=== PATIENT | female | born 1945 | race Caucasian/White ===

== ENCOUNTER 2023-03-29 09:59 | Outpatient (AMB) | payer MEDICARE, SELFPAY ==
[2023-03-29 10:06] VITALS: BP 132/80; PULSE 77; O2SAT 95; BMI 23.3
--- NOTE | 2023-03-29 10:06 | A.OFFPC_ITS ---
Vital Signs 03/29/23 10:06 Height 5 ft 5 in Weight 140 lb BMI 23.3 BP 132/80 Blood Pressure Location Lt brachial Position Sitting Pulse 77 Pulse Source Pulse Oximeter Pulse Oximetry (%) 95 Oxygen Delivery Method Room Air Intake Visit Reasons: New patient-Diabetes Intake Note: Patient is a new patient with a history of diabetes. Allergies penicillin V Allergy (Mild, Verified 03/29/23 10:12) phlebitis scallops Allergy (Mild, Verified 03/29/23 10:13) sick cramps Medication List - Last Reconciled 03/29/23 by Wojciech Valladares MD albuterol sulfate 90 mcg/actuation 2 puffs inhalation Q6H PRN aspirin 81 mg PO DAILY cholecalciferol (vitamin D3) 125 mcg PO DAILY empagliflozin (Jardiance) 10 mg PO DAILY gabapentin 300 mg PO BID hydrochlorothiazide 25 mg PO DAILY insulin detemir U-100 12 units subcut BEDTIME losartan 25 mg PO DAILY metformin 500 mg PO DAILY pravastatin 10 mg PO DAILY Tobacco use date assessed: 03/29/23 Fall risk assessment: 1 Fall in past year Last assessed Fall Risk: 03/29/23 Dental Screening Dental Screen Date: 03/29/23 Did you have a dental visit in the last 12 months?: Yes Did you have a dental problem in the last 6 months where you did not have access to dental care?: No Was dental information given to patient?: No HPI New patient-Diabetes HPI Details New patient Prior PCP:?Bassam Montaño from [place] Last office visit/CPE: October, CPE April Acute issue(s): Diabetes -A1c today 03/29/23 is 6.6%. -Is on insulin determir, Jardiance 10mg and metformin 500mg daily. She denies any problems with her medication regimen. Difficulty Sleeping Dysuria PMHx: CAD, Stent, HTN, HLD, OA knees, R Hip Fx SurgHx: Stent, Varicose vein stripping, R Hip ORIF, Tonsils, Cataracts FHx: Mom: HTN, Asthma. Dad: Unknown SocHx: Nonsmoker. EtOH none. PFS Medical History (Updated 03/29/23 @ 11:13 by Yonathan Acosta) Cataracts, bilateral Diabetes 1.5, managed as type 2 Tonsillitis Surgical History (Updated 03/29/23 @ 10:23 by Lorraine Gama CMA) H/O eye surgery H/O vein stripping History of hip surgery S/P TAVR (transcatheter aortic valve replacement) Stented coronary artery Family History (Updated 03/29/23 @ 10:25 by Lorraine Gama CMA) Mother Cerebral hemorrhage Social History (Updated 03/29/23 @ 10:27 by Lorraine Gama CMA) Household Members: None Housing: Other Housing Other:: trailer Are you a primary career guidance technician to a significant other at home: No Do you presently have visiting nurse or other home services: No Alcohol intake: never Patient Tobacco Use Status: Former Tobacco user e-Cigarette/Vaping Use: Never Used Special justino needs: No service: No Current occupational status: retired Cognitive needs: No Hearing needs: No Vision needs: No Questionnaire PHQ-9 Over the last 2 weeks, how often have you been bothered by any of the following problems? 1. Little interest or pleasure in doing things: not at all 2. Feeling down, depressed, or hopeless: not at all 3. Trouble falling or staying asleep, or sleeping too much: not at all 4. Feeling tired or having little energy: not at all 5. Poor appetite or overeating: not at all 6. Feeling bad about yourself - or that you are a failure or have let yourself or your family down: not at all 7. Trouble concentrating on things, such as reading the newspaper or watching television: not at all 8. Moving or speaking so slowly that other people could have noticed. Or the opposite - being so fidgety or restless that you have been moving around a lot more than usual: not at all 9. Thoughts that you would be better off or of hurting yourself in some way: not at all Total score: 0 Source: Developed by Drs. Simone Lombardi, Sydnee Sarkar, Garret Whyte and colleagues, with an educational jacey from [employer]. Thrive Questionnaire I am a: Patient What is your living situation today?: I have a steady place to live Within the past 12 months, did the food you bought not last and you didn't have the money to get more?: Never true Within the past 12 months, did you worry whether your food would run out before you got money to buy more?: Never true Do you have trouble paying for medicines?: Yes Do you have trouble getting transportation to medical appointments?: No Do you have trouble paying your heating and electricity bill?: Yes Do you have trouble taking care of your child, family member or friend?: No Do you have trouble with day-to-day activities such as bathing, preparing meals, shopping, managing finances, etc.?: Yes Are you currently unemployed and looking for a job?: No Are you interested in more education?: No AUDIT C Alcohol Use Questionnaire (AUDIT-C) 1. How often do you have a drink containing alcohol?: Never 3. How often do you have six or more drinks on one occasion?: Never Total Score: 0 CHIQUITA-7 AMB Questionnaire CHIQUITA-7 Feeling nervous, anxious, or on edge: 0 = Not at all Not being able to stop or control worryin = Not at all Worrying too much about different things: 0 = Not at all Trouble relaxin = Not at all Being so restless that it is hard to sit still: 0 = Not at all Becoming easily annoyed or irritable: 0 = Not at all Feeling afraid as if something awful might happen: 0 = Not at all Total CHIQUITA-7 score (0-4 normal; 5-9 mild; 10-14 moderate; 15-21 severe): 0 Source: Developed by Drs. Simone Lombardi, Sydnee Sarkar, Garret Whyte and colleagues, with an educational jacey from [employer]. ACT Questionnaire In the past 4 weeks, how much of the time did your asthma keep you from getting as much done at work, school or at home?: None of the time During the past 4 weeks, how often have you had shortness of breath?: Not at all During the past 4 weeks, how often did your asthma symptoms wake you up at night or earlier than usual in the morning?: Not at all During the past 4 weeks, how often have you had to use your rescue inhaler or nebulizer medication?: Once a week or less How would you rate your asthma control during the past 4 weeks?: Well controlled Score: 23 Review of Systems Const Denies chills, Denies fatigue, Denies fever(s), Denies headache(s) and Denies weakness ENT Denies dizziness and Denies headache(s) Card Denies chest pain, Denies lightheadedness, Denies dyspnea and Denies other (Palpitations) Resp Denies cough, Denies dyspnea, Denies wheezing and Denies other ( shortness of breath) Musc Denies numbness and Denies tingling Neuro Denies dizziness, Denies headache(s), Denies numbness, Denies tingling, Denies paresthesias and Denies weakness Psych Denies anxiety and Denies depression Endo Denies fatigue Aller/Immun Denies wheezing Physical exam (Primary Care) Vital Signs: Last Vital Signs Pulse 77 03/29/23 10:06 BP 132/80 03/29/23 10:06 Pulse Ox 95 03/29/23 10:06 Oxygen Delivery Method Room Air 03/29/23 10:06 BMI result Body Mass Index 23.3 Tobacco/Smoking Status: Tobacco use Status Tobacco use date assessed 03/29/23 03/29/23 10:33 Patient Tobacco Use Status Former Tobacco user 03/29/23 10:33 e-Cigarette/Vaping Use Never Used 03/29/23 10:33 PHQ-9: PHQ-9 Score PHQ-9: Total score 0 03/29/23 10:56 Const General: no acute distress and well developed Nutritional Appearance: well nourished Orientation/consciousness: patient oriented x3 [facility] Head: Yes normocephalic and Yes atraumatic Eyes General: appearance normal, both eyes and all related structures Pupils: Equal, round and reactive pupils present EOM: EOMs intact bilaterally Resp Effort & Inspection: normal respiratory effort Auscultation: clear to auscultation bilaterally Cardio Rate: regular rate Rhythm: regular rhythm Heart sounds: Murmur heart sound present (aortic murmur) Neuro General: patient oriented x3 and gait normal Cranial nerves: Yes Equal, round and reactive pupils present Psych Affect: normal affect Results AMB Hemoglobin A1c AMB Hemoglobin A1c 6.6 % Last Edit by Lorraine Gama CMA on 03/29/23 10:45 AMB Urinalysis Dipstick UR Leukocytes Large Last Edit by Lorraine Gama CMA on 03/29/23 11:31 UR Nitrite Positive Last Edit by Lorraine Gama CMA on 03/29/23 11:31 UR Urobilinogen Normal Last Edit by Lorraine Gama CMA on 03/29/23 11:31 UR Protein Negative Last Edit by Lorraine Gama CMA on 03/29/23 11:31 UR Ph 6.0 Last Edit by Lorraine Gama CMA on 03/29/23 11:31 UR Blood Small Last Edit by Lorraine Gama CMA on 03/29/23 11:31 UR Specific [place] 1.010 Last Edit by Lorraine Gama CMA on 03/29/23 11:3 1 UR Ketone Negative Last Edit by Lorraine Gama CMA on 03/29/23 11:31 UR Bilirubin Negative Last Edit by Lorraine Gama CMA on 03/29/23 11:31 UR Glucose 2000 Last Edit by Lorraine Gama CMA on 03/29/23 11:31 Results Reviewed Results Reviewed: Laboratory Last Values Hgb A1c (Clinic) 6.6 % (4.0-6.0) H 03/29/23 10:40 Urine pH (Clinic) 6.0 03/29/23 11:27 Specific [place] (Clinic) 1.010 03/29/23 11:27 Ur Protein (Clinic) Negative 03/29/23 11:27 Ur Ketones (Clinic) Negative 03/29/23 11:27 Urine Blood (Clinic) Small 03/29/23 11:27 Urine Nitrite Positive 03/29/23 11:27 Urine Bilirubin (Clinic) Negative 03/29/23 11:27 Urobilinogen (Clinic) Normal 03/29/23 11:27 Leukocyte Esterase (Clinic) Large 03/29/23 11:27 Urine Glucose (Clinic) 2000 03/29/23 11:27 Assessment and Plan Assessment & Plan (1) Hypertension: Code(s): I10 - Essential (primary) hypertension Plan: Blood pressure is fairly well controlled. Goal is less than 130/80 Continue current medication regimen (2) Diabetes 1.5, managed as type 2: Code(s): E13.9 - Other specified diabetes mellitus without complications Plan: A1c 6.6%. Good control. Goal is less than 7.0% Continue current medication regimen (3) Difficulty sleeping: Code(s): G47.9 - Sleep disorder, unspecified Plan: Primarily difficulty falling asleep Trial trazodone - risks/benefits discussed (4) Dysuria: Code(s): R30.0 - Dysuria Plan: Urine dip suspicious for UTI Start nitrofurantoin Hydrate well Sending urine for culture and sensitivities (5) Coronary artery disease: Code(s): I25.10 - Atherosclerotic heart disease of [place] coronary artery without angina pectoris Plan: History of coronary artery disease and stent Currently on pravastatin and aspirin Check lipids Maintain good blood pressure and blood sugar control (6) Osteoarthritis: Code(s): M19.90 - Unspecified osteoarthritis, unspecified site Plan: Bilateral knee pain Continue gabapentin Can use Tylenol and topicals as well as ice and heat (7) Laboratory exam ordered as part of routine general medical examination: Code(s): Z00.00 - Encounter for general adult medical examination without abnormal findings Plan: Check labs Orders: Orders Comprehensive [place]. Panel Fast Today Z00.00 - Encounter for general adult medical examination without abnormal findings Lipid Panel Today Z00.00 - Encounter for general adult medical examination without abnormal findings TSH reflex Free T4 Today Z00.00 - Encounter for general adult medical examination without abnormal findings Microalbumin, Random (w Creat) Today I10 - Essential (primary) hypertension Complete Blood Count Auto Diff Today Z00.00 - Encounter for general adult medical examination without abnormal findings UA and rflx microscopic Today Z00.00 - Encounter for general adult medical examination without abnormal findings Urine Culture Today R30.0 - Dysuria AMB Hemoglobin A1c Today Z13.9 - Encounter for screening, unspecified Urine Dipstick Today R30.0 - Dysuria AMB Urinalysis Dipstick Today R30.0 - Dysuria Medications: New nitrofurantoin macrocrystal must administer with a meal/food 100 mg PO Q12H 7 days 14 caps 0RF trazodone 25 mg (1/2 x 50 mg) PO BEDTIME PRN 30 tabs 0RF sleep 30 days Coding Level of Care Code New Pt Level 4 (12800) Diagnoses Hypertension I10 Diabetes 1.5, managed as type 2 E13.9 Difficulty sleeping G47.9 Dysuria R30.0 Coronary artery disease I25.10 Osteoarthritis M19.90 Laboratory exam ordered as part of routine general medical examination Z00.00
== END 2023-03-29 11:51 | disposition home or self-care (01) ==
PROVIDERS: Visit Provider Family Medicine
DX: I10 Essential (primary) hypertension (principal); E13.9 Other specified diabetes mellitus without complications; G47.9 Sleep disorder, unspecified; R30.0 Dysuria; I25.10 Atherosclerotic heart disease of native coronary artery without angina pectoris; M19.90 Unspecified osteoarthritis, unspecified site
CPT/HCPCS: 81002; 83036; 99204

== ENCOUNTER 2023-03-29 11:17 | Outpatient (REF) | payer MEDICARE, SELFPAY ==
[2023-03-29 14:30] LABS: Appearance Urine Cloudy; Color Urine Yellow; Glucose Urine UA >=1000 mg/dL (Negative); Leukocyte Esterase Urine Moderate (2+) (Negative); Nitrite Urine Negative (Negative); Specific Gravity - Urine 1.015 (1.005-1.025); UMIC TRIGGER UA YES; Urine Blood Trace (Negative); Urine Ketones Negative (Negative); Urine Protein Negative (Neg-Trace)
[2023-03-29 14:33] LABS: Bacteria Urine 4+ (None Seen); Hyaline Casts Urine 0-2 /LPF (0-2); RBC Urine 0-2 /HPF (0-2); Squamous Epithelial Cell Urine 0-2 /HPF (0-2); WBC Urine >50 /HPF (0-5)
[2023-03-29 15:23] LABS: Creatinine Urine 24.82 mg/dL; Microalbum/Creatinine Ratio Ur 60.4 ug/mg cr
== END 2023-03-29 11:18 | disposition home or self-care (01) ==
LOC: HO.LAB 11:17
PROVIDERS: Visit Provider Family Medicine
DX: I10 Essential (primary) hypertension (principal); R30.0 Dysuria
CPT/HCPCS: 81001; 82043; 87086; 87088; 87186

== ENCOUNTER 2023-06-02 08:51 | Outpatient (REF) | payer MEDICARE, SELFPAY ==
[2023-06-02 11:39] LABS: MANUAL DIFF FLAG NO
[2023-06-02 11:50] LABS: Basophils Absolute Auto 0.1 X10*3/uL (0.0-0.2); Basophils Percent Auto 1.1 % (0-2); Eosinophils Absolute Auto 0.7 X10*3/uL (0.0-0.4); Eosinophils Percent Auto 6.6 % (0-4); Hematocrit 41.6 % (37.0-47.0); Hemoglobin 12.8 g/dl (12.0-16.0); Imm Gran Abs Auto 0.03 X10*3/uL (0.00-0.03); Imm Gran Pct Auto 0.3 % (0.0-0.4); Lymphocytes Percent Auto 19.1 % (20-40); Mean Corpuscular HGB Conc 30.8 g/dl (31.0-35.0); Mean Corpuscular Hemoglobin 23.8 pg (27.0-33.0); Mean Corpuscular Volume 77.5 fL (80.0-98.0); Mean Platelet Volume 11.6 fL (9.4-12.3); Monocytes Absolute Auto 1.3 X10*3/uL (0.1-1.2); Monocytes Percent Auto 12.7 % (2-11); Neutrophils Absolute Auto 6.1 x10*3/uL (2.0-8.3); Neutrophils Percent Auto 60.2 % (45-73); Platelet Count 360 X10*3/uL (160-400); Red Blood Count 5.37 X10*6/uL (4.20-5.50); Red Cell Distribution Width 17.2 % (11.0-16.0); White Blood Count 10.2 X10*3/uL (4.8-10.8)
[2023-06-02 11:52] LABS: Appearance Urine Clear; Color Urine Yellow; Glucose Urine UA >=1000 mg/dL (Negative); Leukocyte Esterase Urine Small (1+) (Negative); Nitrite Urine Negative (Negative); PH 6.5 (5.0-9.0); Specific Gravity - Urine 1.015 (1.005-1.025); UMIC TRIGGER UA YES; Urine Blood Negative (Negative); Urine Ketones Negative (Negative); Urine Protein Negative (Neg-Trace)
[2023-06-02 11:55] LABS: Bacteria Urine None Seen (None Seen); Hyaline Casts Urine 0-2 /LPF (0-2)
[2023-06-02 12:24] LABS: Alanine Aminotransferase 8 U/L (0-31); Alkaline Phosphatase 80 U/L (39-117); Anion Gap 16 (12-20); Aspartate Amino Transferase 13 U/L (5-31); Bilirubin Total 0.5 mg/dL (0.0-1.0); Blood Urea Nitrogen 16 mg/dL (9-16); Calcium 9.8 mg/dL (8.4-10.2); Carbon Dioxide 27 mmol/L (22-29); Chloride 101 mmol/L (96-108); Cholesterol 138 mg/dL (<200); Estimated Glomerular Filt Rate > 60; Glucose Fasting 109 mg/dL (60-99); HDL Cholesterol 41 mg/dL (>40); LDL Cholesterol Calculated 78 mg/dL (<100); Potassium 3.7 mmol/L (3.3-5.1); Sodium 140 mmol/L (135-145); Triglycerides 96 mg/dL (<150)
== END 2023-06-02 08:52 | disposition home or self-care (01) ==
LOC: HO.WFDLDS 08:51
PROVIDERS: Visit Provider Family Medicine
DX: Z00.00 Encounter for general adult medical examination without abnormal findings (principal); R82.90 Unspecified abnormal findings in urine
CPT/HCPCS: 36415; 80053; 80061; 81001; 84443; 85025

== ENCOUNTER 2023-06-14 10:52 | Outpatient (AMB) | payer MEDICARE, SELFPAY ==
--- NOTE | 2023-06-14 11:08 | MHC.PC.OV ---
Vital Signs 06/14/23 11:12 Height 5 ft 5 in Weight 143 lb 2 oz BMI 23.8 BP 102/58 L Blood Pressure Location Lt brachial Position Sitting Pulse 83 Pulse Source Pulse Oximeter Pulse Oximetry (%) 96 Oxygen Delivery Method Room Air Intake Visit Reasons: Extended exam with f/u labs and health maintenance Intake Note: Patient is here for extended exam and follow up on labs and health maintenance. Patient is concerned about low blood pressure for a few weeks. Allergies penicillin V Allergy (Mild, Verified 06/14/23 11:16) phlebitis scallops Allergy (Mild, Verified 06/14/23 11:16) sick cramps Medication List - Last Reconciled 06/14/23 by Wojciech Valladares MD albuterol sulfate 90 mcg/actuation 2 puffs inhalation Q6H PRN aspirin 81 mg PO DAILY cholecalciferol (vitamin D3) 125 mcg PO DAILY empagliflozin (Jardiance) 10 mg PO DAILY gabapentin 300 mg PO BID hydrochlorothiazide 25 mg PO DAILY insulin detemir U-100 12 units subcut BEDTIME losartan 25 mg PO DAILY metformin 500 mg PO DAILY pravastatin 10 mg PO DAILY trazodone 25 mg (1/2 x 50 mg) PO BEDTIME PRN 30 days Tobacco use date assessed: 06/14/23 Fall risk assessment: 1 Fall in past year Last assessed Fall Risk: 06/14/23 HPI Extended exam with f/u labs and health maintenance HPI Details 77 y/o female presents for an extended exam with f/u labs and health maintenance. Labs were drawn 06/02/23. Reviewed labs with pt. Elevated fasting glucose of 109 and last A1c 03/29/23 6.6%. Triglycerides 96. TC 138. LDL 78. HDL 41. Urine RBC 3-5/HPF. Some urine WBC at 6-10 /HPF. Blood pressure today 102/58. She is on hydrochlorothiazide 25mg and losartan 25mg daily. Pt reports bilateral knee pain. [facility], [facility] Medical History (Updated 06/14/23 @ 12:33 by Yonathan Acosta) Cataracts, bilateral Tonsillitis Diabetes 1.5, managed as type 2 Surgical History (Updated 03/29/23 @ 10:23 by Lorraine Gama [facility]) H/O eye surgery H/O vein stripping History of hip surgery Stented coronary artery S/P TAVR (transcatheter aortic valve replacement) Family History (Updated 03/29/23 @ 10:25 by Lorraine Gama CMA) Mother Cerebral hemorrhage Social History (Updated 03/29/23 @ 10:27 by Lorraine Gama CMA) Household Members: None Housing: Other Housing Other:: trailer Are you a primary nursing care attendant to a significant other at home: No Do you presently have visiting nurse or other home services: No 75 years or older and lives alone: Yes Alcohol intake: never Patient Tobacco Use Status: Former Tobacco user e-Cigarette/Vaping Use: Never Used Special justino needs: No service: No Current occupational status: retired Cognitive needs: No Hearing needs: No Vision needs: No Review of Systems Const Denies chills, Denies fatigue, Denies fever(s), Denies headache(s) and Denies weakness Eyes Denies change in vision ENT Denies dizziness, Denies headache(s), Denies hearing loss, Denies nasal congestion, Denies sinus pain, Denies sinus pressure and Denies sore throat Card Denies chest pain, Denies lightheadedness, Denies dyspnea and Denies other (palpitations) Resp Denies cough, Denies dyspnea and Denies wheezing GI Denies abdominal pain, Denies melena, Denies hematochezia, Denies change in bowel habits, Denies dyspepsia and Denies nausea Denies hematuria and Denies dysuria Musc Denies abnormal gait, Denies myalgias, Denies arthralgias, Denies numbness and Denies tingling Skin/Breast Denies rash, Denies unusual bruising and Denies wounds Neuro Denies abnormal gait, Denies dizziness, Denies headache(s), Denies memory loss, Denies numbness, Denies Sensory deficit (Neuro), Denies tingling and Denies weakness Psych Denies anxiety, Denies depression and Denies memory loss Endo Denies cold intolerance, Denies fatigue, Denies heat intolerance, Denies polydipsia and Denies polyuria Harman/Lymph Denies easy bleeding and Denies easy bruising Aller/Immun Denies wheezing Physical exam (Primary Care) Vital Signs: Last Vital Signs Pulse 83 06/14/23 11:12 BP 102/58 L 06/14/23 11:12 Pulse Ox 96 06/14/23 11:12 Oxygen Delivery Method Room Air 06/14/23 11:12 BMI result Body Mass Index 23.8 Tobacco/Smoking Status: Tobacco use Status Tobacco use date assessed 06/14/23 06/14/23 11:16 Patient Tobacco Use Status Former Tobacco user 06/14/23 11:10 e-Cigarette/Vaping Use Never Used 06/14/23 11:10 Const General: no acute distress, well developed, alert and awake Nutritional Appearance: well nourished Orientation/consciousness: patient oriented x3 HEN[facility] Head: Yes normocephalic and Yes atraumatic Ears: hearing grossly normal bilaterally and TM's normal bilaterally General nose exam: Normal external nose present and Normal nares present Mouth: Normal oral and palatal mucosa present and moist mucous membranes Teeth and gingiva: dentition normal Throat: Yes posterior oropharynx normal Eyes General: appearance normal, both eyes and all related structures Pupils: Equal, round and reactive pupils present and Pupil accommodation reflex normal EOM: EOMs intact bilaterally Neck Neck: Yes normal visual inspection, Yes no lymphadenopathy and Yes trachea midline Thyroid: Thyroid normal Carotids: no bruits Lymphatic: no lymphadenopathy noted Chest Chest palpation & inspection: normal inspection of the chest Resp Effort & Inspection: normal respiratory effort Auscultation: clear to auscultation bilaterally Cardio Rate: regular rate Rhythm: regular rhythm Heart sounds: S1 normal heart sound present, S2 normal heart sound present, no gallops, no murmurs and no rubs Bruits: no abdominal aortic bruits and carotid bruit (L ) GI Palpation (GI): No Abdominal aortic bruit present, Soft to palpation, nontender, No hepatosplenomegaly present and No Rebound tenderness present Auscultation: normal bowel sounds General: Yes no CVA tenderness Back/Spine/Pelvis Back: no CVA tenderness Cervical Spine: cervical ROM normal and No Cervical spine tenderness Thoracic/Lumbar Spine: thoraco-lumbar ROM normal, No pain with thoraco-lumbar ROM, No thoracic spinal tenderness and No lumbar spinal tenderness Skin Lesions: no lesions Rashes: no rashes Trauma: no lacerations or abrasions Wounds: no wounds Nails: normal Neuro General: patient oriented x3 Cranial nerves: Yes Equal, round and reactive pupils present Cognition (Neuro): normal cognition Gait exam (Neuro): Normal gait present Motor exam (neuro): 5/5 motor strength present throughout Sensory Exam: No Sensory deficit (Neuro) Deep tendon reflexes (DTR's): Right patellar reflex intensity grade: 2+ and Left patellar reflex intensity grade: 2+ Extrem General: Yes normal to inspection and No edema Psych Appearance: grossly normal Affect: normal affect Attitude: cooperative Thought process: Normal thought process present Assessment and Plan Assessment & Plan (1) Carotid bruit: Code(s): R09.89 - Other specified symptoms and signs involving the circulatory and respiratory systems Plan: Patient?with?hyperlipidemia?and?coronary?artery?disease - left?carotid?bruit Check?carotid?ultrasound (2) Coronary artery disease: Code(s): I25.10 - Atherosclerotic heart disease of habematolel coronary artery without angina pectoris Plan: LDL?cholesterol?is?above?goal?of?less?than?70 Increase?pravastatin (3) Hypertension: Code(s): I10 - Essential (primary) hypertension Plan: Blood?pressure?is?a?little?low?and?she?notes?some?lightheadedness Will?ease?up?on?hydrochlorothiazide Decrease?hydrochlorothiazide?from?25?mg?daily?to?12.5?mg?daily (4) Diabetes 1.5, managed as type 2: Code(s): E13.9 - Other specified diabetes mellitus without complications Plan: Last?A1c?6.6%?showed?good?control.??Goal?is?less?than?7.0% No?changes?to?blood?sugar?regimen (5) Hematuria: Code(s): R31.9 - Hematuria, unspecified Plan: History?of?urinary?tract?infection?which?was?treated?with?Bactrim (6) Bilateral knee pain: Code(s): M25.561 - Pain in right knee; M25.562 - Pain in left knee Plan: Patient?has?[id number]?osteoarthritis?bilateral?knees Follow-up?with?orthopedic?specialist?as?recommended (7) Abscess of foot: Code(s): L02.619 - Cutaneous abscess of unspecified foot Plan: Abscess?on?great?toe Can?use?Epson?salt?soaks?and?blister?bandages Will?likely?come?to?a?head?and?drain?and?she?can?encouraged?this Referred?to?Podiatry (8) Carotid bruit: Code(s): R09.89 - Other specified symptoms and signs involving the circulatory and respiratory systems Plan: As?above (9) Screening for colon cancer: Code(s): Z12.11 - Encounter for screening for malignant neoplasm of colon Plan: Up-to-date.??She?says?her?next?colonoscopy?is?scheduled?for?next?year?and?this?will?be?her?last. (10) Cerumen impaction: Code(s): H61.20 - Impacted cerumen, unspecified ear (11) Breast cancer screening by mammogram: Code(s): Z12.31 - Encounter for screening mammogram for malignant neoplasm of breast Plan: Declines?mammogram Advised?her?to?let?me?know?if?she?notices?any?problem (12) Screening for osteoporosis: Code(s): Z13.820 - Encounter for screening for osteoporosis Plan: Bone?density?ordered (13) Cerumen debris on tympanic membrane of right ear: Code(s): H61.21 - Impacted cerumen, right ear Plan: Improved/resolved?after?ear?lavage?in?office?by?medical?department assistant She?can?use?Debrox?drops?2?to?3?times?a?week (14) Adult general medical exam: Code(s): Z00.00 - Encounter for general adult medical examination without abnormal findings Plan: 77-year-old?female?presents?for?an?extended?exam Stable Orders: Orders US carotid duplex BI Today E78.5 - Hyperlipidemia, unspecified, I25.10 - Atherosclerotic heart disease of habematolel coronary artery without angina pectoris, R09.89 - Other specified symptoms and signs involving the circulatory and respiratory systems XR DEXA axial skeleton Today M81.0 - Age-related osteoporosis without current pathological fracture Lipid Panel Today E78.5 - Hyperlipidemia, unspecified, Z00.00 - Encounter for general adult medical examination without abnormal findings Comprehensive [place]. Panel Fast Today E78.5 - Hyperlipidemia, unspecified, Z00.00 - Encounter for general adult medical examination without abnormal findings Referrals Podiatry Referral L02.619 - Cutaneous abscess of unspecified foot Medications: Changed From hydrochlorothiazide 25 mg PO DAILY To hydrochlorothiazide 12.5 mg PO DAILY 90 days 90 tabs 2RF From pravastatin 10 mg PO DAILY To pravastatin 20 mg PO DAILY 90 days 90 tabs 2RF Discontinued sulfamethoxazole-trimethoprim 800-160 mg (Bactrim DS) Discontinued Reason: Patient Completed Course 1 tab PO Q12H 5 days 10 tabs 0RF nitrofurantoin macrocrystal must administer with a meal/food Discontinued Reason: Patient Completed Course 100 mg PO Q12H 7 days 14 caps 0RF Coding Level of Care Code Est Pt Level 4 (62284) Diagnoses Carotid bruit R09.89 Coronary artery disease I25.10 Hypertension I10 Diabetes 1.5, managed as type 2 E13.9 Hematuria R31.9 Bilateral knee pain M25.561; M25.562 Abscess of foot L02.619 Screening for colon cancer Z12.11 Cerumen impaction H61.20 Breast cancer screening by mammogram Z12.31 Screening for osteoporosis Z13.820 Cerumen debris on tympanic membrane of right ear H61.21 Adult general medical exam Z00.00
[2023-06-14 11:12] VITALS: BP 102/58; PULSE 83; O2SAT 96; BMI 23.8
== END 2023-06-14 12:37 | disposition home or self-care (01) ==
PROVIDERS: PCP Family Medicine; Visit Provider Family Medicine
DX: R09.89 Other specified symptoms and signs involving the circulatory and respiratory systems (principal); E13.9 Other specified diabetes mellitus without complications; I25.10 Atherosclerotic heart disease of native coronary artery without angina pectoris; I10 Essential (primary) hypertension; R31.9 Hematuria, unspecified; M25.561 Pain in right knee; M25.562 Pain in left knee; L02.619 Cutaneous abscess of unspecified foot; H61.21 Impacted cerumen, right ear
CPT/HCPCS: 99214

== ENCOUNTER 2024-01-12 08:45 | Outpatient (REF) | payer MEDICARE, SELFPAY ==
[2024-01-12 11:43] LABS: Appearance Urine Clear; Color Urine Yellow; Glucose Urine UA >=1000 mg/dL (Negative); Leukocyte Esterase Urine Trace (Negative); Nitrite Urine Negative (Negative); UMIC TRIGGER UA YES; Urine Blood Negative (Negative); Urine Ketones Negative (Negative); Urine Protein Negative (Neg-Trace)
[2024-01-12 11:50] LABS: Bacteria Urine None Seen (None Seen); Hyaline Casts Urine 0-2 /LPF (0-2); RBC Urine 0-2 /HPF (0-2); WBC Urine 0-5 /HPF (0-5)
[2024-01-12 12:37] LABS: Alanine Aminotransferase 10 U/L (0-31); Albumin Level 3.7 g/dL (3.5-5.0); Alkaline Phosphatase 84 U/L (39-117); Anion Gap 11 (12-20); Aspartate Amino Transferase 18 U/L (5-31); Bilirubin Total 0.4 mg/dL (0.0-1.0); Blood Urea Nitrogen 13 mg/dL (9-16); Calcium 9.1 mg/dL (8.4-10.2); Carbon Dioxide 28 mmol/L (22-29); Chloride 106 mmol/L (96-108); Cholesterol 117 mg/dL (<200); Estimated Glomerular Filt Rate > 60; Glucose Fasting 89 mg/dL (60-99); HDL Cholesterol 44 mg/dL (>40); LDL Cholesterol Calculated 60 mg/dL (<100); Potassium 3.9 mmol/L (3.3-5.1); Sodium 141 mmol/L (135-145); Total Protein 6.4 g/dL (6.5-8.0); Triglycerides 68 mg/dL (<150)
== END 2024-01-12 08:46 | disposition home or self-care (01) ==
LOC: HO.WFDLDS 08:45
PROVIDERS: Visit Provider Family Medicine
DX: Z00.00 Encounter for general adult medical examination without abnormal findings (principal); E78.5 Hyperlipidemia, unspecified
CPT/HCPCS: 36415; 80053; 80061; 81001

== ENCOUNTER 2024-01-18 16:25 | Outpatient (AMB) | payer MEDICARE, SELFPAY ==
[2024-01-18 16:29] VITALS: BP 122/58; PULSE 81; O2SAT 96; BMI 24.2
--- NOTE | 2024-01-18 16:29 | A.OFFPC_ITS ---
Vital Signs 01/18/24 16:29 Height 5 ft 5 in Weight 145 lb 8 oz BMI 24.2 BP 122/58 L Blood Pressure Location Lt brachial Position Sitting Pulse 81 Pulse Source Pulse Oximeter Pulse Oximetry (%) 96 Oxygen Delivery Method Room Air Intake Visit Reasons: diabetes Intake Note: Patient is here to follow up on diabetes. Patient needs refill of Gabapentin and Metformin for 90 days. She needs referrals for [facility] Nay NARAYANAN, and Dr. Juan C Rios, and [facility]. Allergies penicillin V Allergy (Mild, Verified 01/18/24 16:35) phlebitis scallops Allergy (Mild, Verified 01/18/24 16:35) sick cramps Medication List - Last Reconciled 01/18/24 by Wojciech Valladares MD albuterol sulfate 90 mcg/actuation 2 puffs inhalation Q6H PRN aspirin 81 mg PO DAILY cholecalciferol (vitamin D3) 125 mcg PO DAILY empagliflozin (Jardiance) 10 mg PO DAILY gabapentin 300 mg PO BID 90 days hydrochlorothiazide 12.5 mg PO DAILY 90 days insulin detemir U-100 12 units subcut BEDTIME losartan 25 mg PO DAILY metformin 500 mg PO DAILY 90 days nirmatrelvir-ritonavir 300 mg (150 mg x 2)-100 mg (Paxlovid) take TWO 150 mg tablets of nirmatrelvir with ONE 100 mg tablet of ritonavir twice daily for 5 days PO. Hold Trazodone while on this med. pravastatin 20 mg PO DAILY 90 days trazodone 25 mg (1/2 x 50 mg) PO BEDTIME PRN 30 days Tobacco use date assessed: 01/18/24 Fall risk assessment: No Falls in past year Last assessed Fall Risk: 01/18/24 Dental Screening Dental Screen Date: 01/18/24 Did you have a dental visit in the last 12 months?: No Did you have a dental problem in the last 6 months where you did not have access to dental care?: No Was dental information given to patient?: Patient has dentist HPI diabetes HPI0 Details 78 y/o female presents to f/u diabetes, hypertension, HLD with CAD and L carotid bruit for which I have ordered a carotid ultrasound. Labs were drawn 01/12/24. Reviewed labs with pt. Triglycerides 68. TC 117. LDL 60. HDL 44. She is on pravastatin 20 mg daily. Last A1c 03/29/23 6.6%. She is on Jardiance 10mg, insulin determinr 12 units, metformin 500mg daily. A1c today 01/18/24 is 6.6%. Blood pressure today is 122/58. She is on losartan 25mg, HCTZ 12.5mg daily. Pt reports arthritis/carpal tunnel and L knee pain. Pt reports some urinary frequency. HPI Comments History of Present Illness Details Documentation assistance for Wojciech Valladares MD, was provided by Yonathan Acosta,? Substation Engineer on 01/18/2024 at 4:39 PM EST. I, Dr. Valladares, have read, observed, and verified documentation. [facility], [facility] Medical History Cataracts, bilateral Tonsillitis Diabetes 1.5, managed as type 2 Surgical History H/O eye surgery H/O vein stripping History of hip surgery Stented coronary artery S/P TAVR (transcatheter aortic valve replacement) Family History (Updated 01/18/24 @ 16:41 by Lorraine Gama CMA) Mother Cerebral hemorrhage Social History Household Members: None Housing: Other Housing Other:: trailer Are you a primary skin care consultant to a significant other at home: No Do you presently have visiting nurse or other home services: No 75 years or older and lives alone: Yes Alcohol intake: never Patient Tobacco Use Status: Former Tobacco user e-Cigarette/Vaping Use: Never Used Special justino needs: No service: No Current occupational status: retired Cognitive needs: No Hearing needs: No Vision needs: No Review of Systems Const Denies chills, Denies fatigue, Denies fever(s), Denies headache(s) and Denies weakness ENT Denies dizziness and Denies headache(s) Card Denies dyspnea Resp Denies cough, Denies dyspnea, Denies wheezing and Denies other (shortness of breath) Musc Denies numbness and Denies tingling Neuro Denies dizziness, Denies headache(s), Denies numbness, Denies tingling and Denies weakness Psych Denies anxiety and Denies depression Endo Denies fatigue Aller/Immun Denies wheezing Physical exam (Primary Care) BMI result Body Mass Index 24.2 Tobacco/Smoking Status: Tobacco use Status Tobacco use date assessed 01/18/24 01/18/24 16:38 Patient Tobacco Use Status Former Tobacco user 01/18/24 16:31 e-Cigarette/Vaping Use Never Used 01/18/24 16:31 Const General: well developed; No acute distress Nutritional Appearance: well nourished Orientation/consciousness: patient oriented x3 HENMT Head: Yes normocephalic and Yes atraumatic Eyes General: appearance normal, both eyes and all related structures Pupils: Equal, round and reactive pupils present EOM: EOMs intact bilaterally Resp Effort & Inspection: normal respiratory effort Neuro General: patient oriented x3 and gait normal Cranial nerves: Yes Equal, round and reactive pupils present Psych Affect: normal affect Results AMB Hemoglobin A1c AMB Hemoglobin A1c 6.6 % Last Edit by Lorraine Gama CMA on 01/18/24 17:01 Assessment and Plan Assessment & Plan (1) Hypertension: Code(s): I10 - Essential (primary) hypertension Plan: Blood?pressure?is?controlled.??Had? decreased?her?hydrochlorothiazide?at?last?visit?due?to?some?low?blood?pressures. Goal?is?less?than?130/80 Continue?current?medication?regimen (2) Coronary artery disease: Code(s): I25.10 - Atherosclerotic heart disease of pala coronary artery without angina pectoris Plan: She?is?on?aspirin?and?pravastatin Continue?current?medication?regimen Follow-up?with?Cardiology-I?have?made?a?referral?at?patient's?request (3) Hyperlipidemia: Code(s): E78.5 - Hyperlipidemia, unspecified Plan: Increased?pravastatin?as?her?LDL?goal?is?less?than?70?and?she?was?above?this Now?at?goal Continue?pravastatin?as?prescribed (4) Diabetes: Code(s): E11.9 - Type 2 diabetes mellitus without complications Plan: A1c?6.6%.??Good?control.??Goal?is?less?than?7.0% Continue?current?medications (5) Osteoarthritis: Code(s): M19.90 - Unspecified osteoarthritis, unspecified site Plan: Osteoarthritis?particularly?at?left?knee Referred?to?[facility]?as?she?has?been?seen?there?before. (6) Knee pain: Code(s): M25.569 - Pain in unspecified knee Plan: As?above,?referred?to?Ortho (7) Urinary frequency: Code(s): R35.0 - Frequency of micturition Plan: Wi ll?treat?empirically?with?Bactrim?as?patient?has?had?a?good?response?to?this?in? the?past Orders: Orders AMB Hemoglobin A1c Today Z13.9 - Encounter for screening, unspecified Referrals Orthopedics Referral M25.569 - Pain in unspecified knee Ophthalmology Referral E11.9 - Type 2 diabetes mellitus without complications Cardiology Referral I25.10 - Atherosclerotic heart disease of pala coronary artery without angina pectoris Medications: Changed From gabapentin 300 mg PO BID To gabapentin 300 mg PO BID 90 days 180 caps 2RF From metformin 500 mg PO DAILY To metformin 500 mg PO DAILY 90 days 90 tabs 2RF Coding Level of Care Code Est Pt Level 4 (95542) Diagnoses Hypertension I10 Coronary artery disease I25.10 Hyperlipidemia E78.5 Diabetes E11.9 Osteoarthritis M19.90 Knee pain M25.569 Urinary frequency R35.0
== END 2024-01-18 17:09 | disposition home or self-care (01) ==
PROVIDERS: PCP Family Medicine; Visit Provider Family Medicine
DX: I10 Essential (primary) hypertension (principal); I25.10 Atherosclerotic heart disease of native coronary artery without angina pectoris; E78.5 Hyperlipidemia, unspecified; E11.9 Type 2 diabetes mellitus without complications; M19.90 Unspecified osteoarthritis, unspecified site; M25.562 Pain in left knee; R35.0 Frequency of micturition
CPT/HCPCS: 83036; 99214

== ENCOUNTER 2024-01-20 11:14 | Outpatient (REF) | payer MEDICARE, SELFPAY ==
--- NOTE | ~2024-01-20 | MM_ITS ---
EXAMINATION: BONE DENSITOMETRY CLINICAL INDICATION: Age-related osteoporosis without current pathological fracture. COMPARISON: This is the patient's baseline examination. TECHNIQUE: Using a [employer] DXA System (software version: 13.1) manufactured by [employer], dual-energy x-ray absorptiometry was performed of the lumbar spine and left hip. The images are of good technical quality. Summary results are attached. FINDINGS: LEFT FEMUR, NECK: BMD 0.741 g/cm2, Z-score -0.1, T-score -2.1, osteopenia. LEFT FEMUR, TOTAL: BMD 0.722 g/cm2, Z-score -0.4, T-score -2.3, osteopenia. AP SPINE L1-L2 (excluding L3 and L4): The data of L1-L4 has been changed to exclude the L3 and L4 vertebral bodies, because degenerative sclerosis at these levels may cause overestimation of lumbar spine density. BMD 0.998 g/cm2, Z-score 0.4, T-score -1.4, osteopenia. IDENTIFIED RISK FACTORS: Menopause, history of fracture (adult), rheumatoid arthritis, thiazide. HISTORY OF FRACTURE: Femur/hip. MEDICATIONS: Vitamin D. MM/XR DEXA axial skeleton IMPRESSION: 1. DIAGNOSIS: Osteopenia based on the lowest T-score value of -2.3 in the total femur applying World Health Organization criteria. 2. 10-YEAR FRACTURE RISK PREDICTION, FRAX: Major osteoporotic fracture (clinical spine, forearm, hip or shoulder) 28.9%. Hip fracture 9.2%. 3. Treatment Recommendations: NOF guidelines recommend consideration for treatment in postmenopausal women and men age 50 and older presenting with the following: -A hip or vertebral (clinical or morphometric) fracture. -T-score less than or equal to -2.5 at the femoral neck or spine after appropriate evaluation to exclude secondary causes. -Low bone mass at the hip or spine and a 10-year fracture probability by FRAX of greater than or equal to 3% for hip fracture or greater than or equal to 20% for major osteoporotic fracture based on the [place] adapted WHO algorithm. 4. Other Recommendations: All treatment decisions require clinical judgment and consideration of individual patient factors, including patient preferences, comorbidities, previous drug use, risk factors not captured in the FRAX model (e.g. frailty, falls, vitamin D deficiency, increased bone turnover, interval significant decline in bone density) and possible under or overestimation of fracture risk by FRAX. Additional medical evaluation for secondary cause of low bone mineral density may be appropriate. FUTURE SCAN RECOMMENDATION: People with diagnosed cases of osteoporosis or at high risk for fracture should have regular bone mineral density tests. For patients eligible for Medicare, routine testing is allowed once every 2 years. The testing frequency can be increased to one year for patients who have rapidly progressing disease, those who are receiving or discontinuing medical therapy to restore bone mass, or have additional risk factors.
== END 2024-01-20 11:15 | disposition home or self-care (01) ==
LOC: HO.MAMMO 11:14
PROVIDERS: PCP Family Medicine; Visit Provider Family Medicine
DX: Z13.820 Encounter for screening for osteoporosis (principal); M81.0 Age-related osteoporosis without current pathological fracture; Z78.0 Asymptomatic menopausal state
CPT/HCPCS: 77080

== ENCOUNTER 2024-01-24 15:16 | Outpatient (REF) | payer MEDICARE, SELFPAY ==
--- NOTE | ~2024-01-24 | US_ITS ---
EXAMINATION: US EXTRACRANIAL CAROTID DUPLEX, BILATERAL CLINICAL INFORMATION: Left carotid bruit COMPARISON: None available. TECHNIQUE: Real-time ultrasound and Doppler techniques (integrating B-mode 2-D vascular images, Doppler spectral analysis and color-flow Doppler imaging) were utilized to interrogate the extracranial carotid arteries, the vertebral arteries and proximal subclavian arteries bilaterally. The degree of stenosis is determined by criteria similar to NASCET. FINDINGS: Right Side: 1. There is mild atherosclerotic plaque seen in the bifurcation/proximal ICA region. 2. The common carotid artery PSV proximally is 91.1 cm/s and distally 93.8 cm/s. 3. The proximal internal carotid artery velocities are 73.5 cm/s systolic and 13.7 cm/s diastolic. 4. The proximal external carotid artery PSV is 107 cm/s. 5. The vertebral artery shows antegrade flow. 6. The subclavian artery waveforms are normal. Left Side: 1. There is mild atherosclerotic plaque seen in the bifurcation/proximal ICA region. 2. The common carotid artery PSV proximally is 84.5 cm/s and distally 90.7 cm/s. 3. The proximal internal carotid artery velocities are 109 cm/s systolic and 16.8 cm/s diastolic. 4. The proximal external carotid artery PSV is 99.5 cm/s. 5. The vertebral artery shows antegrade flow. 6. The subclavian artery peak systolic velocity is 211 cm/s US/US carotid duplex BI IMPRESSION: 1. RIGHT: Minimal, non-hemodynamically significant stenosis of the proximal right internal carotid artery corresponding to a 0-49% stenosis by velocity criteria. 2. LEFT: Minimal, non-hemodynamically significant stenosis of the proximal left internal carotid artery corresponding to a 0-49% stenosis by velocity criteria. 3. Related velocities in the left subclavian artery consistent with stenosis.
== END 2024-01-24 15:17 | disposition home or self-care (01) ==
LOC: HO.US 15:16
PROVIDERS: PCP Family Medicine; Visit Provider Family Medicine
DX: R09.89 Other specified symptoms and signs involving the circulatory and respiratory systems (principal); I25.10 Atherosclerotic heart disease of native coronary artery without angina pectoris; E78.5 Hyperlipidemia, unspecified
CPT/HCPCS: 93880

== ENCOUNTER 2024-03-30 11:47 | Outpatient (REF) | payer MEDICARE, SELFPAY ==
[2024-03-30 14:01] LABS: Appearance Urine Clear; Color Urine Yellow; Glucose Urine UA >=1000 mg/dL (Negative); Leukocyte Esterase Urine Negative (Negative); Nitrite Urine Negative (Negative); UMIC TRIGGER UA YES; Urine Blood Negative (Negative); Urine Ketones Negative (Negative); Urine Protein Negative (Neg-Trace)
[2024-03-30 14:04] LABS: Bacteria Urine None Seen (None Seen); Hyaline Casts Urine 0-2 /LPF (0-2); RBC Urine 0-2 /HPF (0-2); Squamous Epithelial Cell Urine 0-2 /HPF (0-2); WBC Urine 0-5 /HPF (0-5)
[2024-03-30 14:25] LABS: Alanine Aminotransferase 9 U/L (0-31); Albumin Level 3.9 g/dL (3.5-5.0); Alkaline Phosphatase 86 U/L (39-117); Anion Gap 13 (12-20); Aspartate Amino Transferase 13 U/L (5-31); Bilirubin Total 0.5 mg/dL (0.0-1.0); Blood Urea Nitrogen 11 mg/dL (9-16); Calcium 9.1 mg/dL (8.4-10.2); Carbon Dioxide 28 mmol/L (22-29); Chloride 103 mmol/L (96-108); Estimated Glomerular Filt Rate > 60; Glucose Fasting 97 mg/dL (60-99); Potassium 3.6 mmol/L (3.3-5.1); Sodium 140 mmol/L (135-145); Total Protein 6.6 g/dL (6.5-8.0)
[2024-03-30 14:47] LABS: Creatinine Urine 53.77 mg/dL; Microalbum/Creatinine Ratio Ur 37.1 ug/mg cr (<30)
== END 2024-03-30 11:48 | disposition home or self-care (01) ==
LOC: HO.WFDLDS 11:47
PROVIDERS: Visit Provider Family Medicine
DX: Z00.00 Encounter for general adult medical examination without abnormal findings (principal); I10 Essential (primary) hypertension
CPT/HCPCS: 36415; 80053; 81001; 81003; 82043; 82570

== ENCOUNTER 2024-04-03 11:31 | Outpatient (AMB) | payer MEDICARE, SELFPAY ==
--- NOTE | 2024-04-03 11:38 | MHC.PC.OV ---
Vital Signs 04/03/24 11:42 Height 5 ft 6 in Weight 149 lb 4 oz BMI 24.1 BP 130/60 Blood Pressure Location Rt brachial Position Sitting Respiration 18 Pulse 96 Pulse Source Auscultation Temp 97.7 F Temp Source Tympanic Pulse Oximetry (%) 96 Oxygen Delivery Method Room Air Intake Visit Reasons: 3-4 month fu htn Intake Note: 3-4 month follow up for htn Allergies penicillin V Allergy (Mild, Verified 04/03/24 11:39) phlebitis scallops Allergy (Mild, Verified 04/03/24 11:39) sick cramps Tobacco use date assessed: 01/18/24 Dental Screening Dental Screen Date: 01/18/24 HPI 3-4 month fu htn HPI Details 78 y/o female presents to f/u hypertension and diabetes. Blood pressure today is 130/60, 108p. She is on losartan 25mg, HCTZ 12.5mg daily. Last A1c 01/18/24 6.6%. Bone density test 01/20/24 shows osteopenia T-score value -2.3. Carotid doppler study 01/24/24 for L carotid bruit. Per note it showed: 1. RIGHT: Minimal, non-hemodynamically significant stenosis of the proximal right internal carotid artery corresponding to a 0-49% stenosis by velocity criteria. 2. LEFT: Minimal, non-hemodynamically significant stenosis of the proximal left internal carotid artery corresponding to a 0-49% stenosis by velocity criteria. 3. Related velocities in the left subclavian artery consistent with stenosis. HPI Comments History of Present Illness Details Documentation assistance for Wojciech Valladares MD, was provided by Yonathan Acosta, Bible Teacher on 04/03/2024 at 11:44 AM EST. I, Dr. Valladares, have read, observed, and verified documentation. [facility] Medical History Cataracts, bilateral Tonsillitis Diabetes 1.5, managed as type 2 Surgical History H/O eye surgery H/O vein stripping History of hip surgery Stented coronary artery S/P TAVR (transcatheter aortic valve replacement) Family History (Updated 01/18/24 @ 16:41 by Lorraine Gama CMA) Mother Cerebral hemorrhage Social History Household Members: None Housing: Other Housing Other:: trailer Are you a primary critical care nurse specialist to a significant other at home: No Do you presently have visiting nurse or other home services: No 75 years or older and lives alone: Yes Alcohol intake: never Patient Tobacco Use Status: Former Tobacco user e-Cigarette/Vaping Use: Never Used Special justino needs: No service: No Current occupational status: retired Cognitive needs: No Hearing needs: No Vision needs: No Physical exam (Primary Care) Vital Signs: Last Vital Signs Temp 97.7 F 04/03/24 11:42 Pulse 108 H 04/03/24 11:42 Resp 18 04/03/24 11:42 BP 130/60 04/03/24 11:42 Pulse Ox 96 04/03/24 11:42 Oxygen Delivery Method Room Air 04/03/24 11:42 BMI result Body Mass Index 24.1 Tobacco/Smoking Status: Tobacco use Status Tobacco use date assessed 01/18/24 04/03/24 11:42 Patient Tobacco Use Status Former Tobacco user 04/03/24 11:42 e-Cigarette/Vaping Use Never Used 04/03/24 11:42 Assessment and Plan Assessment & Plan (1) Diabetes: Code(s): E11.9 - Type 2 diabetes mellitus without complications Plan: A1c?showed?good?control?at?last?visit. We?will?continue?to?monitor No?medication?changes?were?made?today (2) Hypertension: Code(s): I10 - Essential (primary) hypertension Plan: Blood?pressure?is?controlled Had?eased?up?on?patient's?hydrochlorothiazide?at?last?visit, still?has?mild?dizziness?however Will?continue?to?monitor?her?blood?pressures No?medication?changes?made?today (3) Carotid bruit: Code(s): R09.89 - Other specified symptoms and signs involving the circulatory and respiratory systems Plan: Carotid?duplex?showed?no?hemodynamically?significant?lesions?though?she?did?have?some?cholesterol?plaquing?bilaterally Had?adjusted?her?pravastatin?at?last?visit?and?LDL?cholesterol?now?less?than?70; at?goal Continue?pravastatin (4) Osteopenia: Code(s): M85.80 - Other specified disorders of bone density and structure, unspecified site Plan: Encouraged?dietary?sources?of?calcium?and?vitamin-D Will?check?her?vitamin-D?level (5) Pruritus: Code(s): L29.9 - Pruritus, unspecified Plan: Encouraged?daily?moisturizer If?she?is?still?having?symptoms, will?refer?to?Dermatology Orders: Orders Microalbumin, Random (w Creat) 03/30/24 I10 - Essential (primary) hypertension UA and rflx microscopic 03/30/24 I10 - Essential (primary) hypertension, Z00.00 - Encounter for general adult medical examination without abnormal findings Comprehensive [place]. Panel Fast Today E11.9 - Type 2 diabetes mellitus without complications, Z00.00 - Encounter for general adult medical examination without abnormal findings Comprehensive [place]. Panel Fast 03/30/24 I10 - Essential (primary) hypertension, Z00.00 - Encounter for general adult medical examination without abnormal findings Vitamin D 25-OH Total Today E55.9 - Vitamin D deficiency, unspecified, M85.80 - Other specified disorders of bone density and structure, unspecified site Coding Level of Care Code Est Pt Level 4 (52317) Diagnoses Diabetes E11.9 Hypertension I10 Carotid bruit R09.89 Osteopenia M85.80 Pruritus L29.9
[2024-04-03 11:42] VITALS: BP 130/60; PULSE 96; RESP 18; TEMP 36.5; O2SAT 96; BMI 24.1
== END 2024-04-03 12:05 | disposition home or self-care (01) ==
PROVIDERS: PCP Family Medicine; Visit Provider Family Medicine
DX: E11.9 Type 2 diabetes mellitus without complications (principal); I10 Essential (primary) hypertension; R09.89 Other specified symptoms and signs involving the circulatory and respiratory systems; M85.80 Other specified disorders of bone density and structure, unspecified site; L29.9 Pruritus, unspecified
CPT/HCPCS: 99214

== ENCOUNTER 2024-06-22 08:33 | Outpatient (REF) | payer MEDICARE, SELFPAY ==
[2024-06-22 11:14] LABS: Appearance Urine Clear; Color Urine Yellow; Glucose Urine UA >=1000 mg/dL (Negative); Leukocyte Esterase Urine Negative (Negative); Nitrite Urine Negative (Negative); Specific Gravity - Urine 1.015 (1.005-1.025); UMIC TRIGGER UA YES; Urine Blood Negative (Negative); Urine Ketones Negative (Negative); Urine Protein Negative (Neg-Trace)
[2024-06-22 11:25] LABS: Bacteria Urine None Seen (None Seen); Hyaline Casts Urine 0-2 /LPF (0-2); Squamous Epithelial Cell Urine 0-2 /HPF (0-2); WBC Urine 0-5 /HPF (0-5)
[2024-06-22 12:21] LABS: Vitamin D 25-OH Total 46.5 ng/mL (>30)
[2024-06-22 12:33] LABS: Anion Gap 11 (12-20)
[2024-06-22 12:37] LABS: Alanine Aminotransferase 10 U/L (0-31); Albumin Level 3.8 g/dL (3.5-5.0); Alkaline Phosphatase 98 U/L (39-117); Aspartate Amino Transferase 21 U/L (5-31); Bilirubin Total 0.3 mg/dL (0.0-1.0); Blood Urea Nitrogen 12 mg/dL (9-16); Calcium 9.1 mg/dL (8.4-10.2); Carbon Dioxide 28 mmol/L (22-29); Chloride 108 mmol/L (96-108); Estimated Glomerular Filt Rate > 60; Glucose Fasting 114 mg/dL (60-99); Potassium 4.2 mmol/L (3.3-5.1); Sodium 143 mmol/L (135-145); Total Protein 6.7 g/dL (6.5-8.0)
== END 2024-06-22 08:34 | disposition home or self-care (01) ==
LOC: HO.WFDLDS 08:33
PROVIDERS: Visit Provider Family Medicine
DX: Z00.00 Encounter for general adult medical examination without abnormal findings (principal); E11.9 Type 2 diabetes mellitus without complications; E55.9 Vitamin D deficiency, unspecified; M85.80 Other specified disorders of bone density and structure, unspecified site
CPT/HCPCS: 36415; 80053; 81001; 82306

== ENCOUNTER 2024-06-29 14:28 | Outpatient (AMB) | payer MEDICARE, SELFPAY ==
--- NOTE | 2024-06-29 14:54 | MHC.PC.OV ---
Vital Signs 06/29/24 14:55 06/29/24 15:44 Height 5 ft 6 in Weight 151 lb 2 oz BMI 24.4 BP 142/63 H 129/64 Blood Pressure Location Rt brachial Rt brachial Position Sitting Sitting Respiration 14 Pulse 75 Pulse Source Pulse Oximeter Temp 97.3 F Temp Source Temporal Artery Scan Pulse Oximetry (%) 95 Oxygen Delivery Method Room Air Intake Visit Reasons: f/u hypertension, diabetes, chronic conditions Intake Note: follow up DM and HTN Allergies penicillin V Allergy (Mild, Verified 06/29/24 14:57) phlebitis scallops Allergy (Mild, Verified 06/29/24 14:57) sick cramps Tobacco use date assessed: 06/29/24 Fall risk assessment: 1 Fall in past year Last assessed Fall Risk: 06/29/24 Dental Screening Dental Screen Date: 06/29/24 Did you have a dental visit in the last 12 months?: Yes Did you have a dental problem in the last 6 months where you did not have access to dental care?: No Was dental information given to patient?: Patient has dentist HPI f/u hypertension, diabetes, chronic conditions HPI Details 78 y/o female presents to f/u diabetes, hypertension, chronic conditions. Prior A1c 01/18/24 6.6%. A1c today 06/29/24 is 6.3%. Blood pressure today 142/63, 75p. She is on hydrochlorothiazide 12.5mg, losartan 25mg daily. Reports cough has mostly resolved. She reports intermittent dizziness. Notes unsteady gait/LE weakness. FOR[facility]LY [facility] Medical History Cataracts, bilateral Tonsillitis Diabetes 1.5, managed as type 2 Surgical History H/O eye surgery H/O vein stripping History of hip surgery Stented coronary artery S/P TAVR (transcatheter aortic valve replacement) Family History (Updated 01/18/24 @ 16:41 by Lorraine Gama CMA) Mother Cerebral hemorrhage Social History Household Members: None Housing: Other Housing Other:: trailer Are you a primary customer care specialist to a significant other at home: No Do you presently have visiting nurse or other home services: No 75 years or older and lives alone: Yes Alcohol intake: never Patient Tobacco Use Status: Former Tobacco user e-Cigarette/Vaping Use: Never Used Special justino needs: No service: No Current occupational status: retired Cognitive needs: No Hearing needs: No Vision needs: No Questionnaire PHQ-9 Over the last 2 weeks, how often have you been bothered by any of the following problems? 1. Little interest or pleasure in doing things: not at all 2. Feeling down, depressed, or hopeless: not at all 3. Trouble falling or staying asleep, or sleeping too much: not at all 4. Feeling tired or having little energy: several days 5. Poor appetite or overeating: not at all 6. Feeling bad about yourself - or that you are a failure or have let yourself or your family down: not at all 7. Trouble concentrating on things, such as reading the newspaper or watching television: not at all 8. Moving or speaking so slowly that other people could have noticed. Or the opposite - being so fidgety or restless that you have been moving around a lot more than usual: not at all 9. Thoughts that you would be better off or of hurting yourself in some way: not at all Total score: 1 Depression Screening Interpretation: Negative Depression Screening Done: Yes 27840 - PHQ-9 Billing: Yes Source: Developed by Drs. Simone Lombardi, Sydnee Sarkar, Garret Whyte and colleagues, with an educational jacey from [employer]. Thrive Questionnaire Date Thrive assessed: 06/29/24 I am a: Patient What is your living situation today?: I have a steady place to live Within the past 12 months, did the food you bought not last and you didn't have the money to get more?: Never true Within the past 12 months, did you worry whether your food would run out before you got money to buy more?: Never true Do you have trouble paying for medicines?: Yes Do you have trouble getting transportation to medical appointments?: No Do you have trouble paying your heating and electricity bill?: Yes Do you have trouble taking care of your child, family member or friend?: No Do you have trouble with day-to-day activities such as bathing, preparing meals, shopping, managing finances, etc.?: No Are you currently unemployed and looking for a job?: No Are you interested in more education?: No Please select the resources that you would like help with: None Currently or been in a relationship where the following occur: I choose not to answer THRIVE Score: 1 AUDIT C Alcohol Use Questionnaire (AUDIT-C) 1. How often do you have a drink containing alcohol?: Never 3. How often do you have six or more drinks on one occasion?: Never Total Score: 0 CHIQUITA-7 AMB Questionnaire CHIQUITA-7 Date CHIQUITA - 7 assessed: 06/29/24 Feeling nervous, anxious, or on edge: 0 = Not at all Not being able to stop or control worryin = Not at all Worrying too much about different things: 0 = Not at all Trouble relaxin = Not at all Being so restless that it is hard to sit still: 0 = Not at all Becoming easily annoyed or irritable: 0 = Not at all Feeling afraid as if something awful might happen: 0 = Not at all Total CHIQUITA-7 score (0-4 normal; 5-9 mild; 10-14 moderate; 15-21 severe): 0 Source: Developed by Drs. Simone Lombardi, Sydnee Sarkar, Garret Whyte and colleagues, with an educational jacey from [employer]. CHIQUITA-7 Assessment Billing CHIQUITA-7 Assessment Tool: CHIQUITA-7 Assessment 33168 Review of Systems Const Denies chills, Denies fatigue, Denies fever(s), Denies headache(s) and Denies weakness ENT Denies dizziness and Denies headache(s) Card Denies dyspnea Resp Reports cough, Denies dyspnea and Denies wheezing Musc Denies numbness and Denies tingling Neuro Denies dizziness, Denies headache(s), Denies numbness, Denies tingling and Denies weakness Psych Denies anxiety and Denies depression Endo Denies fatigue Aller/Immun Denies wheezing Physical exam (Primary Care) Vital Signs: Last Vital Signs Temp 97.3 F 06/29/24 14:55 Pulse 75 06/29/24 14:55 Resp 14 06/29/24 14:55 BP 129/64 06/29/24 15:44 Pulse Ox 95 06/29/24 14:55 Oxygen Delivery Method Room Air 06/29/24 14:55 BMI result Body Mass Index 24.4 Tobacco/Smoking Status: Tobacco use Status Tobacco use date assessed 06/29/24 06/29/24 15:00 Patient Tobacco Use Status Former Tobacco user 06/29/24 14:57 e-Cigarette/Vaping Use Never Used 06/29/24 14:57 PHQ-9: PHQ-9 Score PHQ-9: Total score 1 06/29/24 15:44 Depression Screening Interpretation: Negative Thrive Assessment: Date of Thrive Assessment Date Thrive assessed 06/29/24 06/29/24 15:00 Currently or been in a relationship where the following occur: I choose not to answer Const General: well developed; No acute distress Nutritional Appearance: well nourished Orientation/consciousness: patient oriented x3 HENMT Head: Yes normocephalic and Yes atraumatic Eyes General: appearance normal, both eyes and all related structures Pupils: Equal, round and reactive pupils present EOM: EOMs intact bilaterally Resp Effort & Inspection: normal respiratory effort Auscultation: clear to auscultation bilaterally Cardio Rate: regular rate Rhythm: regular rhythm Heart sounds: S1 normal heart sound present, S2 normal heart sound present, no gallops, no murmurs and no rubs Neuro General: patient oriented x3 and No gait normal Cranial nerves: Yes Equal, round and reactive pupils present Psych Affect: normal affect Coding Level of Care Code Est Pt Level 4 (98750) Diagnoses Hypertension I10 Diabetes E11.9 Cough R05.9 Dizziness R42 Unsteady gait R26.81 Lower extremity weakness R29.898 Vaginal discharge N89.8 Additional Codes CHIQUITA-7 Assessment Billing - CHIQUITA-7 Assessment Tool: CHIQUITA-7 Assessment 44922 ([id number]) PHQ-9 - 72142 - PHQ-9 Billing: Yes ([id number]) Assessment & Plan Assessment & Plan (1) Hypertension: Code(s): I10 - Essential (primary) hypertension Category: Medical Plan: Blood?pressure?slightly?above?goal - improves?with?relaxation Had?decreased?her?hydrochlorothiazide?due?to?dizziness No?changes?to?her?medication?regimen?today?but?I?did?encourage?lifestyle?changes?including?watching?sodium?in?diet Close?ajggbe-ji-gfyr?see?her?back?in?a?month (2) Diabetes: Code(s): E11.9 - Type 2 diabetes mellitus without complications Category: Medical Plan: A1c?6.3% Goal?is?less?than?7.0% Continue?current?medication (3) Cough: Code(s): R05.9 - Cough, unspecified Category: Medical Plan: Patient?says?cough?has?resolved Lungs?are?clear (4) Dizziness: Code(s): R42 - Dizziness and giddiness Category: Medical Plan: Patient?still?has?what?she?describes?as??dizziness? Feels?unsteady?on?her?feet She?has??lower?extremity?weakness?and?significantly?unsteady?gait She?is?using?a?cane She?would?benefit?from?physical?therapy?with?strength?and?balance?training (5) Unsteady gait: Code(s): R26.81 - Unsteadiness on feet Category: Medical Plan: As?above Patient?will?benefit?from?physical?therapy-ordered (6) Lower extremity weakness: Code(s): R29.898 - Other symptoms and signs involving the musculoskeletal system Category: Medical Plan: as above (7) Vaginal discharge: Code(s): N89.8 - Other specified noninflammatory disorders of vagina Category: Medical Plan: trial Flagyl if not improved will try diflucan Orders: Orders Complete Blood Count Auto Diff Today R42 - Dizziness and giddiness, Z00.00 - Encounter for general adult medical examination without abnormal findings PT Evaluation and Treatment Today R26.81 - Unsteadiness on feet, R29.898 - Other symptoms and signs involving the musculoskeletal system Comprehensive Met. Panel Today R42 - Dizziness and giddiness Vitamin B12 and Folate Today E53.8 - Deficiency of other specified B group vitamins, R42 - Dizziness and giddiness
[2024-06-29 14:55] VITALS: BP 142/63; PULSE 75; RESP 14; TEMP 36.3; O2SAT 95; BMI 24.4
[2024-06-29 15:44] VITALS: BP 129/64
== END 2024-06-29 15:45 | disposition home or self-care (01) ==
PROVIDERS: PCP Family Medicine; Visit Provider Family Medicine
DX: I10 Essential (primary) hypertension (principal); E11.9 Type 2 diabetes mellitus without complications; R05.9 Cough, unspecified; R42 Dizziness and giddiness; R26.81 Unsteadiness on feet; R29.898 Other symptoms and signs involving the musculoskeletal system; N89.8 Other specified noninflammatory disorders of vagina

== ENCOUNTER → 2024-06-29 14:28 | Outpatient (BNV) | payer MEDICARE, SELFPAY | PROVIDERS: PCP Family Medicine; Visit Provider Family Medicine | DX: E11.9 Type 2 diabetes mellitus without complications (principal) | CPT/HCPCS: 83036; 99214 ==

== ENCOUNTER → 2024-06-29 14:28 | Outpatient (BNVA) | payer MEDICARE, SELFPAY | PROVIDERS: PCP Family Medicine; Visit Provider Family Medicine | DX: I10 Essential (primary) hypertension (principal); E11.9 Type 2 diabetes mellitus without complications; R05.9 Cough, unspecified; R42 Dizziness and giddiness; R26.81 Unsteadiness on feet; R29.898 Other symptoms and signs involving the musculoskeletal system; N89.8 Other specified noninflammatory disorders of vagina | CPT/HCPCS: 96127; 99212 ==

== ENCOUNTER 2024-07-27 13:28 | Outpatient (REF) | payer MEDICARE, SELFPAY ==
[2024-07-27 17:48] LABS: MANUAL DIFF FLAG NO
[2024-07-27 17:57] LABS: Basophils Absolute Auto 0.1 X10*3/uL (0.0-0.2); Basophils Percent Auto 0.9 % (0-2); Eosinophils Absolute Auto 0.4 X10*3/uL (0.0-0.4); Eosinophils Percent Auto 4.3 % (0-4); Hematocrit 35.8 % (37.0-47.0); Hemoglobin 10.6 g/dl (12.0-16.0); Imm Gran Abs Auto 0.03 X10*3/uL (0.00-0.03); Imm Gran Pct Auto 0.3 % (0.0-0.4); Lymphocytes Percent Auto 19.4 % (20-40); Mean Corpuscular HGB Conc 29.6 g/dl (31.0-35.0); Mean Corpuscular Hemoglobin 20.7 pg (27.0-33.0); Mean Corpuscular Volume 69.8 fL (80.0-98.0); Mean Platelet Volume 11.1 fL (9.4-12.3); Monocytes Percent Auto 9.2 % (2-11); Neutrophils Absolute Auto 6.8 x10*3/uL (2.0-8.3); Neutrophils Percent Auto 65.9 % (45-73); Platelet Count 288 X10*3/uL (160-400); Red Blood Count 5.13 X10*6/uL (4.20-5.50); Red Cell Distribution Width 19.4 % (11.0-16.0); White Blood Count 10.3 X10*3/uL (4.8-10.8)
[2024-07-27 18:15] LABS: Alanine Aminotransferase 12 U/L (0-31); Alkaline Phosphatase 89 U/L (39-117); Anion Gap 13 (12-20); Aspartate Amino Transferase 26 U/L (5-31); Bilirubin Total 0.5 mg/dL (0.0-1.0); Blood Urea Nitrogen 11 mg/dL (9-16); Calcium 9.3 mg/dL (8.4-10.2); Carbon Dioxide 29 mmol/L (22-29); Chloride 105 mmol/L (96-108); Estimated Glomerular Filt Rate > 60; Glucose Random 98 mg/dL (60-115); Potassium 3.7 mmol/L (3.3-5.1); Sodium 143 mmol/L (135-145); Total Protein 6.8 g/dL (6.5-8.0)
[2024-07-27 18:41] LABS: Folate 10.4 ng/mL (> or = 4.0); Vitamin B12 > 2000 pg/mL (200-900)
--- OUTSIDE RECORDS SUMMARY | 2024-08-01 09:38 | XMS_ITS ---
Author Organization [facility] Address [address] [place] [address] Care Team Providers Care Personal Care Aide Name Role Phone Blaine RUIZ, Wojciech Primary Care Provider Tanna Flannery Unavailable [phone] Encounters Encounter Location Date Provider Diagnosis [facility] [address] [place] [address] 06/07/2024 Tanna Mao Plan Of Treatment No Information Progress Notes * Lara RENNERDOB:1945 (78 yo F)Acc No.[id number]:06/07/2024 Patient:?Lara RENNER Provider:?Tanna Mao DPM :1945???Age:78 Y???Sex:Female D ate:06/07/2024 Address:[address] [place], [place] [address] Pcp:Wojciech Valladares MD Subjective: * Chief Complaints: * ??? * Medical History:? Objective: * Vitals:? Assessment: Plan: * Treatment: * Images: * The named appointment provid er may or may not be the originator of this progress note, and it is not deemed complete until electronically signed by the appointment provider. Sign off status: Pending * Provider:Nasra Mao DPM Date:?2023 Generated for Laineyi esme/Kellen/eTransmitting on:?08/01/2024 09:38 AM EST
--- OUTSIDE RECORDS SUMMARY | 2024-08-01 09:38 | XMS_ITS ---
Author Organization [facility] Address [address] [place] [address] [place] [address] Care Team Providers Care Reed Maker Name Role Phone Wojciech Valladares MD Primary Care Provider Tanna Flannery [phone] REASON FOR VISIT CX FT Encounters Encounter Location Date Provider Diagnosis [address] [place] [address] 05/21/2024 Tanna Mao Plan Of Treatment No Information Progress Notes * Lara RENNERDOB:1945 (78 yo F)Acc No.[id number]:05/21/2024 Patient:?Lara Renner :1945???Age:78 Y???Sex:Female Address:[address] [place] [address] [place], [address] * true * Date:? Generated for Laineyi esme/Kellen/eTransmitting on:?08/01/2024 09:38 AM EST
--- OUTSIDE RECORDS SUMMARY | 2024-08-01 09:38 | XMS_ITS ---
Author Organization [facility] Address [address] [place] [address] Care Team Providers Care Manufacturing Mechanic Name Role Phone Blaine RUIZ, Wojciech Primary Care Provider Tanna Flannery Unavailable [phone] Encounters Encounter Location Date Provider Diagnosis [facility] [address] [place] [address] 05/31/2024 Tanna Mao Plan Of Treatment No Information Progress Notes * Lara RENNERDOB:1945 (78 yo F)Acc No.[id number]:05/31/2024 Patient:?Lara RENNER Provider:?Tanna Mao DPM :1945???Age:78 Y???Sex:Female D ate:05/31/2024 Address:[address] [place], [place] [address] Pcp:Wojciech Valladares MD Subjective: * Chief Complaints: [...]
--- OUTSIDE RECORDS SUMMARY | 2024-08-01 09:39 | XMS_ITS | Patient Health Record ---
[facility] Address [address] [place] [address] Care Team Providers Care Academic Assistant Name Role Phone Wojciech Valladares MD Primary Care Provider Tanna Flannery Unavailable [phone] Allergies Allergen (clinical drug ingredient) Drug/Non Drug Allergy documented on EMR Reaction Allergy Type Onset Date Status Shellfish (FN) scallops (uncoded) Unknown Allergy Active Penicillin Unknown Drug Allergy Active Results Component Value Reference Range Notes HEMOGLOBIN A1C (GLYCOHEMOGLO BIN) Reviewed date:02/13/2024 12:54:50 PM Interpretation: Performing Lab: Notes/Report: HEMOGLOBIN A1C % (HH) 6.6 X ray : Foot, right 3V Reviewed date:02/13/2024 05:30:17 PM Interpretation:See Examination above Performing Lab: Notes/Report: See Examination above X ray : Foot, left 3V Reviewed date:02/13/2024 05:30:05 PM Interpretation:See Examination above Performing Lab: Notes/Report: See Examination above Reason For Referral No Information Medications Medication SIG (Take, Route, Frequency, Duration) Notes Start Date End Date Status Extra Depth Orthopedic Shoes (1 Pair) with Customized Heat Molded Multidensity Innersoles (3 Pair) as directed Dx: NIDDM/Polyneuropathy (E11.42), Hammertoe Foot Deformity (M20.41,M20.42), Preulcerative Skin Lesion(s) (L85.1 02/13/2024 Active metFORMIN HCl 500 MG 1 tablet with a adams l Orally Once a day for 30 day(s) Active Losartan Potassium 25 MG 1 tablet Orally Once a day for 30 day(s) Active Vitamin D Unknown Pravastatin Sodium 10 MG 1 tablet Orally Once a day for 30 day(s) Active hydroCHLOROthiazide 25 MG 1 tablet in th e morning Orally Once a day for 30 day(s) Active Gabapentin 300 MG 1 capsule Orally Onc e a day for 30 day(s) Active Levemir 100 UNIT/ML as directed Subcutaneous Active Jardiance 10 MG 1 tablet Orally Once a day for 30 day(s) Active Aspirin 81 MG 1 tablet Orally Once a day for 30 day(s) Active Immunizations Vaccine Route Administration Date Status Comme nts Influenza Unknown 04/22/2023 Administered Social History Tobacco Use: Social History Observation Description Date Details (start date - stop date) Former Smoker NA - NA Tobacco Use/Smoking Question Answer Notes Are you a: former smoker Additional Findings: Tobacco Non-User Current no n-smoker Alcohol Screen Question Answer Notes Did you have a drink containing alcohol in the p ast year? No Points 0 Interpretation Negative Tobacco use other than smoking: Question Answer Notes Are you an other tobacco user? No Problems Problem Type SNOMED Code ICD Code Onset Dates Problem Status W/U Status Risk Notes Problem Acquired hammer toe of right foot (7589453461297244 ) Other hammer toe(s) (acquired), right foot (M20.41) Active confirmed Problem Acquired hammer toe of left foot (2175319533124420 ) Other hammer toe(s) (acquired), left foot (M20.42) Active confirmed Problem Polyneuropathy due to type 2 diabetes mellitus (183969526) Type 2 diabetes mellitus with diabetic polyneuropathy (E11.42) Active confirmed Problem Localized, primary osteoarthritis of the ankle and/or foot (912861135) Arthritis of joint of lesser toe, left (M19.072) Active confirmed Problem Localized, primary osteoarthritis of the ankle and/or foot (778150935) Arthritis of joint of lesser toe, right (M19.071) Active confirmed Vital Signs Blood pressure diastolic 68 mm Hg 02/13/2024 Height 5 ft 6 in in 02/13/2024 Blood pressure systolic 118 mm Hg 02/13/2024 Weight 148 lbs 02/13/2024 BMI 23.89 kg/m2 02/13/2024 Procedures Procedure Date Ordered Date Performed Result Body Sit e 66432-RVYW SKIN LESIONS, 2 TO 4 02/13/2024 N/A [id number] DYSTROPHIC NAILS ANY # 02/13/2024 N/A - Ganglion Cyst Injection/Aspiration 02/13/2024 N/A Encounters Encounter Location Date Provider Diagnosis [facility] [address] 02/13/2024 Tanna Mayco Type 2 diabetes redd itus with diabetic polyneuropathy E11.42 ; Tinea unguium B35.1 ; Pain in right toe(s) M79.674 ; Other hammer toe(s) (acquired), right foot M20.41 ; Arthritis of joint of lesser toe, right M19.071 ; Pain in left toe(s) M79.675 ; Other hammer toe(s) (acquired), left foot M20.42 ; Arthritis of joint of lesser toe, left M19.072 ; Subluxation of metatarsophalangeal joint of toe, initial encounter S93.149A and Ganglion M67.40 [facility] [address] 01/05/2024 [facility] [address] 05/21/2024 Tanna Mao Assessments Encounter Date Diagnosis (ICD Code) Assessment Notes Treatment Notes Treatment Clinical Notes Section Notes 02/13/2024 Type 2 diabetes mellitus with diabetic polyneuropathy (ICD-10 - E11.42) 02/13/2024 Tinea unguium (ICD-1 0 - B35.1) 02/13/2024 Pain in right toe(s) (ICD-10 - M79.674) 02/13/2024 Other hammer toe(s) (acquired), right foot (ICD-10 - M20.41) Patient Educated with: DIABETIC FOOT CARE INSTRUCTIONS. pdf (DIABETIC FOOT CARE INSTRUCTIONS. pdf) 02/13/2024 Arthritis of joint o f lesser toe, right (ICD-10 - M19.071) 02/13/2024 Pain in left toe(s) (ICD-10 - M79.675) 02/13/2024 Other hammer toe(s) (acquired), left foot (ICD-10 - M20.42) 02/13/2024 Arthritis of joint o f lesser toe, left (ICD-10 - M19.072) 02/13/2024 Subluxation of metatarsophalangeal joint of toe, initial encounter (ICD-10 - S93.149A) 02/13/2024 Ganglion (ICD-10 - M67.40) Plan Of Treatment Pending Test Test Name Order Date 75402-CTJA SKIN LESIONS, 2 TO 4 02/13/20 X1084-AHCNTWOX DYSTROPHIC NAILS ANY # - Ganglion Cyst Injection/Aspiratio n 02/13/2024 Insurance Providers Payer Name Payer Address Payer Phone Subscriber Number Group Number Insured Name Patient Relationship to Insured Coverage Start Date Coverage End Date Medicare [employer] [address] [facility] [address] [id number] Lara May Self - patient is the insured [employer] [address] [place] [address] [phone] [id number] Lara May Self - patient is the insured Medical (General) History Medical History History ICD Code Arthritis Cataracts Diabetic Fibromyalgia Heart disease High blood pressure Poor circulation Heart valve conditions/replacement Back,Hip,and Knee pain Broken bones CAD (Cholesterol) covid-19 Numbness Joint implants/screws Surgical History Surgery Date(Month/Year) eye surgery 2017 knee surgery 1999 hip surgery 2021
== END 2024-07-27 13:29 | disposition home or self-care (01) ==
LOC: HO.WFDLDS 13:28
PROVIDERS: Visit Provider Family Medicine
DX: Z00.00 Encounter for general adult medical examination without abnormal findings (principal); R42 Dizziness and giddiness; E53.8 Deficiency of other specified B group vitamins
CPT/HCPCS: 36415; 80053; 82607; 82746; 85025

== ENCOUNTER 2024-08-01 10:49 | Outpatient (AMB) | payer MEDICARE, SELFPAY ==
--- NOTE | 2024-08-01 11:14 | A.OFFPC_ITS ---
Vital Signs 08/01/24 11:18 Height 5 ft 6 in Weight 154 lb 6 oz BMI 24.9 BP 146/58 H Blood Pressure Location Rt brachial Position Sitting Respiration 16 Pulse 80 Pulse Source Pulse Oximeter Pulse Oximetry (%) 96 Oxygen Delivery Method Room Air Intake Visit Reasons: F/U BP, dizziness Intake Note: f/u for b/p and dizziness Allergies penicillin V Allergy (Mild, Verified 08/01/24 11:14) phlebitis scallops Allergy (Mild, Verified 08/01/24 11:14) sick cramps Tobacco use date assessed: 06/29/24 Dental Screening Dental Screen Date: 06/29/24 HPI F/U BP, dizziness HPI Details 78 y/o female presents to f/u dizziness, fall, hypertension. Had decreased her hydrochlorothiazide. Encouraged lifestyle changes. She is on aspirin. Not on any blood thinners. Blood pressure today 146/58, 80p. She is on losartan , HCTZ 12.5mg daily. She states she fell off the bed about 2 days ago. Reports shoulder/arm pain. Also reports hip pain. Denies any changes to her thinking. Denies excessive fatigue. She notes she is not using anything for the pain. Labs drawn 07/27/24. Reviewed labs with pt. Mild anemia. [facility] Medical History Cataracts, bilateral Tonsillitis Diabetes 1.5, managed as type 2 Surgical History H/O eye surgery H/O vein stripping History of hip surgery Stented coronary artery S/P TAVR (transcatheter aortic valve replacement) Family History (Updated 01/18/24 @ 16:41 by Lorraine Gama CMA) Mother Cerebral hemorrhage Social History Household Members: None Housing: Other Housing Other:: trailer Are you a primary district manager primary care sales to a significant other at home: No Do you presently have visiting nurse or other home services: No 75 years or older and lives alone: Yes Alcohol intake: never Patient Tobacco Use Status: Former Tobacco user e-Cigarette/Vaping Use: Never Used Special justino needs: No service: No Current occupational status: retired Cognitive needs: No Hearing needs: No Vision needs: No Questionnaire Thrive Questionnaire Date Thrive assessed: 06/29/24 I am a: Patient What is your living situation today?: I have a steady place to live Within the past 12 months, did the food you bought not last and you didn't have the money to get more?: Never true Within the past 12 months, did you worry whether your food would run out before you got money to buy more?: Never true Do you have trouble paying for medicines?: Yes Do you have trouble getting transportation to medical appointments?: No Do you have trouble paying your heating and electricity bill?: Yes Do you have trouble taking care of your child, family member or friend?: No Do you have trouble with day-to-day activities such as bathing, preparing meals, shopping, managing finances, etc.?: No Are you currently unemployed and looking for a job?: No Are you interested in more education?: No Please select the resources that you would like help with: None Currently or been in a relationship where the following occur: I choose not to answer THRIVE Score: 1 CHIQUITA-7 AMB Questionnaire CHIQUITA-7 Date CHIQUITA - 7 assessed: 06/29/24 Source: Developed by Drs. Simone Lombardi, Sydnee Sarkar, Garret Whyte and colleagues, with an educational jacey from [employer]. Review of Systems Const Denies chills, Denies fatigue, Denies fever(s), Denies headache(s) and Denies weakness ENT Denies dizziness and Denies headache(s) Card Denies dyspnea Resp Denies cough, Denies dyspnea, Denies wheezing and Denies other (shortness of breath) Musc Denies numbness and Denies tingling Neuro Denies dizziness, Denies headache(s), Denies numbness, Denies tingling and Denies weakness Psych Denies anxiety and Denies depression Endo Denies fatigue Aller/Immun Denies wheezing Physical exam (Primary Care) Vital Signs: Last Vital Signs Pulse 80 08/01/24 11:18 Resp 16 08/01/24 11:18 BP 146/58 H 08/01/24 11:18 Pulse Ox 96 08/01/24 11:18 Oxygen Delivery Method Room Air 08/01/24 11:18 BMI result Body Mass Index 24.9 Tobacco/Smoking Status: Tobacco use Status Tobacco use date assessed 06/29/24 08/01/24 11:22 Patient Tobacco Use Status Former Tobacco user 08/01/24 11:22 e-Cigarette/Vaping Use Never Used 08/01/24 11:22 Thrive Assessment: Date of Thrive Assessment Date Thrive assessed 06/29/24 08/01/24 11:22 Currently or been in a relationship where the following occur: I choose not to answer Const General: well developed; No acute distress Nutritional Appearance: well nourished Orientation/consciousness: patient oriented x3 HENMT Head: Yes normocephalic and Yes atraumatic Eyes General: appearance normal, both eyes and all related structures Pupils: Equal, round and reactive pupils present EOM: EOMs intact bilaterally Resp Effort & Inspection: normal respiratory effort Skin Other: Lump at her head Neuro General: patient oriented x3 and gait normal Cranial nerves: Yes Equal, round and reactive pupils present Extrem Other: Large hematoma L lateral thigh Swelling L wrist, thumb Psych Affect: normal affect Coding Level of Care Code Est Pt Level 4 (95648) Diagnoses Status post fall Z91.81 Left hip pain M25.552 Left hand pain M79.642 Assessment & Plan Assessment & Plan (1) Status post fall: Code(s): Z91.81 - History of falling Category: Medical Plan: Patient?has?a?large?left?lateral?thigh?hematoma?with?left?hip?and?thigh?pain?as? well?as?pain?and?swelling?at?left?hand?and?base?of?thumb. S he?did?not?have?a?mechanical?trip?fall?and?dizziness?was?not?effective.??Patient ?was?sleeping?in?ruled?out?of?bed. Does?have?a?small?bump?on?her?head?without?bruising.??She?no?change?in?mental?st atus.??She?is?neurologically?intact. She?is?able?to?walk?bear?weight?though?she?previously?unsteady?on?her?feet?and?s he?is?still?this?baseline. Has?significant?hand?pain?and?concern?for?fracture?though?I? think?it?is?more?likely?sprained.??She?has?normal?circulation?and?motor.??She?no gabriela?mild?tingling?at?times - which?is?likely?secondary?swelling. Will?check?x-ray?of?hip?and?femur?and?x-ray?of?hand Blayne l?give?her?a?short?course?Percocet?for?pain.??She?can?also?use?some?acetaminophe n?and?advised?her?not?to?exceed?recommended?daily?doses. Ice/heat Topicals Should?continue?to?improve?spontaneously.??If?there?is?any?indication?on?x- rays?she?needs?further?care?call patient.??Otherwise?will?follow-up?to?review?x-rays?in?a?couple?weeks (2) Left hip pain: Code(s): M25.552 - Pain in left hip Category: Medical Plan: As?above (3) Left hand pain: Code(s): M79.642 - Pain in left hand Category: Medical Plan As?above Orders: Orders XR hip LT min 2V Today M25.552 - Pain in left hip, Z91.81 - History of falling XR femur LT 2V Today M25.552 - Pain in left hip, Z91.81 - History of falling XR hand LT min 3V Today M79.642 - Pain in left hand, Z91.81 - History of falling Medications: New oxycodone-acetaminophen 5-325 mg (Percocet) Partial Fill upon patient request. 0.5 tabs PO BID 5 days PRN 5 tabs 0RF pain Changed From empagliflozin (Jardiance) 10 mg PO DAILY To empagliflozin (Jardiance) 10 mg PO DAILY 90 days 90 tabs 3RF
[2024-08-01 11:18] VITALS: BP 146/58; PULSE 80; RESP 16; O2SAT 96; BMI 24.9
--- OUTSIDE RECORDS SUMMARY | 2024-08-02 01:09 | XMS_ITS ---
Author Organization [facility] Address [address] [place] [address] Care Team Providers Care Business Process Analyst Name Role Phone Blaine RUIZ, Wojciech Primary Care Provider Tanna Flannery Unavailable [phone] Encounters Encounter Location Date Provider Diagnosis [facility] [address] [place] [address] 05/31/2024 Tanna Mao Plan Of Treatment No Information Progress Notes * Lara RENNERDOB:1945 (78 yo F)Acc No.[id number]:05/31/2024 Patient:?Lara RENNER Provider:?Tanna Mao DPM :1945???Age:78 Y???Sex:Female D ate:05/31/2024 Address:[address] [place], [place] [address] Pcp:Wojciech Valladares MD Subjective: * Chief Complaints: [...] Mao DPM Date:?2023 Generated for Laineyi esme/Kellen/eTransmitting on:?08/02/2024 01:08 AM EST
--- OUTSIDE RECORDS SUMMARY | 2024-08-02 01:09 | XMS_ITS ---
Author Organization [facility] Address [address] [place] [address] [place] [address] Care Team Providers Care Reheater Helper Name Role Phone Wojciech Valladares MD Primary Care Provider Tanna Flannery [phone] REASON FOR VISIT CX FT Encounters Encounter Location Date Provider Diagnosis [address] [place] [address] 05/21/2024 Tanna Mao Plan Of Treatment No Information Progress Notes * Lara RENNERDOB:1945 (78 yo F)Acc No.[id number]:05/21/2024 Patient:?Lara Renner :1945???Age:78 Y???Sex:Female Address:[address] [place] [address] [place], [address] * true * Date:? Generated for Laineyi esme/Kellen/eTransmitting on:?08/02/2024 01:09 AM EST
--- OUTSIDE RECORDS SUMMARY | 2024-08-02 01:09 | XMS_ITS ---
Author Organization [facility] Address [address] [place] [address] Care Team Providers Care Rolled Ham Lacer Name Role Phone Blaine RUIZ, Wojciech Primary Care Provider Tanna Flannery Unavailable [phone] Encounters Encounter Location Date Provider Diagnosis [facility] [address] [place] [address] 06/07/2024 Tanna Mao Plan Of Treatment No Information Progress Notes * Lara RENNERDOB:1945 (78 yo F)Acc No.[id number]:06/07/2024 Patient:?Lara RENNER Provider:?Tanna Mao DPM :1945???Age:78 Y???Sex:Female D ate:06/07/2024 Address:[address] [place], [place] [address] Pcp:Wojciech Valladares MD Subjective: * Chief Complaints: [...]
--- OUTSIDE RECORDS SUMMARY | 2024-08-02 01:09 | XMS_ITS | Data Portability ---
Author Organization [place] [facility] Address [address] [place] [address] Care Team Providers Care Director Of Institutional Research Name Role Phone JAK ARREAGA Primary Care Provider [facility] OTHER Assessment Encounter Date Assessment Date Assessment LastModified by Organization Details LastModified Time 01/08/2022 01/08/2022 Ms May is a 76 yo female new to whose CC is dysuria x 4 days. No flank pain, no nausea, vomiting, fever chills. DDX considered but not limited to : Pyelonephriti s doubtful, no systemic complaints, non-toxic appearing UTI probable, positive nitrites/leuk ocytes Time On Scene with Patient: 00:46:23 [id number] Not available 01/08/2022 09:45:44 Plan of Treatment Reminders Order Date Submit Date Provider Last Modified By Organization Details Last Modified Time Details Appointments None recorded. Lab urinalysis , dipstick 2021 022 [email or web address] 0 [facility], [address] [place] [address] Denis, [place], [address], 09:34:30 culture, urine 2021 022 PLATO [facility], [address] [place], [address], 13:54:00 Referral None recorded. Procedures None recorded. Surgeries None recorded. Imaging None recorded. Medication Orders Bactrim DS 800 mg-160 mg tablet 2021 022 [facility] [place], [place], [address] [place], [address], 2 09:41:13 Patient TargetsNo targets recorded. Patient InstructionsNo instructions recorded. Reason for Referral None Reported. Results Created Date Observation Date Name Description Value Unit Range Abnormal Flag Note LastModifiedBy Organization Detail LastModifiedTime 01/09/20 22 01/09/2022 URINE CULTU RE specimen description URINE CLEAN CATCH/ MIDSTR EAM Not Available [facility] [address] [place], [address], 01/11/2022 13:54:00 01/09/20 22 01/09/2022 URINE CULTU RE special requests NONE Not Available [facility] [address] [place], [id number], 01/11/2022 13:54:00 01/09/20 22 01/11/2022 URINE CULTU RE culture abnormal >100, 000 COL/M L ENTER OCOCC US FAECA LIS This isola te was ident ified using Maldi -TOF syste m These AST resul ts were perfo rmed on the Micro scan ID and AST syste m Not Available [facility] [address] [place], [address], 01/11/2022 13:54:00 01/09/20 22 01/11/2022 URINE CULTU RE report status FINAL 2021 Not Available [facility] [address] [place], [address], 01/11/2022 13:54:00 01/09/20 22 01/11/2022 URINE CULTU RE organism ORGAN ISM >100, 000 COL/M L ENTER OCOCC US FAECA LIS This isola te was ident ified using Maldi -TOF syste m Not Available [facility] [address] [place], [address], 01/11/2022 13:54:00 01/09/20 22 01/11/2022 URINE CULTU RE method METHOD MIN. INHIB. CONC. (MCG/M L) Not Available [facility] [address] [place], [address], 01/11/2022 13:54:00 01/09/20 22 01/11/2022 URINE CULTU RE ampicillin AMPICI LLIN SUSCEP TIBLE susceptib le Not Available [facility] [address] [place], [address], 01/11/2022 13:54:00 01/09/20 22 01/11/2022 URINE CULTU RE ciprofloxaci n CIPROF LOXACI N SUSCEP TIBLE susceptib le Not Available [facility] [address] [place], [address], 01/11/2022 13:54:00 01/09/20 22 01/11/2022 URINE CULTU RE nitrofuranto in NITROF URANTO IN SUSCEP TIBLE susceptib le Not Available [facility] [address] [place], [id number], 01/11/2022 13:54:00 01/09/20 22 01/11/2022 URINE CULTU RE levofloxacin LEVOFL OXACIN SUSCEP TIBLE susceptib le Not Available [facility] [address] [place], [address], 01/11/2022 13:54:00 01/09/20 22 01/11/2022 URINE CULTU RE vancomycin VANCOM YCIN SUSCEP TIBLE susceptib le Not Available [facility] [address] [place], [address], 01/11/2022 13:54:00 01/09/20 22 01/11/2022 URINE CULTU RE tetracycline TETRAC YCLINE SUSCEP TIBLE susceptib le Not Available [facility] [address] [place], [address], 01/11/2022 13:54:00 01/09/20 22 01/11/2022 URINE CULTU RE gentamicin synergy GENTAM ICIN SYNERG Y ACTIVE IN SYNERG Y susceptib le Not Available [facility] [address] [place], [address], 01/11/2022 13:54:00 01/09/20 22 01/11/2022 URINE CULTU RE streptomycin synergy STREPT OMYCIN SYNERG Y ACTIVE IN SYNERG Y susceptib le Not Available [facility] [address] [place], [address], 01/11/2022 13:54:00 01/09/20 22 01/08/2022 urina lysis , dipst ick Appearance clear Not Available [facility] [address], [place], [address], 01/08/2022 09:21:50 01/09/20 22 01/08/2022 urina lysis , dipst ick Color todd Not Available [facility] [address], [place], [address], 01/08/2022 09:21:50 01/09/20 22 01/08/2022 urina lysis , dipst ick Glucose (ref: neg) +++ Not Available [facility] [address], [place], [address], 01/08/2022 09:21:50 01/09/20 22 01/08/2022 urina lysis , dipst ick Bilirubin (ref: neg) Neg Not Available [facility] [address], [place], [address], 01/08/2022 09:21:50 01/09/20 22 01/08/2022 urina lysis , dipst ick Ketones (ref: neg) Neg Not Available [facility] [address], [place], [address], 01/08/2022 09:21:50 01/09/20 22 01/08/2022 urina lysis , dipst ick Specific [place] (ref: 1.003 - 1.035) 1.015 Not Available [facility] [address], [place], [address], 01/08/2022 09:21:50 01/09/20 22 01/08/2022 urina lysis , dipst ick Blood (ref: neg) +++ Not Available [facility] [address] [place], [address], 01/08/2022 09:21:50 01/09/20 22 01/08/2022 urina lysis , dipst ick pH (ref: 5.0-7.0) 6.5 Not Available [facility] [address] [place], [address], 01/08/2022 09:21:50 01/09/20 22 01/08/2022 urina lysis , dipst ick Protein (ref: neg) Neg Not Available [facility] [address] [place], [address], 01/08/2022 09:21:50 01/09/20 22 01/08/2022 urina lysis , dipst ick Urobilinogen (ref: 0.2-1.0) 0.2 Not Available [facility] - [address], [address], 01/08/2022 09:21:50 01/09/20 22 01/08/2022 urina lysis , dipst ick Nitrites (ref: neg) positi ve Not Available [facility] - [address], [address], 01/08/2022 09:21:50 01/09/20 22 01/08/2022 urina lysis , dipst ick Leukocytes (ref: neg) ++ Not Available [facility] - [address], [address], 01/08/2022 09:21:50 01/09/20 22 01/08/2022 urina lysis , dipst ick Location [facility], [facility], [address] [place] [address], [id number] Not Available [facility] - [address], [address], 01/08/2022 09:21:50 Result Notes None recorded. Medical Equipment None Reported. Allergies Allergen ID Allergen Name Allergen Category Reaction Reaction Severity Criticality Documentation Date Start Date Code Code System Note Provider Name and Address Organization Details Recorded Time 365878 Medicinal product containin g penicilli n and acting as antibacte rial agent (product) medicatio n Not available Not available Not available 01/08/2022 96668 05 SNOMED CURRY Pagan [address], [place], [address], [place] [facility] 2 09:02:59 Medications Name Sig Start Date Stop Date Status Note LastModified by Organization Details LastModified Time metformin 500 mg tablet TAKE 1 TABLET BY MOUTH EVERY DAY active Not Available Not Available No t Available clindamycin HCl 300 mg capsule TAKE 1 CAPSULE BY MOUTH EVERY 6 HOURS FOR 10 DAYS 01/08 completed Not Available Not Available Not Available ciprofloxac in 500 mg tablet TAKE 1 TABLET BY MOUTH TWICE DAILY FOR 10 DAYS 01/08 completed Not Available Not Available Not Available sulfamethox azole 800 mg-trimetho prim 160 mg tablet TAKE 1 TABLET BY MOUTH every 12 hours NEEDED FOR 5 DAYS WITH plenty OF WATER active Not Available Not Available No t Available aspirin 81 mg tablet,zohra yed release TAKE 1 TABLET BY MOUTH EVERY DAY active Not Available Not Available No t Available pravastatin 10 mg tablet TAKE 1 TABLET BY MOUTH EVERY DAY. active Not Available Not Available No t Available lidocaine 5 % topical patch apply 1 PATCH topically TO affected AREA AT EVENING AND REMOVE IN morning (12 hours ON AND REMOVE FOR 12 hours off) active Not Available Not Available No t Available losartan 25 mg tablet TAKE 1 TABLET BY MOUTH EVERY DAY active Not Available Not Available No t Available gabapentin 300 mg capsule TAKE 1 CAPSULE BY MOUTH TWICE DAILY active Not Available Not Available No t Available hydrochloro thiazide 25 mg tablet TAKE 1 TABLET BY MOUTH EVERY DAY IN THE MORNING active Not Available Not Available No t Available nifedipine ER 60 mg tablet,exte nded release TAKE 1 TABLET BY MOUTH DAILY active Not Available Not Available No t Available hydroxyzine HCl 10 mg tablet TAKE 1 TABLET BY MOUTH EVERY 8 HOURS NEEDED FOR ITCHING active Not Available Not Available No t Available oxycodone 5 mg tablet TAKE 1 TABLET BY MOUTH every 4 TO 6 hours NEEDED 01/08 completed Not Available Not Available Not Available enoxaparin 40 mg/0.4 mL subcutaneou s syringe INJECT THE CONTENTS OF 1 SYRINGE (40 MG) SUBCUTANE OUSLY EVERY DAY 01/08 completed Not Available Not Available Not Available nitrofurant oin monohydrate /macrocryst als 100 mg capsule Take 1 capsule every 12 hours by oral route for 5 days. active Not Available Not Available No t Available pregabalin 150 mg capsule TAKE 1 CAPSULE BY MOUTH TWICE DAILY 01/08 completed Not Available Not Available Not Available Levemir FlexTouch U-100 Insulin 100 unit/mL (3 mL) subcutaneou s pen INJECT 22 UNITS UNDER THE SKIN EVERY EVENING active Not Available Not Available No t Available Jardiance 10 mg tablet TAKE 1 TABLET BY MOUTH EVERY DAY active Not Available Not Available No t Available Vitals Date Recorded Heart rate Respiratory rate Body temperature Oxygen saturation Oxygen saturation in Arterial blood by Pulse oximetry Systolic blood pressure Diastolic blood pressure Provider Name and Address Organization Details Last Updated DateTime 2 100 /min 18 /min 98.7 [degF] 94 % 94 % 132 mm[Hg] 70 mm[Hg] Not Available [facility] 2 09:14:33 Social History Question Answer Notes LastModified by Organizat ion Details LastModified Time Tobacco Smoking Status Former Smoker CURRY Pagan [address] [place], [address], [place] [facility] 01/08/2022 09:07:00 Do You Have An Advance Directive? Yes [email or web address] Information not available 01/08/2022 What Is Your Level Of Alcohol Consumption? None [email or web address] Information not available 01/08/2022 What Is Your Code Status? Full Code [email or web address] Information not available 01/08/2022 Within The Past 12 Months, Has It Happened That The Food You Bought Just Didn't Last And You Didn't Have Money To Get More. No [email or web address] Information not available 01/08/2022 Within The Past 12 Months, Have You Worried That Your Food Would Run Out Before You Got Money To Buy More. Yes [email or web address] Information not available 01/08/2022 Fall Risk: Do You Feel Unsteady When Standing Or Walking? Yes [email or web address] Information not available 01/08/2022 We Know That How And When People Interact With Friends And Family Can Be Very Different From Person To Person. How Often Do You Have The Opportunity To See Or Talk To People That You Care About And Feel Close To? (Ex: Talking To Friends On The Phone Or Visiting Friends Or Family Or Going To Worship Or Club Meetings) 5 Or More Times Per Week [email or web address] Information not available 01/08/2022 Excessive Alcohol Or Drug Use No [email or web address] Information not available 01/08/2022 Does This Patient Have A PCP? Yes Information not available 01/08/2022 Has The Patient Seen Their PCP In The Past 6 Months? No Has Appoint On January 21 Information not available 01/08/2022 We Know From Many Of Our Patients That Covering All Of Their Costs Can Be Difficult At Times. This Can Cause Stress And Impact Health. In The Past Year, Have You Been Unable To Get Any Of The Following When It Was Really Needed? No [email or web address] Information not available 01/08/2022 What Is Your Housing Situation Today? I Have Housing [email or web address] Information not available 01/08/2022 Would You Like Help Connecting To Resources? None Information not available 01/08/2022 Sex: Unknown Functional Status None recorded. Mental Status None recorded. Family History Nothing Reported. Medical History Condition Response Diabetes Y Coronary Artery Disease Y CHF Y Parkinson's Disease N Cancer N Dementia N Stroke Y COPD Y Depression N Hypothyroidism N Asthma N High Cholesterol Y Pulmonary Embolism N Hypertension Y A-fib N Osteoporosis N Kidney Disease N Gynecological HistoryNo gynecological history recorded. Obstetrics History GPAL:G 0 P 0 0 0 0 Past Encounters Encounter ID Performer Location Encounter Start Date Encounter Closed Date Diagnosis/Indication Diagnosis SNOMED-CT Code Diagnosis ICD10 Code [id number] CURRY Paagn [facility] [address] [place] [address] 01/08/2022 08:28:21 01/11/2022 09:56:48 Dysuria 16334223 R30.9 Health Concerns Section Related Observation LastModified by Organization Detai ls LastModified Time None Recorded Concern Status LastModified by Organization Details LastModified Time None Recorded Advance Directives Directive Y: Payers Encounter Date Sequence Insurance Name Policy Number Policy Batres Covered Member ID Batres Member ID Guarantor Name 01/08/2022 1 [place] [employer] Lara Mitch Lalo [id number] Lara May 01/08/2022 2 [place] [id number] Lara May [id number] Lara May Notes Date Note Type Note Provider Name and Address Organization Details Recorded Time 01/08/2022 text/html Ms. May is a 76 yo female new to Dysuria in beginning and at the end of urination, some smaller volume in the day and at night she feels the volume is larger amounts. No F/C/N/V No flank pain.She is eating at least 2 meals a day and drinking plenty of water. She has been taking AZO which has been helpful. CURRY Pagan [address], [place], [address], [place] [facility] 01/08/2022 13:08:13 OBGyn Episode No OBEpisode recorded.
--- OUTSIDE RECORDS SUMMARY | 2024-08-02 01:09 | XMS_ITS | Patient Health Record ---
[facility] Address [address] [place] [address] Care Team Providers Care Bulldozer/Loader/Compactor/Scraper Name Role Phone Wojciech Valladares MD Primary Care Provider Tanna Flannery Unavailable [phone] Allergies Allergen (clinical drug ingredient) Drug/Non Drug [...] Problem Acquired hammer toe of right foot (4007034674862610 ) Other hammer toe(s) (acquired), right foot (M20.41) Active confirmed Problem Acquired hammer toe of left foot (7138045683021973 ) Other hammer toe(s) (acquired), left foot (M20.42) Active confirmed Problem Polyneuropathy due to type 2 diabetes mellitus (109243722) Type 2 diabetes mellitus with diabetic polyneuropathy (E11.42) Active confirmed Problem Localized, primary osteoarthritis of the ankle and/or foot (161141062) Arthritis of joint of lesser toe, left (M19.072) Active confirmed Problem Localized, primary osteoarthritis of the ankle and/or foot (487124384) Arthritis of joint of lesser toe, right (M19.071) Active confirmed Vital Signs Blood pressure diastolic 68 mm Hg 02/13/2024 Height 5 ft 6 in in 02/13/2024 Blood pressure systolic 118 mm Hg 02/13/2024 Weight 148 lbs 02/13/2024 BMI 23.89 kg/m2 02/13/2024 Procedures Procedure Date Ordered Date Performed Result Body Sit e 68977-EHCJ SKIN LESIONS, 2 TO 4 02/13/2024 N/A [id number] DYSTROPHIC NAILS ANY # 02/13/2024 N/A - Ganglion Cyst Injection/Aspiration 02/13/2024 N/A Encounters Encounter Location Date Provider Diagnosis [facility] [address] 02/13/2024 Tanna Mayco Type 2 diabetes redd [...] toe, initial encounter S93.149A and Ganglion M67.40 [facility] [address] 01/05/2024 Tanna Mao [facility] [address] 05/21/2024 Tanna Mao Assessments Encounter Date Diagnosis [...] Treatment Pending Test Test Name Order Date 15887-CGUX SKIN LESIONS, 2 TO 4 02/13/20 [id number] DYSTROPHIC NAILS ANY # - Ganglion Cyst Injection/Aspiratio n 02/13/2024 Insurance Providers Payer Name Payer Address Payer Phone Subscriber Number Group Number Insured Name Patient Relationship to Insured Coverage Start Date Coverage End Date Medicare National Govt [employer] [address] [facility] [address] [id number] Lara May Self - patient is the insured [employer] [address] [place] [address] [phone] [id number] Lara May Self - patient is the insured Medical (General) History Medical History History ICD Code Arthritis Cataracts Diabetic Fibromyalgia Heart disease High blood pressure Poor circulation Heart valve conditions/replacement Back,Hip,and Knee pain Broken bones CAD (Cholesterol) covid-19 Numbness Joint implants/screws Surgical History Surgery Date(Month/Year) eye surgery 2017 knee surgery 1999 hip surgery 2021
== END 2024-08-01 12:07 | disposition home or self-care (01) ==
PROVIDERS: PCP Family Medicine; Visit Provider Family Medicine
DX: Z91.81 History of falling (principal); M25.552 Pain in left hip; M79.642 Pain in left hand

== ENCOUNTER → 2024-08-01 10:49 | Outpatient (BNVA) | payer MEDICARE, SELFPAY | PROVIDERS: PCP Family Medicine; Visit Provider Family Medicine | DX: M25.552 Pain in left hip (principal); M79.642 Pain in left hand; Z91.81 History of falling | CPT/HCPCS: 99212 ==

== ENCOUNTER 2024-10-30 11:25 | Outpatient (AMB) | payer MEDICARE, SELFPAY ==
--- NOTE | 2024-10-30 11:27 | A.OFFPC_ITS ---
Vital Signs 10/30/24 11:41 Height 5 ft 6 in Weight 153 lb 6 oz BMI 24.8 BP 120/50 L Blood Pressure Location Rt brachial Position Sitting Respiration 16 Pulse 73 Pulse Source Pulse Oximeter Temp 97.6 F Temp Source Oral Pulse Oximetry (%) 97 Oxygen Delivery Method Room Air Intake Visit Reasons: f/u anemia, chronic conditions Intake Note: Patient is here to follow up on DM and Thread Drawer Required: No Allergies penicillin V Allergy (Mild, Verified 08/08/24 11:25) phlebitis scallops Allergy (Mild, Verified 08/08/24 11:25) sick cramps Medication List - Last Reconciled 10/30/24 by Wojciech Valladares MD albuterol sulfate 90 mcg/actuation 2 puffs inhalation Q6H PRN 30 days aspirin 81 mg PO DAILY cholecalciferol (vitamin D3) 125 mcg PO DAILY empagliflozin (Jardiance) 10 mg PO DAILY 90 days hydrochlorothiazide 12.5 mg PO DAILY 90 days hydroxyzine HCl 10 mg PO BEDTIME insulin detemir U-100 12 units subcut BEDTIME losartan 25 mg PO DAILY 90 days mecobalamin (vitamin B12) 1,000 mcg PO DAILY 90 days metformin 500 mg PO DAILY 90 days pravastatin 20 mg PO DAILY 90 days pregabalin 150 mg PO BID 90 days Tobacco use date assessed: 06/29/24 Dental Screening Dental Screen Date: 06/29/24 HPI f/u anemia, chronic conditions HPI Details 79 y/o female presents to f/u anemia, ch ronic conditions. A1c today 10/30/24 6.4%. She is on metformin 500mg, insulin 12 units, Jardiance 10mg daily. No recent CBC to review. She reports eyes has been bothering her. Reports symptoms x2 weeks. [facility] Medical History Cataracts, bilateral Tonsillitis Diabetes 1.5, managed as type 2 Surgical History H/O eye surgery H/O vein stripping History of hip surgery Stented coronary artery S/P TAVR (transcatheter aortic valve replacement) Family History (Updated 01/18/24 @ 16:41 by Lorraine Gama CMA) Mother Cerebral hemorrhage Social History Household Members: None Housing: Other Housing Other:: trailer Are you a primary primary care nurse to a significant other at home: No Do you presently have visiting nurse or other home services: No Alcohol intake: never Patient Tobacco Use Status: Former Tobacco user e-Cigarette/Vaping Use: Never Used Special justino needs: No service: No Current occupational status: retired Cognitive needs: No Hearing needs: No Vision needs: No Questionnaire PHQ-9 Over the last 2 weeks, how often have you been bothered by any of the following problems? 1. Little interest or pleasure in doing things: not at all 2. Feeling down, depressed, or hopeless: not at all 3. Trouble falling or staying asleep, or sleeping too much: nearly every day 4. Feeling tired or having little energy: nearly every day 5. Poor appetite or overeating: not at all 6. Feeling bad about yourself - or that you are a failure or have let yourself or your family down: not at all 7. Trouble concentrating on things, such as reading the newspaper or watching television: not at all 8. Moving or speaking so slowly that other people could have noticed. Or the opposite - being so fidgety or restless that you have been moving around a lot more than usual: not at all 9. Thoughts that you would be better off or of hurting yourself in some way: not at all Total score: 6 Source: Developed by Drs. Simone Lombardi, Sydnee Sarkar, Garret Whyte and colleagues, with an educational jacey from [employer]. Thrive Questionnaire Date Thrive assessed: 06/29/24 I am a: Patient What is your living situation today?: I have a steady place to live Within the past 12 months, did the food you bought not last and you didn't have the money to get more?: Never true Within the past 12 months, did you worry whether your food would run out before you got money to buy more?: Never true Do you have trouble paying for medicines?: No Do you have trouble getting transportation to medical appointments?: No Do you have trouble paying your heating and electricity bill?: No Do you have trouble taking care of your child, family member or friend?: No Do you have trouble with day-to-day activities such as bathing, preparing meals, shopping, managing finances, etc.?: No Are you currently unemployed and looking for a job?: No Are you interested in more education?: No Please select the resources that you would like help with: None Currently or been in a relationship where the following occur: No concerns reported THRIVE Score: 0 AUDIT C Alcohol Use Questionnaire (AUDIT-C) 1. How often do you have a drink containing alcohol?: Never Total Score: 0 CHIQUITA-7 AMB Questionnaire CHIQUITA-7 Date CHIQUITA - 7 assessed: 06/29/24 Feeling nervous, anxious, or on edge: 0 = Not at all Not being able to stop or control worryin = Not at all Worrying too much about different things: 1 = Several days Trouble relaxin = Not at all Being so restless that it is hard to sit still: 0 = Not at all Becoming easily annoyed or irritable: 0 = Not at all Feeling afraid as if something awful might happen: 0 = Not at all Total CHIQUITA-7 score (0-4 normal; 5-9 mild; 10-14 moderate; 15-21 severe): 1 Source: Developed by Drs. Simone Lombardi, Sydnee Sarkar, Garret Whyte and colleagues, with an educational jacey from [employer]. Review of Systems Const Denies chills, Denies fatigue, Denies fever(s), Denies headache(s) and Denies weakness ENT Denies dizziness and Denies headache(s) Card Denies chest pain, Denies lightheadedness, Denies dyspnea and Denies other (Palpitations) Resp Denies cough, Denies dyspnea, Denies wheezing and Denies other ( shortness of breath) Musc Denies numbness and Denies tingling Neuro Denies dizziness, Denies headache(s), Denies numbness, Denies tingling, Denies paresthesias and Denies weakness Psych Denies anxiety and Denies depression Endo Denies fatigue Aller/Immun Denies wheezing Physical exam (Primary Care) Vital Signs: Last Vital Signs Temp 97.6 F 10/30/24 11:41 Pulse 73 10/30/24 11:41 Resp 16 10/30/24 11:41 BP 120/50 L 10/30/24 11:41 Pulse Ox 97 10/30/24 11:41 Oxygen Delivery Method Room Air 10/30/24 11:41 BMI result Body Mass Index 24.8 Tobacco/Smoking Status: Tobacco use Status Tobacco use date assessed 06/29/24 10/30/24 11:29 Patient Tobacco Use Status Former Tobacco user 10/30/24 11:29 e-Cigarette/Vaping Use Never Used 10/30/24 11:29 PHQ-9: PHQ-9 Score PHQ-9: Total score 6 10/30/24 12:05 Thrive Assessment: Date of Thrive Assessment Date Thrive assessed 06/29/24 10/30/24 11:29 Currently or been in a relationship where the following occur: No concerns reported Const General: no acute distress and well developed Nutritional Appearance: well nourished Orientation/consciousness: patient oriented x3 HENMT Head: Yes normocephalic and Yes atraumatic Eyes General: appearance normal, both eyes and all related structures Pupils: Equal, round and reactive pupils present EOM: EOMs intact bilaterally Resp Effort & Inspection: normal respiratory effort Auscultation: not clear to auscultation bilaterally Cardio Rate: regular rate Rhythm: regular rhythm Heart sounds: S1 normal heart sound present, S2 normal heart sound present, no gallops, no murmurs and no rubs Neuro General: patient oriented x3 and gait normal Cranial nerves: Yes Equal, round and reactive pupils present Psych Affect: normal affect Results AMB Hemoglobin A1c AMB Hemoglobin A1c 6.4 % Last Edit by ANA Barnes on 10/30/24 11:59 Results Reviewed Results Reviewed: Laboratory Last Values Hgb A1c (Clinic) 6.4 % (4.0-6.0) H 10/30/24 11:47 Coding Level of Care Code Est Pt Level 4 (59638) Diagnoses Conjunctivitis H10.9 Mild anemia D64.9 Diabetes E11.9 Abnormal lung sounds R09.89 Assessment & Plan Assessment & Plan (1) Conjunctivitis: Code(s): H10.9 - Unspecified conjunctivitis Category: Medical Plan: Conjunctivitis?bilateral?eyes,?right?worse?than?left. Likely?allergic?or?irritant?and?I?am?giving?her?an?allergy?eye?drop. Will?also?give?her?erythromycin?ointment?as?she?is?concerned?about?infectious?pr ocess (2) Mild anemia: Code(s): D64.9 - Anemia, unspecified Category: Medical Plan: Following?this.??Patient?has?not?had?labs?drawn?yet?but?do?so?today (3) Diabetes: Code(s): E11.9 - Type 2 diabetes mellitus without complications Category: Medical Plan: A1c?6.4%.??Good?control.??Goal?is?less?than?7.0% Continue?current?medication?regimen (4) Abnormal lung sounds: Code(s): R09.89 - Other specified symptoms and signs involving the circulatory and respiratory systems Category: Medical Plan: Concern?for?mild/atypical?pneumonia Check?chest?x-ray - will?call?patient?if?x-ray?indicates Start?Z-Juan J She?will?call?me?if?worsening?or?any?problems?with?medication. Orders: Orders AMB Hemoglobin A1c Today E11.9 - Type 2 diabetes mellitus without complications XR chest 2V Today R09.89 - Other specified symptoms and signs involving the circulatory and respiratory systems Medications: New erythromycin 0.5 inches ophthalmic (eye) TID 7 days 3.5 grams 0RF azithromycin (Zithromax Z-Juan J) take 500 mg today (day 1), then 250 mg for 4 days (days 2-5) PO 5 days 6 tabs 0RF olopatadine 0.7% 1 drp ophthalmic (eye) DAILY 30 days PRN 5 mL 1RF itching Refilled pregabalin 150 mg PO BID 90 days 180 caps 0RF
[2024-10-30 11:41] VITALS: BP 120/50; PULSE 73; RESP 16; TEMP 36.4; O2SAT 97; BMI 24.8
--- OUTSIDE RECORDS SUMMARY | 2024-10-30 14:07 | XMS_ITS | Encounter Summary ---
Author Organization [facility] Address [address] [place] [address] Care Team Providers Care Handstitching Machine Armhole Feller Name Role Phone Wojciech Cortez MD Primary Care Provider Unavail able Nile Villalba MD Primary Care Provider Atilio Lopez, Pcp Primary Care Provider Eliud Cochran MD Primary Care Provider Eliud Riojas MD Primary Care Provider Enedelia Ley MD Primary Care Provider + [facility], Pcp Primary Care Provider Wojciech Kaufman MD Primary Care Provider Juan C Field MD Unavailable Encounter Details Date Type Department Care Team Description 02/24/2018 Transfer Records Medical Records [address] [place] [address] Abstract, Provider Social History Tobacco Use Types Packs/Day Years Used Date Smoking Tobacco: Former Cigarettes Q uit: 10/29/2012 Smokeless Tobacco: Never Comments:started @ 13 Alcohol Use Standard Drinks/Week Comments No 0 (1 standard drink = 0.6 oz pur e alcohol) Sex Assigned at Date Recorded Not on file documented as of this encounter Plan of Treatment Not on file documented as of this encounter Visit Diagnoses Not on filedocumented in this encounter Care Teams Handstitching Machine Armhole Feller Relationship Specialty Start Date End Date Wojciech Cortez MD PCP - General 02/20/1996 02/24/20 Nile Villalba MD PCP - General Internal Medicine 02/25/20 12/18/20 [facility], Pcp PCP - General Internal Medicine 12/19/20 12/21/20 Eliud Anaya MD PCP - General Internal Medicine 12/22/20 12/29/20 Eliud Anaya MD PCP - General Internal Medicine 12/30/20 03/07/22 Enedelia Montaño MD [address] [place] [id number] PCP - General Internal Medicine 03/08/22 11/16/23 [facility], Pcp PCP - General Internal Medicine 11/17/23 01/23/24 Wojciech Valladares MD [address] [place] [id number] PCP - General Family Practice 01/24/24 Juan C Buckley MD [address] [place] [address] Specialist Cardiology 03/02/24 documented as of this encounter
--- OUTSIDE RECORDS SUMMARY | 2024-10-30 14:07 | XMS_ITS | Encounter Summary ---
Author Organization [facility] Address [address] [place] [address] Care Team Providers Care Elementary Esl Teacher Name Role Phone Enedelia Montaño MD Primary Care Provider + [facility], Pcp Primary Care Provider Wojciech Kaufman MD Primary Care Provider Juan C Field MD Unavailable [phone] Encounter Details Date Type Department Care Team Description 04/01/2022 Pecan Sheller Report Medical Records [address] [place] [id number] Gustavo Farley PA-C Social History Tobacco Use Types Packs/Day Years [...] on filedocumented in this encounter Care Teams Elementary Esl Teacher Relationship Specialty Start Date End Date Enedelia Montaño MD [address] [place] [address] PCP - General Internal Medicine 03/08/22 11/16/23 [facility], Pcp [address] [place] [address] PCP - General Internal Medicine 11/17/23 01/23/24 Wojciech Valladares MD [address] [place] [address] PCP - General Family Practice 01/24/24 Juan C Buckley MD [address] [place] [address] Specialist Cardiology 03/02/24 documented as of this encounter
--- OUTSIDE RECORDS SUMMARY | 2024-10-30 14:07 | XMS_ITS | Encounter Summary ---
Author Organization [facility] Address [address] [place] [address] Care Team Providers Care Advertising Operations Manager Name Role Phone Wojciech Cortez MD Primary Care Provider Unavail Nile Mata MD Primary Care Provider Atilio newby [facility], Pcp Primary Care Provider Eliud Cochran MD Primary Care Provider Eliud Riojas MD Primary Care Provider Enedelia Ley MD Primary Care Provider + [facility], Pcp Primary Care Provider Wojciech Kaufman MD Primary Care Provider Juan C Field MD Unavailable [phone] Encounter Details Date Type Department Care Team Description 01/03/2018 Telephone Adult Medicine [address] [address] Wojciech Cortez MD Social History Tobacco Use Types Packs/Day Years Used Date Smoking Tobacco: Former Cigarettes Q uit: 10/29/2012 Smokeless Tobacco: Never Comments:started @ 13 Alcohol Use Standard Drinks/Week Comments No 0 (1 standard drink = 0.6 oz pur e alcohol) Sex Assigned at Date Recorded Not on file documented as of this encounter Miscellaneous Notes * Telephone Encounter - Shelly Gregg M.A. - 01/03/2018 7:[address] Cortez, Stress Echo report was delivered yesterday to the Hospital folder in the [facility]. Thank you, Shelly Sewell C.M.A. Ash Kier Boiler * Telephone Encounter - Wojciech Cortez MD - 01/03/2018 6:30 AM EDT Please see if stress echo report can be obtained. documented in this encounter Plan of Treatment Not on file documented as of this encounter Visit Diagnoses Not on filedocumented in this encounter Care Teams Advertising Operations Manager Relationship Specialty Start Date End Date Wojciech Cortez MD PCP - General 02/20/1996 02/24/20 Nile Villalba MD PCP - General Internal Medicine 02/25/20 12/18/20 [facility], Pcp PCP - General Internal Medicine 12/19/20 12/21/20 Eliud Anaya MD PCP - General Internal Medicine 12/22/20 12/29/20 Eliud Anaya MD PCP - General Internal Medicine 12/30/20 03/07/22 Enedelia Montaño MD [address] [place] [address] PCP - General Internal Medicine 03/08/22 11/16/23 [facility], Pcp PCP - General Internal Medicine 11/17/23 01/23/24 Wojciech Valladares MD [address] [place] [id number] PCP - General Family Practice 01/24/24 Juan C Buckley MD [address] [place] [address] Specialist Cardiology 03/02/24 documented as of this encounter
--- OUTSIDE RECORDS SUMMARY | 2024-10-30 14:07 | XMS_ITS | Encounter Summary ---
Author Organization [facility] Address [address] [place] [address] Care Team Providers Care Washtub Worker Name Role Phone Wojciech Cortez MD Primary Care Provider Unavail able Nile Villalba MD Primary Care Provider Atilio Lopez, Pcp Primary Care Provider Eliud Cochran MD Primary Care Provider Eliud Riojas MD Primary Care Provider Enedelia Ley MD Primary Care Provider + [facility], Pcp Primary Care Provider Wojciech Kaufman MD Primary Care Provider Juan C Field MD Unavailable [phone] Encounter Details Date Type Department Care Team Description 02/01/2013 Breastfeeding Peer Counselor Report Medical Records [address] [place] [address] Ilene Abraham [address] [place] [address] Social History Tobacco Use Types Packs/Day Years [...] on filedocumented in this encounter Care Teams Washtub Worker Relationship Specialty Start Date End Date Wojciech Cortez MD PCP - General 02/20/1996 02/24/20 Nile Villalba MD PCP - General Internal Medicine 02/25/20 12/18/20 [facility], Pcp PCP - General Internal Medicine 12/19/20 12/21/20 Eliud Anaya MD PCP - General Internal Medicine 12/22/20 12/29/20 Eliud Anaya MD PCP - General Internal Medicine 12/30/20 03/07/22 Enedelia Montaño MD [address] [place] [address] PCP - General Internal Medicine 03/08/22 11/16/23 [facility], Pcp PCP - General Internal Medicine 11/17/23 01/23/24 Wojciech Valladares MD [address] [place] [address] PCP - General Family Practice 01/24/24 Juan C Buckley MD [address] [place] [address] Specialist Cardiology 03/02/24 documented as of this encounter
--- OUTSIDE RECORDS SUMMARY | 2024-10-30 14:07 | XMS_ITS | Clinical Summary ---
Author Organization [facility] Address [address] [place] [address] Care Team Providers Care Sql Engineer Name Role Phone Wojciech Valladares MD Primary Care Provider Juan C Field MD Unavailable [phone] Allergies Active Allergy Reactions Severity Noted Date Comments Penicillins 08/30/2005 Pravastatin 12/08/2022 dizziness Medications Medication Sig Dispensed Refills Start Date End Date Status glucose monitoring kit (FREESTYLE) monitoring kitIndications:DM (diabetes mellitus), type 2, uncontrolled, with renal complications,DM (diabetes mellitus), type 2 with neurological complications (HCC),DM (diabetes mellitus) type II uncontrolled with eye manifestation 1 Each by Does not apply route as needed for Other. 1 Each 0 03/13/2012 Active hydrOXYzine (ATARAX) 10 MG tablet Take 1 tablet by mouth every 8 hours as needed for Itching. 90 tablet 0 02/03/2021 Active Diclofenac Sodium 1 % Gel Apply 2 g topically 4 times daily. 200 g 0 02/03/2021 Active aspirin (Ecotrin Low Strength) 81 MG EC tabletIndications:Ty pe 2 diabetes mellitus with diabetic neuropathy, with long-term current use of insulin (HCC) Take 1 Tablet by mouth daily. 90 Tablet 1 05/06/2022 Active FreeStyle Lancets MiscIndications:Type 2 diabetes mellitus with diabetic neuropathy, with long-term current use of insulin (HCC) 1 Each by Does not apply route 3 times daily. 100 Each 1 05/06/2022 Active Insulin Pen Needle (BD Pen Needle Ema U/F) 32G X 4 MM MiscIndications:Type 2 diabetes mellitus with diabetic neuropathy, with long-term current use of insulin ([facility]) 1 Device by Does not apply route daily. 100 Each 1 05/06/2022 Active hydrochlorothiazide (HYDRODIURIL) 25 MG tabletIndications:Es sential hypertension, benign Take 1 Tablet by mouth daily. 90 Tablet 1 05/06/2022 Active Jardiance 10 MG TabIndications:Type 2 diabetes mellitus with diabetic neuropathy, with long-term current use of insulin (HCC) Take 10 mg by mouth daily. 90 Tablet 1 05/06/2022 Active losartan (COZAAR) 25 MG tabletIndications:Es sential hypertension, benign Take 1 Tablet by mouth daily. 90 Tablet 1 05/06/2022 Active Cholecalciferol (Vitamin D3) 125 MCG (5000 UT) Tab Take 1 Tablet by mouth daily. 90 Tablet 1 05/06/2022 Active carbamide peroxide (DEBROX) 6.5 % otic solutionIndications: Bilateral impacted cerumen Place 5 Drops into both ears 2 times daily for 10 days. Tilt head so ear to be treated points towards the ceiling. Hold medication in ear using part of a cotton ball. 15 mL 0 05/06/2022 Active gabapentin (NEURONTIN) 300 MG capsuleIndications:T ype 2 diabetes mellitus with diabetic neuropathy, with long-term current use of insulin ([facility]) Take 1 Capsule by mouth at bedtime. 90 Capsule 1 12/08/2022 Active Insulin Detemir (Levemir FlexTouch) 100 UNIT/ML Solution Pen-injectorIndicati ons:Type 2 diabetes mellitus with diabetic neuropathy, with long-term current use of insulin ([facility]) Inject 12 Units into the skin daily. 10 mL 5 01/04/2023 Active ALBUTEROL SULFATE 108 (90 Base) MCG/ACT Aero SolnIndications:Othe r emphysema ([facility]) INHALE 2 PUFFS INTO THE LUNGS FOUR TIMES DAILY NEEDED FOR COUGH OR WHEEZING 18 g 1 01/06/2023 Active metformin (GLUCOPHAGE) 500 MG tabletIndications:Ty pe 2 diabetes mellitus with diabetic neuropathy, with long-term current use of insulin ([facility]) TAKE 1 TABLET BY MOUTH DAILY WITH BREAKFAST 10 Tablet 0 06/27/2023 Active Active Problems Patient Care Coordination No te Formatting of this note is d ifferent from the original. Checking Your Blood Sugars Please check your blood sugars every day. Please check your sugars at the following times of day: before breakfast Your Blood Sugar Goals Pre Meal: 90-130 2 hours after meals: 110-160 Bedtime: 110-150 Use the Results ?? Bring your glucometer to every appointment ?? Write your fingerstick blood sugars down on a log sheet or record book. Bring them to your appointment ?? Look for patterns in the numbers. The results help you and your provider make decisions about your diabetes treatment plan. Your Results and your Goals Your Result / Date of Completion Your Goal / How Often to Assess Component Value Date HGBA1C 6.9 05/20/2016 Less than 7%--- 2-4 times per year BP Readings from Last 1 Encounters: 05/26/16 116/58 Less than 130/80--- once per year Component Value Date LDL 91 01/28/2016 LDL less than 100--- once per year Component Value Date MALBUR 52.4 01/28/2016 Less than 30--- once per year Wt Readings from Last 1 Encounters: 05/26/16 160 lb (72.576 kg) Your goal weight by next visit: 156 --- reassess 2-4 times a year Health Maintenance Due Topic Date Due ? ? Dtap/tdap/td (#2 - Tdap) 07/26/2007 ? ? Pneumococcal Vaccine (#1 of 2 - Dose 1 = PCV13, Dose 2 = PPSV23) 2009 ? ? Influenza (#1 of 1) 04/22/2016 ? ? Diabetes: Annual Foot Exam 05/20/2016 ? ? Diabetes: Annual Care Plan 05/20/2016 ? ? Mammogram 05/20/2016 Your Action Plan Check blood glucose as directed and write down all results. Contact me if you experience any barriers to care such as inability to purchase your medication, difficulty getting to your appointments or difficulty understanding your care plan When to Call your Healthcare Provider If your blood sugar falls below 70 and you do not know why or you become unconscious If you are sick and unable to take liquids because or nausea or vomiting If you have a fever over 101 If your blood sugar is 300 or higher on greater than 3 separate occasions during the same week If you are just unsure what to do Educational Resources [place] [employer] (www.diabetes.org) Centers for Disease Control and Prevention (www.cdc.gov/diabetes) This care plan was created in collaboration with Lara May on 05/26/2016 Problem Noted Date Leukocytosis 05/06/2022 S/P AVR (aortic valve replacement) 06/01 Overview: Transcatheter aortic valve replacement, for aortic stenosis, 05/23/2018 History of colonic polyps 05/21/2018 Overview: Multiple polyps on colonoscopy of 05/17/2018. Will need biopsy when off Plavix. Diabetic retinopathy 02/23/2018 Vitamin D deficiency 02/23/2018 Aortic stenosis 04/19/2016 Overview: Moderate aortic stenosis, echocardiogram 02/11/2016. Pulmonary nodules/lesions, multiple 08/2013 Overview: first seen october 2012; repeat CT in 2014 -no further surveillance CT imaging necessary given stability of nodules. COPD (chronic obstructive pulmonary dise ase) 04/20/2013 Microalbuminuria 11/11/2011 Essential hypertension, benign 1 Mixed hyperlipidemia 12/15/2008 Benign neoplasm of adrenal gland 006 Overview: follow-up scan due December 2007 Allergic rhinitis, cause unspecified 02/2006 OSTEOARTHRITIS, knees 10/26/2005 Overview: L>R Carpal tunnel syndrome 10/26/2005 Overview: + NCT bilaterally Sep 2006 - moderate Type 2 diabetes mellitus 08/31/2005 Resolved Problems Problem Noted Date Resolved Date Iron deficiency anemia 04/12/2020 Overview: Labs 03/2020 Heme positive stool 06/01/2018 05/06/2022 Overview: Colonic polyps noted by Dr. Pitts, 05/17/2018, polypectomy when off Plavix, consider CT enterography and capsule endoscopy DM (diabetes mellitus), type 2 with neurological complications 11/11/2011 12/08/2022 Heart murmur previously undiagnosed 05/07/2011 02/23/2018 Encounters Date Type Specialty Care Team Description 08/07/2024 SCAN [facility] from Last 3 Months Immunizations Name Administration Dates Next Due COVID-19 (Pfizer) Pt Reported 11/10/2021 ,05/18/2021,11/14/2020,10/24 Influenza (> 6 Months) 05/20/2015,2011,05/07/2011,05/07,05/25/2008,05/25/2007,07/19/2006 ,07/07/2005 Influenza Flu (PT Reported) 05/24/2014, 3 Influenza Vaccine-preservati ve Free-quadrivalent 4 Years 05/01/2018 Influenza vaccine high dose age 65 and over 06/11/2021,06/25/2020,07/23/2017 Pneumoccoccal(Adult) Polysac charide PPSV23 01/17/2007,06/15/1999 Pneumococcal Conjugate PCV-13 03/16/2017 TD (STATE SUPPLIED FOR ADULT S AND CHILDREN) 06/28/2007 Tdap 01/05/2019 Family History Medical History Relation Name Comments Diabetes Daughter unknown Father Hypertension Mother cerebral bleed Relation Name Status Comments Daughter Father Mother Social History Tobacco Use Types Packs/Day Years Used Date Smoking Tobacco: Former Cigarettes Q uit: 10/29/2012 Smokeless Tobacco: Never Tobacco Cessation:Counseling Given: Not Answered Comments:started @ 13 Alcohol Use Standard Drinks/Week Comments No 0 (1 standard drink = 0.6 oz pur e alcohol) Sex Assigned at Date Recorded Not on file Last Filed Vital Signs Vital Sign Reading Time Taken Comments Blood Pressure 120/55 12/08/2022 1:05 PM EDT a Pulse 82 12/08/2022 12:51 PM EDT Temperature 36.7 ??C (98.1 ??F) 12/08/2022 12:51 PM E DT Respiratory Rate 14 12/08/2022 12:51 PM EDT Oxygen Saturation 96% 09/08/2020 4:15 PM EST Inhaled Oxygen Concentration - - Weight 63 kg (139 lb) 12/08/2022 12:51 PM EDT Height 165.1 cm (5' 5 ) 12/08/2022 12:51 PM EDT Body Mass Index 23.13 12/08/2022 12:51 PM EDT Plan of Treatment Health Maintenance Due Date Last Done Comments SHINGLES VACCINE (1 of 2) 1994 PNEUMOCOCCAL VACCINE (3 - PP SV23 or PCV20) 03/16/2018 03/16/2017, 01/17/2007, 06/15/1999 BONE DENSITY SCREENING 05/26/2018 6 (Refused), 11/04/2010 (Refused) MAMMOGRAM 01/06/2020 01/05/2019 (Refu sed), 03/16/2017 (Refused), 05/20/2015 (Refused), Additional history exists DIABETES: ANNUAL EYE EXAM 02/26/20222020, 02/27/2020 (External Completion), 02/27/2020, Additional history exists DIABETES: BLOOD SUGAR CONTRO L TEST (HGBA1C) 03/09/2023 12/08/2022, 05/06/2022, 01/28/2021, Additional history exists DEPRESSION SCREEN 05/06/2023 05/06/2022, , 03/15/2018, Additional history exists DIABETES/HEART DISEASE: ALFREDO AL CHOLESTEROL (LDL) 05/06/2023 05/06/2022, 10/10/2019, 04/11/2019, Additional history exists DIABETES: ANNUAL FOOT EXAM 05/06/202305/06 (Completed), 02/03/2021, 01/05/2019, Additional history exists FALL RISK ASSESSMENT 05/06/2023 05/06/2022 (Completed), 09/08/2020, 04/11/2019, Additional history exists DIABETES: ANNUAL URINE PROTE IN TEST (MICROALBUMIN) 12/09/2023 12/08/2022, 05/06/2022, 04/04/2020, Additional history exists Covid-19 Vaccine (5 - 2022-2 4 season) 2024 11/10/2021, 05/18/2021, 11/14/2020, Additional history exists INFLUENZA (#1) 2024 06/11/2021, 11/2019, 05/01/2018, Additional history exists BMI CHECK/ADVISE 08/22/2024 09/08/2020, , 04/04/2020, Additional history exists DTAP/TDAP/TD (2 - Td or Tdap) 01/05/2029 01/05/2019, 06/28/2007 Care Teams Sql Engineer Relationship Specialty Start Date End Date Wojciech Valladares MD PCP - General Family Practice 01/24/24 Juan C Buckley MD Specialist Cardiology 03/02/24
--- OUTSIDE RECORDS SUMMARY | 2024-10-30 14:07 | XMS_ITS | Encounter Summary ---
Author Organization [facility] Address [address] [place] [address] Care Team Providers Care Audiovisual Lead Technician Name Role Phone Community, Pcp Primary Care Provider Wojciech Kaufman MD Primary Care Provider Juan C Field MD Unavailable [phone] Encounter Details Date Type Department Care Team Description 01/12/2024 SCAN Medical Records [address] [place] [address] Abstract, Provider Social History Tobacco Use Types [...] on file documented as of this encounter Procedures Procedure Name Priority Date/Time Associated Diagnosis Comments OUTSIDE LAB Routine 01/12/2024 documented in this encounter Results * OUTSIDE LAB (01/12/2024) Provider Abstract LAB documented in this encounter Visit Diagnoses Not on filedocumented in this encounter Care Teams Audiovisual Lead Technician Relationship Specialty Start Date End Date Community, Pcp PCP - General Internal Medicine 11/17/23 01/23/24 Wojciech Valladares MD PCP - General Family Practice 01/24/24 Juan C Buckley MD Specialist Cardiology 03/02/24 documented as of this encounter
--- OUTSIDE RECORDS SUMMARY | 2024-10-30 14:07 | XMS_ITS | Encounter Summary ---
Author Organization [facility] Address [address] [place] [address] Care Team Providers Care Metal Neutralizer Name Role Phone Eliud Anaya MD Primary Care Provider Enedelia Ley MD Primary Care Provider + [facility], Pcp Primary Care Provider Wojciech Kaufman MD Primary Care Provider Juan C Field MD Unavailable [phone] Reason for Visit * Reason Onset Date Comments VNA Call 01/13/2022 Encounter Details Date Type Department Care Team Description 01/13/2022 Telephone Adult [address] [address] Eliud Anaya MD VNA Call Social History Tobacco Use Types Packs/Day Years Used Date Smoking Tobacco: Former Cigarettes Q uit: 10/29/2012 Smokeless Tobacco: Never Comments:started @ 13 Alcohol Use Standard Drinks/Week Comments No 0 (1 standard drink = 0.6 oz pur e alcohol) Sex Assigned at Date Recorded Not on file documented as of this encounter Miscellaneous Notes * Telephone Encounter - Deon Rock L.P.N. - 01/13/2022 3:18 PM EDT Called Stella (+ID) Left her a detailed message urine lab results not received [facility] can [facility] obtain and copy She can fax them to me I will give to Dr. Jaclyn MCKEON to Dr. Anaya * Telephone Encounter - Anabel Catalan - 01/13/2022 2:57 PM EDT VNA CALL Which VNA office is calling? [facility] Full name of caller: Stella The caller is An Occupational Therapist Is the caller at the patients home?: Yes Reason for call: nurse is wondering if Dr Anaya was aware pt was see by [facility] on 01-08-22 and treated pt for a possible UTI and they prescribed patient bactrim, nurse requests call back concerning this and pt did not receive any results regarding lab urine test done then Does caller need an urgent call back? YES, by end of day Was CONTACT Telephone # obtained above?: YES Fax #: [phone] documented in this encounter Plan of Treatment Not on file documented as of this encounter Visit Diagnoses Not on filedocumented in this encounter Care Teams Metal Neutralizer Relationship Specialty Start Date End Date Eliud Anaya MD PCP - General Internal Medicine 12/30/20 03/07/22 Enedelia Montaño MD [address] [place] [address] PCP - General Internal Medicine 03/08/22 11/16/23 [facility], [place] [address] PCP - General Internal Medicine 11/17/23 01/23/24 Wojciech Valladares MD [address] [place] [address] PCP - General Family Practice 01/24/24 Juan C Buckley MD [address] [place] [address] Specialist Cardiology 03/02/24 documented as of this encounter
--- OUTSIDE RECORDS SUMMARY | 2024-10-30 14:07 | XMS_ITS | Encounter Summary ---
Author Organization [facility] Address [address] [place] [address] Care Team Providers Care Massage Coordinator Name Role Phone Wojciech Cortez MD Primary Care Provider Unavail able Nile Villalba MD Primary Care Provider Atilio Lopez, Pcp Primary Care Provider Eliud Cochran MD Primary Care Provider Eliud Riojas MD Primary Care Provider Enedelia Ley MD Primary Care Provider + [facility], Pcp Primary Care Provider Wojciech Kaufman MD Primary Care Provider Juan C Field MD Unavailable [phone] Encounter Details Date Type Department Care Team Description 01/27/2018 Banquet Lead Report Medical Records [address] [place] [id number] Juan C Buckley MD [address] [place] [address] [id number] Social History Tobacco Use Types Packs/Day Years [...] on filedocumented in this encounter Care Teams Massage Coordinator Relationship Specialty Start Date End Date Wojciech Cortez MD PCP - General 02/20/1996 02/24/20 Nile Villalba MD PCP - General Internal Medicine 02/25/20 12/18/20 Community, Pcp PCP - General Internal Medicine 12/19/20 12/21/20 Eliud Anaya MD PCP - General Internal Medicine 12/22/20 12/29/20 Eliud Anaya MD PCP - General Internal Medicine 12/30/20 03/07/22 Enedelia Montaño MD [address] [place] [id number] PCP - General Internal Medicine 03/08/22 11/16/23 Community, Pcp PCP - General Internal Medicine 11/17/23 01/23/24 Wojciech Valladares MD [address] [place] [address] PCP - General Family Practice 01/24/24 Juan C Buckley MD [address] [place] [id number] Specialist Cardiology 03/02/24 documented as of this encounter
--- OUTSIDE RECORDS SUMMARY | 2024-10-30 14:07 | XMS_ITS | Encounter Summary ---
Author Organization [facility] [facility] Address [address] [place] [address] Care Team Providers Care Boiler Room Operator Name Role Phone Community, Pcp Primary Care Provider Wojciech Kaufman MD Primary Care Provider Juan C Field MD Unavailable [phone] Encounter Details Date Type Department Care Team Description 01/19/2024 SCAN Medical Records [address] [place] [address] Abstract, Provider Social History Tobacco Use Types [...] on filedocumented in this encounter Care Teams Boiler Room Operator Relationship Specialty Start Date End Date Community, Pcp PCP - General Internal Medicine 11/17/23 01/23/24 Wojciech Valladares MD PCP - General Family Practice 01/24/24 Juan C Buckley MD Specialist Cardiology 03/02/24 documented as of this encounter
--- OUTSIDE RECORDS SUMMARY | 2024-10-30 14:07 | XMS_ITS | Encounter Summary ---
Author Organization [facility] Address [address] [place] [address] Care Team Providers Care Plant Mechanic Name Role Phone Wojciech Cortez MD Primary Care Provider Unavail able Nile Villalba MD Primary Care Provider Atilio Lopez, Pcp Primary Care Provider Eliud Cochran MD Primary Care Provider Eliud Riojas MD Primary Care Provider Enedelia Ley MD Primary Care Provider + [facility], Pcp Primary Care Provider Wojciech Kaufman MD Primary Care Provider Juan C Field MD Unavailable [phone] Encounter Details Date Type Department Care Team Description 03/06/2013 Special Procedures Technologist Report Medical Records [address] [place] [address] Monet Garcia Anne [address] [place] [address] Social History Tobacco Use Types Packs/Day Years [...] on filedocumented in this encounter Care Teams Plant Mechanic Relationship Specialty Start Date End Date Wojciech Cortez MD PCP - General 02/20/1996 02/24/20 Nile Villalba MD PCP - General Internal Medicine 02/25/20 12/18/20 [facility], Pcp PCP - General Internal Medicine 12/19/20 12/21/20 Eliud Anaya MD PCP - General Internal Medicine 12/22/20 12/29/20 Eliud Anaya MD PCP - General Internal Medicine 12/30/20 03/07/22 Enedelia Montaño MD [address] [place] [address] PCP - General Internal Medicine 03/08/22 11/16/23 [facility], Pcp PCP - General Internal Medicine 11/17/23 01/23/24 Wojciech Valladares MD [address] [place] [address] PCP - General Family Practice 01/24/24 Juan C Buckley MD [address] [place] [address] Specialist Cardiology 03/02/24 documented as of this encounter
--- OUTSIDE RECORDS SUMMARY | 2024-10-30 14:07 | XMS_ITS | Encounter Summary ---
Author Organization [facility] Address [address] [place] [address] Care Team Providers Care Silviculture Professor Name Role Phone Wojciech Cortez MD Primary Care Provider Unavail able Nile Villalba MD Primary Care Provider Atilio Lopez, Pcp Primary Care Provider Eliud Cochran MD Primary Care Provider Eliud Riojas MD Primary Care Provider Enedelia Ley MD Primary Care Provider + [facility], Pcp Primary Care Provider Wojciech Kaufman MD Primary Care Provider Juan C Field MD Unavailable [phone] Encounter Details Date Type Department Care Team Description 01/19/2018 Rubber Turner Report Medical Records [address] [place] [address] Shawn Lopes MD [address] [place] [address] Social History Tobacco Use Types Packs/Day Years [...] on filedocumented in this encounter Care Teams Silviculture Professor Relationship Specialty Start Date End Date Wojciech Cortez MD PCP - General 02/20/1996 02/24/20 Nile Villalba MD PCP - General Internal Medicine 02/25/20 12/18/20 Community, Pcp PCP - General Internal Medicine 12/19/20 12/21/20 Eliud Anaya MD PCP - General Internal Medicine 12/22/20 12/29/20 Eliud Anaya MD PCP - General Internal Medicine 12/30/20 03/07/22 Enedelia Montaño MD [address] [place] [id number] PCP - General Internal Medicine 03/08/22 11/16/23 Community, Pcp PCP - General Internal Medicine 11/17/23 01/23/24 Wojciech Valladares MD [address] [place] [address] PCP - General Family Practice 01/24/24 Juan C Buckley MD [address] [place] [id number] Specialist Cardiology 03/02/24 documented as of this encounter
--- OUTSIDE RECORDS SUMMARY | 2024-10-30 14:08 | XMS_ITS | Encounter Summary ---
Author Organization [facility] Address [address] [place] [address] Care Team Providers Care Packaging Specialist Name Role Phone Wojciech Cortez MD Primary Care Provider Unavail able Nile Villalba MD Primary Care Provider Atilio Lopez, Pcp Primary Care Provider Eliud Cochran MD Primary Care Provider Eliud Riojas MD Primary Care Provider Enedelia Ley MD Primary Care Provider + [facility], Pcp Primary Care Provider Wojciech Kaufman MD Primary Care Provider Juan C Field MD Unavailable [phone] Encounter Details Date Type Department Care Team Description 02/21/2018 Crop Pest Control Specialist Report Medical Records [address] [place] [address] Brandt Bakns MD [address] [place] [id number] Social History Tobacco Use Types Packs/Day Years [...] on filedocumented in this encounter Care Teams Packaging Specialist Relationship Specialty Start Date End Date Wojciech Cortez MD PCP - General 02/20/1996 02/24/20 Nile Villalba MD PCP - General Internal Medicine 02/25/20 12/18/20 Community, Pcp PCP - General Internal Medicine 12/19/20 12/21/20 Eliud Anaya MD PCP - General Internal Medicine 12/22/20 12/29/20 Eliud Anaya MD PCP - General Internal Medicine 12/30/20 03/07/22 Enedelia Montaño MD [address] [place] [address] PCP - General Internal Medicine 03/08/22 11/16/23 [facility], Pcp PCP - General Internal Medicine 11/17/23 01/23/24 Wojciech Valladares MD [address] [place] [address] PCP - General Family Practice 01/24/24 Juan C Buckley MD [address] [place] [address] Specialist Cardiology 03/02/24 documented as of this encounter
--- OUTSIDE RECORDS SUMMARY | 2024-10-30 14:08 | XMS_ITS | Encounter Summary ---
Author Organization [facility] Address [address] [place] [address] Care Team Providers Care Flask Pusher Name Role Phone Wojciech Cortez MD Primary Care Provider Unavail able Nile Villalba MD Primary Care Provider Atilio Lopez, Pcp Primary Care Provider Eliud Cochran MD Primary Care Provider Eliud Riojas MD Primary Care Provider Enedelia Ley MD Primary Care Provider + [facility], Pcp Primary Care Provider Wojciech Kaufman MD Primary Care Provider Juan C Field MD Unavailable [phone] Encounter Details Date Type Department Care Team Description 12/29/2018 Poultry Dressing Worker Report Medical Records [address] [place] [address] Julius Cates NP [address] [place] [address] Social History Tobacco Use Types Packs/Day Years [...] on filedocumented in this encounter Care Teams Flask Pusher Relationship Specialty Start Date End Date Wojciech Cortez MD PCP - General 02/20/1996 02/24/20 Nile Villalba MD PCP - General Internal Medicine 02/25/20 12/18/20 Community, Pcp PCP - General Internal Medicine 12/19/20 12/21/20 Eliud Anaya MD PCP - General Internal Medicine 12/22/20 12/29/20 Eliud Anaya MD PCP - General Internal Medicine 12/30/20 03/07/22 Enedelia Montaño MD [address] [place] [id number] PCP - General Internal Medicine 03/08/22 11/16/23 Community, Pcp PCP - General Internal Medicine 11/17/23 01/23/24 Wojciech Valladares MD [address] [place] [address] PCP - General Family Practice 01/24/24 Juan C Buckley MD [address] [place] [id number] Specialist Cardiology 03/02/24 documented as of this encounter
--- OUTSIDE RECORDS SUMMARY | 2024-10-30 14:08 | XMS_ITS | Encounter Summary ---
Author Organization [employer] [facility] Address [address] [place] [address] Care Team Providers Care Grout Worker Name Role Phone Wojciech Cortez MD Primary Care Provider Unavail able Nile Villalba MD Primary Care Provider Atilio Lopez, Pcp Primary Care Provider Eliud Cochran MD Primary Care Provider Eliud Riojas MD Primary Care Provider Enedelia Ley MD Primary Care Provider + [facility], Pcp Primary Care Provider Wojciech Kaufman MD Primary Care Provider Juan C Field MD Unavailable [phone] Encounter Details Date Type Department Care Team Description 04/07/2018 [facility] Medical Records [address] [place] [address] Gustavo Lau MD Social History Tobacco Use Types Packs/Day [...] on filedocumented in this encounter Care Teams Grout Worker Relationship Specialty Start Date End Date Wojciech Cortez MD PCP - General 02/20/1996 02/24/20 Nile Villalba MD PCP - General Internal Medicine 02/25/20 12/18/20 [facility], Pcp PCP - General Internal Medicine 12/19/20 12/21/20 Eliud Anaya MD PCP - General Internal Medicine 12/22/20 12/29/20 Eliud Anaya MD PCP - General Internal Medicine 12/30/20 03/07/22 Enedelia Montaño MD [address] [place] [id number] PCP - General Internal Medicine 03/08/22 11/16/23 [facility], Pcp PCP - General Internal Medicine 11/17/23 01/23/24 Wojciech Valladares MD [address] [place] [address] PCP - General Family Practice 01/24/24 Juan C Buckley MD [address] [place] [address] Specialist Cardiology 03/02/24 documented as of this encounter
--- OUTSIDE RECORDS SUMMARY | 2024-10-30 14:08 | XMS_ITS | Encounter Summary ---
Author Organization [employer] [facility] Address [address] [place] [address] Care Team Providers Care Lastex Operator Name Role Phone Wojciech Cortez MD Primary Care Provider Unavail able Nile Villalba MD Primary Care Provider Atilio Lopez, Pcp Primary Care Provider Eliud Cochran MD Primary Care Provider Eliud Riojas MD Primary Care Provider Enedelia Ley MD Primary Care Provider + [facility], Pcp Primary Care Provider Wojciech Kaufman MD Primary Care Provider Juan C Field MD Unavailable [phone] Encounter Details Date Type Department Care Team Description 02/13/2016 [facility] Medical Records [address] [place] [id number] Abstract, Provider Social History Tobacco Use Types [...] on filedocumented in this encounter Care Teams Lastex Operator Relationship Specialty Start Date End Date Wojciech Cortez MD PCP - General 02/20/1996 02/24/20 Nile Villalba MD PCP - General Internal Medicine 02/25/20 12/18/20 [facility], Pcp PCP - General Internal Medicine 12/19/20 12/21/20 Eliud Anaya MD PCP - General Internal Medicine 12/22/20 12/29/20 Eliud Anaya MD PCP - General Internal Medicine 12/30/20 03/07/22 Enedelia Montaño MD [address] [place] [address] PCP - General Internal Medicine 03/08/22 11/16/23 [facility], Pcp PCP - General Internal Medicine 11/17/23 01/23/24 Wojciech Valladares MD [address] [place] [address] PCP - General Family Practice 01/24/24 Juan C Buckley MD [address] [place] [address] Specialist Cardiology 03/02/24 documented as of this encounter
--- OUTSIDE RECORDS SUMMARY | 2024-10-30 14:08 | XMS_ITS | Encounter Summary ---
Author Organization [facility] Address [address] [place] [address] Care Team Providers Care Cable Placer Name Role Phone Wojciech Cortez MD Primary Care Provider Unavail able Nile Villalba MD Primary Care Provider Atilio Lopez, Pcp Primary Care Provider Eliud Cochran MD Primary Care Provider Eliud Riojas MD Primary Care Provider Enedelia Ley MD Primary Care Provider + [facility], Pcp Primary Care Provider Wojciech Kaufman MD Primary Care Provider Juan C Field MD Unavailable [phone] Encounter Details Date Type Department Care Team Description 05/17/2016 [facility] Medical Records [address] [place] [address] Quentin Mayes MD Social History Tobacco Use Types Packs/Day [...] on filedocumented in this encounter Care Teams Cable Placer Relationship Specialty Start Date End Date Wojciech Cortez MD PCP - General 02/20/1996 02/24/20 Nile Villalba MD PCP - General Internal Medicine 02/25/20 12/18/20 [facility], Pcp PCP - General Internal Medicine 12/19/20 12/21/20 Eliud Anaya MD PCP - General Internal Medicine 12/22/20 12/29/20 Eliud Anaya MD PCP - General Internal Medicine 12/30/20 03/07/22 Enedelia Montaño MD [address] [place] [id number] PCP - General Internal Medicine 03/08/22 11/16/23 [facility], Pcp PCP - General Internal Medicine 11/17/23 01/23/24 Wojciech Valladares MD [address] [place] [address] PCP - General Family Practice 01/24/24 Juan C Buckley MD [address] [place] [address] Specialist Cardiology 03/02/24 documented as of this encounter
--- OUTSIDE RECORDS SUMMARY | 2024-10-30 14:08 | XMS_ITS | Encounter Summary ---
Author Organization [facility] Address [address] [place] [address] Care Team Providers Care Information Technology Assistant Name Role Phone Eliud Anaya MD Primary Care Provider Enedelia Ley MD Primary Care Provider + [facility], Pcp Primary Care Provider Wojciech Kaufman MD Primary Care Provider Juan C Field MD Unavailable [phone] Encounter Details Date Type Department Care Team Description 12/02/2021 [facility] Medical Records [address] [place] [id number] Social History Tobacco Use Types Packs/Day Years [...] on filedocumented in this encounter Care Teams Information Technology Assistant Relationship Specialty Start Date End Date Eliud Anaya MD PCP - General Internal Medicine 12/30/20 03/07/22 Enedelia Montaño MD [address] [place] [address] [id number] PCP - General Internal Medicine 03/08/22 11/16/23 [facility], [address] [address] PCP - General Internal Medicine 11/17/23 01/23/24 Wojciech Valladares MD [address] [place] [address] PCP - General Family Practice 01/24/24 Juan C Buckley MD [address] [place] [address] Specialist Cardiology 03/02/24 documented as of this encounter
--- OUTSIDE RECORDS SUMMARY | 2024-10-30 14:08 | XMS_ITS | Encounter Summary ---
Author Organization [facility] [facility] Address [address] [place] [address] Care Team Providers Care Chair Inspector Name Role Phone Wojciech Cortez MD Primary Care Provider Unavail able Nile Villalba MD Primary Care Provider Atilio Lopez, Pcp Primary Care Provider Eliud Cochran MD Primary Care Provider Eliud Riojas MD Primary Care Provider Enedelia Ley MD Primary Care Provider + [facility], Pcp Primary Care Provider Wojciech Kaufman MD Primary Care Provider Juan C Field MD Unavailable [phone] Encounter Details Date Type Department Care Team Description 07/03/2018 [employer] Lecturer Report Medical Records [address] [place] [address] Juan C uBckley MD [address] [place] [address] [phone] Social History Tobacco Use Types Packs/Day Years [...] on filedocumented in this encounter Care Teams Chair Inspector Relationship Specialty Start Date End Date Wojciech Cortez MD PCP - General 02/20/1996 02/24/20 Nile Villalba MD PCP - General Internal Medicine 02/25/20 12/18/20 [facility], Pcp PCP - General Internal Medicine 12/19/20 12/21/20 Eliud Anaya MD PCP - General Internal Medicine 12/22/20 12/29/20 Eliud Anaya MD PCP - General Internal Medicine 12/30/20 03/07/22 Enedelia Montaño MD [address] [place] [address] PCP - General Internal Medicine 03/08/22 11/16/23 [facility], Pcp PCP - General Internal Medicine 11/17/23 01/23/24 Wojciech Valladares MD [address] [place] [address] PCP - General Family Practice 01/24/24 Juan C Buckley MD [address] [place] [address] Specialist Cardiology 03/02/24 documented as of this encounter
--- OUTSIDE RECORDS SUMMARY | 2024-10-30 14:08 | XMS_ITS | Clinical Summary ---
Author Organization [facility] [employer] Address [address] [place] [address] Phone Care Team Providers Care Map Drafter Name Role Phone Wojciech Valladares MD Primary Care Provider [phone] Allergies Active Allergy Reactions Criticality Noted Date Comments Penicillins 08/30/2005 Medications metFORMIN (GLUCOPHAGE) 500 mg tablet Take 1 tablet (500 mg total) by mouth 1 (one) time each day with breakfast. 3 Active albuterol HFA (PROAIR HFA ; PROVENTIL HFA ; VENTOLIN HFA) 90 mcg/actuation inhaler INHALE 2 PUFFS INTO THE LUNGS FOUR TIMES DAILY NEEDED FOR COUGH OR WHEEZING 3 Active insulin detemir (Levemir FlexPen) 100 unit/mL (3 mL) injection pen Inject 12 Units into the skin daily. 3 Active gabapentin (NEURONTIN) 300 mg capsule Take 1 Capsule by mouth at bedtime. 3 Active aspirin 81 mg EC tablet Take 1 tablet (81 mg total) by mouth 1 (one) time each day. 2 Active FREESTYLE LANCETS MISC 1 Each by Does not apply route 3 times daily. 2 Active pen needle, diabetic 32 gauge x 5/32 needle 1 Device by Does not apply route daily. 2 Active hydroCHLOROthia zide (HYDRODIURIL) 25 mg tablet Take 1 tablet (25 mg total) by mouth 1 (one) time each day. 2 Active empagliflozin (Jardiance) 10 mg tablet Take 10 mg by mouth daily. 2 Active losartan (COZAAR) 25 mg tablet Take 1 tablet (25 mg total) by mouth 1 (one) time each day. 2 Active cholecalciferol (VITAMIN D-3) 5,000 Units tablet Take 1 tablet (5,000 Units total) by mouth 1 (one) time each day. 2 Active hydrOXYzine HCL (ATARAX) 10 mg tablet Take 1 tablet (10 mg total) by mouth every 8 (eight) hours if needed. 1 Active diclofenac (VOLTAREN) 1 % topical gel Apply 2 g topically 4 times daily. 1 Active blood-glucose meter kit 1 Each by Does not apply route as needed for Other. 2 Active pregabalin (LYRICA) 150 mg capsule Take 1 capsule (150 mg total) by mouth 2 (two) times a day. Max Daily Amount: 300 mg Active pravastatin (PRAVACHOL) 20 mg tablet Take 1 tablet (20 mg total) by mouth at bedtime. Active Active Problems Problem Noted Date Diagnosed Date Coronary artery disease invo lving twenty-nine palms coronary artery of twenty-nine palms heart without angina pectoris 08/07/2024 Assessment & Plan (08/07/2024 3:55 PM EST): Lara has a history of coronary artery disease. She underwent circumflex coronary artery stenting. Moderate disease of the LAD and of the right coronary artery was left alone and the patient has not had ongoing overt evidence of coronary insufficiency. Preventative care will be continued Leukocytosis 05/06/2022 Diabetic retinopathy 02/23/2018 Vitamin D deficiency 02/23/2018 Aortic stenosis 04/19/2016 Overview (07/04/2024): Moderate aortic stenosis, echocardiogram 02/11/2016. Assessment & Plan (08/07/2024 3:55 PM EST): Patient has a history of critical aortic stenosis with marked symptomatology culminating in successful TAVR in October 2017. The patient continues to have only mild aortic stenosis by auscultatory criteria. Her last echocardiogram was in 2020. I will make arrangements for a follow-up study next year. Orders: ECG 12 lead Transthoracic echocardiogram (TTE) complete with PRN contrast, bubble, strain, and 3D order panel; Future Pulmonary nodules/lesions, multiple 02/19/2014 Overview (07/04/2024): first seen october 2012; repeat CT in 2014 -no further surveillance CT imaging necessary given stability of nodules. COPD (chronic obstructive pulmonary disease) Microalbuminuria 11/11/2011 Essential hypertension, benign 08/20/2011 Assessment & Plan (08/07/2024 3:55 PM EST): Patient has a history of systemic hypertension which has been well controlled. Blood pressure is modestly elevated today with a wide pulse pressure. However there is no auscultatory evidence of aortic regurgitation and the wide pulse pressure may be due to noncompliant arteries. 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 Overview (07/04/2024): L>R Type 2 diabetes mellitus 08/31/2005 Encounters Date Type Department Care Team Description 08/07/2024 3:00 PM EST Office Visit [facility] - [facility] [address] [place] [id number] Tiburcio Bass MD Essential hypertension, benign (Primary Dx); Aortic valve stenosis, etiology of cardiac valve disease unspecified; Coronary artery disease involving twenty-nine palms coronary artery of twenty-nine palms heart without angina pectoris from Last 3 Months Immunizations Name Administration Dates Next Due Influenza Quadravalent, MDCK , 0.5ml, preservative free (Flucelvax) 6mo and older 05/01/2018 Influenza trivalent, 0.5mL ( Fluad) 65yo and older 06/11/2021,06/25/2020,07/23/2017 Influenza trivalent, 0.5mL, preservative free (Fluarix; FluLaval; Fluzone) ages 6mo and older (Afluria) 3 years and older 05/20/2015,04/28/2012,05/07/2011,05/07,05/25/2008,05/25/2007,07/19/2006 ,07/07/2005 Influenza, Unspecified 05/24/2014,05/16/2013 Pfizer SARS-CoV-2 COVID-19, mRNA, LNP-S, preservative free 11/10/2021,05/18/2021,11/14/2020,10/24 Pneumococcal conjugate 13 va lent (Prevnar 13, PCV13) 2mo and older 03/16/2017 Pneumococcal polysaccharide 23 valent (Pneumovax 23) 2yo and older 01/17/2007,06/15/1999 Td Tetanus diptheria (Tdvax) 7yo and older 06/28/2007 Tdap Tetanus diptheria acell ular pertussis (Boostrix; Adacel) 7yo and older 01/05/2019 Surgical History Surgery Date Site/Laterality Comments KNEE SURGERY PROCEDURE: HISTORICAL KNEE SURGERY; COMMENT: 7 knee procedures OTHER SURGICAL HISTORY PROCEDURE: ---- OTHER ----; COMMENT: varicose veins times 2 TONSILLECTOMY PROCEDURE: HISTORICAL TONSILLECTOMY; COMMENT: age 27 OTHER SURGICAL HISTORY PROCEDURE: ---- OTHER ----; COMMENT: multiple eye procedures Medical History Medical History Date Comments Type II or unspecified type diabetes mellitus without mention of complication, uncontrolled 08/31/2005 DX:Type II or unspecified t ype diabetes mellitus without mention of complication, uncontrolled Benign neoplasm of adrenal gland 10/26/2005 DX:Benign neoplasm of adrenal gland Allergic rhinitis, cause unspecified 10/26/2005 DX:Allergic rhinitis, cause unspecified Generalized osteoarthrosis, involving hand 10/26/2005 DX:Generalized osteoarthrosi s, involving hand Carpal tunnel syndrome 10/26/2005 DX:Carpal tunnel syndrome; COMMENT: + NCT bilaterally Sep 2006 - moderate Diabetic retinopathy (CMS/HCC) 02/23/2018 D X:Diabetic retinopathy (HCC) Vitamin D deficiency 02/23/2018 DX:Vitamin D deficiency Heme positive stool 06/01/2018 DX:Heme posi tive stool; COMMENT: Colonic polyps noted by Dr. Pitts, 05/17/2018, polypectomy when off Plavix, consider CT enterography and capsule endoscopy Iron deficiency anemia 04/12/2020 DX:Iron d eficiency anemia; COMMENT: Labs 03/2020 Family History Medical History Relation Name Comments Diabetes Daughter Other: unknown Father Hypertension Mother cerebral bleed Relation Name Status Comments Daughter Father Mother Social History Tobacco Use Types Packs/Day Years Used Date Smoking Tobacco: Former Cigarettes Q uit: 10/29/2012 Smokeless Tobacco: Never Alcohol Use Standard Drinks/Week Comments No 0 (1 standard drink = 0.6 oz pur e alcohol) Comments Unknown Sex and Gender Information Value Date Recorded Sex Assigned at Not on file Legal Sex Female 1:39 PM EST Gender Identity Not on file Sexual Orientation Not on file Obstetrics History Last Filed Vital Signs Vital Sign Reading Time Taken Comments Blood Pressure 140/52 08/07/2024 2:52 PM EST Pulse 88 08/07/2024 2:52 PM EST Temperature - - Respiratory Rate - - Oxygen Saturation 96% 08/07/2024 2:52 PM EST Inhaled Oxygen Concentration - - Weight 71.1 kg (156 lb 12.8 oz) 08/07/2024 2:52 PM EST Height 167.6 cm (5' 6 ) 08/07/2024 2:52 PM EST Body Mass Index 25.31 08/07/2024 2:52 PM EST Plan of Treatment Upcoming Encounters Date Type Department Care Team (Late st Contact Info) Description 03/26/2025 12:30 PM EDT Ancillary Procedure [facility] [address] [place] [address] 04/23/2025 10:50 AM EDT Office Visit [facility] - [facility] [address] [place] [address] Tiburcio Bass MD [address] [place] [address],[facility] [address] [place] [address] Health Maintenance Due Date Last Done Comments Diabetes: Annual Foot Exam 1954 Diabetes: Annual Retina Eye Exam 1955 Zoster Vaccines (1 of 2) 1994 Depression Screening 07/20/2022 Falls Risk Assessment 07/20/2022 Hepatitis C Screening 07/20/2022 Osteoporosis Screening (Bone Density Screening) 07/20/2022 Social Influencers of Health Screening 07/20/2022 Medicare Annual Wellness Visit 10/30/2022 10/30/2021 Diabetes: Blood Sugar Control Test (HGBA1C) 06/09/2023 12/08/2022 Diabetes: Annual Urine Albumin-Creatinine Ratio (uACR) 12/09/2023 12/08/2022 Diabetes: Annual GFR (Glomerular Filtration Rate) 12/09/2023 12/08/2022 Hypertension/CHF/CAD Annual BMP Blood Test 12/09/2023 12/08/2022 Cholesterol Screening (Lipid Panel) 05/06/2027 05/06/2022 DTaP,Tdap,and Td Vaccines (3 - Td or Tdap) 01/05/2029 01/05/2019, 06/28/2007 RSV Immunization Patients 60+ Years Old Completed 11/26/2023 Pneumococcal Vaccine: 50+ Years Completed 03/09/2024, 03/16/2017, 01/17/2007, Additional history exists COVID-19 Vaccine Completed 05/04/2024, 09/2022, 05/05/2022, Additional history exists Influenza Vaccine Completed 05/04/2024, , 06/11/2021, Additional history exists HIB Vaccines Aged Out No longer eligi ble based on patient's age to complete this topic HPV Vaccines Aged Out No longer eligi ble based on patient's age to complete this topic Hepatitis A Vaccines Aged Out No long er eligible based on patient's age to complete this topic Hepatitis B Vaccines Aged Out No long er eligible based on patient's age to complete this topic IPV Vaccines Aged Out No longer eligi ble based on patient's age to complete this topic MMR Vaccines Aged Out No longer eligi ble based on patient's age to complete this topic Meningococcal ACWY Vaccine Aged Out N o longer eligible based on patient's age to complete this topic Meningococcal B Vacine Aged Out No lo nger eligible based on patient's age to complete this topic RSV Immunization Patients Under 20 months Aged Out No longer eligible based on patient's age to complete this topic Varicella Vaccines Aged Out No longer eligible based on patient's age to complete this topic Procedures Procedure Name Priority Date/Time Associated Diagnosis Comments ECG 12-LEAD Routine 08/07/2024 3:08 PM EST Essential hypertension, benign Aortic valve stenosis, etiology of cardiac valve disease unspecified URINE ALBUMIN CREATININE RATIO Routine 12/08/2022 ANNUAL BMP BLOOD TEST Routine 12/08/2022 HEMOGLOBIN A1C Routine 12/08/2022 LIPID PANEL Routine 05/06/2022 from Last 3 Months or Most Recently Relevant to Health Maintenance Results * ECG 12 lead (08/07/2024 3:08 PM EST) [facility] Ventricular Rate ECG 79 BPM GEMUSE Atrial Rate 79 BPM GEMUSE P-R Interval 132 ms GEMUSE QRS Duration 88 ms GEMUSE Q-T Interval 394 ms GEMUSE QTc 451 ms GEMUSE P Wave Randolph 76 degrees GEMUSE R Randolph -9 degrees GEMUSE T Randolph 86 degrees GEMUSE ECG Interpretation Normal sinus rhythm Possible Left atrial enlargement Possible Septal infarct , age undetermined Nonspecific T wave abnormality Abnormal ECG When compared with ECG of 19-JAN-2018 08:46, Possible Septal infarct is now Present Nonspecific T wave abnormality no longer evident in Inferior leads T wave inversion less evident in Lateral leads Confirmed by TIBURCIO BASS ([id number]) on 08/07/2024 3:14:24 PM GEMUSE 08/07/2024 3:08 PM EST 08/07/2024 3:14 PM EST us Tiburcio Bass MD ECG ORDERABLES Final Result GEMUSE * Urine Albumin Creatinine Ratio (12/08/2022) Pathologist [facility] Urine Albumin Creatinine Ratio abstracted Historical Provider HEALTH MAINTENANCE Final Result * Annual BMP Blood Test (12/08/2022) Pathologist [facility] Annual BMP Blood Test abstracted Historical Provider HEALTH MAINTENANCE Final Result * (ABNORMAL) Hemoglobin A1c (12/08/2022) Hemoglobin A1C 6.6(A) <=6.5 % Blood Venous blood specimen / Unknown Result [facility] Provider LAB BLOOD ORDERABLES Francesca l Result * Lipid panel (05/06/2022) LDL/HDL Ratio 4 0 - 4 Triglycerides 97 0 - 150 mg/dL Cholesterol 145 0 - 200 mg/dL HDL 42 >=40 mg/dL LDL Cholesterol 84 0 - 100 mg/dL Blood Venous blood specimen / Unknown Result [facility] Provider LAB BLOOD ORDERABLES Francesca l Result from Last 3 Months or Most Recently Relevant to Health Maintenance Insurance MEDICARE [facility] Care Teams Map Drafter Relationship Specialty Start Date End Date Wojciech Valladares MD [address] [place] [address] Dr [place] PCP - General 01/24/24
--- OUTSIDE RECORDS SUMMARY | 2024-10-30 14:08 | XMS_ITS | Encounter Summary ---
Author Organization [facility] Address [address] [place] [address] Care Team Providers Care Assistant Professor Of Marine Biology Name Role Phone Wojciech Cortez MD Primary Care Provider Unavail able Nile Villalba MD Primary Care Provider Atilio Lopez, Pcp Primary Care Provider Eliud Cochran MD Primary Care Provider Eliud Riojas MD Primary Care Provider Enedelia Ley MD Primary Care Provider + [facility], Pcp Primary Care Provider Wojciech Kaufman MD Primary Care Provider Juan C Field MD Unavailable [phone] Encounter Details Date Type Department Care Team Description 05/28/2019 Assistant Professor Report Medical Records [address] [place] [id number] Juan C Buckley MD [address] [place] [address] [phone] Social History Tobacco Use Types Packs/Day Years [...] on filedocumented in this encounter Care Teams Assistant Professor Of Marine Biology Relationship Specialty Start Date End Date Wojciech Cortez MD PCP - General 02/20/1996 02/24/20 Nile Villalba MD PCP - General Internal Medicine 02/25/20 12/18/20 [facility], Pcp PCP - General Internal Medicine 12/19/20 12/21/20 Eliud nAaya MD PCP - General Internal Medicine 12/22/20 12/29/20 Eliud Anaya MD PCP - General Internal Medicine 12/30/20 03/07/22 Enedelia Montaño MD [address] [place] [id number] PCP - General Internal Medicine 03/08/22 11/16/23 [facility], Pcp PCP - General Internal Medicine 11/17/23 01/23/24 Wojciech Valladares MD [address] [place] [address] PCP - General Family Practice 01/24/24 Juan C Buckley MD [address] [place] [phone] Specialist Cardiology 03/02/24 documented as of this encounter
--- OUTSIDE RECORDS SUMMARY | 2024-10-30 14:08 | XMS_ITS | Encounter Summary ---
Author Organization [facility] Address [address] [place] [address] Care Team Providers Care Custom Decorating Consultant Name Role Phone Eliud Anaya MD Primary Care Provider Eliud Riojas MD Primary Care Provider Enedelia Ley MD Primary Care Provider + [facility], [facility] Primary Care Provider Wojciech Kaufman MD Primary Care Provider Juan C Field MD Unavailable [phone] Encounter Details Date Type Department Care Team Description 12/26/2020 Shuttle Fixer Report Medical Records [address] [place] [address] Jay Christina MD Social History Tobacco Use Types Packs/Day Years Used Date Smoking Tobacco: Former Cigarettes Q uit: 10/29/2012 Smokeless Tobacco: Never Comments:started @ 14 Alcohol Use Standard Drinks/Week Comments No 0 (1 standard drink = 0.6 oz pur e alcohol) Sex Assigned at Date Recorded Not on file COVID-19 Exposure Response Date Recorded In the last month, have you been in contact with someone who was confirmed or suspected to have Coronavirus / COVID-19? No / Unsure 12/25/2020 10:19 AM EDT documented as of this encounter Plan of Treatment Not on file documented as of this encounter Visit Diagnoses Not on filedocumented in this encounter Care Teams Custom Decorating Consultant Relationship Specialty Start Date End Date Eliud Anaya MD PCP - General Internal Medicine 12/22/20 12/29/20 Eliud Anaya MD PCP - General Internal Medicine 12/30/20 03/07/22 Enedelia Montaño MD [address] [place] [address] PCP - General Internal Medicine 03/08/22 11/16/23 [facility], Pcp [address] [place], [place] [id number] PCP - General Internal Medicine 11/17/23 01/23/24 Wojciech Valladares MD [address] [place] [address] PCP - General Family Practice 01/24/24 Juan C Buckley MD [address] [place] [address] Specialist Cardiology 03/02/24 documented as of this encounter
--- OUTSIDE RECORDS SUMMARY | 2024-10-30 14:08 | XMS_ITS | Encounter Summary ---
Author Organization [facility] Address [address] [place] [address] Care Team Providers Care Clinical Pharmacy Technician Name Role Phone Wojciech Cortez MD Primary Care Provider Unavail Nile Mata MD Primary Care Provider Atilio ildevon [facility], Pcp Primary Care Provider Eliud oCchran MD Primary Care Provider Eliud Riojas MD Primary Care Provider Enedelia Ley MD Primary Care Provider + [facility], [facility] Primary Care Provider Wojciech Kaufman MD Primary Care Provider Juan C Field MD Unavailable Reason for Visit * Reason Onset Date Comments Transitional Care Management (Tcm) 05/26/2018 TCM post d/[place] [facility] [place] Encounter Details Date Type Department Care Team Description 05/26/[address] [address] Wojciech Cortez MD Transitional Care Management (Tcm) (TCM post d/c [facility] 05/25/18) Social History Tobacco Use Types Packs/Day Years Used Date Smoking Tobacco: Former Cigarettes Q uit: 10/29/2012 Smokeless Tobacco: Never Comments:started @ 14 Alcohol Use Standard Drinks/Week Comments No 0 (1 standard drink = 0.6 oz pur e alcohol) Sex Assigned at Date Recorded Not on file documented as of this encounter Miscellaneous Notes * Telephone Encounter - Wojciech Cortez MD - 05/26/2018 12:46 PM EDT This will be okay., Thank you * Telephone Encounter - Crystal Canela R.N. - 05/26/2018 11:37 AM EDT Alannah Cortez, Please see my note below. I attempted to schedule a f/u appt and the patient declined stating she has'too many appts as is, and her daughter must drive her and it's too difficult. The patient is scheduled on 06/02/18 for a 15 diabetes f/u and she is requesting her f/u be done during that appt if possible. I will be glad to call the patient if this is not possible. Thank you, Crystal Canela RN Quality Department M-F 8am to 4:30pm * Telephone Encounter - Crystal Canela R.N. - 05/26/2018 11:20 AM EDT Patient with Pmhx that includes; COPD, CAD, HLD, HTN, Type 1 DM, recurrent UTI's and aortic stenosis was admitted to [facility] [place] 05/23/18 for elective TAVR. Patient tolerated the procedure well and post op had c/o urinary retention requiring catheterizations. Urine positive for WBC's and nitrates. She was given Macrobid and will continue this at home. Patient discharged to home on 05/25/18 , No VNA services ordered. Quality Outreach: Hospital Discharge Admission Date: 05/23/18 Discharge Date: 05/25/18 Hospital: [facility] Problem or condition that sent patient to the hospital: See above Discharge Diagnosis: See above Patient statement of condition at time of outreach (how are they feeling)? I'm feeling pretty good'No concerns voiced at this time. Medications: Were prescriptions issued at time of discharge? Yes, new prescriptions were issued. macrobid 100 mgtwice daily, Oxycodone 1 tab every 6 hrs prn pain, PRN Clindamycin for any dental procedures Were prescriptions filled at pharmacy? Yes, prescriptions were filled at the pharmacy. Medication reconciliation: Medication reconcilliation completed. Assessment of patients understanding of new medication: The patient understands how to take new medications. Is the patient on Warfarin? NO If yes, Anticoagulation Clinic notified of hospitalization. Follow-up test or procedures: Other diagnostic/tests or procedures ordered post discharge: yes - CBC and BMP to be done on 06/01/18, f/u with Dr Buckley 06/08/18, ECHO scheduled for 06/15/18 Post discharge appointment scheduled: Date of appointment: 06/02/18 @ 11 am ( previously scheduled and patient states she does not want another appt as she has too many and her daughter has difficulty assisting with the appts) Is the patient able to keep that appointment? Yes Does the patient have transportation to the appointment? Yes Home Care Services: Have home care services been requested? No, home care sevices were not ordered. Changes in condition since discharge: Patients statement of any changes in condition since discharge? none Assistance at home: Is there anyone at home to assist the patient? Yes , family Any issues that need to be addressed prior to follow-up appointment? none Patient reminders: Patient reminded of follow-up appointment date and time: yes Patient reminded to bring discharge instructions and medication list to follow- up appointment. [facility] Instructed to call office or return to ER if symptoms return or worsen. Plan for care management: No care management needed at this time. documented in this encounter Plan of Treatment Not on file documented as of this encounter Visit Diagnoses Not on filedocumented in this encounter Care Teams Clinical Pharmacy Technician Relationship Specialty Start Date End Date Wojciech Cortez MD PCP - General 02/20/1996 02/24/20 Nile Villalba MD PCP - General Internal Medicine 02/25/20 12/18/20 [facility] PCP - General Internal Medicine 12/19/20 12/21/20 Eliud Anaya MD PCP - General Internal Medicine 12/22/20 12/29/20 Eliud Anaya MD PCP - General Internal Medicine 12/30/20 03/07/22 Enedelia Montaño MD [address] [place] [address] [place] [address] PCP - General Internal Medicine 03/08/22 11/16/23 [facility]cp PCP - General Internal Medicine 11/17/23 01/23/24 Wojciech Valladares MD [address] [place] [address] PCP - General Family Practice 01/24/24 Juan C Buckley MD [address] [place] [address] Specialist Cardiology 03/02/24 documented as of this encounter
--- OUTSIDE RECORDS SUMMARY | 2024-10-30 14:08 | XMS_ITS | Encounter Summary ---
Author Organization [facility] Address [address] [place] [address] Care Team Providers Care Income Tax Auditor Name Role Phone Wojciech Cortez MD Primary Care Provider Unavail able Nile Villalba MD Primary Care Provider Atilio Lopez, Pcp Primary Care Provider Eliud Cochran MD Primary Care Provider Eliud Riojas MD Primary Care Provider Enedelia Ley MD Primary Care Provider + [facility], Pcp Primary Care Provider Wojciech Kaufman MD Primary Care Provider Juan C Field MD Unavailable [phone] Encounter Details Date Type Department Care Team Description 03/29/2014 Business Doc Medical Records [address] [place] [address] Abstract, Provider Social History Tobacco Use Types [...] on filedocumented in this encounter Care Teams Income Tax Auditor Relationship Specialty Start Date End Date Wojciech Cortez MD PCP - General 02/20/1996 02/24/20 Nile Villalba MD PCP - General Internal Medicine 02/25/20 12/18/20 [facility], Pcp PCP - General Internal Medicine 12/19/20 12/21/20 Eliud Anaya MD PCP - General Internal Medicine 12/22/20 12/29/20 Eliud Anaya MD PCP - General Internal Medicine 12/30/20 03/07/22 Enedelia Montaño MD [address] [place] [address] PCP - General Internal Medicine 03/08/22 11/16/23 [facility], Pcp PCP - General Internal Medicine 11/17/23 01/23/24 Wojciech Valladares MD [address] [place] [address] PCP - General Family Practice 01/24/24 Juan C Buckley MD [address] [place] [address] Specialist Cardiology 03/02/24 documented as of this encounter
--- OUTSIDE RECORDS SUMMARY | 2024-10-30 14:08 | XMS_ITS | Encounter Summary ---
Author Organization [facility] Address [address] [place] [address] Care Team Providers Care Accounting Recruiter Name Role Phone Wojciech Cortez MD Primary Care Provider Unavail Nile Mata MD Primary Care Provider Lesiava ildevon [facility], Pcp Primary Care Provider Eliud Cochran MD Primary Care Provider Eliud Riojas MD Primary Care Provider Enedelia Ley MD Primary Care Provider + [facility], Pcp Primary Care Provider Wojciech Kaufman MD Primary Care Provider Juan C Field MD Unavailable [phone] Reason for Visit * Reason Onset Date Comments Solution Lead Feedback 05/09/2018 [facility] ANGELICA Denis Encounter Details Date Type Department Care Team Description 05/09/2018 Telephone Adult Medicine [address] [address] Wojciech Cortez MD Solution Lead Feedback ([facility] ANGELICA Denis ) Social History Tobacco Use Types Packs/Day Years Used Date Smoking Tobacco: Former Cigarettes Q uit: 10/29/2012 Smokeless Tobacco: Never Comments:started @ 14 Alcohol Use Standard Drinks/Week Comments No 0 (1 standard drink = 0.6 oz pur e alcohol) Sex Assigned at Date Recorded Not on file documented as of this encounter Miscellaneous Notes * Telephone Encounter - Wojciech Cortez MD - 05/09/2018 10:20 AM EDT Thank you. * Telephone Encounter - Ángela Hansen - 05/09/2018 10:06 AM EDT FYI, You placed an urgent order for this patient to see [facility] with a diagnosis of : gi bleeding needs TAVR, within 1 week, patient is scheduled for 05/10/18 at 11:30 am with Lia Denis at [facility], Called patient she is aware of this appointment and accepts it. Thank You, Ángela SerranoDiana [facility] Referrals Rep. Ext. [phone] documented in this encounter Plan of Treatment Not on file documented as of this encounter Visit Diagnoses Not on filedocumented in this encounter Care Teams Accounting Recruiter Relationship Specialty Start Date End Date Wojciech Cortez MD PCP - General 02/20/1996 02/24/20 Nile Villalba MD PCP - General Internal Medicine 02/25/20 12/18/20 [facility], Pcp PCP - General Internal Medicine 12/19/20 12/21/20 Eliud Anaya MD PCP - General Internal Medicine 12/22/20 12/29/20 Eliud Anaya MD PCP - General Internal Medicine 12/30/20 03/07/22 Enedelia Montaño MD [address] [place] [address] PCP - General Internal Medicine 03/08/22 11/16/23 [facility], Pcp PCP - General Internal Medicine 11/17/23 01/23/24 Wojciech Valladares MD [address] [place], [place] [address] PCP - General Family Practice 01/24/24 Juan C Buckley MD [address] [place] [address] Specialist Cardiology 03/02/24 documented as of this encounter
--- OUTSIDE RECORDS SUMMARY | 2024-10-30 14:08 | XMS_ITS | Encounter Summary ---
Author Organization [facility] [employer] [facility] Address [address] [place] [address] Care Team Providers Care Career Coach Name Role Phone Wojciech Cortez MD Primary Care Provider Unavail Nile aMta MD Primary Care Provider Atilio newby [facility], Pcp Primary Care Provider Eliud Cochran MD Primary Care Provider Eliud Riojas MD Primary Care Provider Enedelia Ley MD Primary Care Provider + [facility], Pcp Primary Care Provider Wojciech Kaufman MD Primary Care Provider Juan C Field MD Unavailable [phone] Reason for Visit * Reason Onset Date Comments REFERRAL 07/05/2011 Hematology/Oncol ogy Encounter Details Date Type Department Care Team Description 07/05/2011 Telephone Adult [address] [address] Wojciech Cortez MD REFERRAL (Hematology/Oncology ) Social History Tobacco Use Types Packs/Day Years Used Date Smoking Tobacco: Every Day Cigarettes 0.8 Smokeless Tobacco: Never Comments:started @ 14 Alcohol Use Standard Drinks/Week Comments No 0 (1 standard drink = 0.6 oz pur e alcohol) Sex Assigned at Date Recorded Not on file documented as of this encounter Miscellaneous Notes * Telephone Encounter - Ilene Burk - 07/05/2011 4:44 PM EST Have tried to reach patient regarding referral for leukocytosis No response to phone calls or letter sent Referring back to pcp Wojciech Cortez MD I will request a referral to oncology. Reason for referral: leukocytosis Dr Francisco Priority: Next Available documented in this encounter Plan of Treatment Not on file documented as of this encounter Visit Diagnoses Not on filedocumented in this encounter Care Teams Career Coach Relationship Specialty Start Date End Date Wojciech Cortez MD PCP - General 02/20/1996 02/24/20 Nile Villalba MD PCP - General Internal Medicine 02/25/20 12/18/20 [facility], Pcp PCP - General Internal Medicine 12/19/20 12/21/20 Eliud Anaya MD PCP - General Internal Medicine 12/22/20 12/29/20 Eliud Anaya MD PCP - General Internal Medicine 12/30/20 03/07/22 Enedelia Montaño MD [address] [place] [address] PCP - General Internal Medicine 03/08/22 11/16/23 [facility], Pcp PCP - General Internal Medicine 11/17/23 01/23/24 Wojciech Valladares MD [address] [place] [address] PCP - General Family Practice 01/24/24 Juan C Buckley MD [address] [place] [address] Specialist Cardiology 03/02/24 documented as of this encounter
--- OUTSIDE RECORDS SUMMARY | 2024-10-30 14:08 | XMS_ITS | Encounter Summary ---
Author Organization [employer] [facility] Address [address] [place] [address] Care Team Providers Care Payroll Analyst Name Role Phone Nile Villalba MD Primary Care Provider Atilio Lopez, Pcp Primary Care Provider Eliud Cochran MD Primary Care Provider Eliud Riojas MD Primary Care Provider Enedelia Ley MD Primary Care Provider + [facility], Pcp Primary Care Provider Wojciech Kaufman MD Primary Care Provider Juan C Field MD Unavailable [phone] Encounter Details Date Type Department Care Team Description 07/04/2020 Freight Adjuster Report Medical Records [address] [place] [address] Juan C Buckley MD [address] [place] [address] Social History Tobacco Use Types Packs/Day Years [...] on filedocumented in this encounter Care Teams Payroll Analyst Relationship Specialty Start Date End Date Nile Villalba MD PCP - General Internal Medicine 02/25/20 12/18/20 [facility], Pcp PCP - General Internal Medicine 12/19/20 12/21/20 Eliud Anaya MD PCP - General Internal Medicine 12/22/20 12/29/20 Eliud Anaya MD PCP - General Internal Medicine 12/30/20 03/07/22 Enedelia Montaño MD [address] [place] [address] PCP - General Internal Medicine 03/08/22 11/16/23 [facility], [facility] PCP - General Internal Medicine 11/17/23 01/23/24 Wojciech Valladares MD [address] [place] [address] PCP - General Family Practice 01/24/24 Juan C Buckley MD [address] [place] [address] Specialist Cardiology 03/02/24 documented as of this encounter
--- OUTSIDE RECORDS SUMMARY | 2024-10-30 14:08 | XMS_ITS ---
Author Organization [facility] Address [address] [place] [address] Care Team Providers Care Race Car Driver Name Role Phone Blaine RUIZ, Wojciech Primary Care Provider Tanna Flannery Unavailable [phone] Encounters Encounter Location Date Provider Diagnosis [facility] [address] [place] [address] 05/31/2024 Tanna Mao Plan Of Treatment No Information Progress Notes * Lara RENNERDOB:1945 (79 yo F)Acc No.[id number]:05/31/2024 Patient:?Lara RENNER Provider:?Tanna Mao DPM :1945???Age:78 Y???Sex:Female D ate:05/31/2024 Address:[address] [place], [place] [address] Pcp:Wojciech Valladares MD Subjective: * Chief Complaints: [...] Mao DPM Date:?2023 Generated for Laineyi esme/Kellen/eTransmitting on:?10/30/2024 02:08 PM EDT
--- OUTSIDE RECORDS SUMMARY | 2024-10-30 14:08 | XMS_ITS ---
Author Organization [facility] Address [address] [place] [address] [place] [address] Care Team Providers Care I O Psychologist Name Role Phone Wojciech Valladares MD Primary Care Provider Tanna Flannery [phone] REASON FOR VISIT CX FT Encounters Encounter Location Date Provider Diagnosis [address] [place] [address] 05/21/2024 Tanna Mao Plan Of Treatment No Information Progress Notes * Lara RENNERDOB:1945 (78 yo F)Acc No.[id number]:05/21/2024 Patient:?Lara Renner :1945???Age:78 Y???Sex:Female Address:[address] [place] [address] [place], [address] * true * Date:? Generated for Laineyi esme/Kellen/eTransmitting on:?10/30/2024 02:08 PM EDT
--- OUTSIDE RECORDS SUMMARY | 2024-10-30 14:08 | XMS_ITS | Encounter Summary ---
Author Organization [facility] Address [address] [place] [address] Care Team Providers Care Solar Sales Specialist Name Role Phone Wojciech Cortez MD Primary Care Provider Unavail able Nile Villalba MD Primary Care Provider Atilio Lopez, Pcp Primary Care Provider Eliud Cochran MD Primary Care Provider Eliud Riojas MD Primary Care Provider Enedelia Ley MD Primary Care Provider + [facility], Pcp Primary Care Provider Wojciech Kaufman MD Primary Care Provider Juan C Field MD Unavailable [phone] Encounter Details Date Type Department Care Team Description 05/23/2018 [facility] Medical Records [address] [place] [address] Gustavo Lau MD Social History Tobacco Use [...] on filedocumented in this encounter Care Teams Solar Sales Specialist Relationship Specialty Start Date End Date Wojciech Cortez MD PCP - General 02/20/1996 02/24/20 Nile Villalba MD PCP - General Internal Medicine 02/25/20 12/18/20 [facility], Pcp PCP - General Internal Medicine 12/19/20 12/21/20 Eliud Anaya MD PCP - General Internal Medicine 12/22/20 12/29/20 Eliud Anaya MD PCP - General Internal Medicine 12/30/20 03/07/22 Enedelia Montaño MD [address] [place] [address] PCP - General Internal Medicine 03/08/22 11/16/23 [facility], Pcp PCP - General Internal Medicine 11/17/23 01/23/24 Wojciech Valladares MD [address] [place] [address] PCP - General Family Practice 01/24/24 Juan C Buckley MD [address] [place] [address] Specialist Cardiology 03/02/24 documented as of this encounter
--- OUTSIDE RECORDS SUMMARY | 2024-10-30 14:08 | XMS_ITS | Encounter Summary ---
Author Organization [facility] Address [address] [place] [address] Care Team Providers Care Materials Specialist Name Role Phone Wojciech Cortez MD Primary Care Provider Unavail able Nile Villalba MD Primary Care Provider Atilio [facility], Pcp Primary Care Provider Eliud Cochran MD Primary Care Provider Eliud Riojas MD Primary Care Provider Enedelia Ley MD Primary Care Provider + [facility], Pcp Primary Care Provider Wojciech Kaufman MD Primary Care Provider Juan C Field MD Unavailable [phone] Encounter Details Date Type Department Care Team Description 02/21/2018 Hospital Medical Records [address] [place] [address] Brandt Banks MD [address] [place] [address] Social History Tobacco Use Types Packs/Day Years [...] on filedocumented in this encounter Care Teams Materials Specialist Relationship Specialty Start Date End Date Wojciech Cortez MD PCP - General 02/20/1996 02/24/20 Nile Villalba MD PCP - General Internal Medicine 02/25/20 12/18/20 [facility], Pcp PCP - General Internal Medicine 12/19/20 12/21/20 Eliud Anaya MD PCP - General Internal Medicine 12/22/20 12/29/20 Eliud Anaya MD PCP - General Internal Medicine 12/30/20 03/07/22 Enedelia Montaño MD [address] [place] [address] PCP - General Internal Medicine 03/08/22 11/16/23 [facility], Pcp PCP - General Internal Medicine 11/17/23 01/23/24 Wojciech Valladares MD [address] [place] [address] PCP - General Family Practice 01/24/24 Juan C Buckley MD [address] [place] [address] Specialist Cardiology 03/02/24 documented as of this encounter
--- OUTSIDE RECORDS SUMMARY | 2024-10-30 14:08 | XMS_ITS | Encounter Summary ---
Author Organization [employer] [facility] Address [address] [place] [address] Care Team Providers Care Radiologic Therapist Name Role Phone Wojciech Cortez MD Primary Care Provider Unavail able Nile Villalba MD Primary Care Provider Atilio Lopez, Pcp Primary Care Provider Eliud Cochran MD Primary Care Provider Eliud Riojas MD Primary Care Provider Enedelia Ley MD Primary Care Provider + [facility], Pcp Primary Care Provider Wojciech Kaufman MD Primary Care Provider Juan C Field MD Unavailable [phone] Reason for Visit * Reason Onset Date Comments Error 12/29/2017 Encounter Details Date Type Department Care Team Description 12/29/2017 Telephone Adult [address] [id number] Wojciech Cortez MD Error Social History Tobacco Use Types Packs/Day Years [...] on filedocumented in this encounter Care Teams Radiologic Therapist Relationship Specialty Start Date End Date Wojciech Cortez MD PCP - General 02/20/1996 02/24/20 Nile Villalba MD PCP - General Internal Medicine 02/25/20 12/18/20 [facility] PCP - General Internal Medicine 12/19/20 12/21/20 Eliud Anaya MD PCP - General Internal Medicine 12/22/20 12/29/20 Eliud Anaya MD PCP - General Internal Medicine 12/30/20 03/07/22 Enedelia Montaño MD [address] [place] [address] PCP - General Internal Medicine 03/08/22 11/16/23 [facility]cp PCP - General Internal Medicine 11/17/23 01/23/24 Wojciech Valladares MD [address] [place] [address] PCP - General Family Practice 01/24/24 Juan C Buckley MD [address] [place] [address] Specialist Cardiology 03/02/24 documented as of this encounter
--- OUTSIDE RECORDS SUMMARY | 2024-10-30 14:08 | XMS_ITS | Patient Health Record ---
[facility] Organization [facility] Address [address] [place] [address] Care Team Providers Care Yarn Carrier Name Role Phone Wojciech Valladares MD Primary Care Provider Tanna Flannery Unavailable [phone] Allergies Allergen (clinical drug ingredient) Drug/Non Drug Allergy documented on EMR Reaction Allergy Type Onset Date Status Shellfish (FN) scallops (uncoded) Unknown Allergy Active Penicillin Unknown Drug Allergy Active Results Component Value Reference Range Notes X ray : Foot, left 3V Reviewed date:02/13/2024 05:30:05 PM Interpretation:See Examination above Performing Lab: Notes/Report: See Examination above X ray : Foot, right 3V Reviewed date:02/13/2024 05:30:17 PM Interpretation:See Examination above Performing Lab: Notes/Report: See Examination above HEMOGLOBIN A1C (GLYCOHEMOGLO BIN) Reviewed date:02/13/2024 12:54:50 PM Interpretation: Performing Lab: Notes/Report: HEMOGLOBIN A1C % (HH) 6.6 Reason For Referral No Information Medications Medication [...] Problem Acquired hammer toe of right foot (7279551965071040 ) Other hammer toe(s) (acquired), right foot (M20.41) Active confirmed Problem Acquired hammer toe of left foot (4521677527162213 ) Other hammer toe(s) (acquired), left foot (M20.42) Active confirmed Problem Polyneuropathy due to type 2 diabetes mellitus (695194261) Type 2 diabetes mellitus with diabetic polyneuropathy (E11.42) Active confirmed Problem Localized, primary osteoarthritis of the ankle and/or foot (552576510) Arthritis of joint of lesser toe, left (M19.072) Active confirmed Problem Localized, primary osteoarthritis of the ankle and/or foot (804948334) Arthritis of joint of lesser toe, right (M19.071) Active confirmed Vital Signs Blood pressure diastolic 68 mm Hg 02/13/2024 Height 5 ft 6 in in 02/13/2024 Blood pressure systolic 118 mm Hg 02/13/2024 Weight 148 lbs 02/13/2024 BMI 23.89 kg/m2 02/13/2024 Procedures Procedure Date Ordered Date Performed Result Body Sit e 10129-AQAO SKIN LESIONS, 2 TO 4 02/13/2024 N/A M2303-EYTEATYA DYSTROPHIC NAILS ANY # 02/13/2024 N/A - Ganglion Cyst Injection/Aspiration 02/13/2024 N/A Encounters Encounter Location Date Provider Diagnosis [facility] [address] 02/13/2024 Tanna Mayco Type 2 diabetes redd [...] toe, initial encounter S93.149A and Ganglion M67.40 [facility] [address] 01/05/2024 [facility] [address] 05/21/2024 Tanna Mao Assessments Encounter Date Diagnosis [...] Treatment Pending Test Test Name Order Date 64836-FWTQ SKIN LESIONS, 2 TO 4 02/13/20 Q4408-QALBQUUI DYSTROPHIC NAILS ANY # - Ganglion Cyst Injection/Aspiratio n 02/13/2024 Insurance Providers Payer Name Payer Address Payer Phone Subscriber Number Group Number Insured Name Patient Relationship to Insured Coverage Start Date Coverage End Date Medicare National Govt [employer] [address] [facility] [address] [id number] Lara May Self - patient is the insured [employer] [address] [place] [address] [phone] [id number] Lara May Self - patient is the insured Medical (General) History Medical History History ICD Code Arthritis Cataracts Diabetic Fibromyalgia Heart disease High blood pressure Poor circulation Heart valve conditions/replacement Back,Hip,and Knee pain Broken bones CAD (Cholesterol) covid-19 Numbness Joint implants/screws Surgical History Surgery Date(Month/Year) eye surgery 2017 knee surgery 1999 hip surgery 2021
--- OUTSIDE RECORDS SUMMARY | 2024-10-30 14:08 | XMS_ITS ---
Author Organization [facility] Address [address] [place] [address] Care Team Providers Care Engine Watchman Name Role Phone Blaine RUIZ, Wojciech Primary Care Provider Tanna Flannery Unavailable [phone] Encounters Encounter Location Date Provider Diagnosis [facility] [address] [place] [address] 06/07/2024 Tanna Mao Plan Of Treatment No Information Progress Notes * Lara RENNERDOB:1945 (79 yo F)Acc No.[id number]:06/07/2024 Patient:?Lara RENNER Provider:?Tanna Mao DPM :1945???Age:78 Y???Sex:Female D ate:06/07/2024 Address:[address] [place], [place] [address] Pcp:Wojciech Valladares MD Subjective: * Chief Complaints: [...] DPM Date:?2023 Generated for Laineyi esme/Kellen/eTransmitting on:?10/30/2024 02:07 PM EDT
--- OUTSIDE RECORDS SUMMARY | 2024-10-30 14:08 | XMS_ITS | Encounter Summary ---
Author Organization [facility] Address [address] [place] [address] Care Team Providers Care School Business Administrator Name Role Phone Wojciech Cortez MD Primary Care Provider Unavail able Nile Villalba MD Primary Care Provider Atilio Lopez, Pcp Primary Care Provider Eliud Cochran MD Primary Care Provider Eliud Riojas MD Primary Care Provider Enedelia Ley MD Primary Care Provider + [facility], Pcp Primary Care Provider Wojciech Kaufman MD Primary Care Provider Juan C Field MD Unavailable Encounter Details Date Type Department Care Team Description 05/10/2018 Coding Machine Operator Report Medical Records [address] [place] [address] Lia Denis Social History Tobacco Use Types Packs/Day Years [...] on filedocumented in this encounter Care Teams School Business Administrator Relationship Specialty Start Date End Date Wojciech Cortez MD PCP - General 02/20/1996 02/24/20 Nile Villalba MD PCP - General Internal Medicine 02/25/20 12/18/20 [facility], Pcp PCP - General Internal Medicine 12/19/20 12/21/20 Eliud Anaya MD PCP - General Internal Medicine 12/22/20 12/29/20 Eliud Anaya MD PCP - General Internal Medicine 12/30/20 03/07/22 Enedelia Montaño MD [address] [place] [address] PCP - General Internal Medicine 03/08/22 11/16/23 [facility], Pcp PCP - General Internal Medicine 11/17/23 01/23/24 Wojciech Valladares MD [address] [place] [address] PCP - General Family Practice 01/24/24 Juan C Buckley MD [address] [place] [address] Specialist Cardiology 03/02/24 documented as of this encounter
--- OUTSIDE RECORDS SUMMARY | 2024-10-30 14:08 | XMS_ITS | Encounter Summary ---
Author Organization [facility] Address [address] [place] [address] Care Team Providers Care Station Installer And Repairer Name Role Phone Wojciech Cortez MD Primary Care Provider Unavail Nile Mata MD Primary Care Provider Atilio newby [facility], Pcp Primary Care Provider Eliud Cochran MD Primary Care Provider Eliud Riojas MD Primary Care Provider Enedelia Ley MD Primary Care Provider + [facility], Pcp Primary Care Provider Wojciech Kaufman MD Primary Care Provider Juan C Field MD Unavailable Reason for Visit * Reason Onset Date Comments TEST RESULTS 04/16/2019 Encounter Details Date Type Department Care Team Description 04/16/2019 Telephone Adult [address] [id number] Wojciech Cortez MD TEST RESULTS Social History Tobacco Use Types Packs/Day Years Used Date Smoking Tobacco: Former Cigarettes Q uit: 10/29/2012 Smokeless Tobacco: Never Comments:started @ 13 Alcohol Use Standard Drinks/Week Comments No 0 (1 standard drink = 0.6 oz pur e alcohol) Sex Assigned at Date Recorded Not on file documented as of this encounter Miscellaneous Notes * Telephone Encounter - Heather Nur M.A. - 04/16/2019 11:43 AM EDT Labs mailed to patient. * Telephone Encounter - Radha Mercedeschary - 04/16/2019 11:07 AM EDT Information Needed Who is calling: Patient Information being requested? Results from labs on 04/11/2019 If information is regarding a referral and notes are needed- transfer call to HIM department If other information is needed, was an ARTIS signed? NO How is the information to be communicated back to the caller? Mailed to - [facility] [id number] documented in this encounter Plan of Treatment Not on file documented as of this encounter Visit Diagnoses Not on filedocumented in this encounter Care Teams Station Installer And Repairer Relationship Specialty Start Date End Date Wojciech Cortez MD PCP - General 02/20/1996 02/24/20 Nile Villalba MD PCP - General Internal Medicine 02/25/20 12/18/20 [facility], Pcp PCP - General Internal Medicine 12/19/20 12/21/20 Eliud Anaya MD PCP - General Internal Medicine 12/22/20 12/29/20 Eliud Anaya MD PCP - General Internal Medicine 12/30/20 03/07/22 Enedelia Montaño MD [address] [place] [address] PCP - General Internal Medicine 03/08/22 11/16/23 [facility], Pcp PCP - General Internal Medicine 11/17/23 01/23/24 Wojciech Valladares MD [address] [place], [place] [phone] PCP - General Family Practice 01/24/24 Juan C Buckley MD [address] [place] [address] Specialist Cardiology 03/02/24 documented as of this encounter
--- OUTSIDE RECORDS SUMMARY | 2024-10-30 14:09 | XMS_ITS | Encounter Summary ---
Author Organization [facility] [employer] [facility] Address [address] [place] [address] Care Team Providers Care Fuel Cell Builder Name Role Phone Wojciech Cortez MD Primary Care Provider Unavail able Nile Villalba MD Primary Care Provider Atilio Lopez, Pcp Primary Care Provider Eliud Cochran MD Primary Care Provider Eliud Riojas MD Primary Care Provider Enedelia Ley MD Primary Care Provider + [facility], Pcp Primary Care Provider Wojciech Kaufman MD Primary Care Provider Juan C Field MD Unavailable [phone] Encounter Details Date Type Department Care Team Description 04/11/2000 Orders Only Oncology [address] [place] [address] Jerald Gomez MD Social History Tobacco Use Types Packs/Day Years Used Date Smoking Tobacco: Never Assessed Sex Assigned at Date Recorded Not on file documented as of this encounter Plan of Treatment Not on file documented as of this encounter Visit Diagnoses Not on filedocumented in this encounter Care Teams Fuel Cell Builder Relationship Specialty Start Date End Date Wojciech Cortez MD PCP - General 02/20/1996 02/24/20 Nile Villalba MD PCP - General Internal Medicine 02/25/20 12/18/20 [facility], Pcp PCP - General Internal Medicine 12/19/20 12/21/20 Eliud Anaya MD PCP - General Internal Medicine 12/22/20 12/29/20 Eliud Anaya MD PCP - General Internal Medicine 12/30/20 03/07/22 Enedelia Montaño MD [address] [place] [address] PCP - General Internal Medicine 03/08/22 11/16/23 [facility], Pcp PCP - General Internal Medicine 11/17/23 01/23/24 Wojciech Valladares MD [address] [place] [address] PCP - General Family Practice 01/24/24 Juan C Buckley MD [address] [place] [address] Specialist Cardiology 03/02/24 documented as of this encounter
--- OUTSIDE RECORDS SUMMARY | 2024-10-30 14:09 | XMS_ITS | Encounter Summary ---
Author Organization [facility] Address [address] [place] [address] Care Team Providers Care Music Pastor Name Role Phone Wojciech Cortez MD Primary Care Provider Unavail able Nile Villalba MD Primary Care Provider Atilio Lopez, Pcp Primary Care Provider Eliud Cochran MD Primary Care Provider Eliud Riojas MD Primary Care Provider Enedelia Ley MD Primary Care Provider + [facility], Pcp Primary Care Provider Wojciech Kaufman MD Primary Care Provider Juan C Field MD Unavailable [phone] Encounter Details Date Type Department Care Team Description 04/11/2000 Orders Only Oncology [address] [place] [address] Jerald Gomez MD Social History Tobacco Use Types Packs/Day Years Used Date Smoking Tobacco: Never Assessed Sex Assigned at Date Recorded Not on file documented as of this encounter Plan of Treatment Not on file documented as of this encounter Visit Diagnoses Not on filedocumented in this encounter Care Teams Music Pastor Relationship Specialty Start Date End Date Wojciech Cortez MD PCP - General 02/20/1996 02/24/20 Nile Villalba MD PCP - General Internal Medicine 02/25/20 12/18/20 [facility], Pcp PCP - General Internal Medicine 12/19/20 12/21/20 Eliud Anaya MD PCP - General Internal Medicine 12/22/20 12/29/20 Eliud Anaya MD PCP - General Internal Medicine 12/30/20 03/07/22 Enedelia Montaño MD [address] [place] [address] PCP - General Internal Medicine 03/08/22 11/16/23 [facility], Pcp PCP - General Internal Medicine 11/17/23 01/23/24 Wojciech Valladares MD [address] [place] [address] PCP - General Family Practice 01/24/24 Juan C Buckley MD [address] [place] [address] Specialist Cardiology 03/02/24 documented as of this encounter
== END 2024-10-30 12:41 | disposition home or self-care (01) ==
LOC: HO.HMCFM 11:26
PROVIDERS: PCP Family Medicine; Visit Provider Family Medicine
DX: H10.9 Unspecified conjunctivitis (principal); D64.9 Anemia, unspecified; E11.9 Type 2 diabetes mellitus without complications; R09.89 Other specified symptoms and signs involving the circulatory and respiratory systems

== ENCOUNTER → 2024-10-30 11:25 | Outpatient (BNVA) | payer MEDICARE, SELFPAY | PROVIDERS: PCP Family Medicine; Visit Provider Family Medicine ==

== ENCOUNTER 2024-10-30 12:30 | Outpatient (REF) | payer MEDICARE, SELFPAY ==
[2024-10-30 14:10] LABS: MANUAL DIFF FLAG NO
[2024-10-30 14:18] LABS: Basophils Absolute Auto 0.1 X10*3/uL (0.0-0.2); Basophils Percent Auto 0.8 % (0-2); Eosinophils Absolute Auto 0.4 X10*3/uL (0.0-0.4); Eosinophils Percent Auto 4.2 % (0-4); Hematocrit 33.2 % (37.0-47.0); Hemoglobin 9.5 g/dl (12.0-16.0); Imm Gran Abs Auto 0.04 X10*3/uL (0.00-0.03); Imm Gran Pct Auto 0.4 % (0.0-0.4); Lymphocytes Absolute Auto 2.1 X10*3/uL (1.2-4.9); Lymphocytes Percent Auto 19.8 % (20-40); Mean Corpuscular HGB Conc 28.6 g/dl (31.0-35.0); Mean Corpuscular Hemoglobin 18.7 pg (27.0-33.0); Mean Corpuscular Volume 65.4 fL (80.0-98.0); Neutrophils Absolute Auto 6.9 x10*3/uL (2.0-8.3); Neutrophils Percent Auto 65.8 % (45-73); Platelet Count 327 X10*3/uL (160-400); Red Blood Count 5.08 X10*6/uL (4.20-5.50); Red Cell Distribution Width 19.7 % (11.0-16.0); White Blood Count 10.5 X10*3/uL (4.8-10.8)
[2024-10-30 14:18] LABS: Appearance Urine Clear; Color Urine Yellow; Glucose Urine UA >=1000 mg/dL (Negative); Leukocyte Esterase Urine Negative (Negative); Nitrite Urine Negative (Negative); UMIC TRIGGER UA YES; Urine Blood Negative (Negative); Urine Ketones Negative (Negative); Urine Protein Negative (Neg-Trace)
[2024-10-30 14:22] LABS: Bacteria Urine None Seen (None Seen); Hyaline Casts Urine 0-2 /LPF (0-2); RBC Urine 0-2 /HPF (0-2); Squamous Epithelial Cell Urine 0-2 /HPF (0-2); WBC Urine 0-5 /HPF (0-5)
[2024-10-30 14:51] LABS: Estimated Average Glucose 134 mg/dL; Hemoglobin A1c % 6.3 % (<6.0)
[2024-10-30 14:55] LABS: Alanine Aminotransferase 12 U/L (0-31); Albumin Level 3.7 g/dL (3.5-5.0); Alkaline Phosphatase 88 U/L (39-117); Anion Gap 9 (12-20); Aspartate Amino Transferase 27 U/L (5-31); Bilirubin Total 0.4 mg/dL (0.0-1.0); Blood Urea Nitrogen 14 mg/dL (9-16); Calcium 9.2 mg/dL (8.4-10.2); Carbon Dioxide 29 mmol/L (22-29); Chloride 107 mmol/L (96-108); Estimated Glomerular Filt Rate > 60; Glucose Random 91 mg/dL (60-115); Potassium 3.9 mmol/L (3.3-5.1); Sodium 141 mmol/L (135-145); Total Protein 6.8 g/dL (6.5-8.0)
--- OUTSIDE RECORDS SUMMARY | 2024-10-30 15:04 | XMS_ITS | Encounter Summary ---
Author Organization [facility] Address [address] [place] [address] Care Team Providers Care Survey Research Center Director Name Role Phone [facility], Pcp Primary Care Provider Wojciech Kaufman MD Primary Care Provider Juan C Field MD Unavailable [phone] Encounter Details Date Type Department Care Team Description 01/12/2024 SCAN Medical Records [address] [place] [address] Abstract, Provider Social History Tobacco Use Types [...] on filedocumented in this encounter Care Teams Survey Research Center Director Relationship Specialty Start Date End Date [facility], Pcp PCP - General Internal Medicine 11/17/23 01/23/24 Wojciech Valladares MD PCP - General Family Practice 01/24/24 Juan C Buckley MD Specialist Cardiology 03/02/24 documented as of this encounter
--- OUTSIDE RECORDS SUMMARY | 2024-10-30 15:04 | XMS_ITS | Encounter Summary ---
Author Organization [facility] [employer] [facility] Address [address] [place] [address] Care Team Providers Care Flyer Builder Name Role Phone Wojciech Cortez MD Primary Care Provider Unavail able Nile Villalba MD Primary Care Provider Atilio Lopez, Pcp Primary Care Provider Eliud Cochran MD Primary Care Provider Eliud Riojas MD Primary Care Provider Enedelia Ley MD Primary Care Provider + [facility], Pcp Primary Care Provider Wojciech Kaufman MD Primary Care Provider Juan C Field MD Unavailable [phone] Encounter Details Date Type Department Care Team Description 01/19/2018 Respiratory Practitioner Report Medical Records [address] [place] [address] Shawn Lopes MD [address] [place] [address] Social History Tobacco Use Types Packs/Day Years [...] on filedocumented in this encounter Care Teams Flyer Builder Relationship Specialty Start Date End Date Wojciech Cortez MD PCP - General 02/20/1996 02/24/20 Nile Villalba MD PCP - General Internal Medicine 02/25/20 12/18/20 [facility], Pcp PCP - General Internal Medicine 12/19/20 12/21/20 Eliud Anaya MD PCP - General Internal Medicine 12/22/20 12/29/20 Eliud Anaya MD PCP - General Internal Medicine 12/30/20 03/07/22 Enedelia Montaño MD [address] [place] [address] PCP - General Internal Medicine 03/08/22 11/16/23 [facility], Pcp PCP - General Internal Medicine 11/17/23 01/23/24 Wojciech Valladares MD [address] [place] [address] PCP - General Family Practice 01/24/24 Juan C Buckley MD [address] [place] [address] Specialist Cardiology 03/02/24 documented as of this encounter
--- OUTSIDE RECORDS SUMMARY | 2024-10-30 15:04 | XMS_ITS | Encounter Summary ---
Author Organization [facility] Address [address] [place] [address] Care Team Providers Care Photographic Lithographer Name Role Phone Wojciech Cortez MD Primary Care Provider Unavail Nile Mata MD Primary Care Provider Atilio newby [facility], Pcp Primary Care Provider Eliud Cochran MD Primary Care Provider Eliud Riojas MD Primary Care Provider Enedelia Ley MD Primary Care Provider + [facility], Pcp Primary Care Provider Wojciech Kaufman MD Primary Care Provider Jaun C Field MD Unavailable [phone] Encounter Details Date Type Department Care Team Description 01/03/2018 Telephone Adult Medicine [address] [address] Wojciech Cortez MD Social History Tobacco Use [...] yesterday to the Hospital folder in the [facility] Pod. Thank you, Shelly Sewell C.M.A. Printing Sales Representative * Telephone Encounter - Wojciech Cortez MD - 01/03/2018 6:30 AM EDT Please see if stress echo report can be obtained. documented in this encounter Plan of Treatment Not on file documented as of this encounter Visit Diagnoses Not on filedocumented in this encounter Care Teams Photographic Lithographer Relationship Specialty Start Date End Date Wojciech Cortez MD PCP - General 02/20/1996 02/24/20 Nile Villalba MD PCP - General Internal Medicine 02/25/20 12/18/20 [facility], Pcp PCP - General Internal Medicine 12/19/20 12/21/20 Eliud Anaya MD PCP - General Internal Medicine 12/22/20 12/29/20 Eliud Anaya MD PCP - General Internal Medicine 12/30/20 03/07/22 Enedelia Montaño MD [address] [place] [address] PCP - General Internal Medicine 03/08/22 11/16/23 [facility], Pcp PCP - General Internal Medicine 11/17/23 01/23/24 Wojciech Valladares MD [address] [place] [address] PCP - General Family Practice 01/24/24 Juan C Buckley MD [address] [place] [address] Specialist Cardiology 03/02/24 documented as of this encounter
--- OUTSIDE RECORDS SUMMARY | 2024-10-30 15:04 | XMS_ITS | Encounter Summary ---
Author Organization [facility] [facility] Address [address] [place] [address] Care Team Providers Care Slot Machine Repairer Name Role Phone Wojciech Cortez MD Primary Care Provider Unavail able Nile Villalba MD Primary Care Provider Atilio Lopez, Pcp Primary Care Provider Eliud Cochran MD Primary Care Provider Eliud Riojas MD Primary Care Provider Enedelia Ley MD Primary Care Provider + [facility], Pcp Primary Care Provider Wojciech Kaufman MD Primary Care Provider Juan C Field MD Unavailable [phone] Encounter Details Date Type Department Care Team Description 02/21/2018 Inspector Precision Report Medical Records [address] [place] [address] Brandt Banks MD [address] [place] [address] Social History Tobacco Use Types Packs/Day Years [...] on filedocumented in this encounter Care Teams Slot Machine Repairer Relationship Specialty Start Date End Date Wojciech Cortez MD PCP - General 02/20/1996 02/24/20 Nile Villalba MD PCP - General Internal Medicine 02/25/20 12/18/20 [facility], Pcp PCP - General Internal Medicine 12/19/20 12/21/20 Eliud Anaya MD PCP - General Internal Medicine 12/22/20 12/29/20 Eliud Anaya MD PCP - General Internal Medicine 12/30/20 03/07/22 Enedelia Montaño MD [address] [place] [address] PCP - General Internal Medicine 03/08/22 11/16/23 [facility], Pcp PCP - General Internal Medicine 11/17/23 01/23/24 Wojciech Valladares MD [address] [place] [address] PCP - General Family Practice 01/24/24 Juan C Buckley MD [address] [place] [address] Specialist Cardiology 03/02/24 documented as of this encounter
--- OUTSIDE RECORDS SUMMARY | 2024-10-30 15:04 | XMS_ITS | Encounter Summary ---
Author Organization [employer] [facility] Address [address] [place] [address] Care Team Providers Care Nuclear Medicine Specialist Name Role Phone Wojciech Cortez MD Primary Care Provider Unavail able Nile Villalba MD Primary Care Provider Atilio Lopez, Pcp Primary Care Provider Eliud Cochran MD Primary Care Provider Eliud Riojas MD Primary Care Provider Enedelia Ley MD Primary Care Provider + [facility], Pcp Primary Care Provider Wojciech Kaufman MD Primary Care Provider Juan C Field MD Unavailable [phone] Encounter Details Date Type Department Care Team Description 01/27/2018 Field Crops Harvest Machine Operator Report Medical Records [address] [place] [address] Juan C Buckley MD [address] [place] [id number] Social History Tobacco Use Types Packs/Day Years [...] on filedocumented in this encounter Care Teams Nuclear Medicine Specialist Relationship Specialty Start Date End Date Wojciech Cortez MD PCP - General 02/20/1996 02/24/20 Nile Villalba MD PCP - General Internal Medicine 02/25/20 12/18/20 [facility], Pcp PCP - General Internal Medicine 12/19/20 12/21/20 Eliud Anaya MD PCP - General Internal Medicine 12/22/20 12/29/20 Eliud Anaya MD PCP - General Internal Medicine 12/30/20 03/07/22 Enedelia Montaño MD [address] [place] [address] PCP - General Internal Medicine 03/08/22 11/16/23 [facility], Pcp PCP - General Internal Medicine 11/17/23 01/23/24 Wojciech Valladares MD [address] [place] [address] PCP - General Family Practice 01/24/24 Juan C Buckley MD [address] [place] [address] Specialist Cardiology 03/02/24 documented as of this encounter
--- OUTSIDE RECORDS SUMMARY | 2024-10-30 15:04 | XMS_ITS | Encounter Summary ---
Author Organization [facility] Address [address] [place] [address] Care Team Providers Care System Administration Advisor Name Role Phone Nile Villalba MD Primary Care Provider Atilio Lopez, Pcp Primary Care Provider Eliud Cochran MD Primary Care Provider Eliud Riojas MD Primary Care Provider Enedelia Ley MD Primary Care Provider + [facility], Pcp Primary Care Provider Wojciech Kaufman MD Primary Care Provider Juan C Field MD Unavailable [phone] Encounter Details Date Type Department Care Team Description 06/13/2020 Change Management Consultant Report Medical Records [address] [place] [id number] Diana Ibarra NP Social History Tobacco Use Types Packs/Day Years [...] on filedocumented in this encounter Care Teams System Administration Advisor Relationship Specialty Start Date End Date Nile Villalba MD PCP - General Internal Medicine 02/25/20 12/18/20 [facility], Pcp PCP - General Internal Medicine 12/19/20 12/21/20 Eliud Anaya MD PCP - General Internal Medicine 12/22/20 12/29/20 Eliud Anaya MD PCP - General Internal Medicine 12/30/20 03/07/22 Enedelia Montaño MD [address] [place] [address] PCP - General Internal Medicine 03/08/22 11/16/23 [facility], Pcp PCP - General Internal Medicine 11/17/23 01/23/24 Wojciech Valladares MD [address] [place] [address] PCP - General Family Practice 01/24/24 Juan C Buckley MD [address] [place] [address] Specialist Cardiology 03/02/24 documented as of this encounter
--- OUTSIDE RECORDS SUMMARY | 2024-10-30 15:04 | XMS_ITS | Encounter Summary ---
Author Organization [facility] Address [address] [place] [address] Care Team Providers Care Photo Checker And Assembler Name Role Phone Eliud Anaya MD Primary Care Provider Eliud Riojas MD Primary Care Provider Enedelia Ley MD Primary Care Provider + [facility], [facility] Primary Care Provider Wojciech Kaufman MD Primary Care Provider Juan C Field MD Unavailable [phone] Encounter Details Date Type Department Care Team Description 12/26/2020 Car Repairer Report Medical Records [address] [place] [address] Jay Christina MD Social History Tobacco Use [...] on filedocumented in this encounter Care Teams Photo Checker And Assembler Relationship Specialty Start Date End Date Eliud Aanya MD PCP - General Internal Medicine 12/22/20 12/29/20 Eliud Anaya MD PCP - General Internal Medicine 12/30/20 03/07/22 Enedelia Montaño MD [address] [place] [address] PCP - General Internal Medicine 03/08/22 11/16/23 [facility], Pcp [address] [place], [place] [phone] PCP - General Internal Medicine 11/17/23 01/23/24 Wojciech Valladares MD [address] [place] [address] PCP - General Family Practice 01/24/24 Juan C Buckley MD [address] [place] [address] Specialist Cardiology 03/02/24 documented as of this encounter
--- OUTSIDE RECORDS SUMMARY | 2024-10-30 15:04 | XMS_ITS | Encounter Summary ---
Author Organization [facility] Address [address] [place] [address] Care Team Providers Care Presser First Name Role Phone Eliud Anaya MD Primary Care Provider Enedelia Ley MD Primary Care Provider + [facility], Pcp Primary Care Provider Wojciech Kaufman MD Primary Care Provider Juan C Field MD Unavailable [phone] Reason for Visit * Reason Onset Date Comments VNA Call 01/13/2022 Encounter Details Date Type Department Care Team Description 01/13/2022 Telephone Adult [address] [address] Eliud Anaya MD VNA Call Social History [...] lab results not received She can call [facility] obtain and copy She can fax them to me I will give to Dr. Jaclyn MCKEON to Dr. Anaya * Telephone Encounter - Anabel Catalan - 01/13/2022 2:57 PM EDT VNA CALL Which VNA office is calling? [facility] Full name of caller: Stella The caller is An Occupational Therapist Is the caller at the patients home?: Yes Reason for call: nurse is wondering if Dr Anaya was aware pt was see by [facility] on 01-08-22 and treated pt for a possible UTI and they prescribed patient bactrim, nurse requests call back concerning this and pt did not receive any results regarding lab urine test done then Does caller need an urgent call back? YES, by end of day Was CONTACT Telephone # obtained above?: YES Fax #: [phone] documented in this encounter Plan of Treatment Not on file documented as of this encounter Visit Diagnoses Not on filedocumented in this encounter Care Teams Presser First Relationship Specialty Start Date End Date Eliud Anaya MD PCP - General Internal Medicine 12/30/20 03/07/22 Enedelia Montaño MD [address] [place] [address] PCP - General Internal Medicine 03/08/22 11/16/23 [facility], [place] [address] PCP - General Internal Medicine 11/17/23 01/23/24 Wojciech Valladares MD [address] [place] [address] PCP - General Family Practice 01/24/24 Juan C Buckley MD [address] [place] [address] Specialist Cardiology 03/02/24 documented as of this encounter
--- OUTSIDE RECORDS SUMMARY | 2024-10-30 15:04 | XMS_ITS | Encounter Summary ---
Author Organization [facility] Address [address] [place] [address] Care Team Providers Care Filing And Polishing Supervisor Name Role Phone Nile Villalba MD Primary Care Provider Atilio Lopez, Pcp Primary Care Provider Eliud Cochran MD Primary Care Provider Eliud Riojas MD Primary Care Provider Enedelia Ley MD Primary Care Provider + [facility], Pcp Primary Care Provider Wojciech Kaufman MD Primary Care Provider Juan C Field MD Unavailable [phone] Encounter Details Date Type Department Care Team Description 04/08/2020 Telephone Medicine/Pediatrics - [address] [id number] Nile Villalba MD Social History Tobacco Use Types Packs/Day Years Used Date Smoking Tobacco: Former Cigarettes Q uit: 10/29/2012 Smokeless Tobacco: Never Comments:started @ 13 Alcohol Use Standard Drinks/Week Comments No 0 (1 standard drink = 0.6 oz pur e alcohol) Sex Assigned at Date Recorded Not on file documented as of this encounter Miscellaneous Notes * Telephone Encounter - Ofelia Brian - 04/08/2020 3:04 PM EDT Patient called back. BSR booked appt for 04/18 @ 11:45 * Telephone Encounter - Jocelin Delaney R.N. - 04/08/2020 2:42 PM EDT Left message to call [phone] * Telephone Encounter - Nile Villalba MD - 04/08/2020 2:20 PM EDT Please see TE from 04/04 for details, patient needs to be seen in adult medicien slot in my schedulefor steroid injections in knees, knee xrays show severe arthritis, I am happy to do steroid injections during any 15 minute slot in my schedule, can also put at 1145am on my half days or if [id number] on full days, thanks documented in this encounter Plan of Treatment Not on file documented as of this encounter Visit Diagnoses Not on filedocumented in this encounter Care Teams Filing And Polishing Supervisor Relationship Specialty Start Date End Date Nile Villalba MD PCP - General Internal Medicine 02/25/20 12/18/20 [facility], Pcp PCP - General Internal Medicine 12/19/20 12/21/20 Eliud Anaya MD PCP - General Internal Medicine 12/22/20 12/29/20 Eliud Anaya MD PCP - General Internal Medicine 12/30/20 03/07/22 Enedelia Montaño MD [address] [place] [address] PCP - General Internal Medicine 03/08/22 11/16/23 [facility], Pcp PCP - General Internal Medicine 11/17/23 01/23/24 Wojciech Valladares MD [address] [place] [address] PCP - General Family Practice 01/24/24 Juan C Buckley MD [address] [place] [address] Specialist Cardiology 03/02/24 documented as of this encounter
--- OUTSIDE RECORDS SUMMARY | 2024-10-30 15:04 | XMS_ITS | Encounter Summary ---
Author Organization [facility] Address [address] [place] [address] Care Team Providers Care Net Solutions Architect Name Role Phone Wojciech Cortez MD Primary Care Provider Unavail able Nile Villalba MD Primary Care Provider Atilio Lopez, Pcp Primary Care Provider Eliud Cochran MD Primary Care Provider Eliud Riojas MD Primary Care Provider Enedelia Ley MD Primary Care Provider + [facility], Pcp Primary Care Provider Wojciech Kafuman MD Primary Care Provider Juan C Field MD Unavailable [phone] Encounter Details Date Type Department Care Team Description 04/07/2018 [facility] Medical Records [address] [place] [address] Gustavo Lau MD Social History Tobacco Use [...] on filedocumented in this encounter Care Teams Net Solutions Architect Relationship Specialty Start Date End Date Wojciech Cortez MD PCP - General 02/20/1996 02/24/20 Nile Villalba MD PCP - General Internal Medicine 02/25/20 12/18/20 [facility], Pcp PCP - General Internal Medicine 12/19/20 12/21/20 Eliud Anaya MD PCP - General Internal Medicine 12/22/20 12/29/20 Eliud Anaya MD PCP - General Internal Medicine 12/30/20 03/07/22 Enedelia Montaño MD [address] [place] [address] PCP - General Internal Medicine 03/08/22 11/16/23 [facility], Pcp PCP - General Internal Medicine 11/17/23 01/23/24 Wojciech Valladares MD [address] [place] [address] PCP - General Family Practice 01/24/24 Juan C Buckley MD [address] [place] [address] Specialist Cardiology 03/02/24 documented as of this encounter
--- OUTSIDE RECORDS SUMMARY | 2024-10-30 15:04 | XMS_ITS | Encounter Summary ---
Author Organization [facility] Address [address] [place] [address] Care Team Providers Care Dry Ice Machine Operator Name Role Phone Wojciech Cortez MD Primary Care Provider Unavail able Nile Villalba MD Primary Care Provider Atilio Lopez, Pcp Primary Care Provider Eliud Cochran MD Primary Care Provider Eliud Riojas MD Primary Care Provider Enedelia Ley MD Primary Care Provider + [facility], Pcp Primary Care Provider Wojciech Kaufman MD Primary Care Provider Juan C Field MD Unavailable [phone] Encounter Details Date Type Department Care Team Description 02/24/2018 [facility] Medical Records [address] [place] [address] Abstract, Provider Social History Tobacco Use Types [...] on filedocumented in this encounter Care Teams Dry Ice Machine Operator Relationship Specialty Start Date End Date Wojciech Cortez MD PCP - General 02/20/1996 02/24/20 Nile Villalba MD PCP - General Internal Medicine 02/25/20 12/18/20 [facility], Pcp PCP - General Internal Medicine 12/19/20 12/21/20 Eliud Anaya MD PCP - General Internal Medicine 12/22/20 12/29/20 Eliud Anaya MD PCP - General Internal Medicine 12/30/20 03/07/22 Enedelia Montaño MD [address] [place] [address] PCP - General Internal Medicine 03/08/22 11/16/23 [facility], Pcp PCP - General Internal Medicine 11/17/23 01/23/24 Wojciech Valladares MD [address] [place] [address] PCP - General Family Practice 01/24/24 Juan C Buckley MD [address] [place] [address] Specialist Cardiology 03/02/24 documented as of this encounter
--- OUTSIDE RECORDS SUMMARY | 2024-10-30 15:04 | XMS_ITS | Encounter Summary ---
Author Organization [facility] Address [address] [place] [address] Care Team Providers Care Senior Software Quality Engineer Name Role Phone Wojciech Cortez MD Primary Care Provider Unavail able Nile Villalba MD Primary Care Provider Atilio Lopez, Pcp Primary Care Provider Eliud Cochran MD Primary Care Provider Eliud Riojas MD Primary Care Provider Enedelia Ley MD Primary Care Provider + [facility], Pcp Primary Care Provider Wojciech Kaufman MD Primary Care Provider Juan C Field MD Unavailable [phone] Encounter Details Date Type Department Care Team Description 05/10/2018 Geodetic Advisor Report Medical Records [address] [place] [address] Lia Denis Social History Tobacco Use Types [...] on filedocumented in this encounter Care Teams Senior Software Quality Engineer Relationship Specialty Start Date End Date Wojciech Cortez MD PCP - General 02/20/1996 02/24/20 Nile Villalba MD PCP - General Internal Medicine 02/25/20 12/18/20 [facility], Pcp PCP - General Internal Medicine 12/19/20 12/21/20 Eliud Anaya MD PCP - General Internal Medicine 12/22/20 12/29/20 Eliud Anaya MD PCP - General Internal Medicine 12/30/20 03/07/22 Enedelia Montaño MD [address] [place] [address] PCP - General Internal Medicine 03/08/22 11/16/23 [facility], Pcp PCP - General Internal Medicine 11/17/23 01/23/24 Wojciech Valladares MD [address] [place] [address] PCP - General Family Practice 01/24/24 Juan C Buckley MD [address] [place] [address] Specialist Cardiology 03/02/24 documented as of this encounter
--- OUTSIDE RECORDS SUMMARY | 2024-10-30 15:04 | XMS_ITS | Encounter Summary ---
Author Organization [facility] Address [address] [place] [address] Care Team Providers Care Profiler Hand Name Role Phone [facility], Pcp Primary Care Provider Wojciech Kaufman MD Primary Care Provider Juan C Field MD Unavailable [phone] Encounter Details Date Type Department Care Team Description 01/18/2024 Customer Greeter Report Medical Records [address] [place] [address] Wojciech Valladares MD Social History Tobacco Use Types Packs/Day [...] on filedocumented in this encounter Care Teams Profiler Hand Relationship Specialty Start Date End Date [facility], Pcp PCP - General Internal Medicine 11/17/23 01/23/24 Wojciech Valladares MD PCP - General Family Practice 01/24/24 Juan C Buckley MD Specialist Cardiology 03/02/24 documented as of this encounter
--- OUTSIDE RECORDS SUMMARY | 2024-10-30 15:04 | XMS_ITS | Encounter Summary ---
Author Organization [facility] Address [address] [place] [address] Care Team Providers Care Pondman Name Role Phone Wojciech Cortez MD Primary Care Provider Unavail able Nile Villalba MD Primary Care Provider Atilio Lopez, Pcp Primary Care Provider Eliud Cochran MD Primary Care Provider Eliud Riojas MD Primary Care Provider Enedelia Ley MD Primary Care Provider + [facility], Pcp Primary Care Provider Wojciceh Kaufman MD Primary Care Provider Juan C Field MD Unavailable [phone] Encounter Details Date Type Department Care Team Description 01/18/2018 Transfer Records Medical Records [address] [place] [address] Abstract, Provider Social History Tobacco Use Types [...] on filedocumented in this encounter Care Teams Pondman Relationship Specialty Start Date End Date Wojciech Cortez MD PCP - General 02/20/1996 02/24/20 Nile Villalba MD PCP - General Internal Medicine 02/25/20 12/18/20 [facility], Pcp PCP - General Internal Medicine 12/19/20 12/21/20 Eliud Anaya MD PCP - General Internal Medicine 12/22/20 12/29/20 Eliud Anaya MD PCP - General Internal Medicine 12/30/20 03/07/22 Enedelia Montaño MD [address] [place] [address] PCP - General Internal Medicine 03/08/22 11/16/23 [facility], Pcp PCP - General Internal Medicine 11/17/23 01/23/24 Wojciech Valladares MD [address] [place] [address] PCP - General Family Practice 01/24/24 Juan C Buckley MD [address] [place] [address] Specialist Cardiology 03/02/24 documented as of this encounter
--- OUTSIDE RECORDS SUMMARY | 2024-10-30 15:05 | XMS_ITS | Encounter Summary ---
Author Organization [facility] Address [address] [place] [address] Care Team Providers Care Profile Saw Operator Name Role Phone Wojciech Cortez MD Primary Care Provider Unavail able Nile Villalba MD Primary Care Provider Atilio Lopez, Pcp Primary Care Provider Eliud Cochran MD Primary Care Provider Eliud Riojas MD Primary Care Provider Enedelia Ley MD Primary Care Provider + [facility], Pcp Primary Care Provider Wojciech Kaufman MD Primary Care Provider Juan C Field MD Unavailable [phone] Encounter Details Date Type Department Care Team Description 04/08/2014 Orders Only Radiology - [address] [id number] Alvina Orellana MD [address] [place] [address] [id number] Social History Tobacco Use Types Packs/Day Years [...] on filedocumented in this encounter Care Teams Profile Saw Operator Relationship Specialty Start Date End Date Wojciech Cortez MD PCP - General 02/20/1996 02/24/20 Nile Villalba MD PCP - General Internal Medicine 02/25/20 12/18/20 [facility], Pcp PCP - General Internal Medicine 12/19/20 12/21/20 Eliud Anaya MD PCP - General Internal Medicine 12/22/20 12/29/20 Eliud Anaya MD PCP - General Internal Medicine 12/30/20 03/07/22 Enedelia Montaño MD [address] [place] [address] PCP - General Internal Medicine 03/08/22 11/16/23 [facility], Pcp PCP - General Internal Medicine 11/17/23 01/23/24 Wojciech Valladares MD [address] [place] [address] PCP - General Family Practice 01/24/24 Juan C Buckley MD [address] [place] [address] Specialist Cardiology 03/02/24 documented as of this encounter
--- OUTSIDE RECORDS SUMMARY | 2024-10-30 15:05 | XMS_ITS | Encounter Summary ---
Author Organization [facility] Address [address] [place] [address] Care Team Providers Care Customer Retention Specialist Name Role Phone Wojciech Cortez MD Primary Care Provider Unavail able Nile Villalba MD Primary Care Provider Atilio Lopez, Pcp Primary Care Provider Eliud Cochran MD Primary Care Provider Eliud Riojas MD Primary Care Provider Enedelia Ley MD Primary Care Provider + [facility], Pcp Primary Care Provider Wojciech Kaufman MD Primary Care Provider Juan C Field MD Unavailable [phone] Encounter Details Date Type Department Care Team Description 04/12/2017 Business Doc Medical Records [address] [place] [address] Abstract, Provider Social History Tobacco Use Types [...] on filedocumented in this encounter Care Teams Customer Retention Specialist Relationship Specialty Start Date End Date Wojciech Cortez MD PCP - General 02/20/1996 02/24/20 Nile Villalba MD PCP - General Internal Medicine 02/25/20 12/18/20 [facility], Pcp PCP - General Internal Medicine 12/19/20 12/21/20 Eliud Anaya MD PCP - General Internal Medicine 12/22/20 12/29/20 Eliud Anaya MD PCP - General Internal Medicine 12/30/20 03/07/22 Enedelia Montaño MD [address] [place] [address] PCP - General Internal Medicine 03/08/22 11/16/23 [facility], Pcp PCP - General Internal Medicine 11/17/23 01/23/24 Wojciech Valladares MD [address] [place] [address] PCP - General Family Practice 01/24/24 Juan C Buckley MD [address] [place] [address] Specialist Cardiology 03/02/24 documented as of this encounter
--- OUTSIDE RECORDS SUMMARY | 2024-10-30 15:05 | XMS_ITS | Encounter Summary ---
Author Organization [facility] Address [address] [place] [address] Care Team Providers Care Financial Manager Name Role Phone Wojciech Cortez MD Primary Care Provider Unavail Nile Mata MD Primary Care Provider Atilio ildevon [facility], Pcp Primary Care Provider Eliud Cochran MD Primary Care Provider Eliud Riojas MD Primary Care Provider Enedelia Ley MD Primary Care Provider + [facility], Pcp Primary Care Provider Wojciech Kaufman MD Primary Care Provider Juan C Field MD Unavailable [phone] Reason for Visit * Reason Onset Date Comments Transitional Care Management (Tcm) 05/26/2018 TCM post d/c [facility] 05/25/18 Encounter Details Date Type Department Care Team Description 05/26/[address] [address] Wojciech Cortez MD Transitional Care Management (Tcm) [...] UTI's and aortic stenosis was admitted to [facility] on 05/23/18 for elective TAVR. Patient tolerated the procedure well and post op had c/o urinary retention requiring catheterizations. Urine positive for WBC's and nitrates. She was given Macrobid and will continue this at home. Patient discharged to home on 05/25/18 , No VNA services ordered. Quality Outreach: Hospital Discharge Admission Date: 05/23/18 Discharge Date: 05/25/18 Hospital: [facility] Problem or condition that sent patient [...] to follow- up appointment. [facility] Instructed to call office or return to ER if symptoms return or worsen. Plan for care management: No care management needed at this time. documented in this encounter Plan of Treatment Not on file documented as of this encounter Visit Diagnoses Not on filedocumented in this encounter Care Teams Financial Manager Relationship Specialty Start Date End Date Wojciech Cortez MD PCP - General 02/20/1996 02/24/20 Nile Villalba MD PCP - General Internal Medicine 02/25/20 12/18/20 [facility], Pcp PCP - General Internal Medicine 12/19/20 12/21/20 Eliud Anaya MD PCP - General Internal Medicine 12/22/20 12/29/20 Eliud Anaya MD PCP - General Internal Medicine 12/30/20 03/07/22 Enedelia Montaño MD [address] [place] [address] [place] [address] PCP - General Internal Medicine 03/08/22 11/16/23 [facility], Pcp PCP - General Internal Medicine 11/17/23 01/23/24 Wojciech Valladares MD [address] [place] [address] PCP - General Family Practice 01/24/24 Juan C Buckley MD [address] [place] [address] Specialist Cardiology 03/02/24 documented as of this encounter
--- OUTSIDE RECORDS SUMMARY | 2024-10-30 15:05 | XMS_ITS | Encounter Summary ---
Author Organization [facility] Address [address] [place] [address] Care Team Providers Care Research Project Manager Name Role Phone Wojciech Cortez MD Primary Care Provider Unavail able Nile Villalba MD Primary Care Provider Atilio Lopez, Pcp Primary Care Provider Eliud Cochran MD Primary Care Provider Eliud Riojas MD Primary Care Provider Enedelia Ley MD Primary Care Provider + [facility], Pcp Primary Care Provider Wojciech Kaufman MD Primary Care Provider Juan C Field MD Unavailable [phone] Encounter Details Date Type Department Care Team Description 05/18/2016 [facility] Medical Records [address] [place] [address] Quentin Mayes MD Social History Tobacco Use [...] on filedocumented in this encounter Care Teams Research Project Manager Relationship Specialty Start Date End Date Wojciech Cortez MD PCP - General 02/20/1996 02/24/20 Nile Villalba MD PCP - General Internal Medicine 02/25/20 12/18/20 [facility], Pcp PCP - General Internal Medicine 12/19/20 12/21/20 Eliud Anaya MD PCP - General Internal Medicine 12/22/20 12/29/20 Eliud Anaya MD PCP - General Internal Medicine 12/30/20 03/07/22 Enedelia Montaño MD [address] [place] [address] PCP - General Internal Medicine 03/08/22 11/16/23 [facility], Pcp PCP - General Internal Medicine 11/17/23 01/23/24 Wojciech Valladares MD [address] [place] [address] PCP - General Family Practice 01/24/24 Juan C Buckley MD [address] [place] [address] Specialist Cardiology 03/02/24 documented as of this encounter
--- OUTSIDE RECORDS SUMMARY | 2024-10-30 15:05 | XMS_ITS | Encounter Summary ---
Author Organization [facility] Address [address] [place] [address] Care Team Providers Care Jackhammer Splitter Operator Name Role Phone Wojciech Cortez MD Primary Care Provider Unavail able Nile Villalba MD Primary Care Provider Atilio Lopez, Pcp Primary Care Provider Eliud Cochran MD Primary Care Provider Eliud Riojas MD Primary Care Provider Enedelia Ley MD Primary Care Provider + [facility], Pcp Primary Care Provider Wojciech Kaufman MD Primary Care Provider Juan C Field MD Unavailable [phone] Encounter Details Date Type Department Care Team Description 03/29/2014 Business Doc Medical Records [address] [place] [address] Abstract, Provider Social History Tobacco Use Types [...] on filedocumented in this encounter Care Teams Jackhammer Splitter Operator Relationship Specialty Start Date End Date Wojciech Cortez MD PCP - General 02/20/1996 02/24/20 Nile Villalba MD PCP - General Internal Medicine 02/25/20 12/18/20 [facility], Pcp PCP - General Internal Medicine 12/19/20 12/21/20 Eliud Anaya MD PCP - General Internal Medicine 12/22/20 12/29/20 Eliud Anaya MD PCP - General Internal Medicine 12/30/20 03/07/22 Enedelia Montaño MD [address] [place] [address] PCP - General Internal Medicine 03/08/22 11/16/23 [facility], Pcp PCP - General Internal Medicine 11/17/23 01/23/24 Wojciech Valladares MD [address] [place] [address] PCP - General Family Practice 01/24/24 Juan C Buckley MD [address] [place] [address] Specialist Cardiology 03/02/24 documented as of this encounter
--- OUTSIDE RECORDS SUMMARY | 2024-10-30 15:05 | XMS_ITS | Encounter Summary ---
Author Organization [facility] Address [address] [place] [address] Care Team Providers Care Cadence Specialists Name Role Phone Wojciech Cortez MD Primary Care Provider Unavail Nile Mata MD Primary Care Provider Atilio [facility], [facility]cp Primary Care Provider Eliud Cochran MD Primary Care Provider Eliud Riojas MD Primary Care Provider Enedelia Ley MD Primary Care Provider + [facility] Primary Care Provider Wojciech Kaufman MD Primary Care Provider Juan C Field MD Unavailable [phone] Reason for Visit * Reason Onset Date Comments Echocardiogram 04/17/2014 Encounter Details Date Type Department Care Team Description 04/17/2014 Telephone Cardiology - [address] [id number] Ángela Moore PA-C [address] [place] [address] [id number] Echocardiogram Social History Tobacco Use Types Packs/Day Years Used Date Smoking Tobacco: Former Cigarettes Q uit: 10/29/2012 Smokeless Tobacco: Never Comments:started @ 13 Alcohol Use Standard Drinks/Week Comments No 0 (1 standard drink = 0.6 oz pur e alcohol) Sex Assigned at Date Recorded Not on file documented as of this encounter Miscellaneous Notes * Telephone Encounter - Rand Dolan - 04/17/2014 1:03 PM EDT FYI: You placed an order for this patient to have an echocardiogram She was booked for 9-5 She called back to cancel appointment and has opted NOT to rebook documented in this encounter Plan of Treatment Not on file documented as of this encounter Visit Diagnoses Not on filedocumented in this encounter Care Teams Cadence Specialists Relationship Specialty Start Date End Date Wojciech Cortez MD PCP - General 02/20/1996 02/24/20 Nile Villalba MD PCP - General Internal Medicine 02/25/20 12/18/20 [facility] PCP - General Internal Medicine 12/19/20 12/21/20 Eliud Anaya MD PCP - General Internal Medicine 12/22/20 12/29/20 Eliud Anaya MD PCP - General Internal Medicine 12/30/20 03/07/22 Enedelia Montaño MD [address] [place] [address] PCP - General Internal Medicine 03/08/22 11/16/23 [facility] PCP - General Internal Medicine 11/17/23 01/23/24 Wojciech Valladares MD [address] [place] [address] PCP - General Family Practice 01/24/24 Juan C Buckley MD [address] [place] [address] Specialist Cardiology 03/02/24 documented as of this encounter
--- OUTSIDE RECORDS SUMMARY | 2024-10-30 15:05 | XMS_ITS | Encounter Summary ---
Author Organization [facility] Address [address] [place] [address] Care Team Providers Care Panel Builder Name Role Phone Wojciech Cortez MD Primary Care Provider Unavail able Nile Villalba MD Primary Care Provider Atilio Lopez, Pcp Primary Care Provider Eliud Cochran MD Primary Care Provider Eliud Riojas MD Primary Care Provider Enedelia Ley MD Primary Care Provider + [facility], Pcp Primary Care Provider Wojciech Kaufman MD Primary Care Provider Juan C Field MD Unavailable [phone] Encounter Details Date Type Department Care Team Description 04/08/2000 Orders Only Medical [address] [place] [id number] Jerald Gomez MD Social History Tobacco Use Types Packs/Day Years Used Date Smoking Tobacco: Never Assessed Sex Assigned at Date Recorded Not on file documented as of this encounter Plan of Treatment Not on file documented as of this encounter Visit Diagnoses Not on filedocumented in this encounter Care Teams Panel Builder Relationship Specialty Start Date End Date Wojciech Cortez MD PCP - General 02/20/1996 02/24/20 Nile Villalba MD PCP - General Internal Medicine 02/25/20 12/18/20 [facility], Pcp PCP - General Internal Medicine 12/19/20 12/21/20 Eliud Anaya MD PCP - General Internal Medicine 12/22/20 12/29/20 Eliud Anaya MD PCP - General Internal Medicine 12/30/20 03/07/22 Enedelia Montaño MD [address] [place] [address] PCP - General Internal Medicine 03/08/22 11/16/23 [facility], Pcp PCP - General Internal Medicine 11/17/23 01/23/24 Wojciech Valladares MD [address] [place] [address] PCP - General Family Practice 01/24/24 Juan C Buckley MD [address] [place] [address] Specialist Cardiology 03/02/24 documented as of this encounter
--- OUTSIDE RECORDS SUMMARY | 2024-10-30 15:05 | XMS_ITS | Clinical Summary ---
Author Organization [facility] Address [address] [facility] [place] [place] [address] Phone Care Team Providers Care Diesel Instructor Name Role Phone Wojciech Valladares MD Primary Care Provider [phone] Allergies Active Allergy Reactions Criticality Noted Date [...] Diagnosed Date Coronary artery disease invo lving osage coronary artery of osage heart without angina pectoris 08/07/2024 Assessment & [...] Description 08/07/2024 3:00 PM EST Office Visit [facility] [address] [facility] [address] [place] [phone] Tiburcio Bass MD Essential hypertension, benign (Primary Dx); Aortic valve stenosis, etiology of cardiac valve disease unspecified; Coronary artery disease involving osage coronary artery of osage heart without angina pectoris from Last 3 [...] Description 03/26/2025 12:30 PM EDT Ancillary Procedure [facility] Cardiology [facility] [address] [place] [address] 04/23/2025 10:50 AM EDT Office Visit [facility] [address] [facility] [address] [place] [address] Tiburcio Bass MD [address] [place] [address],[facility] [address] [place] [address] Health Maintenance Due Date Last Done Comments [...] ECG 12 lead (08/07/2024 3:08 PM EST) [facility] Ventricular Rate ECG 79 BPM GEMUSE Atrial Rate 79 BPM GEMUSE P-R Interval 132 ms GEMUSE QRS Duration 88 ms GEMUSE Q-T Interval 394 ms GEMUSE QTc 451 ms GEMUSE P Wave [place] 76 degrees GEMUSE R [place] -9 degrees GEMUSE T [place] 86 degrees GEMUSE ECG Interpretation Normal sinus [...] Urine Albumin Creatinine Ratio (12/08/2022) Pathologist [facility] Urine Albumin Creatinine Ratio abstracted Historical Provider HEALTH MAINTENANCE Final Result * Annual BMP Blood Test (12/08/2022) Pathologist [facility] Annual BMP Blood Test abstracted Historical Provider HEALTH MAINTENANCE Final Result * (ABNORMAL) Hemoglobin A1c (12/08/2022) Hemoglobin A1C 6.6(A) <=6.5 % Blood Venous blood specimen / Unknown Result [facility] Provider LAB BLOOD ORDERABLES Francesca l Result * Lipid panel (05/06/2022) LDL/HDL Ratio 4 0 - 4 Triglycerides 97 0 - 150 mg/dL Cholesterol 145 0 - 200 mg/dL HDL 42 >=40 mg/dL LDL Cholesterol 84 0 - 100 mg/dL Blood Venous blood specimen / Unknown Result [facility] Provider LAB BLOOD ORDERABLES Francesca l Result from Last 3 Months or Most Recently Relevant to Health Maintenance Insurance MEDICARE [facility] Care Teams Diesel Instructor Relationship Specialty Start Date End Date Wojciech Valladares MD [address] [place] [address] Dr [place] PCP - General 01/24/24
--- OUTSIDE RECORDS SUMMARY | 2024-10-30 15:05 | XMS_ITS | Encounter Summary ---
Author Organization [facility] Address [address] [place] [address] Care Team Providers Care Warehouse Incentive Selector Name Role Phone Wojciech Cortez MD Primary Care Provider Unavail able Nile Villalba MD Primary Care Provider Atilio Lopez, Pcp Primary Care Provider Eliud Cochran MD Primary Care Provider Eliud Riojas MD Primary Care Provider Enedelia Ley MD Primary Care Provider + [facility], [facility], Pcp Primary Care Provider Wojciech Kaufman MD Primary Care Provider Juan C Field MD Unavailable [phone] Encounter Details Date Type Department Care Team Description 05/23/2018 [facility] Medical Records [address] [place] [id number] Juan C Buckley MD [address] [place] [address] Social History Tobacco Use Types Packs/Day Years [...] on filedocumented in this encounter Care Teams Warehouse Incentive Selector Relationship Specialty Start Date End Date Wojciech Cortez MD PCP - General 02/20/1996 02/24/20 Nile Villalba MD PCP - General Internal Medicine 02/25/20 12/18/20 [facility], Pcp PCP - General Internal Medicine 12/19/20 12/21/20 Eliud Anaya MD PCP - General Internal Medicine 12/22/20 12/29/20 Eliud Anaya MD PCP - General Internal Medicine 12/30/20 03/07/22 Enedelia Montaño MD [address] [place] [address] PCP - General Internal Medicine 03/08/22 11/16/23 [facility], Pcp PCP - General Internal Medicine 11/17/23 01/23/24 Wojicech Valladares MD [address] [place] [address] PCP - General Family Practice 01/24/24 Juan C Buckley MD [address] [place] [address] Specialist Cardiology 03/02/24 documented as of this encounter
--- OUTSIDE RECORDS SUMMARY | 2024-10-30 15:05 | XMS_ITS | Encounter Summary ---
Author Organization [facility] Address [address] [place] [address] Care Team Providers Care Co Op Name Role Phone Eliud Anaya MD Primary Care Provider Enedelia Ley MD Primary Care Provider + [facility], [facility], Pcp Primary Care Provider Wojciech Kaufman MD Primary Care Provider Juan C Field MD Unavailable Encounter Details Date Type Department Care Team Description 12/02/2021 Hospital Medical Records [address] [place] [id number] Social History Tobacco Use Types Packs/Day Years [...] on filedocumented in this encounter Care Teams Co Op Relationship Specialty Start Date End Date Eliud Anaya MD PCP - General Internal Medicine 12/30/20 03/07/22 Enedelia Montaño MD [address] [place] [address] [id number] PCP - General Internal Medicine 03/08/22 11/16/23 [facility], [facility], [address] [address] PCP - General Internal Medicine 11/17/23 01/23/24 Wojciech Valladares MD [address] [place] [address] PCP - General Family Practice 01/24/24 Juan C Buckley MD [address] [place] [address] Specialist Cardiology 03/02/24 documented as of this encounter
--- OUTSIDE RECORDS SUMMARY | 2024-10-30 15:05 | XMS_ITS | Encounter Summary ---
Author Organization [facility] Address [address] [place] [address] Care Team Providers Care Beer Runner Name Role Phone Wojciech Cortez MD Primary Care Provider Unavail able Nile Villalba MD Primary Care Provider Atilio Lopez, Pcp Primary Care Provider Eliud Cochran MD Primary Care Provider Eliud Riojas MD Primary Care Provider Enedelia Ley MD Primary Care Provider + [facility], Pcp Primary Care Provider Wojciech Kaufman MD Primary Care Provider Juan C Field MD Unavailable [phone] Encounter Details Date Type Department Care Team Description 05/28/2019 Assembler Musical Equipment Report Medical Records [address] [place] [address] Juan C Buckley MD [address] [place] [address] [phone] Social History Tobacco Use Types Packs/Day Years [...] on filedocumented in this encounter Care Teams Beer Runner Relationship Specialty Start Date End Date Wojciech Cortez MD PCP - General 02/20/1996 02/24/20 Nile Villalba MD PCP - General Internal Medicine 02/25/20 12/18/20 [facility], Pcp PCP - General Internal Medicine 12/19/20 12/21/20 Eliud Anaya MD PCP - General Internal Medicine 12/22/20 12/29/20 Eliud Anaya MD PCP - General Internal Medicine 12/30/20 03/07/22 Enedelia Montaño MD [address] [place] [address] PCP - General Internal Medicine 03/08/22 11/16/23 [facility], Pcp PCP - General Internal Medicine 11/17/23 01/23/24 Wojciech Valladares MD [address] [place] [address] PCP - General Family Practice 01/24/24 Juan C Buckley MD [address] [place] [address] Specialist Cardiology 03/02/24 documented as of this encounter
--- OUTSIDE RECORDS SUMMARY | 2024-10-30 15:05 | XMS_ITS | Encounter Summary ---
Author Organization [facility] Address [address] [place] [address] Care Team Providers Care Coal Wheeler Name Role Phone Wojciech Cortez MD Primary Care Provider Unavail able Nile Villalba MD Primary Care Provider Atilio Lopez, Pcp Primary Care Provider Eliud Cochran MD Primary Care Provider Eliud Riojas MD Primary Care Provider Enedelia Ley MD Primary Care Provider + [facility], Pcp Primary Care Provider Wojciech Kaufman MD Primary Care Provider Juan C Field MD Unavailable [phone] Encounter Details Date Type Department Care Team Description 04/11/2000 Orders Only Oncology [address] [place] [address] Jerald Gomez MD Social History Tobacco Use Types Packs/Day Years Used Date Smoking Tobacco: Never Assessed Sex Assigned at Date Recorded Not on file documented as of this encounter Plan of Treatment Not on file documented as of this encounter Visit Diagnoses Not on filedocumented in this encounter Care Teams Coal Wheeler Relationship Specialty Start Date End Date Wojciech Cortez MD PCP - General 02/20/1996 02/24/20 Nile Villalba MD PCP - General Internal Medicine 02/25/20 12/18/20 [facility], Pcp PCP - General Internal Medicine 12/19/20 12/21/20 Eliud Anaya MD PCP - General Internal Medicine 12/22/20 12/29/20 Eliud Anaya MD PCP - General Internal Medicine 12/30/20 03/07/22 Enedelia Montaño MD [address] [place] [address] PCP - General Internal Medicine 03/08/22 11/16/23 [facility], Pcp PCP - General Internal Medicine 11/17/23 01/23/24 Wojciech Valladares MD [address] [place] [address] PCP - General Family Practice 01/24/24 Juan C Buckley MD [address] [place] [address] Specialist Cardiology 03/02/24 documented as of this encounter
--- OUTSIDE RECORDS SUMMARY | 2024-10-30 15:05 | XMS_ITS | Encounter Summary ---
Author Organization [facility] Address [address] [place] [address] Care Team Providers Care Production Sound Mixer Name Role Phone Wojciech Cortez MD Primary Care Provider Unavail able Nile Villalba MD Primary Care Provider Atilio Lopez, Pcp Primary Care Provider Eliud Cochran MD Primary Care Provider Eliud Riojas MD Primary Care Provider Enedelia Ley MD Primary Care Provider + [facility], Pcp Primary Care Provider Wojciech Kaufman MD Primary Care Provider Juan C Field MD Unavailable [phone] Encounter Details Date Type Department Care Team Description 03/14/2015 [employer]ER/[employer] Report Medical Records [address] [place] [id number] Abstract, Provider Social History Tobacco Use Types [...] on filedocumented in this encounter Care Teams Production Sound Mixer Relationship Specialty Start Date End Date Wojciech Cortez MD PCP - General 02/20/1996 02/24/20 Nile Villalba MD PCP - General Internal Medicine 02/25/20 12/18/20 [facility], Pcp PCP - General Internal Medicine 12/19/20 12/21/20 Eliud Anaya MD PCP - General Internal Medicine 12/22/20 12/29/20 Eliud Anaya MD PCP - General Internal Medicine 12/30/20 03/07/22 Enedelia Montaño MD [address] [place] [address] PCP - General Internal Medicine 03/08/22 11/16/23 [facility], Pcp PCP - General Internal Medicine 11/17/23 01/23/24 Wojciech Valladares MD [address] [place] [address] PCP - General Family Practice 01/24/24 Juan C Buckley MD [address] [place] [address] Specialist Cardiology 03/02/24 documented as of this encounter
--- OUTSIDE RECORDS SUMMARY | 2024-10-30 15:05 | XMS_ITS | Encounter Summary ---
Author Organization [facility] Address [address] [place] [address] Care Team Providers Care Car Icer Name Role Phone Wojciech Cortez MD Primary Care Provider Unavail able Nile Villalba MD Primary Care Provider Atilio Lopez, Pcp Primary Care Provider Eliud Cochran MD Primary Care Provider Eliud Riojas MD Primary Care Provider Enedelia Ley MD Primary Care Provider + [facility], Pcp Primary Care Provider Wojciech Kaufman MD Primary Care Provider Juan C Field MD Unavailable [phone] Encounter Details Date Type Department Care Team Description 07/03/2018 [facility] Report Medical Records [address] [place] [address] Juan C Buckley MD [address] [place] [address] [phone] Social History Tobacco Use Types Packs/Day Years [...] on filedocumented in this encounter Care Teams Car Icer Relationship Specialty Start Date End Date Wojciech Cortez MD PCP - General 02/20/1996 02/24/20 Nile Villalba MD PCP - General Internal Medicine 02/25/20 12/18/20 [facility], Pcp PCP - General Internal Medicine 12/19/20 12/21/20 Eliud Anaya MD PCP - General Internal Medicine 12/22/20 12/29/20 Eliud Anaya MD PCP - General Internal Medicine 12/30/20 03/07/22 Enedelia Montaño MD [address] [place] [address] PCP - General Internal Medicine 03/08/22 11/16/23 [facility], Pcp PCP - General Internal Medicine 11/17/23 01/23/24 Wojciech Valladares MD [address] [place] [address] PCP - General Family Practice 01/24/24 Juan C Buckley MD [address] [place] [address] Specialist Cardiology 03/02/24 documented as of this encounter
--- OUTSIDE RECORDS SUMMARY | 2024-10-30 15:05 | XMS_ITS | Encounter Summary ---
Author Organization [facility] Address [address] [place] [address] Care Team Providers Care Teaching Supervisor Name Role Phone Wojciech Cortez MD Primary Care Provider Unavail able Nile Villalba MD Primary Care Provider Atilio Lopez, Pcp Primary Care Provider Eliud Cochran MD Primary Care Provider Eliud Riojas MD Primary Care Provider Enedelia Ley MD Primary Care Provider + [facility], Pcp Primary Care Provider Wojciech Kaufman MD Primary Care Provider Juan C Field MD Unavailable Encounter Details Date Type Department Care Team Description 05/17/2016 [facility] Medical Records [address] [place] [address] Quentin Mayes MD Social History Tobacco Use [...] on filedocumented in this encounter Care Teams Teaching Supervisor Relationship Specialty Start Date End Date Wojciech Cortez MD PCP - General 02/20/1996 02/24/20 Nile Villalba MD PCP - General Internal Medicine 02/25/20 12/18/20 [facility], Pcp PCP - General Internal Medicine 12/19/20 12/21/20 Eliud Anaya MD PCP - General Internal Medicine 12/22/20 12/29/20 Eliud Anaya MD PCP - General Internal Medicine 12/30/20 03/07/22 Enedelia Montaño MD [address] [place] [address] PCP - General Internal Medicine 03/08/22 11/16/23 [facility], Pcp PCP - General Internal Medicine 11/17/23 01/23/24 Wojciech Valladares MD [address] [place] [address] PCP - General Family Practice 01/24/24 Juan C Buckley MD [address] [place] [address] Specialist Cardiology 03/02/24 documented as of this encounter
[2024-10-30 15:39] LABS: Microalbum/Creatinine Ratio Ur 66.6 ug/mg cr (<30)
== END 2024-10-30 12:31 | disposition home or self-care (01) ==
LOC: HO.WFDLDS 12:30
PROVIDERS: Visit Provider Family Medicine
DX: D64.9 Anemia, unspecified (principal); I10 Essential (primary) hypertension; H10.9 Unspecified conjunctivitis; E11.9 Type 2 diabetes mellitus without complications; R09.89 Other specified symptoms and signs involving the circulatory and respiratory systems
CPT/HCPCS: 36415; 80053; 81001; 82043; 82570; 83036; 85025; 99212

== ENCOUNTER 2024-11-15 09:20 | Outpatient (AMB) | payer MEDICARE, SELFPAY ==
--- NOTE | 2024-11-15 09:36 | MHC.PC.OV ---
Vital Signs 11/15/24 09:39 11/15/24 09:45 Height 5 ft 6 in Weight 153 lb 2 oz BMI 24.7 BP 150/70 H 120/70 Blood Pressure Location Rt brachial Rt brachial Position Sitting Sitting Respiration 16 Pulse 76 Pulse Source Pulse Oximeter Temp 98.4 F Temp Source Oral Pulse Oximetry (%) 95 Oxygen Delivery Method Room Air Intake Visit Reasons: f/u chest x-ray, labs Intake Note: patient is scheduled for x-ray and lab results Bulb Tester Required: No Allergies penicillin V Allergy (Mild, Verified 11/15/24 09:37) phlebitis scallops Allergy (Mild, Verified 11/15/24 09:37) sick cramps Medication List - Last Reconciled 11/15/24 by Wojciech Valladares MD albuterol sulfate 90 mcg/actuation 2 puffs inhalation Q6H PRN 30 days aspirin 81 mg PO DAILY cholecalciferol (vitamin D3) 125 mcg PO DAILY empagliflozin (Jardiance) 10 mg PO DAILY 90 days ferrous sulfate 324 mg PO DAILY 90 days hydrochlorothiazide 12.5 mg PO DAILY 90 days hydroxyzine HCl 10 mg PO BEDTIME insulin detemir U-100 12 units subcut BEDTIME losartan 25 mg PO DAILY 90 days mecobalamin (vitamin B12) 1,000 mcg PO DAILY 90 days metformin 500 mg PO DAILY 90 days olopatadine 0.7% 1 drp ophthalmic (eye) DAILY PRN 30 days pravastatin 20 mg PO DAILY 90 days pregabalin 150 mg PO BID 90 days Tobacco use date assessed: 06/29/24 Dental Screening Dental Screen Date: 06/29/24 HPI f/u chest x-ray, labs HPI Details 79 y/o female presents to f/u labs, chest x-ray. Had concerns for mild/atypical pneumonia last office visit and started her on a z-hari. Chest x-ray 10/31/24 showed no acute abnormailities. Labs drawn 10/30/24. Reviewed labs with pt. Ongoing anemia. Denies blood in stools or bleeding anywhere. She notices fatigue and some shortness of breath. A1c 6.3%. She is on Jardiance 10mg, insulin detemir 12 units, metformin 500mg daily. Pt notes ankles have been swelling at night. Reports bilateral hand numbness. Denies any tingling. [facility] Medical History Cataracts, bilateral Tonsillitis Diabetes 1.5, managed as type 2 Surgical History H/O eye surgery H/O vein stripping History of hip surgery Stented coronary artery S/P TAVR (transcatheter aortic valve replacement) Family History (Updated 01/18/24 @ 16:41 by Lorraine Gama CMA) Mother Cerebral hemorrhage Social History Household Members: None Housing: Other Housing Other:: trailer Are you a primary health care analyst to a significant other at home: No Do you presently have visiting nurse or other home services: No 75 years or older and lives alone: Yes Alcohol intake: never Patient Tobacco Use Status: Former Tobacco user e-Cigarette/Vaping Use: Never Used Special justino needs: No service: No Current occupational status: retired Cognitive needs: No Hearing needs: No Vision needs: No Questionnaire Thrive Questionnaire Date Thrive assessed: 10/30/24 I am a: Patient What is your living situation today?: I have a steady place to live Within the past 12 months, did the food you bought not last and you didn't have the money to get more?: Never true Within the past 12 months, did you worry whether your food would run out before you got money to buy more?: Never true Do you have trouble paying for medicines?: No Do you have trouble getting transportation to medical appointments?: No Do you have trouble paying your heating and electricity bill?: No Do you have trouble taking care of your child, family member or friend?: No Do you have trouble with day-to-day activities such as bathing, preparing meals, shopping, managing finances, etc.?: No Are you currently unemployed and looking for a job?: No Are you interested in more education?: No Please select the resources that you would like help with: None Currently or been in a relationship where the following occur: No concerns reported THRIVE Score: 0 CHIQUITA-7 AMB Questionnaire CHIQUITA-7 Date CHIQUITA - 7 assessed: 06/29/24 Source: Developed by Drs. Simone L. HarjitSydnee lopes, Garret Whyte and colleagues, with an educational jacey from [employer]. Review of Systems Const Denies chills, Reports fatigue, Denies fever(s), Denies headache(s) and Denies weakness ENT Denies dizziness and Denies headache(s) Resp Details: Shortness of breath Denies cough, Denies wheezing and Denies other (shortness of breath) Musc Denies numbness and Denies tingling Neuro Denies dizziness, Denies headache(s), Denies numbness, Denies tingling and Denies weakness Psych Denies anxiety and Denies depression Endo Reports fatigue Aller/Immun Denies wheezing Physical exam (Primary Care) Vital Signs: Last Vital Signs Temp 98.4 F 11/15/24 09:39 Pulse 76 11/15/24 09:39 Resp 16 11/15/24 09:39 BP 120/70 11/15/24 09:45 Pulse Ox 95 11/15/24 09:39 Oxygen Delivery Method Room Air 11/15/24 09:39 BMI result Body Mass Index 24.7 Tobacco/Smoking Status: Tobacco use Status Tobacco use date assessed 06/29/24 11/15/24 09:44 Patient Tobacco Use Status Former Tobacco user 11/15/24 09:44 e-Cigarette/Vaping Use Never Used 11/15/24 09:44 Thrive Assessment: Date of Thrive Assessment Date Thrive assessed 10/30/24 11/15/24 09:44 Currently or been in a relationship where the following occur: No concerns reported Const General: well developed; No acute distress Nutritional Appearance: well nourished Orientation/consciousness: patient oriented [facility]3 [facility]: Yes normocephalic and Yes atraumatic Eyes General: appearance normal, both eyes and all related structures Pupils: Equal, round and reactive pupils present EOM: EOMs intact bilaterally Resp Effort & Inspection: normal respiratory effort Auscultation: clear to auscultation bilaterally Cardio Rate: regular rate Rhythm: regular rhythm Heart sounds: S1 normal heart sound present, S2 normal heart sound present, no gallops, no murmurs and no rubs Neuro General: patient oriented x3 and gait normal Cranial nerves: Yes Equal, round and reactive pupils present Psych Affect: normal affect Coding Level of Care Code Est Pt Level 4 (06362) Diagnoses Anemia D64.9 Abnormal lung sounds R09.89 Diabetes E11.9 Lower extremity edema R60.0 Hand numbness R20.0 Assessment & Plan Assessment & Plan (1) Anemia: Code(s): D64.9 - Anemia, unspecified Category: Medical Plan: Worsening?anemia?and?patient?notices?some?fatigue?and?shortness?of?breath She?denies?any?blood?loss or?blood?stools Appears?to?be?a?microcytic?anemia?in?start?iron. Will?have?her?recheck?H&H?in?1?month?as?well?as?checking?iron?stores If?not?improving?consider?referral?to?Hematology-Oncology (2) Abnormal lung sounds: Code(s): R09.89 - Other specified symptoms and signs involving the circulatory and respiratory systems Category: Medical Plan: Lungs?are?clear?now. No?cough resolved (3) Diabetes: Code(s): E11.9 - Type 2 diabetes mellitus without complications Category: Medical Plan: Controlled.??A1c?is?at?goal?less?than?7.0% Continue?current?medication?regimen (4) Lower extremity edema: Code(s): R60.0 - Localized edema Category: Medical Plan: Mild?lower?extremity?edema?in?the?evening?resolves?by?morning. Elevated?legs?throughout?the?day (5) Hand numbness: Code(s): R20.0 - Anesthesia of skin Category: Medical Plan: Bilateral?hand?numbness?in?patient?sleeps?with?her?wrist?bent She?will?try?wrist?brace She?will?if?she?is?still?having?problem?with?this Orders: Orders Ferritin Today D64.9 - Anemia, unspecified IRON PROFILE Today D64.9 - Anemia, unspecified Complete Blood Count Auto Diff Today D64.9 - Anemia, unspecified, Z00.00 - Encounter for general adult medical examination without abnormal findings Reticulocyte Count Today D64.9 - Anemia, unspecified Comprehensive Met. Panel Today D64.9 - Anemia, unspecified Medications: New ferrous sulfate 324 mg PO DAILY 90 days 90 tabs 3RF
[2024-11-15 09:39] VITALS: BP 150/70; PULSE 76; RESP 16; TEMP 36.9; O2SAT 95; BMI 24.7
[2024-11-15 09:45] VITALS: BP 120/70
--- OUTSIDE RECORDS SUMMARY | 2024-11-15 11:11 | XMS_ITS | Encounter Summary ---
Author Organization [facility] Address [address] [place] [address] Care Team Providers Care Bleach Boiler Packer Name Role Phone Wojciech Cortez MD Primary Care Provider Unavail able Nile Villalba MD Primary Care Provider Atilio Lopez, Pcp Primary Care Provider Eliud Cochran MD Primary Care Provider Eliud Riojas MD Primary Care Provider Enedelia Ley MD Primary Care Provider + [facility], Pcp Primary Care Provider Wojciech Kaufman MD Primary Care Provider Juan C Field MD Unavailable [phone] Encounter Details Date Type Department Care Team Description 01/19/2018 Forming Yardage Control Operator Report Medical Records [address] [place] [address] Shawn Lopes MD [address] [place] [address] Social History Tobacco Use Types Packs/Day Years [...] on filedocumented in this encounter Care Teams Bleach Boiler Packer Relationship Specialty Start Date End Date Wojciech Cortez MD PCP - General 02/20/1996 02/24/20 Nile Villalba MD PCP - General Internal Medicine 02/25/20 12/18/20 [facility], Pcp PCP - General Internal Medicine 12/19/20 12/21/20 Eliud Anaya MD PCP - General Internal Medicine 12/22/20 12/29/20 Eliud Anaya MD PCP - General Internal Medicine 12/30/20 03/07/22 Enedelia Mnotaño MD [address] [place] [address] PCP - General Internal Medicine 03/08/22 11/16/23 [facility], Pcp PCP - General Internal Medicine 11/17/23 01/23/24 Wojciech Valladares MD [address] [place] [address] PCP - General Family Practice 01/24/24 Juan C Buckley MD [address] [place] [address] Specialist Cardiology 03/02/24 documented as of this encounter
--- OUTSIDE RECORDS SUMMARY | 2024-11-15 11:11 | XMS_ITS | Encounter Summary ---
Author Organization [facility] Address [address] [place] [address] Care Team Providers Care Chlorine Cell Tender Name Role Phone Community, Pcp Primary Care Provider Wojciech Kaufman MD Primary Care Provider Juan C Field MD Unavailable [phone] Encounter Details Date Type Department Care Team Description 01/12/2024 SCAN Medical Records [address] [place] [address] Abstract, Provider Social History Tobacco Use Types [...] on filedocumented in this encounter Care Teams Chlorine Cell Tender Relationship Specialty Start Date End Date Community, Pcp PCP - General Internal Medicine 11/17/23 01/23/24 Wojciech Valladares MD PCP - General Family Practice 01/24/24 Juan C Buckley MD Specialist Cardiology 03/02/24 documented as of this encounter
--- OUTSIDE RECORDS SUMMARY | 2024-11-15 11:11 | XMS_ITS | Encounter Summary ---
Author Organization [facility] Address [address] [place] [address] Care Team Providers Care Home Visit Field Care Manager Name Role Phone Eliud Anaya MD Primary Care Provider Enedelia Ley MD Primary Care Provider + [facility], Pcp Primary Care Provider Wojciech Kaufman MD Primary Care Provider Juan C Field MD Unavailable [phone] Reason for Visit * Reason Onset Date Comments VNA Call 01/13/2022 Encounter Details Date Type Department Care Team Description 01/13/2022 Telephone Adult [address] [address] Eliud nAaya MD VNA Call Social History Tobacco Use Types Packs/Day Years Used Date Smoking Tobacco: Former Cigarettes Q uit: 10/29/2012 Smokeless Tobacco: Never Comments:started @ 13 Alcohol Use Standard Drinks/Week Comments No 0 (1 standard drink = 0.6 oz pur e alcohol) Sex Assigned at Date Recorded Not on file documented as of this encounter Miscellaneous Notes * Telephone Encounter - Deon Rokc L.P.N. - 01/13/2022 3:18 PM EDT Called Stella (+ID) Left her a detailed message urine lab results not received She can [facility] obtain and copy She can fax them to me I will give to Dr. Jaclyn MCKEON to Dr. Anaya * Telephone Encounter - Anabel Catalan - 01/13/2022 2:57 PM EDT VNA CALL Which VNA office is calling? [facility] Full name of caller: Stella The caller is An Occupational Therapist Is the caller at the patients home?: Yes Reason for call: nurse is wondering if Dr Anaya was aware pt was see by [facility] on 01-08-22 and treated pt for a possible UTI and they prescribed patient bactrim, nurse requests call back concerning this and pt did not receive any results regarding lab urine test done then Does caller need an urgent call back? YES, by end of day Was CONTACT Telephone # obtained above?: YES Fax #: [phone] documented in this encounter Plan of Treatment Not on file documented as of this encounter Visit Diagnoses Not on filedocumented in this encounter Care Teams Home Visit Field Care Manager Relationship Specialty Start Date End Date Eliud Anaya MD PCP - General Internal Medicine 12/30/20 03/07/22 Enedelia Montaño MD [address] [place] [address] PCP - General Internal Medicine 03/08/22 11/16/23 [facility], [place] [address] PCP - General Internal Medicine 11/17/23 01/23/24 Wojciech Valladares MD [address] [place] [address] PCP - General Family Practice 01/24/24 Juan C Buckley MD [address] [place] [address] Specialist Cardiology 03/02/24 documented as of this encounter
--- OUTSIDE RECORDS SUMMARY | 2024-11-15 11:11 | XMS_ITS | Encounter Summary ---
Author Organization [facility] Address [address] [place] [address] Care Team Providers Care Knifer Up Name Role Phone Wojciech Cortez MD Primary Care Provider Unavail Nile Mata MD Primary Care Provider Atilio newby [facility], Pcp Primary Care Provider Eliud Cochran MD Primary Care Provider Eliud Riojas MD Primary Care Provider Enedelia Ley MD Primary Care Provider + [facility], Pcp Primary Care Provider Wojciech Kaufman MD Primary Care Provider Juan C Field MD Unavailable [phone] Encounter Details Date Type Department Care Team Description 01/03/2018 Telephone Adult Medicine [address] [address] Wojciech Cortez MD Social History Tobacco Use [...] yesterday to the Hospital folder in the [facility] Pod. Thank you, Shelly Sewell C.M.A. Machine Operator Picker * Telephone Encounter - Wojciech Cortez MD - 01/03/2018 6:30 AM EDT Please see if stress echo report can be obtained. documented in this encounter Plan of Treatment Not on file documented as of this encounter Visit Diagnoses Not on filedocumented in this encounter Care Teams Knifer Up Relationship Specialty Start Date End Date Wojciech Cortez MD PCP - General 02/20/1996 02/24/20 Nile Villalba MD PCP - General Internal Medicine 02/25/20 12/18/20 [facility], Pcp PCP - General Internal Medicine 12/19/20 12/21/20 Eliud Anaya MD PCP - General Internal Medicine 12/22/20 12/29/20 Eliud Anaya MD PCP - General Internal Medicine 12/30/20 03/07/22 Enedelia Montaño MD [address] [place] [address] PCP - General Internal Medicine 03/08/22 11/16/23 [facility], Pcp PCP - General Internal Medicine 11/17/23 01/23/24 Wojciech Valladares MD [address] [place] [address] PCP - General Family Practice 01/24/24 Juan C Buckley MD [address] [place] [address] Specialist Cardiology 03/02/24 documented as of this encounter
--- OUTSIDE RECORDS SUMMARY | 2024-11-15 11:11 | XMS_ITS | Encounter Summary ---
Author Organization [facility] Address [address] [place] [address] Care Team Providers Care Upholsterer Inside Name Role Phone Wojciech Cortez MD Primary Care Provider Unavail able Nile Villalba MD Primary Care Provider Atilio Lpoez, Pcp Primary Care Provider Eliud Cochran MD Primary Care Provider Eliud Riojas MD Primary Care Provider Enedelia Ley MD Primary Care Provider + [facility], Pcp Primary Care Provider Wojciech Kaufman MD Primary Care Provider Juan C Field MD Unavailable [phone] Encounter Details Date Type Department Care Team Description 02/24/2018 Transfer Records Medical Records [address] [place] [address] Abstract, Provider Social History Tobacco Use Types [...] on filedocumented in this encounter Care Teams Upholsterer Inside Relationship Specialty Start Date End Date Wojciech Cortez MD PCP - General 02/20/1996 02/24/20 Nile Villalba MD PCP - General Internal Medicine 02/25/20 12/18/20 [facility], Pcp PCP - General Internal Medicine 12/19/20 12/21/20 Eliud Anaya MD PCP - General Internal Medicine 12/22/20 12/29/20 Eliud Anaya MD PCP - General Internal Medicine 12/30/20 03/07/22 Enedelia Montaño MD [address] [place] [address] PCP - General Internal Medicine 03/08/22 11/16/23 [facility], Pcp PCP - General Internal Medicine 11/17/23 01/23/24 Wojciech Valladares MD [address] [place] [address] PCP - General Family Practice 01/24/24 Juan C Buckley MD [address] [place] [address] Specialist Cardiology 03/02/24 documented as of this encounter
--- OUTSIDE RECORDS SUMMARY | 2024-11-15 11:12 | XMS_ITS | Encounter Summary ---
Author Organization [facility] Address [address] [place] [address] Care Team Providers Care Civil Engineering Project Manager Name Role Phone Enedelia Montaño MD Primary Care Provider + [facility], Pcp Primary Care Provider Wojciech Kaufman MD Primary Care Provider Juan C Field MD Unavailable [phone] Encounter Details Date Type Department Care Team Description 06/02/2023 SCAN Medical Records [address] [place] [address] Abstract, Provider Social History Tobacco Use Types [...] Date/Time Associated Diagnosis Comments OUTSIDE LAB Routine 06/02/2023 documented in this encounter Results * OUTSIDE LAB (06/02/2023) Provider Abstract LAB documented in this encounter Visit Diagnoses Not on filedocumented in this encounter Care Teams Civil Engineering Project Manager Relationship Specialty Start Date End Date Enedelia Montaño MD [address] [place] [address] PCP - General Internal Medicine 03/08/22 11/16/23 [facility], Pcp [address] [place] [address] PCP - General Internal Medicine 11/17/23 01/23/24 Wojciech Valladares MD [address] [place] [address] PCP - General Family Practice 01/24/24 Juan C Buckley MD [address] [place] [address] Specialist Cardiology 03/02/24 documented as of this encounter
--- OUTSIDE RECORDS SUMMARY | 2024-11-15 11:12 | XMS_ITS ---
Author Organization [facility] Address [address] [place] [address] Care Team Providers Care Carrier Operator Name Role Phone Blaine RUIZ, Wojciech Primary Care Provider Tanna Flannery Unavailable [phone] Encounters Encounter Location Date Provider Diagnosis [facility] [address] [place] [address] 06/07/2024 Tanna Mao Plan Of Treatment No Information Progress Notes * Lara RENNERDOB:1945 (79 yo F)Acc No.[id number]:06/07/2024 Patient:?Lara RENNER Provider:?Tanna Mao DPM :1945???Age:78 Y???Sex:Female D ate:06/07/2024 Address:[address] [place], [place] [address] Pcp:Wojciech Valladares MD Subjective: * Chief Complaints: [...] Mao DPM Date:?2023 Generated for Laineyi esme/Kellen/eTransmitting on:?11/15/2024 11:12 AM EDT
--- OUTSIDE RECORDS SUMMARY | 2024-11-15 11:12 | XMS_ITS | Encounter Summary ---
Author Organization [facility] Address [address] [place] [address] Care Team Providers Care Cripple Worker Name Role Phone [facility], Pcp Primary Care Provider Wojciech Kaufman MD Primary Care Provider Juan C Field MD Unavailable [phone] Encounter Details Date Type Department Care Team Description 01/18/2024 Licensing Manager Report Medical Records [address] [place] [address] Wojciech Valladares MD Social History Tobacco Use [...] on filedocumented in this encounter Care Teams Cripple Worker Relationship Specialty Start Date End Date [facility], Pcp PCP - General Internal Medicine 11/17/23 01/23/24 Wojciech Valladares MD PCP - General Family Practice 01/24/24 Juan C Buckley MD Specialist Cardiology 03/02/24 documented as of this encounter
--- OUTSIDE RECORDS SUMMARY | 2024-11-15 11:12 | XMS_ITS | Encounter Summary ---
Author Organization [facility] Address [address] [place] [address] Care Team Providers Care Design Studio Consultant Name Role Phone Wojciech Cortez MD Primary Care Provider Unavail Nile Mata MD Primary Care Provider Lesiava ildevon [facility], Pcp Primary Care Provider Eliud Cochran MD Primary Care Provider Eliud Riojas MD Primary Care Provider Enedelia Ley MD Primary Care Provider + [facility], Pcp Primary Care Provider Wojciech Kaufman MD Primary Care Provider Juan C iFeld MD Unavailable [phone] Reason for Visit * Reason Onset Date Comments Wire Winding Machine Operator Feedback 05/09/2018 [facility] ANGELICA Denis Encounter Details Date Type Department Care Team Description 05/09/2018 Telephone Adult Medicine [address] [address] Wojciech Cortez MD Wire Winding Machine Operator Feedback ([facility] ANGELICA Denis ) Social History Tobacco [...] urgent order for this patient to see [facility] with a diagnosis of : gi bleeding needs TAVR, within 1 week, patient is scheduled for 05/10/18 at 11:30 am with Lia Denis at [facility], Called patient she is aware of this appointment and accepts it. Thank You, Ángela SerranoDiana [facility] Referrals Rep. Ext. [phone] documented in this encounter Plan of Treatment Not on file documented as of this encounter Visit Diagnoses Not on filedocumented in this encounter Care Teams Design Studio Consultant Relationship Specialty Start Date End Date Wojciech Cortez MD PCP - General 02/20/1996 02/24/20 Nile Villalba MD PCP - General Internal Medicine 02/25/20 12/18/20 [facility], Pcp PCP - General Internal Medicine 12/19/20 12/21/20 Eliud Anaya MD PCP - General Internal Medicine 12/22/20 12/29/20 Eliud Anaya MD PCP - General Internal Medicine 12/30/20 03/07/22 Enedelia Montaño MD [address] [place] [address] PCP - General Internal Medicine 03/08/22 11/16/23 [facility], Pcp PCP - General Internal Medicine 11/17/23 01/23/24 Wojciech Valladares MD [address] [place], [place] [id number] PCP - General Family Practice 01/24/24 Juan C Buckley MD [address] [place] [address] Specialist Cardiology 03/02/24 documented as of this encounter
--- OUTSIDE RECORDS SUMMARY | 2024-11-15 11:13 | XMS_ITS | Encounter Summary ---
Author Organization [employer] [facility] Address [address] [place] [address] Care Team Providers Care Automation Machine Operator Name Role Phone Wojciech Cortez MD Primary Care Provider Unavail able Nile Villalba MD Primary Care Provider Atilio Lopez, Pcp Primary Care Provider Eliud Cochran MD Primary Care Provider Eliud Riojas MD Primary Care Provider Enedelia Ley MD Primary Care Provider + [facility], Pcp Primary Care Provider Wojciech Kaufman MD Primary Care Provider Juan C Field MD Unavailable [phone] Encounter Details Date Type Department Care Team Description 03/29/2014 Business Doc Medical Records [address] [place] [address] Abstract, Provider Social History Tobacco Use Types [...] on filedocumented in this encounter Care Teams Automation Machine Operator Relationship Specialty Start Date End Date Wojciech Cortez MD PCP - General 02/20/1996 02/24/20 Nile Villalba MD PCP - General Internal Medicine 02/25/20 12/18/20 [facility], Pcp PCP - General Internal Medicine 12/19/20 12/21/20 Eliud Anaya MD PCP - General Internal Medicine 12/22/20 12/29/20 Eliud Anaya MD PCP - General Internal Medicine 12/30/20 03/07/22 Enedelia Montaño MD [address] [place] [address] PCP - General Internal Medicine 03/08/22 11/16/23 [facility], Pcp PCP - General Internal Medicine 11/17/23 01/23/24 Wojciech Valladares MD [address] [place] [address] PCP - General Family Practice 01/24/24 Juan C Buckley MD [address] [place] [address] Specialist Cardiology 03/02/24 documented as of this encounter
--- OUTSIDE RECORDS SUMMARY | 2024-11-15 11:13 | XMS_ITS | Encounter Summary ---
Author Organization [employer] [address] [employer] [facility] Address [address] [place] [address] Care Team Providers Care Manager Nursing Name Role Phone Wojciech Cortez MD Primary Care Provider Unavail able Nile Villalba MD Primary Care Provider Atilio Lopez, Pcp Primary Care Provider Eliud Cochran MD Primary Care Provider Eliud Riojas MD Primary Care Provider Enedelia Ley MD Primary Care Provider + [facility], Pcp Primary Care Provider Wojciech Kaufman MD Primary Care Provider Juan C Field MD Unavailable [phone] Encounter Details Date Type Department Care Team Description 05/25/2018 [facility] Medical Records [address] [place] [address] Social History Tobacco Use Types Packs/Day Years [...] on filedocumented in this encounter Care Teams Manager Nursing Relationship Specialty Start Date End Date Wojciech Cortez MD PCP - General 02/20/1996 02/24/20 Nile Villalba MD PCP - General Internal Medicine 02/25/20 12/18/20 [facility], Pcp PCP - General Internal Medicine 12/19/20 12/21/20 Eliud Anaya MD PCP - General Internal Medicine 12/22/20 12/29/20 Eliud Anaya MD PCP - General Internal Medicine 12/30/20 03/07/22 Enedelia Montaño MD [address] [place] [address] PCP - General Internal Medicine 03/08/22 11/16/23 [facility], [facility] PCP - General Internal Medicine 11/17/23 01/23/24 Wojciech Valladares MD [address] [place] [address] PCP - General Family Practice 01/24/24 Juan C Buckley MD [address] [place] [address] Specialist Cardiology 03/02/24 documented as of this encounter
--- OUTSIDE RECORDS SUMMARY | 2024-11-15 11:13 | XMS_ITS | Patient Health Record ---
Author Organization [facility] Address [address] [place] [address] Care Team Providers Care Data Communications Analyst Name Role Phone Wojciech Valladares MD Primary Care Provider Tanna Flannery Unavailable [phone] Allergies Allergen (clinical drug ingredient) Drug/Non Drug [...] Problem Acquired hammer toe of right foot (1931103354143257 ) Other hammer toe(s) (acquired), right foot (M20.41) Active confirmed Problem Acquired hammer toe of left foot (6170646591739573 ) Other hammer toe(s) (acquired), left foot (M20.42) Active confirmed Problem Polyneuropathy due to type 2 diabetes mellitus (308104754) Type 2 diabetes mellitus with diabetic polyneuropathy (E11.42) Active confirmed Problem Localized, primary osteoarthritis of the ankle and/or foot (315371359) Arthritis of joint of lesser toe, left (M19.072) Active confirmed Problem Localized, primary osteoarthritis of the ankle and/or foot (835988629) Arthritis of joint of lesser toe, right (M19.071) Active confirmed Vital Signs Blood pressure diastolic 68 mm Hg 02/13/2024 Height 5 ft 6 in in 02/13/2024 Blood pressure systolic 118 mm Hg 02/13/2024 Weight 148 lbs 02/13/2024 BMI 23.89 kg/m2 02/13/2024 Procedures Procedure Date Ordered Date Performed Result Body Sit e 73451-FBDJ SKIN LESIONS, 2 TO 4 02/13/2024 N/A Q4305-[id number] DYSTROPHIC NAILS ANY # 02/13/2024 N/A - Ganglion Cyst Injection/Aspiration 02/13/2024 N/A Encounters Encounter Location Date Provider Diagnosis [facility] [address] 02/13/2024 Tanna Mayco Type 2 diabetes redd [...] toe, initial encounter S93.149A and Ganglion M67.[address] [facility] [address] 01/05/2024 [facility] [address] 05/21/2024 Tanna Mao Assessments Encounter Date Diagnosis [...] Treatment Pending Test Test Name Order Date 91153-RGRA SKIN LESIONS, 2 TO 4 02/13/20 Z9828-IWFLHFHH DYSTROPHIC NAILS ANY # - Ganglion Cyst Injection/Aspiratio n 02/13/2024 Insurance Providers Payer Name Payer Address Payer Phone Subscriber Number Group Number Insured Name Patient Relationship to Insured Coverage Start Date Coverage End Date Medicare National Govt [employer] [address] [place] [address] [id number] Lara May Self - patient is the insured [employer] [address] [place] [address] [phone] [id number] Lara May Self - patient is the insured Medical (General) History Medical History History ICD Code Arthritis Cataracts Diabetic Fibromyalgia Heart disease High blood pressure Poor circulation Heart valve conditions/replacement Back,Hip,and Knee pain Broken bones CAD (Cholesterol) covid-19 Numbness Joint implants/screws Surgical History Surgery Date(Month/Year) eye surgery 2017 knee surgery 1999 hip surgery 2021
--- OUTSIDE RECORDS SUMMARY | 2024-11-15 11:13 | XMS_ITS | Encounter Summary ---
Author Organization [employer] [facility] Address [address] [place] [address] Care Team Providers Care Gymnasium Teacher Name Role Phone Wojciech Cortez MD Primary Care Provider Unavail able Nile Villalba MD Primary Care Provider Atilio Lopez, Pcp Primary Care Provider Eliud Cochran MD Primary Care Provider Eliud Riojas MD Primary Care Provider Enedelia Ley MD Primary Care Provider + [facility], Pcp Primary Care Provider Wojciech Kaufman MD Primary Care Provider Juan C Field MD Unavailable [phone] Encounter Details Date Type Department Care Team Description 05/17/2016 [facility] Medical Records [address] [place] [address] Quentin Mayes MD Social History Tobacco Use [...] on filedocumented in this encounter Care Teams Gymnasium Teacher Relationship Specialty Start Date End Date Wojciech Cortez MD PCP - General 02/20/1996 02/24/20 Nile Villalba MD PCP - General Internal Medicine 02/25/20 12/18/20 [facility], Pcp PCP - General Internal Medicine 12/19/20 12/21/20 Eliud Anaya MD PCP - General Internal Medicine 12/22/20 12/29/20 Eliud Anaay MD PCP - General Internal Medicine 12/30/20 03/07/22 Enedelia Montaño MD [address] [place] [address] PCP - General Internal Medicine 03/08/22 11/16/23 [facility], Pcp PCP - General Internal Medicine 11/17/23 01/23/24 Wojciech Valladares MD [address] [place] [address] PCP - General Family Practice 01/24/24 Juan C Buckley MD [address] [place] [address] Specialist Cardiology 03/02/24 documented as of this encounter
--- OUTSIDE RECORDS SUMMARY | 2024-11-15 11:13 | XMS_ITS | Encounter Summary ---
Author Organization [facility] Address [address] [place] [address] Care Team Providers Care Production Metal Sprayer Name Role Phone Wojciech Cortez MD Primary Care Provider Unavail able Nile Villalba MD Primary Care Provider Atilio Lopez, Pcp Primary Care Provider Eliud Cochran MD Primary Care Provider Eliud Riojas MD Primary Care Provider Enedelia Ley MD Primary Care Provider + [facility], Pcp Primary Care Provider Wojciech Kaufman MD Primary Care Provider Juan C Field MD Unavailable [phone] Encounter Details Date Type Department Care Team Description 02/13/2016 [facility] Medical Records [address] [place] [address] Abstract, Provider Social History Tobacco Use Types [...] filedocumented in this encounter Care Teams Production Metal Sprayer Relationship Specialty Start Date End Date Wojciech Cortez MD PCP - General 02/20/1996 02/24/20 Nile Villalba MD PCP - General Internal Medicine 02/25/20 12/18/20 [facility], Pcp PCP - General Internal Medicine 12/19/20 12/21/20 Eliud Anaya MD PCP - General Internal Medicine 12/22/20 12/29/20 Eliud Anaya MD PCP - General Internal Medicine 12/30/20 03/07/22 Enedelia Montaño MD [address] [place] [address] PCP - General Internal Medicine 03/08/22 11/16/23 [facility], Pcp PCP - General Internal Medicine 11/17/23 01/23/24 Wojciech Valladares MD [address] [place] [address] PCP - General Family Practice 01/24/24 Juan C Buckley MD [address] [place] [address] Specialist Cardiology 03/02/24 documented as of this encounter
--- OUTSIDE RECORDS SUMMARY | 2024-11-15 11:13 | XMS_ITS | Clinical Summary ---
Author Organization [facility] Address [address] [place] [address] Phone Care Team Providers Care Clin Asst Name Role Phone Wojciech Valladares MD Primary Care Provider [phone] Allergies Active Allergy Reactions Criticality Noted Date [...] Diagnosed Date Coronary artery disease invo lving [place] coronary artery of [place] heart without angina pectoris 08/07/2024 Assessment & [...] (07/04/2024): L>R Type 2 diabetes mellitus 08/31/2005 Immunizations Name Administration Dates Next Due Influenza [...] Diabetic retinopathy (CMS/HCC) 02/23/2018 D X:Diabetic retinopathy ([facility]) Vitamin D deficiency 02/23/2018 DX:Vitamin D deficiency [...] Description 03/26/2025 12:30 PM EDT Ancillary Procedure [facility] Cardiology [facility] [address] [place] [address] 04/23/2025 10:50 AM EDT Office Visit [address] [place] [address] Juan C Buckley MD [address] [place] [address] Health Maintenance Due Date Last Done Comments Diabetes: Annual Foot Exam 1954 Diabetes: Annual Retina Eye Exam 1955 Zoster Vaccines (1 of 2) 1994 Depression Screening 07/20/2022 Falls Risk Assessment 07/20/2022 Medicare Annual Wellness Visit 07/20/2022 Osteoporosis Screening (Bone Density Screening) 07/20/2022 Social Influencers of Health Screening 07/20/2022 Diabetes: Blood Sugar Control Test (HGBA1C) 06/09/2023 [...] Procedure Name Priority Date/Time Associated Diagnosis Comments HM URINE ALBUMIN CREATININE RATIO Routine 12/08/2022 ANNUAL BMP BLOOD TEST Routine 12/08/2022 HEMOGLOBIN A1C Routine 12/08/2022 LIPID PANEL Routine 05/06/2022 from Last 3 Months or Most Recently Relevant to Health Maintenance Results * HM Urine Albumin Creatinine Ratio (12/08/2022) Pathologist [facility] Urine Albumin Creatinine Ratio abstracted Historical Provider HEALTH MAINTENANCE Final Result * Annual BMP Blood Test (12/08/2022) Pathologist [facility] Annual BMP Blood Test abstracted [facility] Provider HEALTH MAINTENANCE Final Result * (ABNORMAL) Hemoglobin A1c (12/08/2022) Pathologist [facility] Hemoglobin A1C 6.6(A) <=6.5 % Blood Venous blood specimen / Unknown [facility] Provider MD LAB BLOOD ORDERABLES Francesca l Result * Lipid panel (05/06/2022) Pathologist [facility] LDL/HDL Ratio 4 0 - 4 Triglycerides 97 0 - 150 mg/dL Cholesterol 145 0 - 200 mg/dL HDL 42 >=40 mg/dL LDL Cholesterol 84 0 - 100 mg/dL Blood Venous blood specimen / Unknown Historical Provider LAB BLOOD ORDERABLES Francesca l Result from Last 3 Months or Most Recently Relevant to Health Maintenance Insurance MEDICARE [facility] Care Teams Clin Asst Relationship Specialty Start Date End Date Wojciech Valladares MD [address] [place] [address] Dr [place] PCP - General 01/24/24
--- OUTSIDE RECORDS SUMMARY | 2024-11-15 11:13 | XMS_ITS | Encounter Summary ---
Author Organization [employer] [facility] Address [address] [place] [address] Care Team Providers Care Insurance Professional Name Role Phone Wojciech Cortez MD Primary Care Provider Unavail able Nile Villalba MD Primary Care Provider Atilio Lopez, Pcp Primary Care Provider Eliud Cochran MD Primary Care Provider Eliud Riojas MD Primary Care Provider Enedelia Ley MD Primary Care Provider + [facility], Pcp Primary Care Provider Wojciech Kaufman MD Primary Care Provider Juan C Field MD Unavailable [phone] Encounter Details Date Type Department Care Team Description 04/08/2014 Orders Only Radiology - [address] [phone] Alvina Orellana MD [address] [place] [address] [phone] Social History Tobacco Use Types Packs/Day Years [...] on filedocumented in this encounter Care Teams Insurance Professional Relationship Specialty Start Date End Date Wojciech Cortez MD PCP - General 02/20/1996 02/24/20 Nile Villalba MD PCP - General Internal Medicine 02/25/20 12/18/20 [facility], Pcp PCP - General Internal Medicine 12/19/20 12/21/20 Eliud Anaya MD PCP - General Internal Medicine 12/22/20 12/29/20 Eliud Anaya MD PCP - General Internal Medicine 12/30/20 03/07/22 Enedelia Montaño MD [address] [place] [address] PCP - General Internal Medicine 03/08/22 11/16/23 [facility], Pcp PCP - General Internal Medicine 11/17/23 01/23/24 Wojciech Valladares MD [address] [place] [address] PCP - General Family Practice 01/24/24 Juan C Buckley MD [address] [place] [address] Specialist Cardiology 03/02/24 documented as of this encounter
--- OUTSIDE RECORDS SUMMARY | 2024-11-15 11:13 | XMS_ITS | Encounter Summary ---
Author Organization [employer] [facility] Address [address] [place] [address] Care Team Providers Care Mixologist Name Role Phone Wojciech Cortez MD Primary Care Provider Unavail able Nile Villalba MD Primary Care Provider Atilio Lopez, Pcp Primary Care Provider Eliud Cochran MD Primary Care Provider Eliud Riojas MD Primary Care Provider Enedelia Ley MD Primary Care Provider + [facility], Pcp Primary Care Provider Wojciech Kaufman MD Primary Care Provider Juan C Field MD Unavailable [phone] Encounter Details Date Type Department Care Team Description 03/18/2017 [facility] Medical Records [address] [place] [address] Abstract, Provider Social History Tobacco Use Types [...] on filedocumented in this encounter Care Teams Mixologist Relationship Specialty Start Date End Date Wojciech Cortez MD PCP - General 02/20/1996 02/24/20 Nile Villalba MD PCP - General Internal Medicine 02/25/20 12/18/20 [facility], Pcp PCP - General Internal Medicine 12/19/20 12/21/20 Eliud Anaya MD PCP - General Internal Medicine 12/22/20 12/29/20 Eliud Anaya MD PCP - General Internal Medicine 12/30/20 03/07/22 Enedelia Montaño MD [address] [place] [address] PCP - General Internal Medicine 03/08/22 11/16/23 [facility], Pcp PCP - General Internal Medicine 11/17/23 01/23/24 Wojciech Valladares MD [address] [place] [address] PCP - General Family Practice 01/24/24 Juan C Buckley MD [address] [place] [address] Specialist Cardiology 03/02/24 documented as of this encounter
--- OUTSIDE RECORDS SUMMARY | 2024-11-15 11:13 | XMS_ITS | Encounter Summary ---
Author Organization [employer] [facility] Address [address] [place] [address] Care Team Providers Care Healthcare Associate Name Role Phone Wojciech Cortez MD Primary Care Provider Unavail Nile Mata MD Primary Care Provider Atilio newby [facility], Pcp Primary Care Provider Eliud Cochran MD Primary Care Provider Eliud Riojas MD Primary Care Provider Enedelia Ley MD Primary Care Provider + [facility], Pcp Primary Care Provider Wojciech Kaufman MD Primary Care Provider Juan C Field MD Unavailable [phone] Reason for Visit * Reason Onset Date Comments TEST RESULTS 04/16/2019 Encounter Details Date Type Department Care Team Description 04/16/2019 Telephone Adult [address] [phone] Wojciech Cortez MD TEST RESULTS Social History [...] mailed to patient. * Telephone Encounter - Rahda Mercedeschary - 04/16/2019 11:07 AM EDT Information Needed Who is calling: Patient Information being requested? Results from labs on 04/11/2019 If information is regarding a referral and notes are needed- transfer call to HIM department If other information is needed, was an ARTIS signed? NO How is the information to be communicated back to the caller? Mailed to - [facility] [id number] documented in this encounter Plan of Treatment Not on file documented as of this encounter Visit Diagnoses Not on filedocumented in this encounter Care Teams Healthcare Associate Relationship Specialty Start Date End Date Wojciech Cortez MD PCP - General 02/20/1996 02/24/20 Nile Villalba MD PCP - General Internal Medicine 02/25/20 12/18/20 [facility], Pcp PCP - General Internal Medicine 12/19/20 12/21/20 Eliud Anaya MD PCP - General Internal Medicine 12/22/20 12/29/20 Eliud Anaya MD PCP - General Internal Medicine 12/30/20 03/07/22 Enedelia Montaño MD [address] [place] [address] PCP - General Internal Medicine 03/08/22 11/16/23 [facility], Pcp PCP - General Internal Medicine 11/17/23 01/23/24 Wojciech Valladares MD [address] [place], [place] [phone] PCP - General Family Practice 01/24/24 Juan C Buckley MD [address] [place] [address] Specialist Cardiology 03/02/24 documented as of this encounter
--- OUTSIDE RECORDS SUMMARY | 2024-11-15 11:13 | XMS_ITS | Encounter Summary ---
Author Organization [facility] Address [address] [place] [address] Care Team Providers Care Customer Service Attendant Name Role Phone Nile Villalba MD Primary Care Provider Atilio Lopez, Pcp Primary Care Provider Eliud Cochran MD Primary Care Provider Eliud Riojas MD Primary Care Provider Enedelia Ley MD Primary Care Provider + [facility], Pcp Primary Care Provider Wojciech Kaufman MD Primary Care Provider Juan C Field MD Unavailable [phone] Encounter Details Date Type Department Care Team Description 04/08/2020 Telephone Medicine/Pediatrics - [address] [phone] Nile Villalba MD Social History Tobacco Use [...] 2:42 PM EDT Left message to call [phone] * Telephone Encounter - Nile Villalba MD [...] [id number] on my half days or if [id number] on full days, thanks documented in this encounter Plan of Treatment Not on file documented as of this encounter Visit Diagnoses Not on filedocumented in this encounter Care Teams Customer Service Attendant Relationship Specialty Start Date End Date Nile Villalba MD PCP - General Internal Medicine 02/25/20 12/18/20 [facility], Pcp PCP - General Internal Medicine 12/19/20 12/21/20 Eliud Anaya MD PCP - General Internal Medicine 12/22/20 12/29/20 Eliud Anaya MD PCP - General Internal Medicine 12/30/20 03/07/22 Enedelia Montaño MD [address] [place] [address] PCP - General Internal Medicine 03/08/22 11/16/23 [facility], Pcp PCP - General Internal Medicine 11/17/23 01/23/24 Wojciech Valladares MD [address] [place] [address] PCP - General Family Practice 01/24/24 Juan C Buckley MD [address] [place] [address] Specialist Cardiology 03/02/24 documented as of this encounter
--- OUTSIDE RECORDS SUMMARY | 2024-11-15 11:13 | XMS_ITS | Encounter Summary ---
Author Organization [facility] Address [address] [place] [address] Care Team Providers Care Steel Pickler Name Role Phone Eliud Anaya MD Primary Care Provider Eliud Riojas MD Primary Care Provider Enedelia Ley MD Primary Care Provider + [facility], [facility] Primary Care Provider Wojceich Kaufman MD Primary Care Provider Juan C Field MD Unavailable [phone] Encounter Details Date Type Department Care Team Description 12/26/2020 Director Clinical Applications Report Medical Records [address] [place] [address] Jay Christina MD Social History Tobacco Use [...] on filedocumented in this encounter Care Teams Steel Pickler Relationship Specialty Start Date End Date Eliud Anaya MD PCP - General Internal Medicine 12/22/20 12/29/20 Eliud Anaya MD PCP - General Internal Medicine 12/30/20 03/07/22 Enedelia Montaño MD [address] [place] [address] PCP - General Internal Medicine 03/08/22 11/16/23 [facility], Pcp [address] [place], [place] [phone] PCP - General Internal Medicine 11/17/23 01/23/24 Wojciech Valladares MD [address] [place] [address] PCP - General Family Practice 01/24/24 Juan C Buckley MD [address] [place] [address] Specialist Cardiology 03/02/24 documented as of this encounter
--- OUTSIDE RECORDS SUMMARY | 2024-11-15 11:13 | XMS_ITS | Encounter Summary ---
Author Organization [facility] Address [address] [place] [address] Care Team Providers Care Leather Fitter Name Role Phone Eliud Anaya MD Primary Care Provider Enedelia Ley MD Primary Care Provider + [facility], Pcp Primary Care Provider Wojciech Kaufman MD Primary Care Provider Juan C Field MD Unavailable [phone] Encounter Details Date Type Department Care Team Description 12/02/2021 Hospital Medical Records [address] [place] [address] Social History Tobacco Use Types Packs/Day Years [...] on filedocumented in this encounter Care Teams Leather Fitter Relationship Specialty Start Date End Date Eliud Anaya MD PCP - General Internal Medicine 12/30/20 03/07/22 Enedelai Montaño MD [address] [place] [id number] PCP - General Internal Medicine 03/08/22 11/16/23 [facility], [address] [address] PCP - General Internal Medicine 11/17/23 01/23/24 Wojciech Valladares MD [address] [place] [address] PCP - General Family Practice 01/24/24 Juan C Buckley MD [address] [place] [address] Specialist Cardiology 03/02/24 documented as of this encounter
--- OUTSIDE RECORDS SUMMARY | 2024-11-15 11:13 | XMS_ITS | Encounter Summary ---
Author Organization [facility] Address [address] [place] [address] Care Team Providers Care Compressed Yeast Supervisor Name Role Phone Wojciech Cortez MD Primary Care Provider Unavail able Nile Villalba MD Primary Care Provider [facility], Pcp Primary Care Provider Eliud Cochran MD Primary Care Provider Eliud Riojas MD Primary Care Provider Enedelia Ley MD Primary Care Provider + [facility], Pcp Primary Care Provider Wojciech Kaufman MD Primary Care Provider Juan C Field MD Unavailable [phone] Encounter Details Date Type Department Care Team Description 06/08/2018 Furniture Technician Report Medical Records [address] [place] [address] Julius Cates NP [address] [place] [address] Social History Tobacco Use Types Packs/Day Years [...] on filedocumented in this encounter Care Teams Compressed Yeast Supervisor Relationship Specialty Start Date End Date Wojciech Cortez MD PCP - General 02/20/1996 02/24/20 Nile Villalba MD PCP - General Internal Medicine 02/25/20 12/18/20 [facility], Pcp PCP - General Internal Medicine 12/19/20 12/21/20 Eliud Anaya MD PCP - General Internal Medicine 12/22/20 12/29/20 Eliud Anaya MD PCP - General Internal Medicine 12/30/20 03/07/22 Enedelia Montaño MD [address] [place] [address] PCP - General Internal Medicine 03/08/22 11/16/23 [facility], Pcp PCP - General Internal Medicine 11/17/23 01/23/24 Wojciech Valladares MD [address] [place] [address] PCP - General Family Practice 01/24/24 Juan C Buckley MD [address] [place] [address] Specialist Cardiology 03/02/24 documented as of this encounter
--- OUTSIDE RECORDS SUMMARY | 2024-11-15 11:13 | XMS_ITS ---
Author Organization [facility] Address [address] [place] [address] [place] [address] Care Team Providers Care Annealing Torch Operator Name Role Phone Wojciech Valladares MD Primary Care Provider Tanna Flannery [phone] REASON FOR VISIT CX FT Encounters Encounter Location Date Provider Diagnosis [address] [place] [address] 05/21/2024 Tanna Mao Plan Of Treatment No Information Progress Notes * Lara RENNERDOB:1945 (78 yo F)Acc No.[id number]:05/21/2024 Patient:?Lara Renner :1945???Age:78 Y???Sex:Female Address:[address] [place] [address] [place], [address] * true * Date:? Generated for Laineyi esme/Kellen/eTransmitting on:?11/15/2024 11:12 AM EDT
--- OUTSIDE RECORDS SUMMARY | 2024-11-15 11:13 | XMS_ITS | Encounter Summary ---
Author Organization [facility] Address [address] [place] [address] Care Team Providers Care Hyster Driver Name Role Phone Wojciech Cortez MD Primary Care Provider Unavail able Nile Villalba MD Primary Care Provider Atilio Lopez, Pcp Primary Care Provider Eliud Cochran MD Primary Care Provider Eliud Riojas MD Primary Care Provider Enedelia Ley MD Primary Care Provider + [facility], Pcp Primary Care Provider Wojciech Kaufman MD Primary Care Provider Juan C Field MD Unavailable Encounter Details Date Type Department Care Team Description 03/14/2015 OFFSET DUPLICATING MACHINE OPERATOR/MassPat Report Medical Records [address] [place] [address] Abstract, Provider Social History Tobacco Use Types [...] on filedocumented in this encounter Care Teams Hyster Driver Relationship Specialty Start Date End Date Wojciech Cortez MD PCP - General 02/20/1996 02/24/20 Nile Villalba MD PCP - General Internal Medicine 02/25/20 12/18/20 [facility], Pcp PCP - General Internal Medicine 12/19/20 12/21/20 Eliud Anaya MD PCP - General Internal Medicine 12/22/20 12/29/20 Eliud Anaya MD PCP - General Internal Medicine 12/30/20 03/07/22 Enedelia Montaño MD [address] [place] [address] PCP - General Internal Medicine 03/08/22 11/16/23 [facility], Pcp PCP - General Internal Medicine 11/17/23 01/23/24 Wojciech Valladares MD [address] [place] [address] PCP - General Family Practice 01/24/24 Juan C Buckley MD [address] [place] [address] Specialist Cardiology 03/02/24 documented as of this encounter
--- OUTSIDE RECORDS SUMMARY | 2024-11-15 11:13 | XMS_ITS | Encounter Summary ---
Author Organization [facility] Address [address] [place] [address] Care Team Providers Care Nitrator Operator Name Role Phone Nile Villalba MD Primary Care Provider Atilio Lopez, Pcp Primary Care Provider Eliud Cochran MD Primary Care Provider Eliud Riojas MD Primary Care Provider Enedelia Ley MD Primary Care Provider + [facility], Pcp Primary Care Provider Wojciech Kaufman MD Primary Care Provider Juan C Field MD Unavailable [phone] Encounter Details Date Type Department Care Team Description 07/04/2020 Lan Administrator Report Medical Records [address] [place] [address] Juan C Buckley MD [address] [place] [address] 78[address] Social History Tobacco Use Types Packs/Day Years [...] on filedocumented in this encounter Care Teams Nitrator Operator Relationship Specialty Start Date End Date Nile Villalba MD PCP - General Internal Medicine 02/25/20 12/18/20 [facility], Pcp PCP - General Internal Medicine 12/19/20 12/21/20 Eliud Anaya MD PCP - General Internal Medicine 12/22/20 12/29/20 Eliud Anaya MD PCP - General Internal Medicine 12/30/20 03/07/22 Enedelia Montaño MD [address] [place] [address] PCP - General Internal Medicine 03/08/22 11/16/23 [facility], [facility] PCP - General Internal Medicine 11/17/23 01/23/24 Wojciech Valladares MD [address] [place] [address] PCP - General Family Practice 01/24/24 Juan C Buckley MD [address] [place] [address] Specialist Cardiology 03/02/24 documented as of this encounter
--- OUTSIDE RECORDS SUMMARY | 2024-11-15 11:13 | XMS_ITS | Encounter Summary ---
Author Organization [facility] [employer] [facility] Address [address] [place] [address] Care Team Providers Care Elevator Repairer Apprentice Name Role Phone Wojciech Valladares MD Primary Care Provider Juan C Field MD Unavailable [phone] Encounter Details Date Type Department Care Team Description 08/07/2024 SCAN Medical Records [address] [place] [id number] [place] [address] Social History Tobacco Use Types Packs/Day Years [...] on filedocumented in this encounter Care Teams Elevator Repairer Apprentice Relationship Specialty Start Date End Date Wojciech Valladares MD PCP - General Family Practice 01/24/24 Juan C Buckley MD Specialist Cardiology 03/02/24 documented as of this encounter
--- OUTSIDE RECORDS SUMMARY | 2024-11-15 11:13 | XMS_ITS ---
Author Organization [facility] Address [address] [place] [address] Care Team Providers Care Director Patient Name Role Phone Blaine RUIZ, Wojciech Primary Care Provider Tanna Flannery Unavailable [phone] Encounters Encounter Location Date Provider Diagnosis [facility] [address] [place] [address] 05/31/2024 Tanna Mao Plan Of Treatment No Information Progress Notes * Lara RENNERDOB:1945 (79 yo F)Acc No.[id number]:05/31/2024 Patient:?RENNERLara Provider:?Tanna Mao DPM :1945???Age:78 Y???Sex:Female D ate:05/31/2024 Address:[address] [place], [place] [address] Pcp:Wojciech Valladares MD Subjective: * Chief Complaints: [...] DPM Date:?2023 Generated for Laineyi esme/Kellen/eTransmitting on:?11/15/2024 11:13 AM EDT
--- OUTSIDE RECORDS SUMMARY | 2024-11-15 11:13 | XMS_ITS | Encounter Summary ---
Author Organization [employer] [facility] Address [address] [place] [address] Care Team Providers Care Felling Machine Operator Name Role Phone Wojciech Cortez MD Primary Care Provider Unavail able Nile Villalba MD Primary Care Provider Atilio Lopez, Pcp Primary Care Provider Eliud Cochran MD Primary Care Provider Eliud Riojas MD Primary Care Provider Enedelia Ley MD Primary Care Provider + [facility], Pcp Primary Care Provider Wojciech Kaufman MD Primary Care Provider Juan C Field MD Unavailable [phone] Reason for Visit * Reason Onset Date Comments Error 12/29/2017 Encounter Details Date Type Department Care Team Description 12/29/2017 Telephone Adult [address] [id number] Wojciech Cortez MD Error Social History Tobacco [...] on filedocumented in this encounter Care Teams Felling Machine Operator Relationship Specialty Start Date End Date Wojciech Cortez MD PCP - General 02/20/1996 02/24/20 Nile Villalba MD PCP - General Internal Medicine 02/25/20 12/18/20 [facility], Pcp PCP - General Internal Medicine 12/19/20 12/21/20 Eliud Anaya MD PCP - General Internal Medicine 12/22/20 12/29/20 Eliud Anaya MD PCP - General Internal Medicine 12/30/20 03/07/22 Enedelia Montaño MD [address] [place] [address] PCP - General Internal Medicine 03/08/22 11/16/23 [facility], Pcp PCP - General Internal Medicine 11/17/23 01/23/24 Wojciech Valladares MD [address] [place] [address] PCP - General Family Practice 01/24/24 Juan C Buckley MD [address] [place] [address] Specialist Cardiology 03/02/24 documented as of this encounter
--- OUTSIDE RECORDS SUMMARY | 2024-11-15 11:13 | XMS_ITS | Encounter Summary ---
Author Organization [facility] Address [address] [place] [address] Care Team Providers Care Swimming Pool Attendant Name Role Phone Wojciech Cortez MD Primary Care Provider Unavail Nile Mata MD Primary Care Provider Atilio newby [facility], Pcp Primary Care Provider Eliud Cochran MD Primary Care Provider Eliud Riojas MD Primary Care Provider Enedelia Ley MD Primary Care Provider + [facility], Pcp Primary Care Provider Wojciech Kaufman MD Primary Care Provider Juan C Field MD Unavailable [phone] Reason for Visit * Reason Onset Date Comments Echocardiogram 04/17/2014 Encounter Details Date Type Department Care Team Description 04/17/2014 Telephone Cardiology - [address] [phone] Ángela Moore PA-C [address] [place] [address] [id number] Echocardiogram Social History Tobacco Use Types Packs/Day [...] on filedocumented in this encounter Care Teams Swimming Pool Attendant Relationship Specialty Start Date End Date Wojciech Cortez MD PCP - General 02/20/1996 02/24/20 Nile Villalba MD PCP - General Internal Medicine 02/25/20 12/18/20 [facility], Pcp PCP - General Internal Medicine 12/19/20 12/21/20 Eliud Anaya MD PCP - General Internal Medicine 12/22/20 12/29/20 Eliud Anaya MD PCP - General Internal Medicine 12/30/20 03/07/22 Enedelia Montaño MD [address] [place] [address] PCP - General Internal Medicine 03/08/22 11/16/23 [facility], Pcp PCP - General Internal Medicine 11/17/23 01/23/24 Wojciech Valladares MD [address] [place] [address] PCP - General Family Practice 01/24/24 Juan C Buckley MD [address] [place] [address] Specialist Cardiology 03/02/24 documented as of this encounter
--- OUTSIDE RECORDS SUMMARY | 2024-11-15 11:13 | XMS_ITS | Encounter Summary ---
Author Organization [facility] Address [address] [place] [address] Care Team Providers Care Weekday Babysitter Name Role Phone Wojciech Cortez MD Primary Care Provider Unavail able Nile Villalba MD Primary Care Provider Atilio Lopez, Pcp Primary Care Provider Eliud Cochran MD Primary Care Provider Eliud Riojas MD Primary Care Provider Enedelia Ley MD Primary Care Provider + [facility], Pcp Primary Care Provider Wojciech Kaufman MD Primary Care Provider Juan C Field MD Unavailable [phone] Encounter Details Date Type Department Care Team Description 05/28/2019 Vice President Industrial Relations Report Medical Records [address] [place] [address] Juan C Buckley MD [address] [place] [address] [phone] Social History Tobacco Use Types Packs/Day Years [...] on filedocumented in this encounter Care Teams Weekday Babysitter Relationship Specialty Start Date End Date Wojciech Cortez MD PCP - General 02/20/1996 02/24/20 Nile Villalba MD PCP - General Internal Medicine 02/25/20 12/18/20 [facility], Pcp PCP - General Internal Medicine 12/19/20 12/21/20 Eliud Anaya MD PCP - General Internal Medicine 12/22/20 12/29/20 Eliud Anaya MD PCP - General Internal Medicine 12/30/20 03/07/22 Enedelia Montaño MD [address] [place] [address] PCP - General Internal Medicine 03/08/22 11/16/23 [facility], Pcp PCP - General Internal Medicine 11/17/23 01/23/24 Wojciech Valladares MD [address] [place] [address] PCP - General Family Practice 01/24/24 Juan C Buckley MD [address] [place] [address] Specialist Cardiology 03/02/24 documented as of this encounter
--- OUTSIDE RECORDS SUMMARY | 2024-11-15 11:13 | XMS_ITS | Encounter Summary ---
Author Organization [facility] [employer] [facility] Address [address] [place] [address] Care Team Providers Care Quality Assurance Engineer Name Role Phone Wojciech Cortez MD Primary Care Provider Unavail Nile Mata MD Primary Care Provider Atilio newby [facility], Pcp Primary Care Provider Eliud Cochran MD Primary Care Provider Eliud Riojas MD Primary Care Provider Enedelia Ley MD Primary Care Provider + [facility], Pcp Primary Care Provider Wojciech Kaufman MD Primary Care Provider Juan C Field MD Unavailable Reason for Visit * Reason Onset Date Comments REFERRAL 07/05/2011 Hematology/Oncol ogy Encounter Details Date Type Department Care Team Description 07/05/2011 Telephone Adult [address] [address] Wojciech Cortez MD REFERRAL (Hematology/Oncology ) Social [...] on filedocumented in this encounter Care Teams Quality Assurance Engineer Relationship Specialty Start Date End Date Wojciech Cortez MD PCP - General 02/20/1996 02/24/20 Nile Villalba MD PCP - General Internal Medicine 02/25/20 12/18/20 [facility], Pcp PCP - General Internal Medicine 12/19/20 12/21/20 Eliud Anaya MD PCP - General Internal Medicine 12/22/20 12/29/20 Eliud Anaya MD PCP - General Internal Medicine 12/30/20 03/07/22 Enedelia Montaño MD [address] [place] [address] PCP - General Internal Medicine 03/08/22 11/16/23 [facility], Pcp PCP - General Internal Medicine 11/17/23 01/23/24 Wojciech Valladares MD [address] [place] [address] PCP - General Family Practice 01/24/24 Juan C Buckley MD [address] [place] [address] Specialist Cardiology 03/02/24 documented as of this encounter
--- OUTSIDE RECORDS SUMMARY | 2024-11-15 11:13 | XMS_ITS | Encounter Summary ---
Author Organization [facility] Address [address] [place] [address] Care Team Providers Care Producer Director Name Role Phone Wojciech Cortez MD Primary Care Provider Unavail able Nile Villalba MD Primary Care Provider Atilio Lopez, Pcp Primary Care Provider Eliud Cochran MD Primary Care Provider Eliud Riojas MD Primary Care Provider Enedelia Ley MD Primary Care Provider + [facility], Pcp Primary Care Provider Wojciech Kaufman MD Primary Care Provider Juan C Field MD Unavailable [phone] Encounter Details Date Type Department Care Team Description 05/18/2016 [facility] Medical Records [address] [place] [address] Quentin Mayes MD Social History Tobacco Use [...] on filedocumented in this encounter Care Teams Producer Director Relationship Specialty Start Date End Date Wojciech Cortez MD PCP - General 02/20/1996 02/24/20 Nile Villalba MD PCP - General Internal Medicine 02/25/20 12/18/20 [facility], Pcp PCP - General Internal Medicine 12/19/20 12/21/20 Eliud Anaya MD PCP - General Internal Medicine 12/22/20 12/29/20 Eliud Anaya MD PCP - General Internal Medicine 12/30/20 03/07/22 Enedelia Montaño MD [address] [place] [address] PCP - General Internal Medicine 03/08/22 11/16/23 [facility], Pcp PCP - General Internal Medicine 11/17/23 01/23/24 Wojciech Valladares MD [address] [place] [address] PCP - General Family Practice 01/24/24 Juan C Buckley MD [address] [place] [address] Specialist Cardiology 03/02/24 documented as of this encounter
--- OUTSIDE RECORDS SUMMARY | 2024-11-15 11:13 | XMS_ITS | Encounter Summary ---
Author Organization [facility] Address [address] [place] [address] Care Team Providers Care Licensed Midwife Name Role Phone Wojciech Cortez MD Primary Care Provider Unavail able Nile Villalba MD Primary Care Provider Atilio Lopez, Pcp Primary Care Provider Eliud Cochran MD Primary Care Provider Eliud Riojas MD Primary Care Provider Enedelia Ley MD Primary Care Provider + [facility], Pcp Primary Care Provider Wojciech Kaufman MD Primary Care Provider Juan C Field MD Unavailable [phone] Encounter Details Date Type Department Care Team Description 04/08/2000 Orders Only Medical [address] [place] [address] Jerald Gomez MD Social History Tobacco Use Types Packs/Day Years Used Date Smoking Tobacco: Never Assessed Sex Assigned at Date Recorded Not on file documented as of this encounter Plan of Treatment Not on file documented as of this encounter Visit Diagnoses Not on filedocumented in this encounter Care Teams Licensed Midwife Relationship Specialty Start Date End Date Wojciech Cortez MD PCP - General 02/20/1996 02/24/20 Nile Villalba MD PCP - General Internal Medicine 02/25/20 12/18/20 [facility], Pcp PCP - General Internal Medicine 12/19/20 12/21/20 Eliud Anaya MD PCP - General Internal Medicine 12/22/20 12/29/20 Eliud Anaya MD PCP - General Internal Medicine 12/30/20 03/07/22 Enedelia Montaño MD [address] [place] [address] PCP - General Internal Medicine 03/08/22 11/16/23 [facility], Pcp PCP - General Internal Medicine 11/17/23 01/23/24 Wojciech Valladares MD [address] [place] [address] PCP - General Family Practice 01/24/24 Juan C Buckley MD [address] [place] [address] Specialist Cardiology 03/02/24 documented as of this encounter
== END 2024-11-15 10:18 | disposition home or self-care (01) ==
LOC: HO.HMCFM 09:21
PROVIDERS: PCP Family Medicine; Visit Provider Family Medicine
DX: D64.9 Anemia, unspecified (principal); R09.89 Other specified symptoms and signs involving the circulatory and respiratory systems; E11.9 Type 2 diabetes mellitus without complications; R60.0 Localized edema; R20.0 Anesthesia of skin

== ENCOUNTER → 2024-11-15 09:20 | Outpatient (BNVA) | payer MEDICARE, SELFPAY | PROVIDERS: PCP Family Medicine; Visit Provider Family Medicine | DX: D64.9 Anemia, unspecified (principal); R09.89 Other specified symptoms and signs involving the circulatory and respiratory systems; E11.9 Type 2 diabetes mellitus without complications; R60.0 Localized edema; R20.0 Anesthesia of skin | CPT/HCPCS: 99212 ==

== ENCOUNTER 2024-12-17 08:32 | Outpatient (REF) | payer MEDICARE, SELFPAY ==
--- OUTSIDE RECORDS SUMMARY | 2024-12-17 08:59 | XMS_ITS | Encounter Summary ---
Author Organization [facility] Address [address] [place] [address] Care Team Providers Care Hotel General Manager Name Role Phone Wojciech Cortez MD Primary Care Provider Unavail able Nile Villalba MD Primary Care Provider Atilio Lopez, Pcp Primary Care Provider Eliud Cochran MD Primary Care Provider Eliud Riojas MD Primary Care Provider Enedelia Ley MD Primary Care Provider + [facility], Pcp Primary Care Provider Wojciech Kaufman MD Primary Care Provider Juan C Field MD Unavailable [phone] Encounter Details Date Type Department Care Team Description 01/19/2018 Child Psychology Teacher Report Medical Records [address] [place] [address] Shawn Lopes MD [address] [place] [address] Social History Tobacco Use Types Packs/Day Years [...] on filedocumented in this encounter Care Teams Hotel General Manager Relationship Specialty Start Date End Date Wojciech Cortez MD PCP - General 02/20/1996 02/24/20 Nile Villalba MD PCP - General Internal Medicine 02/25/20 12/18/20 [facility], Pcp PCP - General Internal Medicine 12/19/20 12/21/20 Eliud Anaya MD PCP - General Internal Medicine 12/22/20 12/29/20 Eliud Anaya MD PCP - General Internal Medicine 12/30/20 03/07/22 Enedelia Montaño MD [address] [place] [address] PCP - General Internal Medicine 03/08/22 11/16/23 [facility], Pcp PCP - General Internal Medicine 11/17/23 01/23/24 Wojciech Valladares MD [address] [place] [address] PCP - General Family Practice 01/24/24 Juan C Buckley MD [address] [place] [address] Specialist Cardiology 03/02/24 documented as of this encounter
--- OUTSIDE RECORDS SUMMARY | 2024-12-17 08:59 | XMS_ITS | Encounter Summary ---
Author Organization [employer] [facility] Address [address] [place] [address] Care Team Providers Care Agricultural Loan Officer Name Role Phone Wojciech Cortez MD Primary Care Provider Unavail able Nile Villalba MD Primary Care Provider Atilio Lopez, Pcp Primary Care Provider Eliud Cochran MD Primary Care Provider Eliud Riojas MD Primary Care Provider Enedelia Ley MD Primary Care Provider + [facility], Pcp Primary Care Provider Wojciech Kaufman MD Primary Care Provider Juan C Field MD Unavailable Encounter Details Date Type Department Care Team Description 02/24/2018 Transfer Records Medical Records [address] [place] [address] Abstract, Provider Social History Tobacco Use Types [...] on filedocumented in this encounter Care Teams Agricultural Loan Officer Relationship Specialty Start Date End Date Wojciech Cortez MD PCP - General 02/20/1996 02/24/20 Nile Villalba MD PCP - General Internal Medicine 02/25/20 12/18/20 [facility], Pcp PCP - General Internal Medicine 12/19/20 12/21/20 Eliud Anaya MD PCP - General Internal Medicine 12/22/20 12/29/20 Eliud Anaya MD PCP - General Internal Medicine 12/30/20 03/07/22 Enedelia Montaño MD [address] [place] [address] PCP - General Internal Medicine 03/08/22 11/16/23 [facility], Pcp PCP - General Internal Medicine 11/17/23 01/23/24 Wojciech Valladares MD [address] [place] [address] PCP - General Family Practice 01/24/24 Juan C Buckley MD [address] [place] [address] Specialist Cardiology 03/02/24 documented as of this encounter
--- OUTSIDE RECORDS SUMMARY | 2024-12-17 08:59 | XMS_ITS | Encounter Summary ---
Author Organization [employer] [facility] Address [address] [place] [address] Care Team Providers Care Offshoring Manager Name Role Phone Wojciech Cortez MD Primary Care Provider Unavail able Nile Villalba MD Primary Care Provider Atilio Lopez, Pcp Primary Care Provider Eliud Cochran MD Primary Care Provider Eliud Riojas MD Primary Care Provider Enedelia Ley MD Primary Care Provider + [facility], Pcp Primary Care Provider Wojciech Kaufman MD Primary Care Provider Juan C Field MD Unavailable [phone] Encounter Details Date Type Department Care Team Description 02/01/2018 Furnace Utility Operator Report Medical Records [address] [place] [address] Brandt Leonardo MD Social History Tobacco Use Types Packs/Day [...] on filedocumented in this encounter Care Teams Offshoring Manager Relationship Specialty Start Date End Date Wojciech Cortez MD PCP - General 02/20/1996 02/24/20 Nile Villalba MD PCP - General Internal Medicine 02/25/20 12/18/20 [facility], Pcp PCP - General Internal Medicine 12/19/20 12/21/20 Eliud Anaya MD PCP - General Internal Medicine 12/22/20 12/29/20 Eliud Anaya MD PCP - General Internal Medicine 12/30/20 03/07/22 Enedelia Montaño MD [address] [place] [address] PCP - General Internal Medicine 03/08/22 11/16/23 [facility], Pcp PCP - General Internal Medicine 11/17/23 01/23/24 Wojciech Valladares MD [address] [place] [address] PCP - General Family Practice 01/24/24 Juan C Buckley MD [address] [place] [address] Specialist Cardiology 03/02/24 documented as of this encounter
--- OUTSIDE RECORDS SUMMARY | 2024-12-17 08:59 | XMS_ITS ---
Author Organization [facility] Address [address] [place] [address] [place] [address] Care Team Providers Care Integrity Assessor Name Role Phone Wojciech Valladares MD Primary Care Provider Tanna Flannery [phone] REASON FOR VISIT CX FT Encounters Encounter Location Date Provider Diagnosis [address] [place] [address] 05/21/2024 Tanna Mao Plan Of Treatment No Information Progress Notes * Lara RENNERDOB:1945 (78 yo F)Acc No.[id number]:05/21/2024 Patient:?Lara Renner :1945???Age:78 Y???Sex:Female Address:[address] [place] [address] [place], [address] * true * Date:? Generated for Laineyi esme/Kellen/eTransmitting on:?12/17/2024 08:59 AM EDT
--- OUTSIDE RECORDS SUMMARY | 2024-12-17 08:59 | XMS_ITS | Encounter Summary ---
Author Organization [facility] Address [address] [place] [address] Care Team Providers Care Increment Manager Name Role Phone Enedelia Montaño MD Primary Care Provider + [facility], Pcp Primary Care Provider Wojciech Kaufman MD Primary Care Provider Juan C Field MD Unavailable [phone] Encounter Details Date Type Department Care Team Description 06/02/2023 SCAN Medical Records [address] [place] [address] Abstract, Provider Social History Tobacco Use Types [...] on filedocumented in this encounter Care Teams Increment Manager Relationship Specialty Start Date End Date Enedelia Montaño MD [address] [place] [address] PCP - General Internal Medicine 03/08/22 11/16/23 [facility], Pcp [address] [place] [address] PCP - General Internal Medicine 11/17/23 01/23/24 Wojciech Valladares MD [address] [place] [address] PCP - General Family Practice 01/24/24 Juan C Buckley MD [address] [place] [address] Specialist Cardiology 03/02/24 documented as of this encounter
--- OUTSIDE RECORDS SUMMARY | 2024-12-17 08:59 | XMS_ITS | Encounter Summary ---
Author Organization [facility] Address [address] [place] [address] Care Team Providers Care Power Plant Engineer Name Role Phone [facility], Pcp Primary Care Provider Wojciech Kaufman MD Primary Care Provider Juan C Field MD Unavailable [phone] Encounter Details Date Type Department Care Team Description 01/18/2024 Dioramist Report Medical Records [address] [place] [address] Wojciech Valladares MD Social History Tobacco Use [...] on filedocumented in this encounter Care Teams Power Plant Engineer Relationship Specialty Start Date End Date [facility], Pcp PCP - General Internal Medicine 11/17/23 01/23/24 Wojciech Valladares MD PCP - General Family Practice 01/24/24 Juan C Buckley MD Specialist Cardiology 03/02/24 documented as of this encounter
--- OUTSIDE RECORDS SUMMARY | 2024-12-17 08:59 | XMS_ITS | Encounter Summary ---
Author Organization [facility] Address [address] [place] [address] Care Team Providers Care Communications Planner Name Role Phone Eliud Anaya MD Primary Care Provider Eliud Riojas MD Primary Care Provider Enedelia Ley MD Primary Care Provider + [facility], [facility] Primary Care Provider Wojciech Kaufman MD Primary Care Provider Juan C Field MD Unavailable [phone] Encounter Details Date Type Department Care Team Description 12/26/2020 Bending Roll Operator Report Medical Records [address] [place] [address] Jay Christina MD Social History Tobacco Use [...] on filedocumented in this encounter Care Teams Communications Planner Relationship Specialty Start Date End Date Eliud Anyaa MD PCP - General Internal Medicine 12/22/20 12/29/20 Eliud Anaya MD PCP - General Internal Medicine 12/30/20 03/07/22 Enedelia Montaño MD [address] [place] [address] PCP - General Internal Medicine 03/08/22 11/16/23 [facility], Pcp [address] [place], [place] [id number] PCP - General Internal Medicine 11/17/23 01/23/24 Wojciech Valladares MD [address] [place] [address] PCP - General Family Practice 01/24/24 Juan C Buckley MD [address] [place] [address] Specialist Cardiology 03/02/24 documented as of this encounter
--- OUTSIDE RECORDS SUMMARY | 2024-12-17 08:59 | XMS_ITS | Encounter Summary ---
Author Organization [facility] Address [address] [place] [address] Care Team Providers Care Boiling House Oiler Name Role Phone Wojciech Cortez MD Primary Care Provider Unavail able Nile Villalba MD Primary Care Provider Atilio Lopez, Pcp Primary Care Provider Eliud Cochran MD Primary Care Provider Eliud Riojas MD Primary Care Provider Enedelia Ley MD Primary Care Provider + [facility], Pcp Primary Care Provider Wojciech Kaufman MD Primary Care Provider Juan C Field MD Unavailable [phone] Encounter Details Date Type Department Care Team Description 02/21/2018 Hospital Medical Records [address] [place] [address] Brandt Banks MD [address] [place] [address] Social History Tobacco Use Types Packs/Day Years [...] on filedocumented in this encounter Care Teams Boiling House Oiler Relationship Specialty Start Date End Date Wojciech Cortez MD PCP - General 02/20/1996 02/24/20 Nile Villalba MD PCP - General Internal Medicine 02/25/20 12/18/20 [facility], Pcp PCP - General Internal Medicine 12/19/20 12/21/20 Eliud Anaya MD PCP - General Internal Medicine 12/22/20 12/29/20 Eliud Anaya MD PCP - General Internal Medicine 12/30/20 03/07/22 Enedelia Montaño MD [address] [place] [address] PCP - General Internal Medicine 03/08/22 11/16/23 [facility], Pcp PCP - General Internal Medicine 11/17/23 01/23/24 Wojciech Valladares MD [address] [place] [address] PCP - General Family Practice 01/24/24 Juan C Buckley MD [address] [place] [address] Specialist Cardiology 03/02/24 documented as of this encounter
--- OUTSIDE RECORDS SUMMARY | 2024-12-17 08:59 | XMS_ITS | Clinical Summary ---
Author Organization [facility] Address [address] [place] [address] Care Team Providers Care Clinical Exercise Specialist Name Role Phone Wojciech Valladares MD Primary Care Provider Juan C Field MD Unavailable Allergies Active Allergy Reactions Severity Noted Date [...] neuropathy, with long-term current use of insulin ([facility]) 1 Device by Does not apply route [...] neuropathy, with long-term current use of insulin ([facility]) Take 1 Capsule by mouth at bedtime. 90 Capsule 1 12/08/2022 Active Insulin Detemir (Levemir FlexTouch) 100 UNIT/ML Solution Pen-injectorIndicati ons:Type 2 diabetes mellitus with diabetic neuropathy, with long-term current use of insulin ([facility]) Inject 12 Units into the skin daily. 10 mL 5 01/04/2023 Active ALBUTEROL SULFATE 108 (90 Base) MCG/ACT Aero SolnIndications:Othe r emphysema ([facility]) INHALE 2 PUFFS INTO THE LUNGS FOUR TIMES DAILY NEEDED FOR COUGH OR WHEEZING 18 g 1 01/06/2023 Active metformin (GLUCOPHAGE) 500 MG tabletIndications:Ty pe 2 diabetes mellitus with diabetic neuropathy, with long-term current use of insulin ([facility]) TAKE 1 TABLET BY MOUTH DAILY WITH [...] just unsure what to do Educational Resources [place] [employer] (www.diabetes.org) Centers for Disease Control [...] 12/08/2022 Heart murmur previously undiagnosed 05/07/2011 02/23/2018 Immunizations Name Administration Dates Next Due COVID-19 [...] 05/06/2022, 04/04/2020, Additional history exists Covid-19 Vaccine (2022-09 4 season) 2024 11/10/2021, 05/18/2021, 11/14/2020, Additional history exists BMI CHECK/ADVISE 08/22/2024 09/08/2020, , 04/04/2020, Additional history exists INFLUENZA (Season Ended) 2025 021, 06/25/2020, 05/01/2018, Additional history exists DTAP/TDAP/TD (2 - Td or Tdap) 01/05/2029 01/05/2019, 06/28/2007 Care Teams Clinical Exercise Specialist Relationship Specialty Start Date End Date Wojciech Valladares MD PCP - General Family Practice 01/24/24 Juan C Buckley MD Specialist Cardiology 03/02/24
--- OUTSIDE RECORDS SUMMARY | 2024-12-17 08:59 | XMS_ITS | Encounter Summary ---
Author Organization [facility] Address [address] [place] [address] Care Team Providers Care Aboriginal Liaison Officer Name Role Phone Wojciech Cortez MD Primary Care Provider Unavail able Nile Villalba MD Primary Care Provider Atilio Lopez, Pcp Primary Care Provider Eliud Cochran MD Primary Care Provider Eliud Riojas MD Primary Care Provider Enedelia Ley MD Primary Care Provider + [facility], Pcp Primary Care Provider Wojciech Kaufman MD Primary Care Provider Juan C Field MD Unavailable [phone] Encounter Details Date Type Department Care Team Description 01/18/2018 Transfer Records Medical Records [address] [place] [address] Abstract, Provider Social History Tobacco Use Types [...] on filedocumented in this encounter Care Teams Aboriginal Liaison Officer Relationship Specialty Start Date End Date Wojciech Cortez MD PCP - General 02/20/1996 02/24/20 Nile Villalba MD PCP - General Internal Medicine 02/25/20 12/18/20 [facility], Pcp PCP - General Internal Medicine 12/19/20 12/21/20 Eliud Anaya MD PCP - General Internal Medicine 12/22/20 12/29/20 Eliud Anaya MD PCP - General Internal Medicine 12/30/20 03/07/22 Enedelia Montaño MD [address] [place] [address] PCP - General Internal Medicine 03/08/22 11/16/23 [facility], Pcp PCP - General Internal Medicine 11/17/23 01/23/24 Wojciech Valladares MD [address] [place] [address] PCP - General Family Practice 01/24/24 Juan C Buckley MD [address] [place] [address] Specialist Cardiology 03/02/24 documented as of this encounter
--- OUTSIDE RECORDS SUMMARY | 2024-12-17 08:59 | XMS_ITS ---
Author Organization [facility] Address [address] [place] [address] Care Team Providers Care Flux Mixer Name Role Phone Blaine RUIZ, Wojciech Primary Care Provider Tanna Flannery Unavailable [phone] Encounters Encounter Location Date Provider Diagnosis [facility] [address] [place] [address] 06/07/2024 Tanna Mao Plan Of Treatment No Information Progress Notes * Lara RENNERDOB:1945 (79 yo F)Acc No.[id number]:06/07/2024 Patient:?Lara RENNER Provider:?Tanna Mao DPM :1945???Age:78 Y???Sex:Female D ate:06/07/2024 Address:[address] [place], [place] [address] Pcp:Wojciech Valladares MD Subjective: * Chief Complaints: [...] Mao DPM Date:?2023 Generated for Laineyi esme/Kellen/eTransmitting on:?12/17/2024 08:59 AM EDT
--- OUTSIDE RECORDS SUMMARY | 2024-12-17 08:59 | XMS_ITS | Encounter Summary ---
Author Organization [employer] [facility] Address [address] [place] [address] Care Team Providers Care Distribution District Supervisor Name Role Phone Wojciech Cortez MD Primary Care Provider Unavail able Nile Villalba MD Primary Care Provider Atilio Lopez, Pcp Primary Care Provider Eliud Cochran MD Primary Care Provider Eliud Riojas MD Primary Care Provider Enedelia Ley MD Primary Care Provider + [facility], Pcp Primary Care Provider Wojciech Kaufman MD Primary Care Provider Juan C Field MD Unavailable [phone] Encounter Details Date Type Department Care Team Description 04/07/2018 [facility] Medical Records [address] [place] [address] Gustavo Lau MD Social History Tobacco Use [...] on filedocumented in this encounter Care Teams Distribution District Supervisor Relationship Specialty Start Date End Date Wojciech Cortez MD PCP - General 02/20/1996 02/24/20 Nile Villalba MD PCP - General Internal Medicine 02/25/20 12/18/20 [facility], Pcp PCP - General Internal Medicine 12/19/20 12/21/20 Eliud Anaya MD PCP - General Internal Medicine 12/22/20 12/29/20 Eliud Anaya MD PCP - General Internal Medicine 12/30/20 03/07/22 Enedelia Montaño MD [address] [place] [address] PCP - General Internal Medicine 03/08/22 11/16/23 [facility], Pcp PCP - General Internal Medicine 11/17/23 01/23/24 Wojciech Valladares MD [address] [place] [address] PCP - General Family Practice 01/24/24 Juan C Buckley MD [address] [place] [address] Specialist Cardiology 03/02/24 documented as of this encounter
--- OUTSIDE RECORDS SUMMARY | 2024-12-17 08:59 | XMS_ITS | Encounter Summary ---
Author Organization [facility] Address [address] [place] [address] Care Team Providers Care Army Senior Officer Name Role Phone Nile Villalba MD Primary Care Provider Atilio Lopez, Pcp Primary Care Provider Eliud Cochran MD Primary Care Provider Eliud Riojas MD Primary Care Provider Enedelia Ley MD Primary Care Provider + [facility], Pcp Primary Care Provider Wojciech Kaufman MD Primary Care Provider Juan C Field MD Unavailable [phone] Encounter Details Date Type Department Care Team Description 06/13/2020 Skoog Operator Report Medical Records [address] [place] [address] Diana Ibarra NP Social History Tobacco Use [...] on filedocumented in this encounter Care Teams Army Senior Officer Relationship Specialty Start Date End Date Nile Villalba MD PCP - General Internal Medicine 02/25/20 12/18/20 [facility], Pcp PCP - General Internal Medicine 12/19/20 12/21/20 Eliud Anaya MD PCP - General Internal Medicine 12/22/20 12/29/20 Eliud Anaya MD PCP - General Internal Medicine 12/30/20 03/07/22 Enedelia Montaño MD [address] [place] [address] PCP - General Internal Medicine 03/08/22 11/16/23 [facility], Pcp PCP - General Internal Medicine 11/17/23 01/23/24 Wojciech Valladares MD [address] [place] [address] PCP - General Family Practice 01/24/24 Juan C Buckley MD [address] [place] [address] Specialist Cardiology 03/02/24 documented as of this encounter
--- OUTSIDE RECORDS SUMMARY | 2024-12-17 08:59 | XMS_ITS | Encounter Summary ---
Author Organization [employer] [facility] Address [address] [place] [address] Care Team Providers Care Cardiovascular Technician Name Role Phone [facility], Pcp Primary Care Provider Wojciech Kaufman MD Primary Care Provider Juan C Field MD Unavailable [phone] Encounter Details Date Type Department Care Team Description 01/12/2024 SCAN Medical Records [address] [place] [address] Abstract, Provider Social History Tobacco Use Types [...] on filedocumented in this encounter Care Teams Cardiovascular Technician Relationship Specialty Start Date End Date [facility], Pcp PCP - General Internal Medicine 11/17/23 01/23/24 Wojciech Valladares MD PCP - General Family Practice 01/24/24 Juan C Buckley MD Specialist Cardiology 03/02/24 documented as of this encounter
--- OUTSIDE RECORDS SUMMARY | 2024-12-17 08:59 | XMS_ITS | Encounter Summary ---
Author Organization [facility] Address [address] [place] [address] Care Team Providers Care Raw Mill Operator Name Role Phone Eliud Anaya MD Primary Care Provider Enedelia Ley MD Primary Care Provider + [facility], Pcp Primary Care Provider Wojciech Kaufman MD Primary Care Provider Juan C Field MD Unavailable [phone] Reason for Visit * Reason Onset Date Comments Faxed Order 01/15/2022 Order #[id number] Encounter Details Date Type Department Care Team Description 01/15/2022 Telephone Adult Medicine [address] [address] Eliud Anaya MD Faxed Order (Order #[id number]) Social History Tobacco Use Types Packs/Day Years Used Date Smoking Tobacco: Former Cigarettes Q uit: 10/29/2012 Smokeless Tobacco: Never Comments:started @ 13 Alcohol Use Standard Drinks/Week Comments No 0 (1 standard drink = 0.6 oz pur e alcohol) Sex Assigned at Date Recorded Not on file documented as of this encounter Miscellaneous Notes * Telephone Encounter - Tere Rajput - 01/15/2022 1:06 PM EDT Faxed order from [facility]. Order #[id number]. Please sign, date, and fax back. documented in this encounter Plan of Treatment Not on file documented as of this encounter Visit Diagnoses Not on filedocumented in this encounter Care Teams Raw Mill Operator Relationship Specialty Start Date End Date Eliud Anaya MD PCP - General Internal Medicine 12/30/20 03/07/22 Enedelia Montaño MD [address] [place] [address] PCP - General Internal Medicine 03/08/22 11/16/23 [facility], [place] [phone] PCP - General Internal Medicine 11/17/23 01/23/24 Wojciech Valladares MD [address] [place] [address] PCP - General Family Practice 01/24/24 Juan C Buckley MD [address] [place] [address] Specialist Cardiology 03/02/24 documented as of this encounter
--- OUTSIDE RECORDS SUMMARY | 2024-12-17 08:59 | XMS_ITS | Encounter Summary ---
Author Organization [facility] Address [address] [place] [address] Care Team Providers Care Dormitory Maid Name Role Phone Wojciech Cortez MD Primary Care Provider Unavail Nile Mata MD Primary Care Provider Atilio newby [facility], Pcp Primary Care Provider Eliud Cochran MD Primary Care Provider Eliud Riojas MD Primary Care Provider Enedelia Ley MD Primary Care Provider + [facility], Pcp Primary Care Provider Wojciech Kaufman MD Primary Care Provider Juan C Field MD Unavailable [phone] Encounter Details Date Type Department Care Team Description 01/03/2018 Telephone Adult Medicine [address] [address] Wojciech Cortez MD Social History Tobacco Use [...] yesterday to the Hospital folder in the [facility] Pod. Thank you, Shelly Sewell C.M.A. Diesel Mechanic Apprentice * Telephone Encounter - Wojciech Cortez MD - 01/03/2018 6:30 AM EDT Please see if stress echo report can be obtained. documented in this encounter Plan of Treatment Not on file documented as of this encounter Visit Diagnoses Not on filedocumented in this encounter Care Teams Dormitory Maid Relationship Specialty Start Date End Date Wojciech Cortez MD PCP - General 02/20/1996 02/24/20 Nile Villalba MD PCP - General Internal Medicine 02/25/20 12/18/20 [facility], Pcp PCP - General Internal Medicine 12/19/20 12/21/20 Eliud Anaya MD PCP - General Internal Medicine 12/22/20 12/29/20 Eliud Anaya MD PCP - General Internal Medicine 12/30/20 03/07/22 Enedelia Montaño MD [address] [place] [address] PCP - General Internal Medicine 03/08/22 11/16/23 [facility], Pcp PCP - General Internal Medicine 11/17/23 01/23/24 Wojciech Valladares MD [address] [place] [address] PCP - General Family Practice 01/24/24 Juan C Buckley MD [address] [place] [address] Specialist Cardiology 03/02/24 documented as of this encounter
--- OUTSIDE RECORDS SUMMARY | 2024-12-17 08:59 | XMS_ITS | Encounter Summary ---
Author Organization [employer] [facility] Address [address] [place] [address] Care Team Providers Care Supervisor Operations Name Role Phone Nile Villalba MD Primary Care Provider Atilio Lopez, Pcp Primary Care Provider Eliud Cochran MD Primary Care Provider Eliud Riojas MD Primary Care Provider Enedelia Ley MD Primary Care Provider + [facility], Pcp Primary Care Provider Wojciech Kaufman MD Primary Care Provider Juan C Field MD Unavailable [phone] Encounter Details Date Type Department Care Team Description 07/04/2020 Lathe Tender Report Medical Records [address] [place] [address] Juan C Buckley MD [address] [place] [address] Social History Tobacco Use Types Packs/Day Years [...] on filedocumented in this encounter Care Teams Supervisor Operations Relationship Specialty Start Date End Date Nile Villalba MD PCP - General Internal Medicine 02/25/20 12/18/20 [facility], Pcp PCP - General Internal Medicine 12/19/20 12/21/20 Eliud Anaya MD PCP - General Internal Medicine 12/22/20 12/29/20 Eliud Anaya MD PCP - General Internal Medicine 12/30/20 03/07/22 Enedelia Montaño MD [address] [place] [address] PCP - General Internal Medicine 03/08/22 11/16/23 [facility], [facility] PCP - General Internal Medicine 11/17/23 01/23/24 Wojciech Valladares MD [address] [place] [address] PCP - General Family Practice 01/24/24 Juan C Buckley MD [address] [place] [address] Specialist Cardiology 03/02/24 documented as of this encounter
--- OUTSIDE RECORDS SUMMARY | 2024-12-17 08:59 | XMS_ITS | Encounter Summary ---
Author Organization [facility] Address [address] [place] [address] Care Team Providers Care Paper Twister Tender Name Role Phone Eliud Anaya MD Primary Care Provider Enedelia Ley MD Primary Care Provider + [facility], Pcp Primary Care Provider Wojciech Kaufman MD Primary Care Provider Juan C Field MD Unavailable [phone] Encounter Details Date Type Department Care Team Description 12/02/2021 Hospital Medical Records [address] [place] [address] Social History Tobacco Use Types Packs/Day Years [...] on filedocumented in this encounter Care Teams Paper Twister Tender Relationship Specialty Start Date End Date Eliud Anaya MD PCP - General Internal Medicine 12/30/20 03/07/22 Enedelia Montaño MD [address] [place] [id number] PCP - General Internal Medicine 03/08/22 11/16/23 [facility], [address] [address] PCP - General Internal Medicine 11/17/23 01/23/24 Wojciech Valladares MD [address] [place] [address] PCP - General Family Practice 01/24/24 Juan C Buckley MD [address] [place] [address] Specialist Cardiology 03/02/24 documented as of this encounter
--- OUTSIDE RECORDS SUMMARY | 2024-12-17 08:59 | XMS_ITS | Encounter Summary ---
Author Organization [employer] [facility] Address [address] [place] [address] Care Team Providers Care Supervisor Furnace Room Name Role Phone [facility], Pcp Primary Care Provider Wojciech Kaufman MD Primary Care Provider Juan C Field MD Unavailable [phone] Encounter Details Date Type Department Care Team Description 01/19/2024 SCAN Medical Records [address] [place] [address] Abstract, Provider Social History Tobacco Use Types [...] filedocumented in this encounter Care Teams Supervisor Furnace Room Relationship Specialty Start Date End Date [facility], Pcp PCP - General Internal Medicine 11/17/23 01/23/24 Wojicech Valladares MD PCP - General Family Practice 01/24/24 Juan C Buckley MD Specialist Cardiology 03/02/24 documented as of this encounter
--- OUTSIDE RECORDS SUMMARY | 2024-12-17 08:59 | XMS_ITS | Encounter Summary ---
Author Organization [employer] [facility] Address [address] [place] [address] Care Team Providers Care Is Architect Name Role Phone Wojciech Cortez MD [...] Care Provider Juan C Field MD Unavailable [phone] Encounter Details Date Type Department Care Team Description 03/18/2017 Business Doc Medical Records [address] [place] [address] Abstract, Provider Social History Tobacco Use Types [...] on filedocumented in this encounter Care Teams Is Architect Relationship Specialty Start Date End Date Wojciech Cortez MD PCP - General 02/20/1996 02/24/20 Nile Villalba MD PCP - General Internal Medicine 02/25/20 12/18/20 [facility], Pcp PCP - General Internal Medicine 12/19/20 12/21/20 Eliud Anaya MD PCP - General Internal Medicine 12/22/20 12/29/20 Eliud Anaya MD PCP - General Internal Medicine 12/30/20 03/07/22 Enedelai Montaño MD [address] [place] [address] PCP - General Internal Medicine 03/08/22 11/16/23 [facility], Pcp PCP - General Internal Medicine 11/17/23 01/23/24 Wojciech Valladares MD [address] [place] [address] PCP - General Family Practice 01/24/24 Juan C Buckley MD [address] [place] [address] Specialist Cardiology 03/02/24 documented as of this encounter
--- OUTSIDE RECORDS SUMMARY | 2024-12-17 08:59 | XMS_ITS | Encounter Summary ---
Author Organization [facility] Address [address] [place] [address] Care Team Providers Care Industrial Cleaner Name Role Phone [facility], Pcp Primary Care Provider Eliud Cochran MD Primary Care Provider Eliud Riojas MD Primary Care Provider Enedelia Ley MD Primary Care Provider + [facility], Pcp Primary Care Provider Wojciech Kaufman MD Primary Care Provider Juan C Field MD Unavailable [phone] Encounter Details Date Type Department Care Team Description 12/21/2020 [facility] Medical Records [address] [place] [address] Diana Ibarra NP Social History Tobacco Use [...] on filedocumented in this encounter Care Teams Industrial Cleaner Relationship Specialty Start Date End Date [facility], Pcp PCP - General Internal Medicine 12/19/20 12/21/20 Eliud Anaya MD PCP - General Internal Medicine 12/22/20 12/29/20 Eliud Anaya MD PCP - General Internal Medicine 12/30/20 03/07/22 Enedelia Montaño MD [address] [place] [address] PCP - General Internal Medicine 03/08/22 11/16/23 [facility], Pcp PCP - General Internal Medicine 11/17/23 01/23/24 Wojciech Valladares MD [address] [place] [address] PCP - General Family Practice 01/24/24 Juan C Buckley MD [address] [place] [address] Specialist Cardiology 03/02/24 documented as of this encounter
--- OUTSIDE RECORDS SUMMARY | 2024-12-17 08:59 | XMS_ITS | Patient Health Record ---
Author Organization [facility] Address [address] [place] [address] Care Team Providers Care Metal Sponge Making Machine Operator Name Role Phone Wojciech Valladares MD Primary Care Provider Tanna Flannery Unavailable [phone] Allergies Allergen (clinical drug ingredient) Drug/Non Drug [...] Problem Acquired hammer toe of right foot (5627488555021055 ) Other hammer toe(s) (acquired), right foot (M20.41) Active confirmed Problem Acquired hammer toe of left foot (6985010777776138 ) Other hammer toe(s) (acquired), left foot (M20.42) Active confirmed Problem Polyneuropathy due to type 2 diabetes mellitus (489652104) Type 2 diabetes mellitus with diabetic polyneuropathy (E11.42) Active confirmed Problem Localized, primary osteoarthritis of the ankle and/or foot (844484376) Arthritis of joint of lesser toe, left (M19.072) Active confirmed Problem Localized, primary osteoarthritis of the ankle and/or foot (299742272) Arthritis of joint of lesser toe, right (M19.071) Active confirmed Vital Signs Blood pressure diastolic 68 mm Hg 02/13/2024 Height 5 ft 6 in in 02/13/2024 Blood pressure systolic 118 mm Hg 02/13/2024 Weight 148 lbs 02/13/2024 BMI 23.89 kg/m2 02/13/2024 Procedures Procedure Date Ordered Date Performed Result Body Sit e 59158-GQNY SKIN LESIONS, 2 TO 4 02/13/2024 N/A V4903-GDRNVSPF DYSTROPHIC NAILS ANY # 02/13/2024 N/A - Ganglion Cyst Injection/Aspiration 02/13/2024 N/A Encounters Encounter Location Date Provider Diagnosis [facility] [address] 02/13/2024 Tanna Mayco Type 2 diabetes redd [...] toe, initial encounter S93.149A and Ganglion M67.40 [facility] [address] 01/05/2024 Tanna Mao [facility] [address] 05/21/2024 Tanna Mao Assessments Encounter Date Diagnosis [...] Treatment Pending Test Test Name Order Date 70428-FMGF SKIN LESIONS, 2 TO 4 02/13/20 U3481-PZSGOWEG DYSTROPHIC NAILS ANY # - Ganglion Cyst Injection/Aspiratio n 02/13/2024 Insurance Providers Payer Name Payer Address Payer Phone Subscriber Number Group Number Insured Name Patient Relationship to Insured Coverage Start Date Coverage End Date Medicare National Govt [employer] [address] [place] [address] [id number] Lara May Self - patient is the insured [employer] [address] [place] [address] [id number] Lara May Self - patient is the insured Medical (General) History Medical History History ICD Code Arthritis Cataracts Diabetic Fibromyalgia Heart disease High blood pressure Poor circulation Heart valve conditions/replacement Back,Hip,and Knee pain Broken bones CAD (Cholesterol) covid-19 Numbness Joint implants/screws Surgical History Surgery Date(Month/Year) eye surgery 2017 knee surgery 1999 hip surgery 2021
--- OUTSIDE RECORDS SUMMARY | 2024-12-17 09:00 | XMS_ITS | Encounter Summary ---
Author Organization [facility] Address [address] [place] [address] Care Team Providers Care Spray Mixer Name Role Phone Wojciech Cortez MD Primary Care Provider Unavail able Nile Villalba MD Primary Care Provider Atilio Lopez, Pcp Primary Care Provider Eliud Cochran MD Primary Care Provider Eliud Riojas MD Primary Care Provider Enedelia Ley MD Primary Care Provider + [facility], Pcp Primary Care Provider Wojciech Kaufman MD Primary Care Provider Juan C Field MD Unavailable [phone] Encounter Details Date Type Department Care Team Description 05/23/2018 [facility] Medical Records [address] [place] [address] Gustavo Lau MD Social History Tobacco Use [...] on filedocumented in this encounter Care Teams Spray Mixer Relationship Specialty Start Date End Date Wojciech Cortez MD PCP - General 02/20/1996 02/24/20 Nile Villalba MD PCP - General Internal Medicine 02/25/20 12/18/20 [facility], Pcp PCP - General Internal Medicine 12/19/20 12/21/20 Eliud Anaya MD PCP - General Internal Medicine 12/22/20 12/29/20 Eliud Anaya MD PCP - General Internal Medicine 12/30/20 03/07/22 Enedelia Montaño MD [address] [place] [address] PCP - General Internal Medicine 03/08/22 11/16/23 [facility], Pcp PCP - General Internal Medicine 11/17/23 01/23/24 Wojciech Valladares MD [address] [place] [address] PCP - General Family Practice 01/24/24 Juna C Buckley MD [address] [place] [address] Specialist Cardiology 03/02/24 documented as of this encounter
--- OUTSIDE RECORDS SUMMARY | 2024-12-17 09:00 | XMS_ITS | Clinical Summary ---
Author Organization [facility] Address [address] [place] [address] Phone Care Team Providers Care Director Of Cardiology Name Role Phone Wojciech Valladares MD Primary Care Provider [phone] Allergies Active Allergy Reactions Criticality Noted Date [...] Diagnosed Date Coronary artery disease invo lving [place] coronary artery of [place] heart without angina pectoris 08/07/2024 Assessment & Plan (08/07/2024 3:55 PM EST): Lara has a history of coronary artery disease. She underwent circumflex coronary artery stenting. Moderate disease of the LAD and of the right coronary artery was left alone and the patient has not had ongoing overt evidence of coronary insufficiency. Preventative care will be continued Leukocytosis 05/06/2022 Diabetic retinopathy ([facility] V24, [facility] V28) 02/23/2018 Vitamin D deficiency 02/23/2018 Aortic stenosis [...] given stability of nodules. COPD (chronic obstructive pu lmonary disease) ([facility] V24, [facility] V28) 04/20/2013 Microalbuminuria 11/11/2011 Essential hypertension, benign 08/20/2011 Assessment [...] Overview (07/04/2024): L>R Type 2 diabetes mellitus ([facility] V24, [facility] V 28) 08/31/2005 Immunizations Name Administration Dates Next Due [...] bilaterally Sep 2006 - moderate Diabetic retinopathy (CMS/HC C V24, CMS/HCC V28) 02/23/2018 DX:Diabetic retinopathy (HCC ) Vitamin D deficiency 02/23/2018 DX:Vitamin D deficiency [...] Description 03/26/2025 12:30 PM EDT Ancillary Procedure [facility] Cardiology [facility] [address] [place] [address] 04/23/2025 10:50 AM EDT Office Visit [facility] [address] [place] [address] [address] [place] [address] Juan C Buckley MD [address] [place] [address],[facility] [address] [place] [address] Health Maintenance Due Date Last Done Comments [...] Hypertension/CHF/CAD Annual BMP Blood Test 12/09/2023 12/08/2022 COVID-19 Vaccine ( season) 2024 05/04/2024, 05/23/2023, 05/05/2022, Additional history exists Cholesterol Screening (Lipid Panel) 05/06/2027 05/06/2022 DTaP,Tdap,and Td Vaccines (3 - Td or Tdap) 01/05/2029 01/05/2019, 06/28/2007 RSV Immunization Adult Patients Completed 11/26/2023 Pneumococcal Vaccine: 50+ Years Completed 03/09/2024, 03/16/2017, 01/17/2007, Additional history exists Influenza Vaccine Completed 05/04/2024, [...] age to complete this topic Meningococcal B Vaccine Aged Out No l onger eligible based on patient's age to complete this topic RSV Immunization Patients Under 20 months Aged Out No longer eligible based on patient's age to complete this topic Varicella Vaccines Aged Out No longer eligible based on patient's age to complete this topic Procedures Procedure Name Priority Date/Time Associated Diagnosis Comments HM URINE ALBUMIN CREATININE RATIO Routine 12/08/2022 HM ANNUAL BMP BLOOD TEST Routine 12/08/2022 HEMOGLOBIN A1C Routine 12/08/2022 LIPID PANEL Routine 05/06/2022 from Last 3 Months or Most Recently Relevant to Health Maintenance Results * Urine Albumin Creatinine Ratio (12/08/2022) Pathologist [facility] Urine Albumin Creatinine Ratio abstracted [facility] Provider [place] Final Result * Annual BMP Blood Test (12/08/2022) Pathologist [facility] Annual BMP Blood Test abstracted [facility] Provider [place] HEALTH MAINTE[place] Final Result * (ABNORMAL) Hemoglobin A1c (12/08/2022) [facility] Hemoglobin A1C 6.6(A) <=6.5 % Blood Venous blood specimen / Unknown Result [facility] Provider LAB BLOOD ORDERABLES Francesca l Result * Lipid panel (05/06/2022) [facility] LDL/HDL Ratio 4 0 - 4 Triglycerides 97 0 - 150 mg/dL Cholesterol 145 0 - 200 mg/dL HDL 42 >=40 mg/dL LDL Cholesterol 84 0 - 100 mg/dL Blood Venous blood specimen / Unknown Result [facility] Provider LAB BLOOD ORDERABLES Francesca l Result from Last 3 Months or Most Recently Relevant to Health Maintenance Insurance MEDICARE [facility] Care Teams Director Of Cardiology Relationship Specialty Start Date End Date Wojciech Valladares MD [address] [place] [address] [place] PCP - General 01/24/24
--- OUTSIDE RECORDS SUMMARY | 2024-12-17 09:00 | XMS_ITS | Encounter Summary ---
Author Organization [facility] Address [address] [place] [address] Care Team Providers Care Shearing Machine Feeder Name Role Phone Wojciech Cortez MD Primary Care Provider Unavail able Nile Villalba MD Primary Care Provider Atilio Lopez, Pcp Primary Care Provider Eliud Cochran MD Primary Care Provider Eliud Riojas MD Primary Care Provider Enedelia Ley MD Primary Care Provider + [facility], Pcp Primary Care Provider Wojciech Kaufman MD Primary Care Provider Juan C Field MD Unavailable [phone] Encounter Details Date Type Department Care Team Description 05/23/2018 [facility] Medical Records [address] [place] [address] Juan C Buckley MD [address] [place] [address] Social History Tobacco Use Types Packs/Day Years [...] on filedocumented in this encounter Care Teams Shearing Machine Feeder Relationship Specialty Start Date End Date Wojciech Cortez MD PCP - General 02/20/1996 02/24/20 Nile Villalba MD PCP - General Internal Medicine 02/25/20 12/18/20 [facility], Pcp PCP - General Internal Medicine 12/19/20 12/21/20 Eliud Anaya MD PCP - General Internal Medicine 12/22/20 12/29/20 Eliud Anaya MD PCP - General Internal Medicine 12/30/20 03/07/22 Enedelia Montaño MD [address] [place] [address] PCP - General Internal Medicine 03/08/22 11/16/23 [facility], Pcp PCP - General Internal Medicine 11/17/23 01/23/24 Wojciech Valladares MD [address] [place] [address] PCP - General Family Practice 01/24/24 Juan C Buckley MD [address] [place] [address] Specialist Cardiology 03/02/24 documented as of this encounter
--- OUTSIDE RECORDS SUMMARY | 2024-12-17 09:00 | XMS_ITS | Encounter Summary ---
Author Organization [facility] Address [address] [place] [address] Care Team Providers Care Pediatric Orthodontist Name Role Phone Wojciech Cortez MD Primary Care Provider Unavail able Nile Villalba MD Primary Care Provider Atilio Lopez, Pcp Primary Care Provider Eliud Cochran MD Primary Care Provider Eliud Riojas MD Primary Care Provider Enedelia Ley MD Primary Care Provider + [facility], Pcp Primary Care Provider Wojciech Kaufman MD Primary Care Provider Juan C Field MD Unavailable [phone] Encounter Details Date Type Department Care Team Description 04/08/2014 Orders Only Radiology - [address] [phone] Alvina Orellana MD [address] [place] [address] [phone] Social History Tobacco Use Types Packs/Day Years [...] on filedocumented in this encounter Care Teams Pediatric Orthodontist Relationship Specialty Start Date End Date Wojciech Cortez MD PCP - General 02/20/1996 02/24/20 Nile Villalba MD PCP - General Internal Medicine 02/25/20 12/18/20 [facility], Pcp PCP - General Internal Medicine 12/19/20 12/21/20 Eliud Anaya MD PCP - General Internal Medicine 12/22/20 12/29/20 Eliud Anaya MD PCP - General Internal Medicine 12/30/20 03/07/22 Enedelia Montaño MD [address] [place] [address] PCP - General Internal Medicine 03/08/22 11/16/23 [facility], Pcp PCP - General Internal Medicine 11/17/23 01/23/24 Wojciech Valladares MD [address] [place] [address] PCP - General Family Practice 01/24/24 Juan C Buckley MD [address] [place] [address] Specialist Cardiology 03/02/24 documented as of this encounter
--- OUTSIDE RECORDS SUMMARY | 2024-12-17 09:00 | XMS_ITS | Encounter Summary ---
Author Organization [facility] Address [address] [place] [address] Care Team Providers Care Commercial Center Manager Name Role Phone Wojciech Cortez MD Primary Care Provider Unavail able Nile Villalba MD Primary Care Provider Atilio Lopez, Pcp Primary Care Provider Eliud Cochran MD Primary Care Provider Eliud Riojas MD Primary Care Provider Enedelia Ley MD Primary Care Provider + [facility], Pcp Primary Care Provider Wojciech Kaufman MD Primary Care Provider Juan C Field MD Unavailable [phone] Encounter Details Date Type Department Care Team Description 04/11/2000 Orders Only Oncology [address] [place] [address] Jerald Gomez MD Social History Tobacco Use Types Packs/Day Years Used Date Smoking Tobacco: Never Assessed Sex Assigned at Date Recorded Not on file documented as of this encounter Plan of Treatment Not on file documented as of this encounter Visit Diagnoses Not on filedocumented in this encounter Care Teams Commercial Center Manager Relationship Specialty Start Date End Date Wojciech Cortez MD PCP - General 02/20/1996 02/24/20 Nile Villalba MD PCP - General Internal Medicine 02/25/20 12/18/20 [facility], Pcp PCP - General Internal Medicine 12/19/20 12/21/20 Eliud Anaya MD PCP - General Internal Medicine 12/22/20 12/29/20 Eliud Anaya MD PCP - General Internal Medicine 12/30/20 03/07/22 Enedelia Montaño MD [address] [place] [address] PCP - General Internal Medicine 03/08/22 11/16/23 [facility], Pcp PCP - General Internal Medicine 11/17/23 01/23/24 Wojciech Valladares MD [address] [place] [address] PCP - General Family Practice 01/24/24 Juan C Buckley MD [address] [place] [address] Specialist Cardiology 03/02/24 documented as of this encounter
--- OUTSIDE RECORDS SUMMARY | 2024-12-17 09:00 | XMS_ITS | Encounter Summary ---
Author Organization [facility] Address [address] [place] [address] Care Team Providers Care Repair Welder Name Role Phone Wojciech Cortez MD Primary Care Provider Unavail able Nile Villalba MD Primary Care Provider Atilio Lopez, Pcp Primary Care Provider Eliud Cochran MD Primary Care Provider Eliud Riojas MD Primary Care Provider Enedelia Ley MD Primary Care Provider + [facility], Pcp Primary Care Provider Wojciech Kaufman MD Primary Care Provider Juan C Field MD Unavailable [phone] Encounter Details Date Type Department Care Team Description 05/23/2018 [facility] Medical Records [address] [place] [address] Juan C Buckley MD [address] [place] [address] Social History Tobacco Use Types Packs/Day Years [...] on filedocumented in this encounter Care Teams Repair Welder Relationship Specialty Start Date End Date Wojciech Cortez MD PCP - General 02/20/1996 02/24/20 Nile Villalba MD PCP - General Internal Medicine 02/25/20 12/18/20 [facility], Pcp PCP - General Internal Medicine 12/19/20 12/21/20 Eliud Anaya MD PCP - General Internal Medicine 12/22/20 12/29/20 Eliud Anaya MD PCP - General Internal Medicine 12/30/20 03/07/22 Enedelia Montaño MD [address] [place] [address] PCP - General Internal Medicine 03/08/22 11/16/23 [facility], Pcp PCP - General Internal Medicine 11/17/23 01/23/24 Wojciech Valladares MD [address] [place] [address] PCP - General Family Practice 01/24/24 Juan C Buckley MD [address] [place] [address] Specialist Cardiology 03/02/24 documented as of this encounter
--- OUTSIDE RECORDS SUMMARY | 2024-12-17 09:00 | XMS_ITS | Encounter Summary ---
Author Organization [employer] [facility] Address [address] [place] [address] Care Team Providers Care Training Personnel Supervisor Name Role Phone Wojciech Cortez MD Primary Care Provider Unavail able Nile Villalba MD Primary Care Provider Atilio Lopez, Pcp Primary Care Provider Eliud Cochran MD Primary Care Provider Eliud Riojas MD Primary Care Provider Enedelia Ley MD Primary Care Provider + [facility], Pcp Primary Care Provider Wojciech Kaufman MD Primary Care Provider Juan C Field MD Unavailable [phone] Encounter Details Date Type Department Care Team Description 05/28/2019 Real Estate Leasing Manager Report Medical Records [address] [place] [address] Juan C Buckley MD [address] [place] [address] [phone] Social History Tobacco Use Types Packs/Day Years [...] on filedocumented in this encounter Care Teams Training Personnel Supervisor Relationship Specialty Start Date End Date Wojciech Cortez MD PCP - General 02/20/1996 02/24/20 Nile Villalba MD PCP - General Internal Medicine 02/25/20 12/18/20 [facility], Pcp PCP - General Internal Medicine 12/19/20 12/21/20 Eliud Anaya MD PCP - General Internal Medicine 12/22/20 12/29/20 Eliud Anaya MD PCP - General Internal Medicine 12/30/20 03/07/22 Enedelia Montaño MD [address] [place] [address] PCP - General Internal Medicine 03/08/22 11/16/23 [facility], Pcp PCP - General Internal Medicine 11/17/23 01/23/24 Wojciech Valladares MD [address] [place] [address] PCP - General Family Practice 01/24/24 Juan C Buckley MD [address] [place] [address] Specialist Cardiology 03/02/24 documented as of this encounter
--- OUTSIDE RECORDS SUMMARY | 2024-12-17 09:00 | XMS_ITS ---
Author Organization [facility] Address [address] [place] [address] Care Team Providers Care Psych Np Name Role Phone Blaine RUIZ, Wojciech Primary Care Provider Tanna Flannery Unavailable [phone] Encounters Encounter Location Date Provider Diagnosis [facility] [address] [place] [address] 05/31/2024 Tanna Mao Plan Of Treatment No Information Progress Notes * Lara RENNERDOB:1945 (79 yo F)Acc No.[id number]:05/31/2024 Patient:?Lara RENNER Provider:?Tanna Mao DPM :1945???Age:78 Y???Sex:Female D ate:05/31/2024 Address:[address] [place], [place] [address] Pcp:Wojciech Valladares MD Subjective: * Chief Complaints: [...] DPM Date:?2023 Generated for Laineyi esme/Kellen/eTransmitting on:?12/17/2024 09:00 AM EDT
--- OUTSIDE RECORDS SUMMARY | 2024-12-17 09:00 | XMS_ITS | Encounter Summary ---
Author Organization [facility] Address [address] [place] [address] Care Team Providers Care Restaurant Assistant Manager Name Role Phone Wojciech Cortez MD Primary Care Provider Unavail Nile Mata MD Primary Care Provider Atilio newby [facility], Pcp Primary Care Provider Eliud Cochran MD Primary Care Provider Eliud Riojas MD Primary Care Provider Enedelia Ley MD Primary Care Provider + [facility], Pcp Primary Care Provider Wojciech Kaufman MD Primary Care Provider Juan C Field MD Unavailable [phone] Reason for Visit * Reason Onset Date Comments REFERRAL 07/05/2011 Hematology/Oncol ogy Encounter Details Date Type Department Care Team Description 07/05/2011 Telephone Adult [address] [address] Wojciech Cortez MD REFERRAL (Hematology/Oncology ) Social [...] on filedocumented in this encounter Care Teams Restaurant Assistant Manager Relationship Specialty Start Date End Date Wojciech Cortez MD PCP - General 02/20/1996 02/24/20 Nile Villalba MD PCP - General Internal Medicine 02/25/20 12/18/20 [facility], Pcp PCP - General Internal Medicine 12/19/20 12/21/20 Eliud Anaya MD PCP - General Internal Medicine 12/22/20 12/29/20 Eliud Anaya MD PCP - General Internal Medicine 12/30/20 03/07/22 Enedelia Montaño MD [address] [place] [address] PCP - General Internal Medicine 03/08/22 11/16/23 [facility], Pcp PCP - General Internal Medicine 11/17/23 01/23/24 Wojciech Valladares MD [address] [place] [address] PCP - General Family Practice 01/24/24 Juan C Buckley MD [address] [place] [address] Specialist Cardiology 03/02/24 documented as of this encounter
--- OUTSIDE RECORDS SUMMARY | 2024-12-17 09:00 | XMS_ITS | Encounter Summary ---
Author Organization [facility] Address [address] [place] [address] Care Team Providers Care Rn Neonatal Name Role Phone Wojciech Cortez MD Primary Care Provider Unavail Nile Mata MD Primary Care Provider Atilio newby [facility], Pcp Primary Care Provider Eliud Cochran MD Primary Care Provider Eliud Riojas MD Primary Care Provider Enedelia Ley MD Primary Care Provider + [facility], Pcp Primary Care Provider Wojciech Kaufman MD Primary Care Provider Juan C Field MD Unavailable [phone] Reason for Visit * Reason Onset Date Comments Echocardiogram 04/17/2014 Encounter Details Date Type Department Care Team Description 04/17/2014 Telephone Cardiology - [address] [phone] Ángela Moore PA-C [address] [place] [address] [phone] Echocardiogram Social History Tobacco Use Types Packs/Day [...] on filedocumented in this encounter Care Teams Rn Neonatal Relationship Specialty Start Date End Date Wojciech Cortez MD PCP - General 02/20/1996 02/24/20 Nile Villalba MD PCP - General Internal Medicine 02/25/20 12/18/20 [facility], Pcp PCP - General Internal Medicine 12/19/20 12/21/20 Eliud Anaya MD PCP - General Internal Medicine 12/22/20 12/29/20 Eliud Anaya MD PCP - General Internal Medicine 12/30/20 03/07/22 Enedelia Montaño MD [address] [place] [address] PCP - General Internal Medicine 03/08/22 11/16/23 [facility], Pcp PCP - General Internal Medicine 11/17/23 01/23/24 Wojciech Valladares MD [address] [place] [address] PCP - General Family Practice 01/24/24 Juan C Buckley MD [address] [place] [address] Specialist Cardiology 03/02/24 documented as of this encounter
--- OUTSIDE RECORDS SUMMARY | 2024-12-17 09:00 | XMS_ITS | Encounter Summary ---
Author Organization [facility] Address [address] [place] [address] Care Team Providers Care Psychotherapist Name Role Phone Wojciech Cortez MD Primary Care Provider Unavail able Nile Villalba MD Primary Care Provider Atilio Lopez, Pcp Primary Care Provider Eliud Cochran MD Primary Care Provider Eliud Riojas MD Primary Care Provider Enedelia Ley MD Primary Care Provider + [facility], Pcp Primary Care Provider Wojciech Kaufman MD Primary Care Provider Juan C Field MD Unavailable [phone] Encounter Details Date Type Department Care Team Description 05/17/2016 [facility] Medical Records [address] [place] [address] Quentin Mayes MD Social History Tobacco Use [...] on filedocumented in this encounter Care Teams Psychotherapist Relationship Specialty Start Date End Date Wojciech Cortez MD PCP - General 02/20/1996 02/24/20 Nile Villalba MD PCP - General Internal Medicine 02/25/20 12/18/20 [facility], Pcp PCP - General Internal Medicine 12/19/20 12/21/20 Eliud Anaya MD PCP - General Internal Medicine 12/22/20 12/29/20 Eliud Anaya MD PCP - General Internal Medicine 12/30/20 03/07/22 Enedelia Montaño MD [address] [place] [address] PCP - General Internal Medicine 03/08/22 11/16/23 [facility], Pcp PCP - General Internal Medicine 11/17/23 01/23/24 Wojciech Valladares MD [address] [place] [address] PCP - General Family Practice 01/24/24 Juan C Buckley MD [address] [place] [address] Specialist Cardiology 03/02/24 documented as of this encounter
--- OUTSIDE RECORDS SUMMARY | 2024-12-17 09:00 | XMS_ITS | Encounter Summary ---
Author Organization [employer] [facility] Address [address] [place] [address] Care Team Providers Care Staff Training And Development Manager Name Role Phone Wojciech Cortez MD Primary Care Provider Unavail Nile Mata MD Primary Care Provider [facility], [facility]cp Primary Care Provider Eliud Cochran MD Primary Care Provider Eliud Riojas MD Primary Care Provider Enedelia Ley MD Primary Care Provider + [facility], [facility]cp Primary Care Provider Wojciech Kaufman MD Primary Care Provider Juan C Field MD Unavailable [phone] Reason for Visit * Reason Onset Date Comments Transitional Care Management (Tcm) 05/26/2018 TCM post d/c [facility] 05/25/18 Encounter Details Date Type Department Care Team Description 05/26/[address] [address] Wojciech Cortez MD Transitional Care Management (Tcm) [...] UTI's and aortic stenosis was admitted to [facility] on 05/23/18 for elective TAVR. Patient tolerated the procedure well and post op had c/o urinary retention requiring catheterizations. Urine positive for WBC's and nitrates. She was given Macrobid and will continue this at home. Patient discharged to home on 05/25/18 , No VNA services ordered. Quality Outreach: Hospital Discharge Admission Date: 05/23/18 Discharge Date: 05/25/18 Hospital: [facility] Problem or condition that sent patient [...] to follow- up appointment. [facility] Instructed to call office or return to ER if symptoms return or worsen. Plan for care management: No care management needed at this time. documented in this encounter Plan of Treatment Not on file documented as of this encounter Visit Diagnoses Not on filedocumented in this encounter Care Teams Staff Training And Development Manager Relationship Specialty Start Date End Date Wojciech Cortez MD PCP - General 02/20/1996 02/24/20 Nile Villalba MD PCP - General Internal Medicine 02/25/20 12/18/20 [facility]cp PCP - General Internal Medicine 12/19/20 12/21/20 Eliud Anaya MD PCP - General Internal Medicine 12/22/20 12/29/20 Eliud Anaya MD PCP - General Internal Medicine 12/30/20 03/07/22 Enedelia Montaño MD [address] [place] [address] [place] [address] PCP - General Internal Medicine 03/08/22 11/16/23 [facility], [facility]cp PCP - General Internal Medicine 11/17/23 01/23/24 Wojciech Valladares MD [address] [place] [address] PCP - General Family Practice 01/24/24 Juan C Buckley MD [address] [place] [address] Specialist Cardiology 03/02/24 documented as of this encounter
--- OUTSIDE RECORDS SUMMARY | 2024-12-17 09:00 | XMS_ITS | Encounter Summary ---
Author Organization [employer] [facility] Address [address] [place] [address] Care Team Providers Care Formula Checker Name Role Phone Wojciech Cortez MD Primary Care Provider Unavail able Nile Villalba MD Primary Care Provider Atilio Lopez, Pcp Primary Care Provider Eliud Cochran MD Primary Care Provider Eliud Riojas MD Primary Care Provider Enedelia Ley MD Primary Care Provider + [facility], Pcp Primary Care Provider Wojciech Kaufman MD Primary Care Provider Juan C Field MD Unavailable [phone] Encounter Details Date Type Department Care Team Description 06/08/2018 Brand Communications Manager Report Medical Records [address] [place] [address] Julius Cates NP [address] [place] [address] Social History Tobacco Use Types Packs/Day Years [...] on filedocumented in this encounter Care Teams Formula Checker Relationship Specialty Start Date End Date Wojciech Cortez MD PCP - General 02/20/1996 02/24/20 Nile Villalba MD PCP - General Internal Medicine 02/25/20 12/18/20 [facility], Pcp PCP - General Internal Medicine 12/19/20 12/21/20 Eliud Anaya MD PCP - General Internal Medicine 12/22/20 12/29/20 Eliud Anaya MD PCP - General Internal Medicine 12/30/20 03/07/22 Enedelia Montaño MD [address] [place] [address] PCP - General Internal Medicine 03/08/22 11/16/23 [facility], Pcp PCP - General Internal Medicine 11/17/23 01/23/24 Wojciech Valladares MD [address] [place] [address] PCP - General Family Practice 01/24/24 Juan C Buckley MD [address] [place] [address] Specialist Cardiology 03/02/24 documented as of this encounter
--- OUTSIDE RECORDS SUMMARY | 2024-12-17 09:00 | XMS_ITS | Encounter Summary ---
Author Organization [employer] [facility] Address [address] [place] [address] Care Team Providers Care Smash Piecer Name Role Phone Wojciech Cortez MD Primary Care Provider Unavail able Nile Villalba MD Primary Care Provider Atilio Lopez, Pcp Primary Care Provider Eliud Cochran MD Primary Care Provider Eliud Riojas MD Primary Care Provider Enedelia Ley MD Primary Care Provider + [facility], Pcp Primary Care Provider Wojciech Kaufman MD Primary Care Provider Juan C Field MD Unavailable Encounter Details Date Type Department Care Team Description 04/11/2000 Orders Only Oncology [address] [place] [address] Jerald Gomez MD Social History Tobacco Use Types Packs/Day Years Used Date Smoking Tobacco: Never Assessed Sex Assigned at Date Recorded Not on file documented as of this encounter Plan of Treatment Not on file documented as of this encounter Visit Diagnoses Not on filedocumented in this encounter Care Teams Smash Piecer Relationship Specialty Start Date End Date Wojciech Cortez MD PCP - General 02/20/1996 02/24/20 Nile Villalba MD PCP - General Internal Medicine 02/25/20 12/18/20 [facility], Pcp PCP - General Internal Medicine 12/19/20 12/21/20 Eliud Anaya MD PCP - General Internal Medicine 12/22/20 12/29/20 Eliud Anaya MD PCP - General Internal Medicine 12/30/20 03/07/22 Enedelia Montaño MD [address] [place] [address] PCP - General Internal Medicine 03/08/22 11/16/23 [facility], Pcp PCP - General Internal Medicine 11/17/23 01/23/24 Wojciech Valladares MD [address] [place] [address] PCP - General Family Practice 01/24/24 Juan C Buckley MD [address] [place] [address] Specialist Cardiology 03/02/24 documented as of this encounter
--- OUTSIDE RECORDS SUMMARY | 2024-12-17 09:00 | XMS_ITS | Encounter Summary ---
Author Organization [employer] [facility] Address [address] [place] [address] Care Team Providers Care Integrated Program Teacher Name Role Phone Wojciech Cortez MD Primary Care Provider Unavail able Nile Villalba MD Primary Care Provider Atilio Lopez, Pcp Primary Care Provider Eliud Cochran MD Primary Care Provider Eliud Riojas MD Primary Care Provider Enedelia Ley MD Primary Care Provider + [facility], Pcp Primary Care Provider Wojciech Kaufman MD Primary Care Provider Juan C Field MD Unavailable [phone] Encounter Details Date Type Department Care Team Description 02/13/2016 [facility] Medical Records [address] [place] [address] Abstract, Provider Social History Tobacco Use Types [...] on filedocumented in this encounter Care Teams Integrated Program Teacher Relationship Specialty Start Date End Date Wojciech Cortez MD PCP - General 02/20/1996 02/24/20 Nile Villalba MD PCP - General Internal Medicine 02/25/20 12/18/20 [facility], Pcp PCP - General Internal Medicine 12/19/20 12/21/20 Eliud Anaya MD PCP - General Internal Medicine 12/22/20 12/29/20 Eliud Anaya MD PCP - General Internal Medicine 12/30/20 03/07/22 Enedelia Montaño MD [address] [place] [address] PCP - General Internal Medicine 03/08/22 11/16/23 [facility], Pcp PCP - General Internal Medicine 11/17/23 01/23/24 Wojciech Valladares MD [address] [place] [address] PCP - General Family Practice 01/24/24 Juan C Buckley MD [address] [place] [address] Specialist Cardiology 03/02/24 documented as of this encounter
--- OUTSIDE RECORDS SUMMARY | 2024-12-17 09:00 | XMS_ITS | Encounter Summary ---
Author Organization [employer] [facility] Address [address] [place] [address] Care Team Providers Care Skate Maker Name Role Phone Wojciech Cortez MD Primary Care Provider Unavail Nile Mata MD Primary Care Provider Atilio newby [facility], Pcp Primary Care Provider Eliud Cochran MD Primary Care Provider Eliud Riojas MD Primary Care Provider Enedelia Ley MD Primary Care Provider + [facility] [facility], Pcp Primary Care Provider Wojciech Kaufman MD Primary Care Provider Juan C Field MD Unavailable [phone] Reason for Visit * Reason Onset Date Comments TEST RESULTS 04/16/2019 Encounter Details Date Type Department Care Team Description 04/16/2019 Telephone Adult [address] [id number] Wojciech Cortez MD TEST RESULTS Social History [...] back to the caller? Mailed to - [facility] [id number] documented in this encounter Plan of Treatment Not on file documented as of this encounter Visit Diagnoses Not on filedocumented in this encounter Care Teams Skate Maker Relationship Specialty Start Date End Date Wojciech Cortez MD PCP - General 02/20/1996 02/24/20 Nile Villalba MD PCP - General Internal Medicine 02/25/20 12/18/20 [facility], Pcp PCP - General Internal Medicine 12/19/20 12/21/20 Eliud Anaya MD PCP - General Internal Medicine 12/22/20 12/29/20 Eliud Anaya MD PCP - General Internal Medicine 12/30/20 03/07/22 Enedelia Montaño MD [address] [place] [address] PCP - General Internal Medicine 03/08/22 11/16/23 [facility], Pcp PCP - General Internal Medicine 11/17/23 01/23/24 Wojciech Valladares MD [address] [place], [place] [id number] PCP - General Family Practice 01/24/24 Juan C Buckley MD [address] [place] [address] Specialist Cardiology 03/02/24 documented as of this encounter
--- OUTSIDE RECORDS SUMMARY | 2024-12-17 09:01 | XMS_ITS | Encounter Summary ---
Author Organization [employer] [facility] Address [address] [place] [address] Care Team Providers Care Manager Of Tax Name Role Phone Wojciech Valladares MD Primary Care Provider Juan C Field MD Unavailable [phone] Encounter Details Date Type Department Care Team Description 08/07/2024 [facility] Medical Records [address] [place] [id number] [place] [address] Social History Tobacco Use Types Packs/Day Years [...] filedocumented in this encounter Care Teams Manager Of Tax Relationship Specialty Start Date End Date Wojciech Valladares MD PCP - General Family Practice 01/24/24 Juan C Buckley MD Specialist Cardiology 03/02/24 documented as of this encounter
[2024-12-17 11:08] LABS: MANUAL DIFF FLAG NO
[2024-12-17 11:37] LABS: Alanine Aminotransferase 13 U/L (0-31); Albumin Level 3.7 g/dL (3.5-5.0); Alkaline Phosphatase 77 U/L (39-117); Anion Gap 10 (12-20); Aspartate Amino Transferase 26 U/L (5-31); Bilirubin Total 0.5 mg/dL (0.0-1.0); Blood Urea Nitrogen 12 mg/dL (9-16); Calcium 8.8 mg/dL (8.4-10.2); Carbon Dioxide 31 mmol/L (22-29); Chloride 105 mmol/L (96-108); Estimated Glomerular Filt Rate > 60; Glucose Random 81 mg/dL (60-115); Iron 50 mcg/dL (30-160); Percent Iron Saturation 18 % (15-50); Potassium 3.7 mmol/L (3.3-5.1); Sodium 142 mmol/L (135-145); Total Iron Binding Capacity 276 mcg/dL (228-428); Total Protein 6.2 g/dL (6.5-8.0); Unsaturated Iron Binding 226 ug/dL
[2024-12-17 11:54] LABS: Ferritin 70 ng/mL (10-250)
[2024-12-17 13:38] LABS: Basophils Absolute Auto 0.1 X10*3/uL (0.0-0.2); Eosinophils Absolute Auto 0.8 X10*3/uL (0.0-0.4); Eosinophils Percent Auto 10.3 % (0-4); Hematocrit 43.4 % (37.0-47.0); Hemoglobin 12.7 g/dl (12.0-16.0); Imm Gran Abs Auto 0.03 X10*3/uL (0.00-0.03); Imm Gran Pct Auto 0.4 % (0.0-0.4); Immature Retic Fraction 8.1 % (3.0-15.9); Lymphocytes Absolute Auto 1.7 X10*3/uL (1.2-4.9); Lymphocytes Percent Auto 20.3 % (20-40); Mean Corpuscular HGB Conc 29.3 g/dl (31.0-35.0); Mean Corpuscular Hemoglobin 22.2 pg (27.0-33.0); Mean Corpuscular Volume 75.9 fL (80.0-98.0); Monocytes Absolute Auto 0.9 X10*3/uL (0.1-1.2); Monocytes Percent Auto 10.9 % (2-11); Neutrophils Absolute Auto 4.7 x10*3/uL (2.0-8.3); Neutrophils Percent Auto 57.1 % (45-73); Platelet Count 218 X10*3/uL (160-400); Red Blood Count 5.72 X10*6/uL (4.20-5.50); Retic HGB Equivalent 30.5 pg (30.0-35.0); Reticulocyte Percent 1.6 % (0.5-1.8); White Blood Count 8.2 X10*3/uL (4.8-10.8)
== END 2024-12-17 08:33 | disposition home or self-care (01) ==
LOC: HO.WFDLDS 08:32
PROVIDERS: Visit Provider Family Medicine
DX: Z00.00 Encounter for general adult medical examination without abnormal findings (principal); D64.9 Anemia, unspecified
CPT/HCPCS: 36415; 80053; 82728; 83540; 85025; 85045

== ENCOUNTER 2024-12-20 09:37 | Outpatient (AMB) | payer MEDICARE, SELFPAY ==
--- NOTE | 2024-12-20 09:42 | MHC.PC.OV ---
Vital Signs 12/20/24 09:50 Height 5 ft 6 in Weight 155 lb BMI 25.0 BP 130/70 Blood Pressure Location Lt brachial Position Sitting Respiration 14 Pulse 75 Pulse Source Pulse Oximeter Temp 97.6 F Temp Source Oral Pulse Oximetry (%) 97 Oxygen Delivery Method Room Air Intake Visit Reasons: f/u anemia, labs Intake Note: patient is scheduled for anemia lab review and she need a refill of basaglar Allergies penicillin V Allergy (Mild, Verified 12/20/24 09:45) phlebitis scallops Allergy (Mild, Verified 12/20/24 09:45) sick cramps Tobacco use date assessed: 06/29/24 Dental Screening Dental Screen Date: 06/29/24 HPI f/u anemia, labs HPI Details 79 y/o female presents to f/u anemia with mild shortness of breath. Labs drawn 12/17/24. Reviewed labs with pt. Anemia improving - Hgb 12.7 g/dl, Hct 43.4%. Iron levels are fine. Pt noes she has not been sleeping well. Has trouble falling asleep. Has been ongoing x1 month. Blood pressure today 130/70, 75p. [facility] Medical History Cataracts, bilateral Tonsillitis Diabetes 1.5, managed as type 2 Surgical History H/O eye surgery H/O vein stripping History of hip surgery Stented coronary artery S/P TAVR (transcatheter aortic valve replacement) Family History (Updated 01/18/24 @ 16:41 by Lorraine Gama CMA) Mother Cerebral hemorrhage Social History Household Members: None Housing: Other Housing Other:: trailer Are you a primary critical care transport nurse to a significant other at home: No Do you presently have visiting nurse or other home services: No 75 years or older and lives alone: Yes Alcohol intake: never Patient Tobacco Use Status: Former Tobacco user e-Cigarette/Vaping Use: Never Used Special justino needs: No service: No Current occupational status: retired Cognitive needs: No Hearing needs: No Vision needs: No Questionnaire PHQ-9 Over the last 2 weeks, how often have you been bothered by any of the following problems? 1. Little interest or pleasure in doing things: not at all 2. Feeling down, depressed, or hopeless: not at all 3. Trouble falling or staying asleep, or sleeping too much: not at all 4. Feeling tired or having little energy: not at all 5. Poor appetite or overeating: not at all 6. Feeling bad about yourself - or that you are a failure or have let yourself or your family down: not at all 7. Trouble concentrating on things, such as reading the newspaper or watching television: not at all 8. Moving or speaking so slowly that other people could have noticed. Or the opposite - being so fidgety or restless that you have been moving around a lot more than usual: not at all 9. Thoughts that you would be better off or of hurting yourself in some way: not at all Total score: 0 Depression Screening Interpretation: Negative Depression Screening Done: Yes 75271 - PHQ-9 Billing: Yes Source: Developed by Drs. Simone Lombardi, Sydnee Sarkar, Garret Whyte and colleagues, with an educational jacey from [employer]. Thrive Questionnaire Date Thrive assessed: 12/20/24 I am a: Patient What is your living situation today?: I have a steady place to live Within the past 12 months, did the food you bought not last and you didn't have the money to get more?: Never true Within the past 12 months, did you worry whether your food would run out before you got money to buy more?: Never true Do you have trouble paying for medicines?: No Do you have trouble getting transportation to medical appointments?: No Do you have trouble paying your heating and electricity bill?: No Do you have trouble taking care of your child, family member or friend?: No Do you have trouble with day-to-day activities such as bathing, preparing meals, shopping, managing finances, etc.?: No Are you currently unemployed and looking for a job?: No Are you interested in more education?: No Please select the resources that you would like help with: None Currently or been in a relationship where the following occur: No concerns reported THRIVE Score: 0 AUDIT C Alcohol Use Questionnaire (AUDIT-C) 1. How often do you have a drink containing alcohol?: Never 3. How often do you have six or more drinks on one occasion?: Never Total Score: 0 CHIQUITA-7 AMB Questionnaire CHIQUITA-7 Date CHIQUITA - 7 assessed: 12/20/24 Feeling nervous, anxious, or on edge: 0 = Not at all Not being able to stop or control worryin = Not at all Worrying too much about different things: 0 = Not at all Trouble relaxin = Not at all Being so restless that it is hard to sit still: 0 = Not at all Becoming easily annoyed or irritable: 0 = Not at all Feeling afraid as if something awful might happen: 0 = Not at all Total CHIQUITA-7 score (0-4 normal; 5-9 mild; 10-14 moderate; 15-21 severe): 0 Source: Developed by Drs. Simone Lombardi, Sydnee Sarkar, Garret Whyte and colleagues, with an educational jacey from [employer]. CHIQUITA-7 Assessment Billing CHIQUITA-7 Assessment Tool: CHIQUITA-7 Assessment 71457 Review of Systems Const Denies chills, Denies fatigue, Denies fever(s), Denies headache(s) and Denies weakness ENT Denies dizziness and Denies headache(s) Card Denies dyspnea Resp Denies cough, Denies dyspnea, Denies wheezing and Denies other (shortness of breath) Musc Denies numbness and Denies tingling Neuro Denies dizziness, Denies headache(s), Denies numbness, Denies tingling and Denies weakness Psych Denies anxiety and Denies depression Endo Denies fatigue Aller/Immun Denies wheezing Physical exam (Primary Care) Vital Signs: Last Vital Signs Temp 97.6 F 12/20/24 09:50 Pulse 75 12/20/24 09:50 Resp 14 12/20/24 09:50 BP 130/70 12/20/24 09:50 Pulse Ox 97 12/20/24 09:50 Oxygen Delivery Method Room Air 12/20/24 09:50 BMI result Body Mass Index 25.0 Tobacco/Smoking Status: Tobacco use Status Tobacco use date assessed 06/29/24 12/20/24 09:45 Patient Tobacco Use Status Former Tobacco user 12/20/24 09:45 e-Cigarette/Vaping Use Never Used 12/20/24 09:45 PHQ-9: PHQ-9 Score PHQ-9: Total score 0 12/20/24 10:28 Depression Screening Interpretation: Negative Thrive Assessment: Date of Thrive Assessment Date Thrive assessed 12/20/24 12/20/24 09:45 Currently or been in a relationship where the following occur: No concerns reported Const General: well developed; No acute distress Nutritional Appearance: well nourished Orientation/consciousness: patient oriented x3 HENMT Head: Yes normocephalic and Yes atraumatic Eyes General: appearance normal, both eyes and all related structures Pupils: Equal, round and reactive pupils present EOM: EOMs intact bilaterally Resp Effort & Inspection: normal respiratory effort Neuro General: patient oriented x3 and gait normal Cranial nerves: Yes Equal, round and reactive pupils present Psych Affect: normal affect Coding Level of Care Code Est Pt Level 4 (80124) Diagnoses Anemia D64.9 Difficulty sleeping G47.9 Hypertension I10 Coronary artery disease I25.10 Additional Codes CHIQUITA-7 Assessment Billing - CHIQUITA-7 Assessment Tool: CHIQUITA-7 Assessment 93442 ([id number]) PHQ-9 - 43680 - PHQ-9 Billing: Yes ([id number]) Assessment & Plan Assessment & Plan (1) Anemia: Code(s): D64.9 - Anemia, unspecified Category: Medical Plan: Had?started?patient?on?iron?at?last?visit. Anemia?has?resolved?and?microcytosis?is?resolving?and?nearly?resolved. She?will?continue?iron?5?days?per?week?and?she?does?note?some bloating. Will?continue?monitoring (2) Difficulty sleeping: Code(s): G47.9 - Sleep disorder, unspecified Category: Medical Plan: Significant?difficulty?falling?asleep Try?hydroxyzine?which?she?has?used?before Also?encouraged?exercise?earlier?in?day (3) Hypertension: Code(s): I10 - Essential (primary) hypertension Category: Medical Plan: Blood?pressure?is?controlled.??Goal?is?less?than?130/80 Continue?medication?regimen (4) Coronary artery disease: Code(s): I25.10 - Atherosclerotic heart disease of [place] coronary artery without angina pectoris Category: Medical Plan: Stable Orders: Orders Basic Metabolic Panel Today D64.9 - Anemia, unspecified, Z00.00 - Encounter for general adult medical examination without abnormal findings Complete Blood Count Auto Diff Today D64.9 - Anemia, unspecified, Z00.00 - Encounter for general adult medical examination without abnormal findings IRON PROFILE Today D64.9 - Anemia, unspecified Medications: New insulin glargine (Basaglar KwikPen U-100 Insulin) 12 units (0.12 mL) subcut QPM 90 days 15 mL 3RF Changed From hydroxyzine HCl 10 mg PO BEDTIME To hydroxyzine HCl 10 mg PO BEDTIME 30 days PRN 20 tabs 3RF insomnia/Anxiety
[2024-12-20 09:50] VITALS: BP 130/70; PULSE 75; RESP 14; TEMP 36.4; O2SAT 97; BMI 25.0
--- OUTSIDE RECORDS SUMMARY | 2024-12-20 10:36 | XMS_ITS | Encounter Summary ---
Author Organization [employer] [facility] Address [address] [place] [address] Care Team Providers Care Java Developer Name Role Phone Wojciech Cortez MD Primary Care Provider Unavail able Nile Villalba MD Primary Care Provider Atilio Lopez, Pcp Primary Care Provider Eliud Cochran MD Primary Care Provider Eliud Riojas MD Primary Care Provider Enedelia Ley MD Primary Care Provider + [facility], Pcp Primary Care Provider Wojciech Kaufman MD Primary Care Provider Juan C Field MD Unavailable [phone] Encounter Details Date Type Department Care Team Description 02/01/2018 Wall Covering Installer Report Medical Records [address] [place] [address] Brandt Leonardo MD Social History Tobacco Use [...] on filedocumented in this encounter Care Teams Java Developer Relationship Specialty Start Date End Date Wojciech Cortez MD PCP - General 02/20/1996 02/24/20 Nile Villalba MD PCP - General Internal Medicine 02/25/20 12/18/20 [facility], Pcp PCP - General Internal Medicine 12/19/20 12/21/20 Eliud Anaya MD PCP - General Internal Medicine 12/22/20 12/29/20 Eliud Anaya MD PCP - General Internal Medicine 12/30/20 03/07/22 Enedelia Montaño MD [address] [place] [address] PCP - General Internal Medicine 03/08/22 11/16/23 [facility], Pcp PCP - General Internal Medicine 11/17/23 01/23/24 Wojciech Valladares MD [address] [place] [address] PCP - General Family Practice 01/24/24 Juan C Buckley MD [address] [place] [address] Specialist Cardiology 03/02/24 documented as of this encounter
--- OUTSIDE RECORDS SUMMARY | 2024-12-20 10:36 | XMS_ITS | Encounter Summary ---
Author Organization [facility] Address [address] [place] [address] Care Team Providers Care Right Of Way Clearer Name Role Phone Enedelia Montaño MD Primary Care Provider + [facility], Pcp Primary Care Provider Wojciech Kaufman MD Primary Care Provider Juan C Field MD Unavailable [phone] Encounter Details Date Type Department Care Team Description 06/02/2023 [facility] Medical Records [address] [place] [id number] Abstract, Provider Social History Tobacco Use Types [...] on filedocumented in this encounter Care Teams Right Of Way Clearer Relationship Specialty Start Date End Date Enedelia Montaño MD [address] [place] [address] PCP - General Internal Medicine 03/08/22 11/16/23 [facility], Pcp [address] [place] [address] PCP - General Internal Medicine 11/17/23 01/23/24 Wojciech Valladares MD [address] [place] [address] PCP - General Family Practice 01/24/24 Juan C Buckley MD [address] [place] [address] Specialist Cardiology 03/02/24 documented as of this encounter
--- OUTSIDE RECORDS SUMMARY | 2024-12-20 10:36 | XMS_ITS | Encounter Summary ---
Author Organization [facility] Address [address] [place] [address] Care Team Providers Care Hospital Cleaning Specialist Name Role Phone Community, Pcp Primary Care Provider Wojciech Kaufman MD Primary Care Provider Juan C Field MD Unavailable [phone] Encounter Details Date Type Department Care Team Description 01/18/2024 Vehicle Refinisher Report Medical Records [address] [place] [address] Wojciech Valladares MD Social History Tobacco Use [...] on filedocumented in this encounter Care Teams Hospital Cleaning Specialist Relationship Specialty Start Date End Date [facility], Pcp PCP - General Internal Medicine 11/17/23 01/23/24 Wojciech Valladares MD PCP - General Family Practice 01/24/24 Juan C Buckley MD Specialist Cardiology 03/02/24 documented as of this encounter
--- OUTSIDE RECORDS SUMMARY | 2024-12-20 10:36 | XMS_ITS ---
Author Organization [facility] Address [address] [place] [address] Care Team Providers Care Headend Technician Name Role Phone Blaine RUIZ, Wojciech Primary Care Provider Tanna Flannery Unavailable [phone] Encounters Encounter Location Date Provider Diagnosis [facility] [address] [place] [address] 06/07/2024 Tanna Mao Plan Of Treatment No Information Progress Notes * Lara RENNERDOB:1945 (79 yo F)Acc No.[id number]:06/07/2024 Patient:?RENNERLara Provider:?Tanna Mao DPM :1945???Age:78 Y???Sex:Female D ate:06/07/2024 Address:[address] [place], [place] [address] Pcp:Wojciech Valladares MD Subjective: * Chief Complaints: [...] Mao DPM Date:?2023 Generated for Laineyi esme/Kellen/eTransmitting on:?12/20/2024 10:36 AM EDT
--- OUTSIDE RECORDS SUMMARY | 2024-12-20 10:36 | XMS_ITS | Clinical Summary ---
Author Organization [facility] Address [address] [place] [address] Care Team Providers Care Gyro Compass Tester Name Role Phone Wojciech Valladares MD Primary Care Provider Juan C Field MD Unavailable [phone] Allergies Active Allergy Reactions Severity Noted [...] neuropathy, with long-term current use of insulin ([facility]) 1 Device by Does not apply [...] neuropathy, with long-term current use of insulin ([facility]) Take 1 Capsule by mouth at bedtime. 90 Capsule 1 12/08/2022 Active Insulin Detemir (Levemir FlexTouch) 100 UNIT/ML Solution Pen-injectorIndicati ons:Type 2 diabetes mellitus with diabetic neuropathy, with long-term current use of insulin ([facility]) Inject 12 Units into the skin daily. 10 mL 5 01/04/2023 Active ALBUTEROL SULFATE 108 (90 Base) MCG/ACT Aero SolnIndications:Othe r emphysema ([facility]) INHALE 2 PUFFS INTO THE LUNGS FOUR TIMES DAILY NEEDED FOR COUGH OR WHEEZING 18 g 1 01/06/2023 Active metformin (GLUCOPHAGE) 500 MG tabletIndications:Ty pe 2 diabetes mellitus with diabetic neuropathy, with long-term current use of insulin ([facility]) TAKE 1 TABLET BY MOUTH DAILY [...] just unsure what to do Educational Resources [employer] (www.diabetes.org) Centers for Disease Control [...] or Tdap) 01/05/2029 01/05/2019, 06/28/2007 Care Teams Gyro Compass Tester Relationship Specialty Start Date End Date Wojciech Valladares MD PCP - General Family Practice 01/24/24 Juan C Buckley MD Specialist Cardiology 03/02/24
--- OUTSIDE RECORDS SUMMARY | 2024-12-20 10:36 | XMS_ITS | Encounter Summary ---
Author Organization [employer] [facility] Address [address] [place] [address] Care Team Providers Care Lead Printer Name Role Phone Wojciech Cortez MD Primary Care Provider Unavail able Nile Villalba MD Primary Care Provider Atilio Lopez, Pcp Primary Care Provider Eliud Cochran MD Primary Care Provider Eliud Riojas MD Primary Care Provider Enedelia Ley MD Primary Care Provider + [facility], Pcp Primary Care Provider Wojciech Kaufman MD Primary Care Provider Juan C Field MD Unavailable Encounter Details Date Type Department Care Team Description 03/06/2013 Satellite Tv Technician Report Medical Records [address] [place] [address] Monet Garcia Anne [address] [place] [address] Social History Tobacco Use Types Packs/Day Years [...] on filedocumented in this encounter Care Teams Lead Printer Relationship Specialty Start Date End Date Wojciech Cortez MD PCP - General 02/20/1996 02/24/20 Nile Villalba MD PCP - General Internal Medicine 02/25/20 12/18/20 [facility], Pcp PCP - General Internal Medicine 12/19/20 12/21/20 Eliud Anaya MD PCP - General Internal Medicine 12/22/20 12/29/20 Eliud Anaya MD PCP - General Internal Medicine 12/30/20 03/07/22 Enedelia Montaño MD [address] [place] [address] PCP - General Internal Medicine 03/08/22 11/16/23 [facility], Pcp PCP - General Internal Medicine 11/17/23 01/23/24 Wojciech Valladares MD [address] [place] [address] PCP - General Family Practice 01/24/24 Juan C Buckley MD [address] [place] [address] Specialist Cardiology 03/02/24 documented as of this encounter
--- OUTSIDE RECORDS SUMMARY | 2024-12-20 10:36 | XMS_ITS | Encounter Summary ---
Author Organization [facility] Address [address] [place] [address] Care Team Providers Care Res Habilitation Assistant Name Role Phone Wojciech Cortez MD Primary Care Provider Unavail able Nile Villalba MD Primary Care Provider Atilio Lopez, Pcp Primary Care Provider Eliud Cochran MD Primary Care Provider Eliud Riojas MD Primary Care Provider Enedelia Ley MD Primary Care Provider + [facility], Pcp Primary Care Provider Wojciech Kaufman MD Primary Care Provider Juan C Field MD Unavailable [phone] Encounter Details Date Type Department Care Team Description 02/01/2013 Senior Java Developer Report Medical Records [address] [place] [address] Ilene Abraham [address] [place] [address] Social History Tobacco Use Types Packs/Day Years [...] on filedocumented in this encounter Care Teams Res Habilitation Assistant Relationship Specialty Start Date End Date Wojciech Cortez MD PCP - General 02/20/1996 02/24/20 Nile Villalba MD PCP - General Internal Medicine 02/25/20 12/18/20 [facility], Pcp PCP - General Internal Medicine 12/19/20 12/21/20 Eliud Anaya MD PCP - General Internal Medicine 12/22/20 12/29/20 Eliud Anaya MD PCP - General Internal Medicine 12/30/20 03/07/22 Enedelia Montaño MD [address] [place] [address] PCP - General Internal Medicine 03/08/22 11/16/23 [facility], Pcp PCP - General Internal Medicine 11/17/23 01/23/24 Wojciech Valladares MD [address] [place] [address] PCP - General Family Practice 01/24/24 Juan C Buckley MD [address] [place] [address] Specialist Cardiology 03/02/24 documented as of this encounter
--- OUTSIDE RECORDS SUMMARY | 2024-12-20 10:36 | XMS_ITS | Encounter Summary ---
Author Organization [facility] Address [address] [place] [address] Care Team Providers Care Quarter Section Ironer Name Role Phone Wojciech Cortez MD Primary Care Provider Unavail able Nile Villalba MD Primary Care Provider Atilio Lopez, Pcp Primary Care Provider Eliud Cochran MD Primary Care Provider Eliud Riojas MD Primary Care Provider Enedelia Ley MD Primary Care Provider + [facility], Pcp Primary Care Provider Wojciech Kaufman MD Primary Care Provider Juan C Field MD Unavailable [phone] Encounter Details Date Type Department Care Team Description 12/30/2017 [facility] Medical Records [address] [place] [address] Cristian Obrien Social History Tobacco Use Types Packs/Day Years [...] on filedocumented in this encounter Care Teams Quarter Section Ironer Relationship Specialty Start Date End Date Wojciech Cortez MD PCP - General 02/20/1996 02/24/20 Nile Villalba MD PCP - General Internal Medicine 02/25/20 12/18/20 [facility], Pcp PCP - General Internal Medicine 12/19/20 12/21/20 Eliud Anaya MD PCP - General Internal Medicine 12/22/20 12/29/20 Eliud Anaya MD PCP - General Internal Medicine 12/30/20 03/07/22 Enedelia Montaño MD [address] [place] [address] PCP - General Internal Medicine 03/08/22 11/16/23 [facility], Pcp PCP - General Internal Medicine 11/17/23 01/23/24 Wojciech Valladares MD [address] [place] [address] PCP - General Family Practice 01/24/24 Juan C Buckley MD [address] [place] [address] Specialist Cardiology 03/02/24 documented as of this encounter
--- OUTSIDE RECORDS SUMMARY | 2024-12-20 10:36 | XMS_ITS | Encounter Summary ---
Author Organization [employer] [facility] Address [address] [place] [address] Care Team Providers Care Medical Scientific Officer Name Role Phone Wojciech Cortez MD Primary Care Provider Unavail able Nile Villalba MD Primary Care Provider Atilio Lopez, Pcp Primary Care Provider Eliud Cochran MD Primary Care Provider Eliud Riojas MD Primary Care Provider Enedelia Ley MD Primary Care Provider + [facility], Pcp Primary Care Provider Wojciech Kaufman MD Primary Care Provider Juan C Field MD Unavailable [phone] Encounter Details Date Type Department Care Team Description 01/18/2018 Transfer Records Medical Records [address] [place] [address] Abstract, Provider Social History Tobacco Use Types [...] on filedocumented in this encounter Care Teams Medical Scientific Officer Relationship Specialty Start Date End Date Wojciech Cortez MD PCP - General 02/20/1996 02/24/20 Nile Villalba MD PCP - General Internal Medicine 02/25/20 12/18/20 [facility], Pcp PCP - General Internal Medicine 12/19/20 12/21/20 Eliud Anaya MD PCP - General Internal Medicine 12/22/20 12/29/20 Eliud Anaya MD PCP - General Internal Medicine 12/30/20 03/07/22 Enedelia Montaño MD [address] [place] [address] PCP - General Internal Medicine 03/08/22 11/16/23 [facility], Pcp PCP - General Internal Medicine 11/17/23 01/23/24 Wojciech Valladares MD [address] [place] [address] PCP - General Family Practice 01/24/24 Juan C Buckley MD [address] [place] [address] Specialist Cardiology 03/02/24 documented as of this encounter
--- OUTSIDE RECORDS SUMMARY | 2024-12-20 10:36 | XMS_ITS | Encounter Summary ---
Author Organization [employer] [facility] [facility] Address [address] [place] [address] Care Team Providers Care Computator Name Role Phone Wojciech Cortez MD Primary Care Provider Unavail able Nile Villalba MD Primary Care Provider Atilio Lopez, Pcp Primary Care Provider Eliud Cochran MD Primary Care Provider Eliud Riojas MD Primary Care Provider Enedelia Ley MD Primary Care Provider + [facility], Pcp Primary Care Provider Wojciech Kaufman MD Primary Care Provider Juan C Field MD Unavailable [phone] Encounter Details Date Type Department Care Team Description 02/24/2018 Transfer Records Medical Records [address] [place] [address] Abstract, Provider Social History Tobacco Use Types [...] on filedocumented in this encounter Care Teams Computator Relationship Specialty Start Date End Date Wojciech Cortez MD PCP - General 02/20/1996 02/24/20 Nile Villalba MD PCP - General Internal Medicine 02/25/20 12/18/20 [facility], Pcp PCP - General Internal Medicine 12/19/20 12/21/20 Eliud Anaya MD PCP - General Internal Medicine 12/22/20 12/29/20 Eliud Anaya MD PCP - General Internal Medicine 12/30/20 03/07/22 Enedelia Montaño MD [address] [place] [address] PCP - General Internal Medicine 03/08/22 11/16/23 [facility], Pcp PCP - General Internal Medicine 11/17/23 01/23/24 Wojciech Valladares MD [address] [place] [address] PCP - General Family Practice 01/24/24 Juan C Buckley MD [address] [address] Specialist Cardiology 03/02/24 documented as of this encounter
--- OUTSIDE RECORDS SUMMARY | 2024-12-20 10:36 | XMS_ITS | Encounter Summary ---
Author Organization [facility] Address [address] [place] [address] Care Team Providers Care Oil Field Technician Name Role Phone Wojciech Cortez MD Primary Care Provider Unavail Nile Mata MD Primary Care Provider Atilio newby [facility], Pcp Primary Care Provider Eliud Cochran MD Primary Care Provider Eliud Riojas MD Primary Care Provider Enedelia Ley MD Primary Care Provider + [facility], Pcp Primary Care Provider Wojciech Kaufman MD Primary Care Provider Juan C Field MD Unavailable [phone] Encounter Details Date Type Department Care Team Description 01/03/2018 Telephone Adult Medicine [address] [address] Wojciech Cortez MD Social History Tobacco Use [...] yesterday to the Hospital folder in the [facility] Pod. Thank you, Shelly Sewell C.M.A. Business Analysis Analyst * Telephone Encounter - Wojciech Cortez MD - 01/03/2018 6:30 AM EDT Please see if stress echo report can be obtained. documented in this encounter Plan of Treatment Not on file documented as of this encounter Visit Diagnoses Not on filedocumented in this encounter Care Teams Oil Field Technician Relationship Specialty Start Date End Date Wojciech Cortez MD PCP - General 02/20/1996 02/24/20 Nile Villalba MD PCP - General Internal Medicine 02/25/20 12/18/20 [facility], Pcp PCP - General Internal Medicine 12/19/20 12/21/20 Eliud Anaya MD PCP - General Internal Medicine 12/22/20 12/29/20 Eliud Anaya MD PCP - General Internal Medicine 12/30/20 03/07/22 Enedelia Montaño MD [address] [place] [address] PCP - General Internal Medicine 03/08/22 11/16/23 [facility], Pcp PCP - General Internal Medicine 11/17/23 01/23/24 Wojciech Valladares MD [address] [place] [address] PCP - General Family Practice 01/24/24 Juan C Buckley MD [address] [place] [address] Specialist Cardiology 03/02/24 documented as of this encounter
--- OUTSIDE RECORDS SUMMARY | 2024-12-20 10:36 | XMS_ITS | Encounter Summary ---
Author Organization [employer] [facility] Address [address] [place] [address] Care Team Providers Care Typing Section Chief Name Role Phone Wojciech Cortez MD Primary Care Provider Unavail able Nile Villalba MD Primary Care Provider Atilio Lopez, Pcp Primary Care Provider Eliud Cochran MD Primary Care Provider Eliud Riojas MD Primary Care Provider Enedelia Ley MD Primary Care Provider + [facility], Pcp Primary Care Provider Wojciech Kaufman MD Primary Care Provider Juan C Field MD Unavailable [phone] Encounter Details Date Type Department Care Team Description 01/27/2018 [place] Wind Instrument Repairer Report Medical Records [address] [place] [address] Juan C Buckley MD [address] [place] [address] [id number] Social History Tobacco Use Types Packs/Day Years [...] on filedocumented in this encounter Care Teams Typing Section Chief Relationship Specialty Start Date End Date Wojciech Cortez MD PCP - General 02/20/1996 02/24/20 Nile Villalba MD PCP - General Internal Medicine 02/25/20 12/18/20 [facility], Pcp PCP - General Internal Medicine 12/19/20 12/21/20 Eliud Anaya MD PCP - General Internal Medicine 12/22/20 12/29/20 Eliud Anaya MD PCP - General Internal Medicine 12/30/20 03/07/22 Enedelia Montaño MD [address] [place] [address] PCP - General Internal Medicine 03/08/22 11/16/23 [facility], Pcp PCP - General Internal Medicine 11/17/23 01/23/24 Wojciech Valladares MD [address] [place] [address] PCP - General Family Practice 01/24/24 Juan C Buckley MD [address] [place] [address] Specialist Cardiology 03/02/24 documented as of this encounter
--- OUTSIDE RECORDS SUMMARY | 2024-12-20 10:37 | XMS_ITS | Encounter Summary ---
Author Organization [facility] Address [address] [place] [address] Care Team Providers Care Basketball Coach Name Role Phone Wojciech Cortez MD Primary Care Provider Unavail able Nile Villalba MD Primary Care Provider Atilio Lopez, Pcp Primary Care Provider Eliud Cochran MD Primary Care Provider Eliud Riojas MD Primary Care Provider Enedelia Ley MD Primary Care Provider + [facility], Pcp Primary Care Provider Wojciech Kaufman MD Primary Care Provider Juan C Field MD Unavailable [phone] Encounter Details Date Type Department Care Team Description 04/12/2017 Business Doc Medical Records [address] [place] [address] Abstract, Provider Social History Tobacco Use Types [...] on filedocumented in this encounter Care Teams Basketball Coach Relationship Specialty Start Date End Date Wojciech Cortez MD PCP - General 02/20/1996 02/24/20 Nile Villalba MD PCP - General Internal Medicine 02/25/20 12/18/20 [facility], Pcp PCP - General Internal Medicine 12/19/20 12/21/20 Eliud Anaya MD PCP - General Internal Medicine 12/22/20 12/29/20 Eliud Anaya MD PCP - General Internal Medicine 12/30/20 03/07/22 Enedelia Montaño MD [address] [place] [address] PCP - General Internal Medicine 03/08/22 11/16/23 [facility], Pcp PCP - General Internal Medicine 11/17/23 01/23/24 Wojciech Valladares MD [address] [place] [address] PCP - General Family Practice 01/24/24 Juan C Buckley MD [address] [place] [address] Specialist Cardiology 03/02/24 documented as of this encounter
--- OUTSIDE RECORDS SUMMARY | 2024-12-20 10:37 | XMS_ITS | Data Portability ---
Author Organization [place] [facility] Address [address] [place] [address] Care Team Providers Care Horse Rancher Name Role Phone JAK ARREAGA Primary Care Provider [facility] OTHER [phone] Assessment Encounter Date Assessment Date Assessment LastModified [...] urinalysis , dipstick 2021 022 [email or web address] 0 [facility], [address] [place] [address], [phone], 09:34:30 culture, urine 2021 022 MOISE [facility] (Centralized Electronic Ordering - All Locations), Patient Can Go To The Location Of Their Choice, [address] 13:54:00 Referral None recorded. Procedures None recorded. Surgeries None recorded. Imaging None recorded. Medication Orders Bactrim DS 800 mg-160 mg tablet 2021 022 [facility] [place], [address] [facility], [place], [address], 09:41:13 Patient TargetsNo targets recorded. Patient InstructionsNo instructions recorded. Reason for Referral None Reported. Results Created Date Observation Date Name Description Value Unit Range Abnormal Flag Note LastModifiedBy Organization Detail LastModifiedTime 01/09/2001/09/2022 URINE CULTU RE specimen description URINE CLEAN CATCH/ MIDSTR EAM Not Available [facility] (Centralized Electronic Ordering - All Locations) Patient Can Go To The Location Of Their Choice, 01/11/2022 13:54:00 01/09/20 22 01/09/2022 URINE CULTU RE special requests NONE Not Available [facility] (Centralized Electronic Ordering - All Locations) Patient Can Go To The Location Of Their Choice, 01/11/2022 13:54:00 01/09/2001/11/2022 URINE CULTU RE culture abnormal >100, 000 COL/M L ENTER OCOCC US FAECA LIS This isola te was ident ified using Maldi -TOF syste m These AST resul ts were perfo rmed on the Micro scan ID and AST syste m Not Available [facility] (Centralized Electronic Ordering - All Locations) Patient Can Go To The Location Of Their Choice, 01/11/2022 13:54:00 01/09/2001/11/2022 URINE CULTU RE report status FINAL 2021 Not Available [facility] (Centralized Electronic Ordering - All Locations) Patient Can Go To The Location Of Their Choice, 01/11/2022 13:54:00 01/09/2001/11/2022 URINE CULTU RE organism ORGAN ISM >100, 000 COL/M L ENTER OCOCC US FAECA LIS This isola te was ident ified using Maldi -TOF syste m Not Available [facility] (Centralized Electronic Ordering - All Locations) Patient Can Go To The Location Of Their Choice, 01/11/2022 13:54:00 01/09/2001/11/2022 URINE CULTU RE method METHOD MIN. INHIB. CONC. (MCG/M L) Not Available [facility] (Centralized Electronic Ordering - All Locations) Patient Can Go To The Location Of Their Choice, 01/11/2022 13:54:00 01/09/2001/11/2022 URINE CULTU RE ampicillin AMPICI LLIN SUSCEP TIBLE susceptib le Not Available [facility] (Centralized Electronic Ordering - All Locations) Patient Can Go To The Location Of Their Choice, 01/11/2022 13:54:00 01/09/2001/11/2022 URINE CULTU RE ciprofloxaci n CIPROF LOXACI N SUSCEP TIBLE susceptib le Not Available [facility] (Centralized Electronic Ordering - All Locations) Patient Can Go To The Location Of Their Choice, 01/11/2022 13:54:00 01/09/2001/11/2022 URINE CULTU RE nitrofuranto in NITROF URANTO IN SUSCEP TIBLE susceptib le Not Available [facility] (Centralized Electronic Ordering - All Locations) Patient Can Go To The Location Of Their Choice, 01/11/2022 13:54:00 01/09/2001/11/2022 URINE CULTU RE levofloxacin LEVOFL OXACIN SUSCEP TIBLE susceptib le Not Available [facility] (Centralized Electronic Ordering - All Locations) Patient Can Go To The Location Of Their Choice, 01/11/2022 13:54:00 01/09/2001/11/2022 URINE CULTU RE vancomycin VANCOM YCIN SUSCEP TIBLE susceptib le Not Available [facility] (Centralized Electronic Ordering - All Locations) Patient Can Go To The Location Of Their Choice, 01/11/2022 13:54:00 01/09/2001/11/2022 URINE CULTU RE tetracycline TETRAC YCLINE SUSCEP TIBLE susceptib le Not Available [facility] (Centralized Electronic Ordering - All Locations) Patient Can Go To The Location Of Their Choice, 01/11/2022 13:54:00 01/09/2001/11/2022 URINE CULTU RE gentamicin synergy GENTAM ICIN SYNERG Y ACTIVE IN SYNERG Y susceptib le Not Available [facility] (Centralized Electronic Ordering - All Locations) Patient Can Go To The Location Of Their Choice, 01/11/2022 13:54:00 01/09/2001/11/2022 URINE CULTU RE streptomycin synergy STREPT OMYCIN SYNERG Y ACTIVE IN SYNERG Y susceptib le Not Available [facility] (Centralized Electronic Ordering - All Locations) Patient Can Go To The Location Of Their Choice, 01/11/2022 13:54:00 01/09/20 22 01/08/2022 urina lysis , dipst ick Appearance clear Not Available [facility] [address], [place], [address], 01/08/2022 09:21:50 01/09/20 22 01/08/2022 urina lysis , dipst ick Color todd Not Available [facility] [place] [address], [place], [address], 01/08/2022 09:21:50 01/09/20 22 01/08/2022 urina lysis , dipst ick Glucose (ref: neg) +++ Not Available [facility] [place] [address], [place], [address], 01/08/2022 09:21:50 01/09/20 22 01/08/2022 urina lysis , dipst ick Bilirubin (ref: neg) Neg Not Available [facility] [place] [address], [place], [address], 01/08/2022 09:21:50 01/09/20 22 01/08/2022 urina lysis , dipst ick Ketones (ref: neg) Neg Not Available [facility] [place] [address], [place], [address], 01/08/2022 09:21:50 01/09/20 22 01/08/2022 urina lysis , dipst ick Specific [place] (ref: 1.003 - 1.035) 1.015 Not Available [facility] [place] [address], [place], [address], 01/08/2022 09:21:50 01/09/20 22 01/08/2022 urina lysis , dipst ick Blood (ref: neg) +++ Not Available [facility] [place] [address], [place], [address], 01/08/2022 09:21:50 01/09/20 22 01/08/2022 urina lysis , dipst ick pH (ref: 5.0-7.0) 6.5 Not Available [facility] - [address], [address], 01/08/2022 09:21:50 01/09/20 22 01/08/2022 urina lysis , dipst ick Protein (ref: neg) Neg Not Available [facility] - [address], [address], 01/08/2022 09:21:50 01/09/20 22 01/08/2022 urina lysis , dipst ick Urobilinogen (ref: 0.2-1.0) 0.2 Not Available [facility] - [address], [address], 01/08/2022 09:21:50 01/09/20 22 01/08/2022 urina lysis , dipst ick Nitrites (ref: neg) positi ve Not Available [facility] - [address], [address], 01/08/2022 09:21:50 01/09/20 22 01/08/2022 urina lysis , dipst ick Leukocytes (ref: neg) ++ Not Available [address], [address], 01/08/2022 09:21:50 01/09/20 22 01/08/2022 urina lysis , dipst ick Location [facility], [address] [place] [address], [id number] [phone] Not Available [facility] - [address], [address], 01/08/2022 09:21:50 Result Notes None recorded. Medical Equipment None Reported. Allergies Allergen ID Allergen Name Allergen Category Reaction Reaction Severity Criticality Documentation Date Start Date Code Code System Note Provider Name and Address Organization Details Recorded Time 097150 Product containin g penicilli n (product) medicatio n Not available Not available Not available 01/08/2022 03064 8001 SNOMED CURRY Pagan [address], [facility] [place], [address], [place] [facility] 09:02:59 Medications Name Sig Start Date Stop [...] % 132 mm[Hg] 70 mm[Hg] Not Available [facility] Social History Question Answer Notes LastModified by Organizat ion Details LastModified Time Tobacco Smoking Status Former Smoker CURRY Pagan [address], [place], [address], [place] [facility] 01/08/2022 09:07:00 Do You Have An Advance Directive? Yes [email or web address] Information not available 01/08/2022 What Is Your Level Of Alcohol Consumption? None [email or web address] Information not available 01/08/2022 What Is Your Code Status? Full Code [email or web address] Information not available 01/08/2022 Within The Past 12 Months, Has It Happened That The Food You Bought Just Didn't Last And You Didn't Have Money To Get More. No [email or web address] Information not available 01/08/2022 Within The Past 12 Months, Have You Worried That Your Food Would Run Out Before You Got Money To Buy More. Yes [email or web address] Information not available 01/08/2022 Fall Risk: Do You Feel Unsteady When Standing Or Walking? Yes Information not available 01/08/2022 We Know That How And When People Interact With Friends And Family Can Be Very Different From Person To Person. How Often Do You Have The Opportunity To See Or Talk To People That You Care About And Feel Close To? (Ex: Talking To Friends On The Phone Or Visiting Friends Or Family Or Going To [employer] Or Club Meetings) 5 Or More Times Per Week [email or web address] Information not available 01/08/2022 Excessive Alcohol Or Drug Use No [email or web address] Information not available 01/08/2022 Does This Patient Have A PCP? Yes [email or web address] Information not available 01/08/2022 Has The Patient Seen Their PCP In The Past 6 Months? No Has Appoint On January 21 [email or web address] Information not available 01/08/2022 We Know From Many Of Our Patients That Covering All Of Their Costs Can Be Difficult At Times. This Can Cause Stress And Impact Health. In The Past Year, Have You Been Unable To Get Any Of The Following When It Was Really Needed? No [email or web address] Information not available 01/08/2022 What Is Your Housing Situation Today? I Have Housing [email or web address] Information not available 01/08/2022 Would You Like Help Connecting To Resources? None [email or web address] Information not available 01/08/2022 Sex: Unknown Functional Status None recorded. Mental Status None recorded. Family History Nothing Reported. Medical History Condition Response Diabetes Y Coronary Artery Disease Y CHF Y Parkinson's Disease N Cancer N Stroke Y Dementia N Asthma N Hypothyroidism N Depression N COPD Y High Cholesterol Y Pulmonary Embolism N Hypertension Y A-fib N Osteoporosis N Kidney Disease N Gynecological HistoryNo gynecological history recorded. Obstetrics History GPAL:G 0 P 0 0 0 0 Past Encounters Encounter ID Performer Location Encounter Start Date Encounter Closed Date Diagnosis/Indication Diagnosis SNOMED-CT Code Diagnosis ICD10 Code Diagnosis Note [id number] CURRY Pagan [facility] - [address] [address] 01/08/2022 08:28:21 01/11/2022 09:56:48 Dysuria 53428767 R30.9 4 days of dysuria, no fever chills nausea or vomitingWi ll take bactrim DS BID culture pendingED precaution s given Health Concerns Section Related Observation LastModified by Organization Detai ls LastModified Time None Recorded Concern Status LastModified by Organization Details LastModified Time None Recorded Advance Directives Directive Y: Payers Encounter Date Sequence Insurance Name Policy Number Policy Batres Covered Member ID Batres Member ID Guarantor Name 01/08/2022 1 [place] [employer] Lara May [id number] Lara May 01/08/2022 2 [place] [id number] Lara May [id number] Lara May Notes Date Note Type [...] been helpful. CURRY Pagan [address], [place], [address], [place] [facility] 01/08/2022 13:08:13 OBGyn Episode No OBEpisode recorded.
--- OUTSIDE RECORDS SUMMARY | 2024-12-20 10:37 | XMS_ITS | Encounter Summary ---
Author Organization [facility] Address [address] [place] [address] Care Team Providers Care Green Belt Name Role Phone Wojciech Cortez MD Primary Care Provider Unavail Nile Mata MD Primary Care Provider Atilio newby [facility], Pcp Primary Care Provider Eliud Cochran MD Primary Care Provider Eliud Riojas MD Primary Care Provider Enedelia Ley MD Primary Care Provider + [facility], Pcp Primary Care Provider Wojciech Kaufman MD Primary Care Provider Juan C Field MD Unavailable [phone] Reason for Visit * Reason Onset Date Comments TEST RESULTS 04/16/2019 Encounter Details Date Type Department Care Team Description 04/16/2019 Telephone Adult [address] [phone] Wojciech Cortez MD TEST RESULTS Social History [...] back to the caller? Mailed to - [facility] [id number] documented in this encounter Plan of Treatment Not on file documented as of this encounter Visit Diagnoses Not on filedocumented in this encounter Care Teams Green Belt Relationship Specialty Start Date End Date Wojciech Cortez MD PCP - General 02/20/1996 02/24/20 Nile Villalba MD PCP - General Internal Medicine 02/25/20 12/18/20 [facility], Pcp PCP - General Internal Medicine 12/19/20 12/21/20 Eliud Anaya MD PCP - General Internal Medicine 12/22/20 12/29/20 Eliud Anaya MD PCP - General Internal Medicine 12/30/20 03/07/22 Enedelia Montaño MD [address] [place] [address] PCP - General Internal Medicine 03/08/22 11/16/23 [facility], Pcp PCP - General Internal Medicine 11/17/23 01/23/24 Wojciech Valladares MD [address] [place], [place] [address] PCP - General Family Practice 01/24/24 Juan C Buckley MD [address] [place] [address] Specialist Cardiology 03/02/24 documented as of this encounter
--- OUTSIDE RECORDS SUMMARY | 2024-12-20 10:37 | XMS_ITS | Encounter Summary ---
Author Organization [facility] Address [address] [place] [address] Care Team Providers Care Merchandise Distributor Name Role Phone Wojciech Cortez MD Primary [...] Care Provider Juan C Field MD Unavailable [phone] Encounter Details Date Type Department Care Team Description 05/23/2018 [facility] Medical Records [address] [place] [id number] Juan C Buckley MD [address] [place] [id number] Social History Tobacco Use Types Packs/Day Years [...] on filedocumented in this encounter Care Teams Merchandise Distributor Relationship Specialty Start Date End Date Wojciech Cortez MD PCP - General 02/20/1996 02/24/20 Nile Villalba MD PCP - General Internal Medicine 02/25/20 12/18/20 [facility] Pcp PCP - General Internal Medicine 12/19/20 12/21/20 Eliud Anaya MD PCP - General Internal Medicine 12/22/20 12/29/20 Eliud Anaya MD PCP - General Internal Medicine 12/30/20 03/07/22 Enedelia Montaño MD [address] [place] [address] PCP - General Internal Medicine 03/08/22 11/16/23 [facility] Pcp PCP - General Internal Medicine 11/17/23 01/23/24 Wojciech Valladares MD [address] [place] [address] PCP - General Family Practice 01/24/24 Juan C Buckley MD [address] [place] [address] Specialist Cardiology 03/02/24 documented as of this encounter
--- OUTSIDE RECORDS SUMMARY | 2024-12-20 10:37 | XMS_ITS | Encounter Summary ---
Author Organization [facility] Address [address] [place] [address] Care Team Providers Care Civil Engineer In Training Name Role Phone Wojciech Cortez MD Primary Care Provider Unavail able Nile Villalba MD Primary Care Provider Atilio Lopez, Pcp Primary Care Provider Eliud Cochran MD Primary Care Provider Eliud Riojas MD Primary Care Provider Enedelia Ley MD Primary Care Provider + [facility], Pcp Primary Care Provider Wojciech Kaufman MD Primary Care Provider Juan C Field MD Unavailable [phone] Encounter Details Date Type Department Care Team Description 04/08/2014 Orders Only Radiology - [address] [phone] Alvina Orellana MD [address] [place] [id number] Social History Tobacco Use Types Packs/Day Years [...] filedocumented in this encounter Care Teams Civil Engineer In Training Relationship Specialty Start Date End Date Wojciech Cortez MD PCP - General 02/20/1996 02/24/20 Nile Villalba MD PCP - General Internal Medicine 02/25/20 12/18/20 [facility], Pcp PCP - General Internal Medicine 12/19/20 12/21/20 Eliud Anaya MD PCP - General Internal Medicine 12/22/20 12/29/20 Eliud Anaya MD PCP - General Internal Medicine 12/30/20 03/07/22 Enedelia Montaño MD [address] [place] [address] PCP - General Internal Medicine 03/08/22 11/16/23 [facility], Pcp PCP - General Internal Medicine 11/17/23 01/23/24 Wojciech Valladares MD [address] [place] [address] PCP - General Family Practice 01/24/24 Juan C Buckley MD [address] [place] [address] Specialist Cardiology 03/02/24 documented as of this encounter
--- OUTSIDE RECORDS SUMMARY | 2024-12-20 10:37 | XMS_ITS | Encounter Summary ---
Author Organization [facility] Address [address] [place] [address] Care Team Providers Care Brim Molder Name Role Phone Wojciech Cortez MD Primary Care Provider Unavail Nile Mata MD Primary Care Provider Atilio newby [facility], Pcp Primary Care Provider Eliud Cochran MD Primary Care Provider Eliud Riojas MD Primary Care Provider Enedelia Ley MD Primary Care Provider + [facility], Pcp Primary Care Provider Wojciech Kaufman MD Primary Care Provider Juan C Field MD Unavailable [phone] Reason for Visit * Reason Onset Date Comments Echocardiogram 04/17/2014 Encounter Details Date Type Department Care Team Description 04/17/2014 Telephone Cardiology - [address] [phone] Ángela Moore PA-C [address] [place] [address] [phone] Echocardiogram Social History Tobacco Use Types Packs/Day [...] on filedocumented in this encounter Care Teams Brim Molder Relationship Specialty Start Date End Date Wojciech Cortez MD PCP - General 02/20/1996 02/24/20 Nile Villalba MD PCP - General Internal Medicine 02/25/20 12/18/20 [facility], Pcp PCP - General Internal Medicine 12/19/20 12/21/20 Eliud Anaya MD PCP - General Internal Medicine 12/22/20 12/29/20 Eliud Anaya MD PCP - General Internal Medicine 12/30/20 03/07/22 Enedelia Montaño MD [address] [place] [address] PCP - General Internal Medicine 03/08/22 11/16/23 [facility], Pcp PCP - General Internal Medicine 11/17/23 01/23/24 Wojciech Valladares MD [address] [place] [address] PCP - General Family Practice 01/24/24 Juan C Buckley MD [address] [place] [address] Specialist Cardiology 03/02/24 documented as of this encounter
--- OUTSIDE RECORDS SUMMARY | 2024-12-20 10:37 | XMS_ITS | Patient Health Record ---
Author Organization [facility] Address [address] [place] [address] Care Team Providers Care Realty Specialist Name Role Phone Wojciech Valladares MD Primary Care Provider Tanna Flannery Unavailable [phone] Allergies Allergen (clinical drug ingredient) Drug/Non Drug [...] Problem Acquired hammer toe of right foot (2982346986477325 ) Other hammer toe(s) (acquired), right foot (M20.41) Active confirmed Problem Acquired hammer toe of left foot (0237590407285798 ) Other hammer toe(s) (acquired), left foot (M20.42) Active confirmed Problem Polyneuropathy due to type 2 diabetes mellitus (698441699) Type 2 diabetes mellitus with diabetic polyneuropathy (E11.42) Active confirmed Problem Localized, primary osteoarthritis of the ankle and/or foot (069614498) Arthritis of joint of lesser toe, left (M19.072) Active confirmed Problem Localized, primary osteoarthritis of the ankle and/or foot (579230040) Arthritis of joint of lesser toe, right (M19.071) Active confirmed Vital Signs Blood pressure diastolic 68 mm Hg 02/13/2024 Height 5 ft 6 in in 02/13/2024 Blood pressure systolic 118 mm Hg 02/13/2024 Weight 148 lbs 02/13/2024 BMI 23.89 kg/m2 02/13/2024 Procedures Procedure Date Ordered Date Performed Result Body Sit e 47016-DZES SKIN LESIONS, 2 TO 4 02/13/2024 N/A [id number] DYSTROPHIC NAILS ANY # 02/13/2024 N/A - Ganglion Cyst Injection/Aspiration 02/13/2024 N/A Encounters Encounter Location Date Provider Diagnosis [facility] [address] 02/13/2024 Tanna Mayco Type 2 diabetes redd [...] toe, initial encounter S93.149A and Ganglion M67.[address] [facility] [address] 01/05/[address] [facility] [address] 05/21/2024 Tanna Mao Assessments Encounter Date Diagnosis [...] Treatment Pending Test Test Name Order Date 30614-SIGB SKIN LESIONS, 2 TO 4 02/13/20 P1327-YXPNOUNU DYSTROPHIC NAILS ANY # - Ganglion Cyst Injection/Aspiratio n 02/13/2024 Insurance Providers Payer Name Payer Address Payer Phone Subscriber Number Group Number Insured Name Patient Relationship to Insured Coverage Start Date Coverage End Date Medicare National Govt [employer] [address] [facility] [place] [address] [id number] Lara May Self - patient is the insured [employer] [address] [place] [address] [id number] aLra May Self - patient is the insured Medical (General) History Medical History History ICD Code Arthritis Cataracts Diabetic Fibromyalgia Heart disease High blood pressure Poor circulation Heart valve conditions/replacement Back,Hip,and Knee pain Broken bones CAD (Cholesterol) covid-19 Numbness Joint implants/screws Surgical History Surgery Date(Month/Year) eye surgery 2017 knee surgery 1999 hip surgery 2021
--- OUTSIDE RECORDS SUMMARY | 2024-12-20 10:37 | XMS_ITS ---
Author Organization [facility] Address [address] [place] [address] Care Team Providers Care Quality Control Chemist Name Role Phone Blaine RUIZ, Wojciech Primary Care Provider Tanna Flannery Unavailable [phone] Encounters Encounter Location Date Provider Diagnosis [facility] [address] [place] [address] 05/31/2024 Tanna Mao Plan Of Treatment No Information Progress Notes * Lara RENNERDOB:1945 (79 yo F)Acc No.[id number]:05/31/2024 Patient:?RENNERLara Provider:?Tanna Mao DPM :1945???Age:78 Y???Sex:Female D ate:05/31/2024 Address:[address] [place], [place] [address] Pcp:Wojciech Valladares MD Subjective: * Chief Complaints: * ??? * Medical History:? Objective: * Vitals:? Assessment: Plan: * Treatment: * Images: * The named appointment provid er may or may not be the originator of this progress note, and it is not deemed complete until electronically signed by the appointment provider. Sign off status: Pending * Provider:Nasra Mao DPM Date:?2023 Generated for Gerber victoria/Kellen/eTransmitting on:?12/20/2024 10:37 AM EDT
--- OUTSIDE RECORDS SUMMARY | 2024-12-20 10:37 | XMS_ITS | Encounter Summary ---
Author Organization [facility] Address [address] [place] [address] Care Team Providers Care Asic Design Engineer Name Role Phone Nile Villalba MD Primary Care Provider Aitlio Lopez, Pcp Primary Care Provider Eliud Cochran MD Primary Care Provider Eliud Riojas MD Primary Care Provider Enedelia Ley MD Primary Care Provider + [facility], Pcp Primary Care Provider Wojciech Kaufman MD Primary Care Provider Juan C Field MD Unavailable [phone] Encounter Details Date Type Department Care Team Description 04/08/2020 Telephone Medicine/Pediatrics - [address] [phone] Nile Villalba MD Social History Tobacco Use [...] 2:42 PM EDT Left message to call [phone] * Telephone Encounter - Nile Villalba MD [...] 1145am on my half days or if [email or web address] on full days, thanks documented in this encounter Plan of Treatment Not on file documented as of this encounter Visit Diagnoses Not on filedocumented in this encounter Care Teams Asic Design Engineer Relationship Specialty Start Date End Date Nile Villalba MD PCP - General Internal Medicine 02/25/20 12/18/20 [facility], Pcp PCP - General Internal Medicine 12/19/20 12/21/20 Eliud Anaya MD PCP - General Internal Medicine 12/22/20 12/29/20 Eliud Anaya MD PCP - General Internal Medicine 12/30/20 03/07/22 Enedelia Montaño MD [address] [place] [address] PCP - General Internal Medicine 03/08/22 11/16/23 [facility], Pcp PCP - General Internal Medicine 11/17/23 01/23/24 Wojciech Valladares MD [address] [place] [address] PCP - General Family Practice 01/24/24 Juan C Buckley MD [address] [place] [address] Specialist Cardiology 03/02/24 documented as of this encounter
--- OUTSIDE RECORDS SUMMARY | 2024-12-20 10:37 | XMS_ITS | Encounter Summary ---
Author Organization [employer] [facility] Address [address] [place] [address] Care Team Providers Care Dressmaker Garment Fitter Name Role Phone Wojciech Cortez MD Primary Care Provider Unavail able Nile Villalba MD Primary Care Provider Atilio Lopez, Pcp Primary Care Provider Eliud Cochran MD Primary Care Provider Eliud Riojas MD Primary Care Provider Enedelia Ley MD Primary Care Provider + [facility], Pcp Primary Care Provider Wojciech Kaufman MD Primary Care Provider Juan C Field MD Unavailable [phone] Encounter Details Date Type Department Care Team Description 06/08/2018 Barrel Racer Report Medical Records [address] [place] [address] Julius Cates NP [address] [place] [address] Social History Tobacco Use Types Packs/Day Years [...] on filedocumented in this encounter Care Teams Dressmaker Garment Fitter Relationship Specialty Start Date End Date Wojciech Cortez MD PCP - General 02/20/1996 02/24/20 Nile Villalba MD PCP - General Internal Medicine 02/25/20 12/18/20 [facility], Pcp PCP - General Internal Medicine 12/19/20 12/21/20 Eliud Anaya MD PCP - General Internal Medicine 12/22/20 12/29/20 Eliud Anaya MD PCP - General Internal Medicine 12/30/20 03/07/22 Enedelia Montaño MD [address] [place] [address] PCP - General Internal Medicine 03/08/22 11/16/23 [facility], Pcp PCP - General Internal Medicine 11/17/23 01/23/24 Wojciech Valladares MD [address] [place] [address] PCP - General Family Practice 01/24/24 Juan C Buckley MD [address] [place] [address] Specialist Cardiology 03/02/24 documented as of this encounter
--- OUTSIDE RECORDS SUMMARY | 2024-12-20 10:37 | XMS_ITS | Encounter Summary ---
Author Organization [facility] Address [address] [place] [address] Care Team Providers Care Plastics Engineer Name Role Phone Wojciech Cortez MD Primary Care Provider Unavail able Nile Villalba MD Primary Care Provider Atilio Lopez, Pcp Primary Care Provider Eliud Cochran MD Primary Care Provider Eliud Riojas MD Primary Care Provider Endeelia Ley MD Primary Care Provider + [facility], Pcp Primary Care Provider Wojciech Kaufman MD Primary Care Provider Juan C Field MD Unavailable [phone] Encounter Details Date Type Department Care Team Description 03/14/2015 JUNIOR GRAPHIC DESIGNER/MassPat Report Medical Records [address] [place] [address] Abstract, Provider Social History Tobacco Use Types [...] on filedocumented in this encounter Care Teams Plastics Engineer Relationship Specialty Start Date End Date Wojciech Cortez MD PCP - General 02/20/1996 02/24/20 Nile Villalba MD PCP - General Internal Medicine 02/25/20 12/18/20 [facility], Pcp PCP - General Internal Medicine 12/19/20 12/21/20 Eliud Anaya MD PCP - General Internal Medicine 12/22/20 12/29/20 Eliud Anaya MD PCP - General Internal Medicine 12/30/20 03/07/22 Enedelia Montaño MD [address] [place] [address] PCP - General Internal Medicine 03/08/22 11/16/23 [facility], Pcp PCP - General Internal Medicine 11/17/23 01/23/24 Wojciech Valladares MD [address] [place] [address] PCP - General Family Practice 01/24/24 Juan C Buckley MD [address] [place] [address] Specialist Cardiology 03/02/24 documented as of this encounter
--- OUTSIDE RECORDS SUMMARY | 2024-12-20 10:37 | XMS_ITS | Encounter Summary ---
Author Organization [employer] [facility] Address [address] [place] [address] Care Team Providers Care Plumbing And Heating Contractor Name Role Phone Wojciech Cortez MD Primary Care Provider Unavail able Nile Villalba MD Primary Care Provider Atilio Lopez, Pcp Primary Care Provider Eliud Cochran MD Primary Care Provider Eliud Riojas MD Primary Care Provider Enedelia Ley MD Primary Care Provider + [facility], Pcp Primary Care Provider Wojciech Kaufman MD Primary Care Provider Juan C Field MD Unavailable [phone] Encounter Details Date Type Department Care Team Description 04/11/2000 Orders Only Oncology [address] [place] [address] Jerald Gomez MD Social History Tobacco Use Types Packs/Day Years Used Date Smoking Tobacco: Never Assessed Sex Assigned at Date Recorded Not on file documented as of this encounter Plan of Treatment Not on file documented as of this encounter Visit Diagnoses Not on filedocumented in this encounter Care Teams Plumbing And Heating Contractor Relationship Specialty Start Date End Date Wojciech Cortez MD PCP - General 02/20/1996 02/24/20 Nile Villalba MD PCP - General Internal Medicine 02/25/20 12/18/20 [facility]cp PCP - General Internal Medicine 12/19/20 12/21/20 Eliud Anaya MD PCP - General Internal Medicine 12/22/20 12/29/20 Eliud Anaya MD PCP - General Internal Medicine 12/30/20 03/07/22 Enedelia Montaño MD [address] [place] [address] PCP - General Internal Medicine 03/08/22 11/16/23 [facility], Pcp PCP - General Internal Medicine 11/17/23 01/23/24 Wojciech Valladares MD [address] [place] [address] PCP - General Family Practice 01/24/24 Juan C Buckley MD [address] [place] [address] Specialist Cardiology 03/02/24 documented as of this encounter
--- OUTSIDE RECORDS SUMMARY | 2024-12-20 10:37 | XMS_ITS | Encounter Summary ---
Author Organization [facility] Address [address] [place] [address] Care Team Providers Care Substance Abuse Therapist Name Role Phone Wojciech Cortez MD [...] Care Provider Juan C Field MD Unavailable [phone] Encounter Details Date Type Department Care Team Description 12/29/2018 Assurance Manager Insurance Report Medical Records [address] [place] [address] Julius Cates NP [address] [place] [address] Social History Tobacco Use Types Packs/Day Years [...] on filedocumented in this encounter Care Teams Substance Abuse Therapist Relationship Specialty Start Date End Date Wojciech Cortez MD PCP - General 02/20/1996 02/24/20 Nile Villalba MD PCP - General Internal Medicine 02/25/20 12/18/20 [facility], Pcp PCP - General Internal Medicine 12/19/20 12/21/20 Eliud Anaya MD PCP - General Internal Medicine 12/22/20 12/29/20 Eliud Anaya MD PCP - General Internal Medicine 12/30/20 03/07/22 Enedelia Montaño MD [address] [place] [address] PCP - General Internal Medicine 03/08/22 11/16/23 [facility], Pcp PCP - General Internal Medicine 11/17/23 01/23/24 Wojciech Valladares MD [address] [place] [address] PCP - General Family Practice 01/24/24 Juan C Buckley MD [address] [place] [address] Specialist Cardiology 03/02/24 documented as of this encounter
--- OUTSIDE RECORDS SUMMARY | 2024-12-20 10:37 | XMS_ITS | Encounter Summary ---
Author Organization [facility] Address [address] [place] [address] Care Team Providers Care Platemaker Name Role Phone Eliud Anaya MD Primary Care Provider Enedelia Ley MD Primary Care Provider + [facility], Pcp Primary Care Provider Wojciech Kaufman MD Primary Care Provider Juan C Field MD Unavailable [phone] Encounter Details Date Type Department Care Team Description 12/02/2021 Hospital Medical Records [address] [place] [address] Social History Tobacco Use Types Packs/Day Years [...] on filedocumented in this encounter Care Teams Platemaker Relationship Specialty Start Date End Date Eliud Anaya MD PCP - General Internal Medicine 12/30/20 03/07/22 Enedelia Montaño MD [address] [place] [address] [id number] PCP - General Internal Medicine 03/08/22 11/16/23 [facility], [address] [address] PCP - General Internal Medicine 11/17/23 01/23/24 Wojciech Valladares MD [address] [place] [address] PCP - General Family Practice 01/24/24 Juan C Buckley MD [address] [place] [address] Specialist Cardiology 03/02/24 documented as of this encounter
--- OUTSIDE RECORDS SUMMARY | 2024-12-20 10:37 | XMS_ITS | Encounter Summary ---
Author Organization [employer] [facility] Address [address] [place] [address] Care Team Providers Care Aluminum Siding Mechanic Name Role Phone Wojciech Cortez MD Primary Care Provider Unavail able Nile Villalba MD Primary Care Provider Atilio Lopez, Pcp Primary Care Provider Eliud Cochran MD Primary Care Provider Eliud Riojas MD Primary Care Provider Enedelia Ley MD Primary Care Provider + [facility], Pcp Primary Care Provider Wojciech Kafuman MD Primary Care Provider Juan C Field MD Unavailable [phone] Encounter Details Date Type Department Care Team Description 03/18/2017 Business Doc Medical Records [address] [place] [address] Abstract, Provider Social History Tobacco Use Types [...] on filedocumented in this encounter Care Teams Aluminum Siding Mechanic Relationship Specialty Start Date End Date Wojciech Cortez MD PCP - General 02/20/1996 02/24/20 Nile Villalba MD PCP - General Internal Medicine 02/25/20 12/18/20 [facility], Pcp PCP - General Internal Medicine 12/19/20 12/21/20 Eliud Anaya MD PCP - General Internal Medicine 12/22/20 12/29/20 Eliud Anaya MD PCP - General Internal Medicine 12/30/20 03/07/22 Enedelia Montaño MD [address] [place] [address] PCP - General Internal Medicine 03/08/22 11/16/23 [facility], Pcp PCP - General Internal Medicine 11/17/23 01/23/24 Wojciech Valladares MD [address] [place] [address] PCP - General Family Practice 01/24/24 Juan C Buckley MD [address] [place] [address] Specialist Cardiology 03/02/24 documented as of this encounter
--- OUTSIDE RECORDS SUMMARY | 2024-12-20 10:37 | XMS_ITS | Clinical Summary ---
Author Organization [facility] [employer] Address [address] [place] [address] Phone Care Team Providers Care Permit Coordinator Name Role Phone Wojciech Valladares MD Primary Care Provider [phone] Allergies Active Allergy Reactions Criticality Noted Date [...] Diagnosed Date Coronary artery disease invo lving havasupai coronary artery of havasupai heart without angina pectoris 08/07/2024 Assessment & Plan (08/07/2024 3:55 PM EST): Lara has a history of coronary artery disease. She underwent circumflex coronary artery stenting. Moderate disease of the LAD and of the right coronary artery was left alone and the patient has not had ongoing overt evidence of coronary insufficiency. Preventative care will be continued Leukocytosis 05/06/2022 Diabetic retinopathy ([facility] V[facility], [facility] V28) 02/23/2018 Vitamin D deficiency 02/23/2018 Aortic [...] nodules. COPD (chronic obstructive pu lmonary disease) ([facility] V24, [facility] V28) 04/20/2013 Microalbuminuria 11/11/2011 Essential hypertension, benign [...] Overview (07/04/2024): L>R Type 2 diabetes mellitus ([facility] V24, [facility] V 28) 08/31/2005 Immunizations Name Administration Dates [...] Description 03/26/2025 12:30 PM EDT Ancillary Procedure [facility] Cardiology [facility] [address] [place] [address] 04/23/2025 10:50 AM EDT Office Visit [facility] [address] [place] [address] Dr [address] [place] [address] Juan C Buckley MD [address] [place] [address],[facility] [address] [place] [address] Health Maintenance Due Date Last Done Comments [...] * Urine Albumin Creatinine Ratio (12/08/2022) Pathologist formerly [facility] Urine Albumin Creatinine Ratio abstracted [facility] Provider DC HEALTH MAINTENANCE Final Result * Annual BMP Blood Test (12/08/2022) Pathologist formerly [facility] Annual BMP Blood Test abstracted [facility] Provider DC HEALTH MAINTENANCE Final Result * (ABNORMAL) Hemoglobin A1c (12/08/2022) [facility] Hemoglobin A1C 6.6(A) <=6.5 % Blood Venous blood specimen / Unknown Result [facility] Provider LAB BLOOD ORDERABLES Francesca l Result * Lipid panel (05/06/2022) [facility] LDL/HDL Ratio 4 0 - 4 Triglycerides 97 0 - 150 mg/dL Cholesterol 145 0 - 200 mg/dL HDL 42 >=40 mg/dL LDL Cholesterol 84 0 - 100 mg/dL Blood Venous blood specimen / Unknown Result [facility] Provider LAB BLOOD ORDERABLES Francesca l Result from Last 3 Months or Most Recently Relevant to Health Maintenance Insurance MEDICARE [facility] Care Teams Permit Coordinator Relationship Specialty Start Date End Date Wojciech Valladares MD [address] [place] [address] [place] PCP - General 01/24/24
--- OUTSIDE RECORDS SUMMARY | 2024-12-20 10:37 | XMS_ITS ---
Author Organization [facility] Address [address] [place] [address] [place] [address] Care Team Providers Care Sign Writer Hand Name Role Phone Wojciech Valladares MD Primary Care Provider Tanna Flannery [phone] REASON FOR VISIT CX FT Encounters Encounter Location Date Provider Diagnosis [address] [place] [address] 05/21/2024 Tanna Mao Plan Of Treatment No Information Progress Notes * Lara RENNERDOB:1945 (78 yo F)Acc No.[id number]:05/21/2024 Patient:?Lara Renner :1945???Age:78 Y???Sex:Female Address:[address] [place] [address] [place], [address] * true * Date:? Generated for Laineyi esme/Kellen/eTransmitting on:?12/20/2024 10:36 AM EDT
--- OUTSIDE RECORDS SUMMARY | 2024-12-20 10:37 | XMS_ITS | Encounter Summary ---
Author Organization [employer] [facility] Address [address] [place] [address] Care Team Providers Care Wafer Polishing Lead Worker Name Role Phone Eliud Anaya MD Primary Care Provider Eliud Riojas MD Primary Care Provider Enedelia Ley MD Primary Care Provider + [facility] Primary Care Provider Wojciech Kaufman MD Primary Care Provider Juan C Field MD Unavailable [phone] Encounter Details Date Type Department Care Team Description 12/26/2020 Industrial Arts Teacher Report Medical Records [address] [place] [address] Jay Christina MD Social History Tobacco Use [...] on filedocumented in this encounter Care Teams Wafer Polishing Lead Worker Relationship Specialty Start Date End Date Eliud Anaya MD PCP - General Internal Medicine 12/22/20 12/29/20 Eliud Anaya MD PCP - General Internal Medicine 12/30/20 03/07/22 Enedelia Montaño MD [address] [place] [address] PCP - General Internal Medicine 03/08/22 11/16/23 [facility], Pcp [address] [place], [place] [id number] PCP - General Internal Medicine 11/17/23 01/23/24 Wojciech Valladares MD [address] [place] [address] PCP - General Family Practice 01/24/24 Juan C Buckley MD [address] [place] [address] Specialist Cardiology 03/02/24 documented as of this encounter
--- OUTSIDE RECORDS SUMMARY | 2024-12-20 10:37 | XMS_ITS | Encounter Summary ---
Author Organization [employer] [facility] Address [address] [place] [address] Care Team Providers Care Automatic Equipment Technician Name Role Phone Wojciech Cortez MD Primary Care Provider Unavail able Nile Villalba MD Primary Care Provider Atilio Lopez, Pcp Primary Care Provider Eliud Cochran MD Primary Care Provider Eliud Riojas MD Primary Care Provider Enedelia Ley MD Primary Care Provider + [facility], Pcp Primary Care Provider Wojciech Kaufman MD Primary Care Provider Juan C Field MD Unavailable [phone] Encounter Details Date Type Department Care Team Description 04/11/2000 Orders Only Oncology [address] [place] [address] Jerald Gomez MD Social History Tobacco Use Types Packs/Day Years Used Date Smoking Tobacco: Never Assessed Sex Assigned at Date Recorded Not on file documented as of this encounter Plan of Treatment Not on file documented as of this encounter Visit Diagnoses Not on filedocumented in this encounter Care Teams Automatic Equipment Technician Relationship Specialty Start Date End Date Wojciech Cortez MD PCP - General 02/20/1996 02/24/20 Nile Villalba MD PCP - General Internal Medicine 02/25/20 12/18/20 [facility], Pcp PCP - General Internal Medicine 12/19/20 12/21/20 Eliud Anaya MD PCP - General Internal Medicine 12/22/20 12/29/20 Eliud Anaya MD PCP - General Internal Medicine 12/30/20 03/07/22 Enedelia Montaño MD [address] [place] [address] PCP - General Internal Medicine 03/08/22 11/16/23 [facility], Pcp PCP - General Internal Medicine 11/17/23 01/23/24 Wojciech Valladares MD [address] [place] [address] PCP - General Family Practice 01/24/24 Juan C Buckley MD [address] [place] [address] Specialist Cardiology 03/02/24 documented as of this encounter
--- OUTSIDE RECORDS SUMMARY | 2024-12-20 10:37 | XMS_ITS | Encounter Summary ---
Author Organization [facility] Address [address] [place] [address] Care Team Providers Care Hot Header Operator Name Role Phone Wojciech Cortez MD Primary Care Provider Unavail able Nile Villlaba MD Primary Care Provider Atilio Lopez, Pcp Primary Care Provider Eliud Cochran MD Primary Care Provider Eliud Riojas MD Primary Care Provider Enedelia Ley MD Primary Care Provider + [facility], Pcp Primary Care Provider Wojciech Kaufman MD Primary Care Provider Juan C Field MD Unavailable [phone] Encounter Details Date Type Department Care Team Description 05/17/2016 [facility] Medical Records [address] [place] [address] Quentin Mayes MD Social History Tobacco Use [...] on filedocumented in this encounter Care Teams Hot Header Operator Relationship Specialty Start Date End Date Wojciech Cortez MD PCP - General 02/20/1996 02/24/20 Nile Villalba MD PCP - General Internal Medicine 02/25/20 12/18/20 [facility], Pcp PCP - General Internal Medicine 12/19/20 12/21/20 Eliud Anaya MD PCP - General Internal Medicine 12/22/20 12/29/20 Eliud Anaya MD PCP - General Internal Medicine 12/30/20 03/07/22 Enedelia Montaño MD [address] [place] [address] PCP - General Internal Medicine 03/08/22 11/16/23 [facility], Pcp PCP - General Internal Medicine 11/17/23 01/23/24 Wojciech Valladares MD [address] [place] [address] PCP - General Family Practice 01/24/24 Juan C Buckley MD [address] [place] [address] Specialist Cardiology 03/02/24 documented as of this encounter
--- OUTSIDE RECORDS SUMMARY | 2024-12-20 10:37 | XMS_ITS | Encounter Summary ---
Author Organization [employer] [facility] Address [address] [place] [address] Care Team Providers Care Child Day Care Center Worker Name Role Phone Nile Villalba MD Primary Care Provider Atilio Lopez, Pcp Primary Care Provider Eliud Cochran MD Primary Care Provider Eliud Riojas MD Primary Care Provider Enedelia Ley MD Primary Care Provider + [facility], Pcp Primary Care Provider Wojciech Kaufman MD Primary Care Provider Juan C Field MD Unavailable [phone] Encounter Details Date Type Department Care Team Description 07/04/2020 Lease Purchase Truck Driver Report Medical Records [address] [place] [address] Juan C Buckley MD [address] [place] [address] Social History Tobacco Use Types Packs/Day Years [...] on filedocumented in this encounter Care Teams Child Day Care Center Worker Relationship Specialty Start Date End Date Nile Villalba MD PCP - General Internal Medicine 02/25/20 12/18/20 [facility], Pcp PCP - General Internal Medicine 12/19/20 12/21/20 Eliud Anaya MD PCP - General Internal Medicine 12/22/20 12/29/20 Eliud Anaya MD PCP - General Internal Medicine 12/30/20 03/07/22 Enedelia Montaño MD [address] [place] [address] PCP - General Internal Medicine 03/08/22 11/16/23 [facility], [facility] PCP - General Internal Medicine 11/17/23 01/23/24 Wojciech Valladares MD [address] [place] [address] PCP - General Family Practice 01/24/24 Juan C Buckley MD [address] [place] [address] Specialist Cardiology 03/02/24 documented as of this encounter
--- OUTSIDE RECORDS SUMMARY | 2024-12-20 10:37 | XMS_ITS | Encounter Summary ---
Author Organization [employer] [facility] Address [address] [place] [address] Care Team Providers Care Information Security Risk Analyst Name Role Phone Wojciech Cortez MD Primary Care Provider Unavail able Nile Villalba MD Primary Care Provider Atil[facility], Pcp Primary Care Provider Eliud Cochran MD Primary Care Provider Eliud Riojas MD Primary Care Provider Enedelia Ley MD Primary Care Provider + [facility], Pcp Primary Care Provider Wojciech Kaufman MD Primary Care Provider Juan C Field MD Unavailable [phone] Encounter Details Date Type Department Care Team Description 05/25/2018 [facility] Medical Records [address] [place] [address] Social History Tobacco Use Types Packs/Day Years [...] filedocumented in this encounter Care Teams Information Security Risk Analyst Relationship Specialty Start Date End Date Wojciech Cortez MD PCP - General 02/20/1996 02/24/20 Nile Villalba MD PCP - General Internal Medicine 02/25/20 12/18/20 [facility], Pcp PCP - General Internal Medicine 12/19/20 12/21/20 Eliud Anaya MD PCP - General Internal Medicine 12/22/20 12/29/20 Eliud Anaya MD PCP - General Internal Medicine 12/30/20 03/07/22 Enedelia Montaño MD [address] [place] [address] PCP - General Internal Medicine 03/08/22 11/16/23 [facility], [facility] PCP - General Internal Medicine 11/17/23 01/23/24 Wojciech Valladares MD [address] [place] [address] PCP - General Family Practice 01/24/24 Juan C Buckley MD [address] [place] [address] Specialist Cardiology 03/02/24 documented as of this encounter
--- OUTSIDE RECORDS SUMMARY | 2024-12-20 10:37 | XMS_ITS | Encounter Summary ---
Author Organization [facility] [facility] Address [address] [place] [address] Care Team Providers Care Consulting Project Director Name Role Phone Wojciech Cortez MD Primary Care Provider Unavail able Nile Villalba MD Primary Care Provider Atilio Lopez, Pcp Primary Care Provider Eliud Cochran MD Primary Care Provider Eliud Riojas MD Primary Care Provider Enedelia Ley MD Primary Care Provider + [facility], Pcp Primary Care Provider Wojciech Kaufman MD Primary Care Provider Juan C Field MD Unavailable [phone] Encounter Details Date Type Department Care Team Description 05/18/2016 [facility] Medical Records [address] [place] [address] Quentin Mayes MD Social History Tobacco Use [...] on filedocumented in this encounter Care Teams Consulting Project Director Relationship Specialty Start Date End Date Wojciech Cortez MD PCP - General 02/20/1996 02/24/20 Nile Villalba MD PCP - General Internal Medicine 02/25/20 12/18/20 [facility], Pcp PCP - General Internal Medicine 12/19/20 12/21/20 Eliud Anaya MD PCP - General Internal Medicine 12/22/20 12/29/20 Eliud Anaya MD PCP - General Internal Medicine 12/30/20 03/07/22 Enedelia Montaño MD [address] [place] [address] PCP - General Internal Medicine 03/08/22 11/16/23 [facility], Pcp PCP - General Internal Medicine 11/17/23 01/23/24 Wojciech Valladares MD [address] [place] [address] PCP - General Family Practice 01/24/24 Juan C Buckley MD [address] [place] [address] Specialist Cardiology 03/02/24 documented as of this encounter
--- OUTSIDE RECORDS SUMMARY | 2024-12-20 10:37 | XMS_ITS | Encounter Summary ---
[facility] Organization [facility] Address [address] [place] [address] Care Team Providers Care Breakfast Cook Name Role Phone [facility], Pcp Primary Care Provider Eliud Cochran MD Primary Care Provider Eliud Riojas MD Primary Care Provider Enedelia Ley MD Primary Care Provider + [facility], Pcp Primary Care Provider Wojciech Kaufman MD Primary Care Provider Juan C Field MD Unavailable [phone] Encounter Details Date Type Department Care Team Description 12/21/2020 [facility] Medical Records [address] [place] [id number] Diana Ibarra NP Social History Tobacco Use [...] on filedocumented in this encounter Care Teams Breakfast Cook Relationship Specialty Start Date End Date [facility], Pcp PCP - General Internal Medicine 12/19/20 12/21/20 Eliud Anaya MD PCP - General Internal Medicine 12/22/20 12/29/20 Eliud Anaya MD PCP - General Internal Medicine 12/30/20 03/07/22 Enedelia Montaño MD [address] [place] [id number] PCP - General Internal Medicine 03/08/22 11/16/23 [facility], Pcp PCP - General Internal Medicine 11/17/23 01/23/24 Wojciech Valladares MD [address] [place] [id number] PCP - General Family Practice 01/24/24 Juan C Buckley MD [address] [place] [id number] Specialist Cardiology 03/02/24 documented as of this encounter
== END 2024-12-20 10:47 | disposition home or self-care (01) ==
LOC: HO.HMCFM 09:38
PROVIDERS: PCP Family Medicine; Visit Provider Family Medicine
DX: D64.9 Anemia, unspecified (principal); G47.9 Sleep disorder, unspecified; I10 Essential (primary) hypertension; I25.10 Atherosclerotic heart disease of native coronary artery without angina pectoris

== ENCOUNTER → 2024-12-20 09:37 | Outpatient (BNVA) | payer MEDICARE, SELFPAY | PROVIDERS: PCP Family Medicine; Visit Provider Family Medicine | DX: D64.9 Anemia, unspecified (principal); G47.9 Sleep disorder, unspecified; I10 Essential (primary) hypertension; I25.10 Atherosclerotic heart disease of native coronary artery without angina pectoris | CPT/HCPCS: 96127; 99212 ==

== ENCOUNTER 2025-03-22 09:07 | Outpatient (REF) | payer MEDICARE, SELFPAY ==
--- OUTSIDE RECORDS SUMMARY | 2025-03-22 09:22 | XMS_ITS | Clinical Summary ---
Author Organization [facility] Address [address] [place] [address] Phone Care Team Providers Care Jelly Filter Tender Name Role Phone Wojciech Valladares MD Primary Care Provider [phone] Allergies Active Allergy Reactions Criticality Noted Date [...] Diagnosed Date Coronary artery disease invo lving pala coronary artery of pala heart without angina pectoris 08/07/2024 Assessment & Plan (08/07/2024 3:55 PM EST): Lara has a history of coronary artery disease. She underwent circumflex coronary artery stenting. Moderate disease of the LAD and of the right coronary artery was left alone and the patient has not had ongoing overt evidence of coronary insufficiency. Preventative care will be continued Leukocytosis 05/06/2022 Diabetic retinopathy ([facility] V24, [facility] V28) 02/23/2018 Vitamin D deficiency 02/23/2018 Aortic [...] nodules. COPD (chronic obstructive pu lmonary disease) ([facility] V24, [facility] V28) 04/20/2013 Microalbuminuria 11/11/2011 Essential hypertension, benign [...] Overview (07/04/2024): L>R Type 2 diabetes mellitus ([facility] V24, [facility] V 28) 08/31/2005 Immunizations Name Administration Dates [...] Description 03/26/2025 12:30 PM EDT Ancillary Procedure [facility] Cardiology [facility] [address] [facility] [address] [place] [address] 04/23/2025 10:50 AM EDT Office Visit [facility] [address] [place] [address] Dr [address] [place] [address] Juan C Buckley MD [address] [place] [address],[facility] [address] [place] [address] Health Maintenance Due Date Last Done Comments Diabetes: Annual Foot Exam 1954 Diabetes: Annual Retina Eye Exam 1955 Zoster Vaccines (1 of 2) 1994 Falls Risk Assessment 07/20/2022 Medicare Annual Wellness Visit 07/20/2022 Osteoporosis Screening (Bone Density Screening) 07/20/2022 Social Influencers of Health Screening 07/20/2022 Diabetes: Blood Sugar Control Test (HGBA1C) 06/09/2023 12/08/2022 Diabetes: Annual Urine Albumin-Creatinine Ratio (uACR) 12/09/2023 12/08/2022 Diabetes: Annual GFR (Glomerular Filtration Rate) 12/09/2023 12/08/2022 Hypertension/CHF/CAD Annual BMP Blood Test 12/09/2023 12/08/2022 Depression Screening 08/22/2024 COVID-19 Vaccine ( season) 2024 05/04/2024, 05/23/2023, 05/05/2022, Additional history exists Influenza Vaccine (#1) 2025 , 05/19/2023, 06/11/2021, Additional history exists Cholesterol Screening (Lipid Panel) 05/06/2027 05/06/2022 DTaP,Tdap,and Td Vaccines (3 - Td or Tdap) 01/05/2029 01/05/2019, 06/28/2007 RSV Immunization Adult Patients Completed 11/26/2023 Pneumococcal Vaccine: 50+ Years Completed 03/09/2024, 03/16/2017, 01/17/2007, Additional history exists HIB Vaccines Aged Out [...] * Urine Albumin Creatinine Ratio (12/08/2022) Pathologist [facility] Urine Albumin Creatinine Ratio abstracted [facility] Provider MD HEALTH MAINTENANCE Final Result * Annual BMP Blood Test (12/08/2022) Pathologist [facility] Annual BMP Blood Test abstracted [facility] Provider HEALTH MAINTENANCE Final Result * (ABNORMAL) Hemoglobin A1c (12/08/2022) [facility] Hemoglobin A1C 6.6(A) <=6.5 % Blood Venous blood specimen / Unknown [facility] Provider LAB BLOOD ORDERABLES Francesca l Result * Lipid panel (05/06/2022) Pathologist [facility] LDL/HDL Ratio 4 0 - 4 Triglycerides 97 0 - 150 mg/dL Cholesterol 145 0 - 200 mg/dL HDL 42 >=40 mg/dL LDL Cholesterol 84 0 - 100 mg/dL Blood Venous blood specimen / Unknown [facility] Provider LAB BLOOD ORDERABLES Francesca l Result from Last 3 Months or Most Recently Relevant to Health Maintenance Insurance MEDICARE [facility] Care Teams Jelly Filter Tender Relationship Specialty Start Date End Date Wojciech Valladares MD [address] [place] [address] [facility] [place] [facility] PCP - General 01/24/24
--- OUTSIDE RECORDS SUMMARY | 2025-03-22 09:22 | XMS_ITS | Patient Health Record ---
[facility] Address [address] [place] [address] Care Team Providers Care Gas Fitter Apprentice Name Role Phone Wojciech Valladares MD Primary Care Provider Tanna Flannery Unavailable [phone] Allergies Allergen (clinical drug ingredient) Drug/Non Drug Allergy documented on EMR Reaction Allergy Type Onset Date Status Shellfish (FN) scallops (uncoded) Unknown Allergy Active Penicillin Unknown Drug Allergy Active Reason For Referral No Information Medications Medication SIG (Take, Route, Frequency, Duration) Notes Start Date End Date Status Extra Depth Orthopedic Shoes (1 Pair) with Customized Heat Molded Multidensity Innersoles (3 Pair) as directed Dx: NIDDM/Polyneuropathy (E11.42), Hammertoe Foot Deformity (M20.41,M20.42), Preulcerative Skin Lesion(s) (L85.1 02/13/2024 Active metFORMIN HCl 500 MG 1 tablet with a adams l Orally Once a day; Duration: 30 day(s) Active Losartan Potassium 25 MG 1 tablet Orally Once a day; Duration: 30 day(s) Active Vitamin D Unknown Pravastatin Sodium 10 MG 1 tablet Orally Once a day; Duration: 30 day(s) Active hydroCHLOROthiazide 25 MG 1 tablet in th e morning Orally Once a day; Duration: 30 day(s) Active Gabapentin 300 MG 1 capsule Orally Onc e a day; Duration: 30 day(s) Active Levemir 100 UNIT/ML as directed Subcutaneous Active Jardiance 10 MG 1 tablet Orally Once a day; Duration: 30 day(s) Active Aspirin 81 MG 1 tablet Orally Once a day; Duration: 30 day(s) Active Immunizations Vaccine Route Administration [...] Problem Acquired hammer toe of right foot (8643110542582431 ) Other hammer toe(s) (acquired), right foot (M20.41) Active confirmed Problem Acquired hammer toe of left foot (4323548644288683 ) Other hammer toe(s) (acquired), left foot (M20.42) Active confirmed Problem Polyneuropathy due to type 2 diabetes mellitus (997638180) Type 2 diabetes mellitus with diabetic polyneuropathy (E11.42) Active confirmed Problem Localized, primary osteoarthritis of the ankle and/or foot (366408079) Arthritis of joint of lesser toe, left (M19.072) Active confirmed Problem Localized, primary osteoarthritis of the ankle and/or foot (393131010) Arthritis of joint of lesser toe, right (M19.071) Active confirmed Encounters Encounter Location Date Provider Diagnosis [facility] [address] [place] [address] 05/21/2024 Tanna Mao Plan Of Treatment Pending Test Test Name Order Date [id number] SKIN LESIONS, 2 TO 4 02/13/20 [id number] DYSTROPHIC NAILS ANY # - Ganglion Cyst Injection/Aspiratio n 02/13/2024 Insurance Providers Payer Name Payer Address Payer Phone Subscriber Number Group Number Insured Name Patient Relationship to Insured Coverage Start Date Coverage End Date Medicare National [facility] [address] [place] [address] [id number] Lara May Self - patient is the insured [employer] [address] [place] [address] [phone] [id number] Lara May Self - patient is the insured Medical (General) History Medical History History ICD Code Arthritis Cataracts Diabetic Fibromyalgia Heart disease High blood pressure Poor circulation Heart valve conditions/replacement Back,Hip,and Knee pain Broken bones CAD (Cholesterol) covid-19 Numbness Joint implants/screws Surgical History Surgery Date(Month/Year) eye surgery 2017 knee surgery 1999 hip surgery 2021
--- OUTSIDE RECORDS SUMMARY | 2025-03-22 09:22 | XMS_ITS ---
Author Name [facility] Organization Unknown Care Team Organization Name Specialty Phone Email Start Date End Da te [facility] ROMAIN AQUINO Primary [facility] [email or web address] 01/28/2023 4 [facility] Eliud Anaya Primary Care 06/29/202203/22 4
[2025-03-22 12:15] LABS: MANUAL DIFF FLAG NO
[2025-03-22 12:17] LABS: Hematocrit 46.4 % (37.0-47.0); Hemoglobin 15.0 g/dl (12.0-16.0); Imm Gran Abs Auto 0.05 X10*3/uL (0.00-0.03); Imm Gran Pct Auto 0.4 % (0.0-0.4); Lymphocytes Absolute Auto 1.5 X10*3/uL (1.2-4.9); Mean Corpuscular HGB Conc 32.3 g/dl (31.0-35.0); Mean Corpuscular Hemoglobin 26.2 pg (27.0-33.0); Mean Corpuscular Volume 81.1 fL (80.0-98.0); NRBC Abs Auto 0.000 X10*3/uL (0.0-0.012); NRBC Pct Auto 0.0 /100WBC (0.0-0.2); Platelet Count 236 X10*3/uL (160-400); Red Blood Count 5.72 X10*6/uL (4.20-5.50); White Blood Count 13.1 X10*3/uL (4.8-10.8)
[2025-03-22 12:43] LABS: Appearance Urine Turbid; Glucose Urine UA >=1000 mg/dL (Negative); PH 6.0 (5.0-9.0); Specific Gravity - Urine 1.020 (1.005-1.025); UMIC TRIGGER UA YES
[2025-03-22 13:17] LABS: Anion Gap 13 (12-20); Blood Urea Nitrogen 13 mg/dL (9-16); Calcium 9.1 mg/dL (8.4-10.2); Carbon Dioxide 31 mmol/L (22-29); Chloride 102 mmol/L (96-108); Estimated Glomerular Filt Rate > 60; Iron 68 mcg/dL (30-160); Percent Iron Saturation 23 % (15-50); Potassium 4.0 mmol/L (3.3-5.1); Sodium 142 mmol/L (135-145); Total Iron Binding Capacity 293 mcg/dL (228-428); Unsaturated Iron Binding 225 ug/dL
== END 2025-03-22 09:08 | disposition home or self-care (01) ==
LOC: HO.WFDLDS 09:07
PROVIDERS: Visit Provider Family Medicine
DX: Z00.00 Encounter for general adult medical examination without abnormal findings (principal); I10 Essential (primary) hypertension; D64.9 Anemia, unspecified
CPT/HCPCS: 36415; 80048; 81001; 81003; 83540; 85025

== ENCOUNTER 2025-03-27 10:33 | Outpatient (AMB) | payer MEDICARE, SELFPAY ==
--- OUTSIDE RECORDS SUMMARY | 2024-06-07 07:00 | XMS_ITS ---
Author Organization [facility] Address [address] [place] [address] Care Team Providers Care Sandblaster Supervisor Name Role Phone Blaine RUIZ, Wojciech Primary Care Provider Tanna Flannery Unavailable [phone] Encounters Encounter Location Date Provider Diagnosis [facility] [address] [place] [address] 06/07/2024 Tanna Mao Plan Of Treatment No Information Progress Notes * Lara RENNERDOB:1945 (79 yo F)Acc No.[id number]:06/07/2024 Patient: Lara MILNER Provider: Cristian Mao DPM :1945 A ge:78 Y S ex:Female Date:06/07/2024 Address:[address] [place] [address] [place], [place] Pcp:Wojciech Valladares MD Subjective: * Chief Complaints: * * Medical History: Objective: * Vitals: Assessment: Plan: * Treatment: * Images: * The named appointment provid er may or may not be the originator of this progress note, and it is not deemed complete until electronically signed by the appointment provider. Sign off status: Pending * Provider: Cristian Mao DPM Date: 1 Generated for Gerber victoria/Faxavier/eTransmitting on: 0 03/27/2025 11:13 AM EDT
--- NOTE | 2025-03-27 10:55 | MHC.PC.OV ---
Vital Signs 03/27/25 11:02 Height 5 ft 6 in Weight 154 lb 2 oz BMI 24.9 BP 120/60 Blood Pressure Location Lt brachial Position Sitting Respiration 14 Pulse 72 Pulse Source Pulse Oximeter Temp 97.7 F Temp Source Oral Pulse Oximetry (%) 93 Oxygen Delivery Method Room Air Intake Visit Reasons: f/u HTN, chronic conditions Intake Note: patient is scheduled for htn and lab review and chronic conditions pt would also like a med refill for pregabilin ,provastatin and hydrocloathiazide Plastic Installer Required: No Allergies penicillin V Allergy (Mild, Verified 03/27/25 11:00) phlebitis scallops Allergy (Mild, Verified 03/27/25 11:00) sick cramps Medication List - Last Reconciled 03/27/25 by Wojciech Valladares MD albuterol sulfate 90 mcg/actuation 2 puffs inhalation Q6H PRN 30 days aspirin 81 mg PO DAILY cholecalciferol (vitamin D3) 125 mcg PO DAILY empagliflozin (Jardiance) 10 mg PO DAILY 90 days ferrous sulfate 324 mg PO DAILY 90 days hydrochlorothiazide 12.5 mg PO DAILY 90 days hydroxyzine HCl 10 mg PO BEDTIME PRN 30 days insulin glargine (Basaglar KwikPen U-100 Insulin) 12 units (0.12 mL) subcut QPM 90 days losartan 25 mg PO DAILY 90 days mecobalamin (vitamin B12) 1,000 mcg PO DAILY 90 days metformin 500 mg PO DAILY 90 days olopatadine 0.7% 1 drp ophthalmic (eye) DAILY PRN 30 days pravastatin 20 mg PO DAILY 90 days pregabalin 150 mg PO BID 90 days Tobacco use date assessed: 06/29/24 Dental Screening Dental Screen Date: 06/29/24 HPI f/u HTN, chronic conditions HPI Details 79 y/o female presents to f/u HTN, chronic conditions. BP today 120/60, 72p. She is on losartan 25mg, hydrochlorothiazide 12.5mg daily. A1c today 6.2%. Pt reports she continues to use her supplements for her anemia. [facility] Medical History Cataracts, bilateral Tonsillitis Diabetes 1.5, managed as type 2 Surgical History H/O eye surgery H/O vein stripping History of hip surgery Stented coronary artery S/P TAVR (transcatheter aortic valve replacement) Family History (Updated 01/18/24 @ 16:41 by Lorraine Gama CMA) Mother Cerebral hemorrhage Social History Household Members: None Housing: Other Housing Other:: trailer Are you a primary direct support professional caregiver to a significant other at home: No Do you presently have visiting nurse or other home services: No 75 years or older and lives alone: Yes Alcohol intake: never Patient Tobacco Use Status: Former Tobacco user e-Cigarette/Vaping Use: Never Used Special justino needs: No service: No Current occupational status: retired Cognitive needs: No Hearing needs: No Vision needs: No Questionnaire Thrive Questionnaire Date Thrive assessed: 10/30/24 I am a: Patient What is your living situation today?: I have a steady place to live Within the past 12 months, did the food you bought not last and you didn't have the money to get more?: Never true Within the past 12 months, did you worry whether your food would run out before you got money to buy more?: Never true Do you have trouble paying for medicines?: No Do you have trouble getting transportation to medical appointments?: No Do you have trouble paying your heating and electricity bill?: No Do you have trouble taking care of your child, family member or friend?: No Do you have trouble with day-to-day activities such as bathing, preparing meals, shopping, managing finances, etc.?: No Are you currently unemployed and looking for a job?: No Are you interested in more education?: No Please select the resources that you would like help with: None Currently or been in a relationship where the following occur: No concerns reported THRIVE Score: 0 CHIQUITA-7 AMB Questionnaire CHIQUITA-7 Date CHIQUITA - 7 assessed: 12/20/24 Source: Developed by Drs. Simone Lombardi, Sydnee Sarkar, Garret Whyte and colleagues, with an educational jacey from [employer]. Review of Systems Const Denies chills, Denies fatigue, Denies fever(s), Denies headache(s) and Denies weakness ENT Denies dizziness and Denies headache(s) Card Denies chest pain, Denies lightheadedness, Denies dyspnea and Denies other (Palpitations) Resp Denies cough, Denies dyspnea, Denies wheezing and Denies other ( shortness of breath) Musc Denies numbness and Denies tingling Neuro Denies dizziness, Denies headache(s), Denies numbness, Denies tingling, Denies paresthesias and Denies weakness Psych Denies anxiety and Denies depression Endo Denies fatigue Aller/Immun Denies wheezing Physical exam (Primary Care) Vital Signs: Last Vital Signs Temp 97.7 F 03/27/25 11:02 Pulse 72 03/27/25 11:02 Resp 14 03/27/25 11:02 BP 120/60 03/27/25 11:02 Pulse Ox 93 03/27/25 11:02 Oxygen Delivery Method Room Air 03/27/25 11:02 BMI result Body Mass Index 24.9 Tobacco/Smoking Status: Tobacco use Status Tobacco use date assessed 06/29/24 03/27/25 10:56 Patient Tobacco Use Status Former Tobacco user 03/27/25 10:56 e-Cigarette/Vaping Use Never Used 03/27/25 10:56 Thrive Assessment: Date of Thrive Assessment Date Thrive assessed 10/30/24 03/27/25 10:56 Currently or been in a relationship where the following occur: No concerns reported Const General: no acute distress and well developed Nutritional Appearance: well nourished Orientation/consciousness: patient oriented x3 HENMT Head: Yes normocephalic and Yes atraumatic Eyes General: appearance normal, both eyes and all related structures Pupils: Equal, round and reactive pupils present EOM: EOMs intact bilaterally Resp Effort & Inspection: normal respiratory effort Auscultation: clear to auscultation bilaterally Cardio Rate: regular rate Rhythm: regular rhythm Heart sounds: S1 normal heart sound present, S2 normal heart sound present, no gallops, no murmurs and no rubs Neuro General: patient oriented x3 and gait normal Cranial nerves: Yes Equal, round and reactive pupils present Psych Affect: normal affect Coding Level of Care Code Est Pt Level 4 (39253) Diagnoses Hypertension I10 Coronary artery disease I25.10 Diabetes E11.9 Anemia D64.9 UTI (urinary tract infection) N39.0 Assessment & Plan Assessment & Plan (1) Hypertension: Code(s): I10 - Essential (primary) hypertension Category: Medical Plan: Blood pressure is well controlled. Goal is less than 130/80 Continue current medications (2) Coronary artery disease: Code(s): I25.10 - Atherosclerotic heart disease of chilkoot coronary artery without angina pectoris Category: Medical Plan: Stable (3) Diabetes: Code(s): E11.9 - Type 2 diabetes mellitus without complications Category: Medical Plan: A1c 6.2%. Good control. Goal is less than 7.0% Continue current medication regimen Patient is overdue for diabetic eye exam and I made a referral back to [facility]. (4) Anemia: Code(s): D64.9 - Anemia, unspecified Category: Medical Plan: This has resolved (5) UTI (urinary tract infection): Code(s): N39.0 - Urinary tract infection, site not specified Category: Medical Plan: Urinalysis concerning for UTI and patient is symptomatic Start Bactrim ds which she has tolerated well in the past Orders: Referrals Ophthalmology Referral E13.9 - Other specified diabetes mellitus without complications Medications: New sulfamethoxazole-trimethoprim 800-160 mg (Bactrim DS) 1 tab PO Q12H 10 tabs 0RF 5 days Refilled pregabalin 150 mg PO BID 180 caps 0RF 90 days hydrochlorothiazide 12.5 mg PO DAILY 90 tabs 2RF 90 days pravastatin 20 mg PO DAILY 90 tabs 2RF 90 days
[2025-03-27 11:02] VITALS: BP 120/60; PULSE 72; RESP 14; TEMP 36.5; O2SAT 93; BMI 24.9
--- OUTSIDE RECORDS SUMMARY | 2025-03-27 11:13 | XMS_ITS | Clinical Summary ---
Author Organization [facility] Address [address] [place] [address] Phone Care Team Providers Care Risk Tech Name Role Phone Wojciech Valladares MD Primary Care Provider [phone] Allergies Active Allergy Reactions Criticality Noted Date [...] Diagnosed Date Coronary artery disease invo lving saxman coronary artery of saxman heart without angina pectoris 08/07/2024 Assessment & Plan (08/07/2024 3:55 PM EST): Lara has a history of coronary artery disease. She underwent circumflex coronary artery stenting. Moderate disease of the LAD and of the right coronary artery was left alone and the patient has not had ongoing overt evidence of coronary insufficiency. Preventative care will be continued Leukocytosis 05/06/2022 Diabetic retinopathy ([facility] V24, [facility] V28) 02/23/2018 Vitamin D deficiency 02/23/2018 Aortic [...] nodules. COPD (chronic obstructive pu lmonary disease) ([facility] V24, [facility] V28) 04/20/2013 Microalbuminuria 11/11/2011 Essential hypertension, benign [...] Overview (07/04/2024): L>R Type 2 diabetes mellitus ([facility] V24, [facility] V 28) 08/31/2005 Encounters Date Type Department Care Team Description 03/26/2025 12:30 PM EDT Ancillary Procedure [facility] [address] [place] [address] Aortic valve stenosis, etiology of cardiac valve disease unspecified from Last 3 Months Immunizations Name Administration [...] C V24, CMS/HCC V28) 02/23/2018 DX:Diabetic retinopathy ([facility] ) Vitamin D deficiency 02/23/2018 DX:Vitamin D [...] Sign Reading Time Taken Comments Blood Pressure 138/74 03/26/2025 1:27 PM EDT Pulse 88 08/07/2024 2:52 PM EST Temperature - - Respiratory Rate - - Oxygen Saturation 96% 08/07/2024 2:52 PM EST Inhaled Oxygen Concentration - - Weight 70.3 kg (155 lb) 03/26/2025 1:27 PM EDT Height 167.6 cm (5' 6 ) 03/26/2025 1:27 PM EDT Body Mass Index 25.02 03/26/2025 1:27 PM EDT Plan of Treatment Upcoming Encounters Date Type Department Care Team (Late st Contact Info) Description 04/23/2025 10:50 AM EDT Office Visit [facility] [address] [place] [address] Juan C uBckley MD [address] [place] [address],[address] [address] Health Maintenance Due Date Last Done Comments [...] Procedure Name Priority Date/Time Associated Diagnosis Comments TRANSTHORACIC ECHOCARDIOGRAM (TTE) COMPLETE Routine 03/26/2025 1:34 PM EDT Aortic valve stenosis, etiology of cardiac valve disease unspecified HM URINE ALBUMIN CREATININE RATIO Routine 12/08/2022 ANNUAL BMP BLOOD TEST Routine 12/08/2022 HEMOGLOBIN A1C Routine 12/08/2022 LIPID PANEL Routine 05/06/2022 from Last 3 Months or Most Recently Relevant to Health Maintenance Results * (ABNORMAL) TRANSTHORACIC ECHOCARDIOGRAM (TTE) COMPLETE (03/26/2025 1:34 PM EDT) Left Atrium Minor [place] 6.5 cm CV PACS Left Atrium Major [place] 5.5 cm CV PACS LA Area Sys (A2C) 24 cm2 CV PACS LA Area Sys (A4C) 19 cm2 CV PACS LA Volume (BP) 64 mL CV PACS RA Area 14.7 cm2 CV PACS RA 2D Volume 37 mL CV PACS AV Mean Gradient 18 mmHg CV PACS Ao VTI 67.6 cm CV PACS AV Peak Larry 2.8 m/s CV PACS AV Peak Gradient 31 mmHg CV PACS AV Area Continuity Equation 0.9 cm2 CV PACS AV Area Peak Velocity 0.9 cm2 CV PACS Ascending Aorta 2.7 cm CV PACS IVC Proximal 1.6 cm CV PACS IVSD 1.0(A) 0.6 - 0.9 cm CV PACS LVIDD 3.8 3.8 - 5.2 cm CV PACS LVIDS 2.1(A) 2.2 - 3.5 cm CV PACS LVOT Diameter 1.6 cm CV PACS LVOT Mean Larry 0.8 m/s CV PACS LVOT Mean Grad 3 mmHg CV PACS LVOT Peak VTI 30.5 cm CV PACS LVOT Peak Larry 1.2 m/s CV PACS LVOT Peak Gradient 6 mmHg CV PACS LVPWD 1.1(A) 0.6 - 0.9 cm CV PACS MV E' Tissue Velocity Lateral 6 cm/s CV PACS MV E' Tissue Velocity Septal 5 cm/s CV PACS LVOT Area 2.0 cm2 CV PACS LVOT Stroke Volume 61 mL CV PACS MV Deceleration [place] 3.7 m/s2 CV PACS E Wave Deceleration Time 424(A) 119 - 242 ms CV PACS MV PHT 124 ms CV PACS MV Peak A Larry 1.70 m/s CV PACS MV Peak E Larry 1.39 m/s CV PACS MV Mean Gradient 6 mmHg CV PACS MV VTI 50.3 cm CV PACS Mitral Valve Max Velocity 1.7 m/s CV PACS MV Peak Gradient 12 mmHg CV PACS MV Area PHT 1.8 cm2 CV PACS MV Area Continuity Equation 1.2 cm2 CV PACS PV Acceleration Time 135 ms CV PACS PV Acceleration Time 135 ms CV PACS RV Diastolic Basal Dimension 3.7 2.5 - 4.1 cm CV PACS RV S' 12 cm/s CV PACS TAPSE 20 mm CV PACS TR Peak Velocity 3.04 m/s CV PACS TR Peak Gradient 37 mmHg CV PACS E/E' Ratio Septal 28 CV PACS E/E' Ratio Averaged 25 CV PACS LVOT Stroke Index 34 mL/m2 CV PACS Relative Wall Thickness ratio 0.58 CV PACS LVOT:AV VTI Index 0.45 CV PACS FS 45 % CV PACS LV Mass 2D 126 g CV PACS Ascending Aorta Index 1.51 cm/m2 CV PACS MV VTI:LVOT VTI ratio 1.6 CV PACS LVOT flow 161 mL/s CV PACS RA 2D Volume Index 21 mL/m2 CV PACS CHRISTIAN Index (VTI) 0.51 cm2/m2 CV PACS CHRISTIAN Index (Pk Larry) 0.50 cm2/m2 CV PACS LVIDD Index 2.12 cm/m2 CV PACS LVIDS Index 1.17 cm/m2 CV PACS AV Velocity Ratio 0.43 CV PACS E/A Ratio 0.8 CV PACS E/E' Ratio Lateral 23 CV PACS LA Volume Index (BP) 36 mL/m2 CV PACS LV Mass Index 2D 70 g/m2 CV PACS BSA 1.81 m2 CV PACS Right Ventricular Peak Systolic Pressure 40 mmHg CV PACS Est. RA Pressure 3 mmHg CV PACS Anatomical Region Laterality Modality Ultrasound Narrative 03/27/2025 11:06 AM EDT Left ventricle cavity is small. Left ventricular systolic function is in the normal range with an ejection fraction of 60-65%. No regional LV wall motion abnormalities noted. Left ventricle mild concentric hypertrophy. Right ventricle cavity is normal. Right ventricular systolic function is normal. Pulmonary systolic pressure mildly elevated at 40 mmHg. #23 Maria Luz 3 bioprosthetic aortic valve is well seated and functioning normally. There is trace transvalvular regurgitation. The mean gradient through the valve is 18 mmHg. Mitral valve demonstrates mild to moderate stenosis. Mean gradient 6 mmHg at ~70 bpm. Compared to 2020, there is mild progression in the mitral valve disease. Left Ventricle Left ventricle cavity is small. There is mild concentric hypertrophy. Systolic function is normal with an ejection fraction of 60-65%. There are no regional LV wall motion abnormalities. Indeterminate diastolic function. Right Ventricle Right ventricle cavity appears normal. Systolic function is normal. Left Atrium Left atrium cavity is mildly dilated. Right Atrium Right atrium cavity is normal. IVC/SVC RA pressures is estimated to be 3 mmHg (IVC diameter <21 mm and decreases >50% during inspiration). Mitral Valve The leaflets are moderately thickened. There is annular calcification. There is trace regurgitation. There is mild to moderate stenosis with a mean gradient of 6 mmHg at 69 bpm. Tricuspid Valve Tricuspid valve structure is normal. There is mild regurgitation. There is no evidence of tricuspid valve stenosis. The right ventricular systolic pressure is elevated at 40 mmHg. Aortic Valve #23 Maria Luz 3 bioprosthetic aortic valve is well seated and functioning normally. There is trace transvalvular regurgitation. The mean gradient through the valve is 18 mmHg. Pulmonic Valve Pulmonic valve structure is normal. No significant pulmonic valve regurgitation. There is no evidence of pulmonic valve stenosis. Ascending Aorta Normal ascending aorta. Transverse aorta not well visualized. Pericardium There is an anterior fat pad. There is no pericardial effusion. Study Details Overall the study quality was adequate. Juan C Buckley MD CV ECHO PROCEDURES Final Resul t * Urine Albumin Creatinine Ratio (12/08/2022) Pathologist [facility] Urine Albumin Creatinine Ratio abstracted Historical Provider HEALTH MAINTENANCE Final Result * Annual BMP Blood Test (12/08/2022) [facility] Annual BMP Blood Test abstracted Historical Provider HEALTH MAINTENANCE Final Result * (ABNORMAL) Hemoglobin A1c (12/08/2022) [facility] Hemoglobin A1C 6.6(A) <=6.5 % Blood Venous blood specimen / Unknown Result [facility] Provider LAB BLOOD ORDERABLES Francesca l Result * Lipid panel (05/06/2022) Pathologist [facility] LDL/HDL Ratio 4 0 - 4 Triglycerides 97 0 - 150 mg/dL Cholesterol 145 0 - 200 mg/dL HDL 42 >=40 mg/dL LDL Cholesterol 84 0 - 100 mg/dL Blood Venous blood specimen / Unknown Result [facility] Provider LAB BLOOD ORDERABLES Francesca l Result from Last 3 Months or Most Recently Relevant to Health Maintenance Insurance [facility] Care Teams Risk Tech Relationship Specialty Start Date End Date Wojciech Valladares MD [address] [place] [address] Dr Iwona [place] PCP - General 01/24/24
== END 2025-03-27 11:44 | disposition home or self-care (01) ==
LOC: HO.HMCFM 10:33
PROVIDERS: PCP Family Medicine; Visit Provider Family Medicine
DX: I10 Essential (primary) hypertension (principal); I25.10 Atherosclerotic heart disease of native coronary artery without angina pectoris; E11.9 Type 2 diabetes mellitus without complications; D64.9 Anemia, unspecified; N39.0 Urinary tract infection, site not specified

== ENCOUNTER → 2025-03-27 10:33 | Outpatient (BNVA) | payer MEDICARE, SELFPAY | PROVIDERS: PCP Family Medicine; Visit Provider Family Medicine | DX: I10 Essential (primary) hypertension (principal); I25.10 Atherosclerotic heart disease of native coronary artery without angina pectoris; N39.0 Urinary tract infection, site not specified; D64.9 Anemia, unspecified; E11.9 Type 2 diabetes mellitus without complications | CPT/HCPCS: 99212 ==

== ENCOUNTER 2025-07-29 11:24 | Outpatient (AMB) | payer MEDICARE, SELFPAY ==
--- NOTE | 2025-07-29 12:47 | A.OFFPC_ITS ---
Vital Signs 07/29/25 12:53 Height 5 ft 6 in Weight 154 lb 2 oz BMI 24.9 BP 134/70 Blood Pressure Location Rt brachial Position Sitting Respiration 12 Pulse 82 Pulse Source Pulse Oximeter Temp 97.5 F Temp Source Oral Pulse Oximetry (%) 94 Oxygen Delivery Method Room Air Intake Visit Reasons: f/u HTN, diabetes Intake Note: Follow up htn and DM. Patient needs refill on meds. Roentgenology Teacher Required: No Allergies penicillin V Allergy (Mild, Verified 07/29/25 12:48) phlebitis scallops Allergy (Mild, Verified 07/29/25 12:48) sick cramps Medication List - Last Reconciled 07/29/25 by Wojciech Valladares MD albuterol sulfate 90 mcg/actuation 2 puffs inhalation Q6H PRN 30 days aspirin 81 mg PO DAILY cholecalciferol (vitamin D3) 125 mcg PO DAILY empagliflozin (Jardiance) 10 mg PO DAILY 90 days ferrous sulfate 324 mg PO DAILY 90 days hydrochlorothiazide 12.5 mg PO DAILY 90 days hydroxyzine HCl 10 mg PO BEDTIME PRN 30 days insulin glargine (Basaglar KwikPen U-100 Insulin) 12 units (0.12 mL) subcut QPM 90 days losartan 25 mg PO DAILY 90 days mecobalamin (vitamin B12) 1,000 mcg PO DAILY 90 days metformin 500 mg PO DAILY 90 days olopatadine 0.7% 1 drp ophthalmic (eye) DAILY PRN 30 days pravastatin 20 mg PO DAILY 90 days pregabalin 150 mg PO BID 90 days sulfamethoxazole-trimethoprim 800-160 mg (Bactrim DS) 1 tab PO Q12H 5 days Tobacco use date assessed: 07/29/25 Fall risk assessment: No Falls in past year Last assessed Fall Risk: 07/29/25 Dental Screening Dental Screen Date: 07/29/25 Did you have a dental visit in the last 12 months?: Yes Did you have a dental problem in the last 6 months where you did not have access to dental care?: No Was dental information given to patient?: Patient has dentist HPI f/u HTN, diabetes HPI Details 79 y/o female presents to f/u HTN, diabe gabriela. Prior A1c 6.2%. A1c today 07/29/25 6.0%. She is on metformin 500mg daily, Basaglar 12 units. BP today 134/70, 82p. She is on losartan 25mg, HCTZ 12.5mg daily. Reports vaginal burning/discharge. Reports ongoing hand numbness. HPI Comments History of Present Illness Details Documentation assistance for Wojciech Valladares MD, was provided by Yonathan Acosta,? General Internal Medicine Physician on 07/29/2025 at 1:08 PM EST. I, Dr. Valladares, have read, observed, and verified documentation. [facility] Medical History Cataracts, bilateral Tonsillitis Diabetes 1.5, managed as type 2 Surgical History H/O eye surgery H/O vein stripping History of hip surgery Stented coronary artery S/P TAVR (transcatheter aortic valve replacement) Family History (Updated 01/18/24 @ 16:41 by Lorraine Gama CMA) Mother Cerebral hemorrhage Social History Household Members: None Housing: Other Housing Other:: trailer Are you a primary life care planner to a significant other at home: No Do you presently have visiting nurse or other home services: No 75 years or older and lives alone: Yes Alcohol intake: never Patient Tobacco Use Status: Former Tobacco user e-Cigarette/Vaping Use: Never Used Second Hand Smoke Exposure: No Special justino needs: No service: No Current occupational status: retired Cognitive needs: No Hearing needs: No Vision needs: No Questionnaire PHQ-9 Over the last 2 weeks, how often have you been bothered by any of the following problems? 1. Little interest or pleasure in doing things: not at all 2. Feeling down, depressed, or hopeless: not at all 3. Trouble falling or staying asleep, or sleeping too much: not at all 4. Feeling tired or having little energy: not at all 5. Poor appetite or overeating: not at all 6. Feeling bad about yourself - or that you are a failure or have let yourself or your family down: not at all 7. Trouble concentrating on things, such as reading the newspaper or watching television: not at all 8. Moving or speaking so slowly that other people could have noticed. Or the opposite - being so fidgety or restless that you have been moving around a lot more than usual: not at all 9. Thoughts that you would be better off or of hurting yourself in some way: not at all Total score: 0 Depression Screening Interpretation: Negative Depression Screening Done: Yes 78440 - PHQ-9 Billing: Yes Source: Developed by Drs. Simone Lombardi, Sydnee Sarkar, Garret Whyte and colleagues, with an educational jacey from [employer]. Thrive Questionnaire Date Thrive assessed: 07/29/25 I am a: Patient What is your living situation today?: I have a steady place to live Within the past 12 months, did the food you bought not last and you didn't have the money to get more?: Never true Within the past 12 months, did you worry whether your food would run out before you got money to buy more?: Never true Do you have trouble paying for medicines?: No Do you have trouble getting transportation to medical appointments?: No Do you have trouble paying your heating and electricity bill?: No Do you have trouble taking care of your child, family member or friend?: No Do you have trouble with day-to-day activities such as bathing, preparing meals, shopping, managing finances, etc.?: No Are you currently unemployed and looking for a job?: No Are you interested in more education?: No Please select the resources that you would like help with: None Currently or been in a relationship where the following occur: No concerns reported THRIVE Score: 0 CHIQUITA-7 AMB Questionnaire CHIQUITA-7 Date CHIQUITA - 7 assessed: 07/29/25 Feeling nervous, anxious, or on edge: 0 = Not at all Not being able to stop or control worryin = Not at all Worrying too much about different things: 0 = Not at all Trouble relaxin = Not at all Being so restless that it is hard to sit still: 0 = Not at all Becoming easily annoyed or irritable: 0 = Not at all Feeling afraid as if something awful might happen: 0 = Not at all Total CHIQUITA-7 score (0-4 normal; 5-9 mild; 10-14 moderate; 15-21 severe): 0 Source: Developed by Drs. Simone Lombardi, Sydnee Sarkar, Garret Whyte and colleagues, with an educational jacey from [employer]. CHIQUITA-7 Assessment Billing CHIQUITA-7 Assessment Tool: CHIQUITA-7 Assessment 51718 Review of Systems Const Denies chills, Denies fatigue, Denies fever(s), Denies headache(s) and Denies weakness ENT Denies dizziness and Denies headache(s) Card Denies dyspnea Resp Denies cough, Denies dyspnea, Denies wheezing and Denies other (shortness of breath) Musc Denies numbness and Denies tingling Neuro Denies dizziness, Denies headache(s), Denies numbness, Denies tingling and Denies weakness Psych Denies anxiety and Denies depression Endo Denies fatigue Aller/Immun Denies wheezing Physical exam (Primary Care) Vital Signs: Last Vital Signs Temp 97.5 F 07/29/25 12:53 Pulse 82 07/29/25 12:53 Resp 12 07/29/25 12:53 BP 134/70 07/29/25 12:53 Pulse Ox 94 07/29/25 12:53 Oxygen Delivery Method Room Air 07/29/25 12:53 BMI result Body Mass Index 24.9 Tobacco/Smoking Status: Tobacco use Status Tobacco use date assessed 07/29/25 07/29/25 12:50 Patient Tobacco Use Status Former Tobacco user 07/29/25 12:50 e-Cigarette/Vaping Use Never Used 07/29/25 12:50 PHQ-9: PHQ-9 Score PHQ-9: Total score 0 07/29/25 13:07 Depression Screening Interpretation: Negative Thrive Assessment: Date of Thrive Assessment Date Thrive assessed 07/29/25 07/29/25 12:50 Currently or been in a relationship where the following occur: No concerns reported Const General: well developed; No acute distress Nutritional Appearance: well nourished Orientation/consciousness: patient oriented x3 HENMT Head: Yes normocephalic and Yes atraumatic Eyes General: appearance normal, both eyes and all related structures Pupils: Equal, round and reactive pupils present EOM: EOMs intact bilaterally Resp Effort & Inspection: normal respiratory effort Neuro General: patient oriented x3 and gait normal Cranial nerves: Yes Equal, round and reactive pupils present Psych Affect: normal affect Results AMB Hemoglobin A1c AMB Hemoglobin A1c 6.0 % Last Edit by Bradley Parikh MA on 07/29/25 13:04 Results Reviewed Results Reviewed: Laboratory Last Values Hgb A1c (Clinic) 6.0 % (4.0-6.0) 07/29/25 12:58 Coding Level of Care Code Est Pt Level 4 (35049) Diagnoses Diabetes E11.9 Hypertension I10 Coronary artery disease I25.10 Carotid bruit R09.89 Vaginal discharge N89.8 Hand numbness R20.0 Additional Codes CHIQUITA-7 Assessment Billing - CHIQUITA-7 Assessment Tool: CHIQUITA-7 Assessment 47792 ([id number]) PHQ-9 - 66721 - PHQ-9 Billing: Yes ([id number]) Assessment & Plan Assessment & Plan (1) Diabetes: Code(s): E11.9 - Type 2 diabetes mellitus without complications Category: Medical Plan: A1c 6.0%. Good control. Goal is less than 7% Continue current medications Patient has upcoming appointment with Dr. Amezquita for an eye exam (2) Hypertension: Code(s): I10 - Essential (primary) hypertension Category: Medical Plan: Blood pressure is fairly well controlled. Goal is less than 130/80 Continue current medication regimen Will continue to monitor (3) Coronary artery disease: Code(s): I25.10 - Atherosclerotic heart disease of [place] coronary artery without angina pectoris Category: Medical Plan: Stable Patient was recently seen by her ux developer Follow-up as recommended (4) Carotid bruit: Code(s): R09.89 - Other specified symptoms and signs involving the circulatory and respiratory systems Category: Medical (5) Vaginal discharge: Code(s): N89.8 - Other specified noninflammatory disorders of vagina Category: Medical Plan: Patient notes vaginal burning and itching with some discharge Will send scripts for empiric treatment Call or return to office if worsening or not improving (6) Hand numbness: Code(s): R20.0 - Anesthesia of skin Category: Medical Plan: Bilateral hand numbness Patient also notes tingling in bilateral toes but less extensive Hand hand numbness is worse with sleeping Positive Phalen's test Likely carpal tunnel syndrome superimposed over mild neuropathy Will refer her to the hand specialist. May benefit from injection therapy Meantime, recommended she use her wrist braces Plan Cardiology noted bilateral bruit at carotids Ultrasound negative Orders: Orders AMB Hemoglobin A1c Today E11.9 - Type 2 diabetes mellitus without complications, E13.9 - Other specified diabetes mellitus without complications Referrals Hand Surgery Referral R20.0 - Anesthesia of skin Medications: New metronidazole 500 mg PO BID 14 tabs 0RF 7 days fluconazole 150 mg PO Q3D 2 tabs 0RF 2 doses Refilled empagliflozin (Jardiance) 10 mg PO DAILY 90 tabs 3RF 90 days losartan 25 mg PO DAILY 90 tabs 3RF 90 days
[2025-07-29 12:53] VITALS: BP 134/70; PULSE 82; RESP 12; TEMP 36.4; O2SAT 94; BMI 24.9
== END 2025-07-29 13:39 | disposition home or self-care (01) ==
LOC: HO.HMCFM 11:25
PROVIDERS: PCP Family Medicine; Visit Provider Family Medicine
DX: E11.9 Type 2 diabetes mellitus without complications (principal); I10 Essential (primary) hypertension; I25.10 Atherosclerotic heart disease of native coronary artery without angina pectoris; R09.89 Other specified symptoms and signs involving the circulatory and respiratory systems; N89.8 Other specified noninflammatory disorders of vagina; R20.0 Anesthesia of skin

== ENCOUNTER → 2025-07-29 11:24 | Outpatient (BNVA) | payer MEDICARE, SELFPAY | PROVIDERS: PCP Family Medicine; Visit Provider Family Medicine | DX: I10 Essential (primary) hypertension (principal); E11.9 Type 2 diabetes mellitus without complications; I25.10 Atherosclerotic heart disease of native coronary artery without angina pectoris; R09.89 Other specified symptoms and signs involving the circulatory and respiratory systems; N89.8 Other specified noninflammatory disorders of vagina; R20.0 Anesthesia of skin; Z13.31 Encounter for screening for depression; Z13.39 Encounter for screening examination for other mental health and behavioral disorders; Z79.899 Other long term (current) drug therapy | CPT/HCPCS: 83036; 96127; 99212 ==